=== PATIENT | female | born 1960 | race Two or more races ===

== ENCOUNTER 2016-07-03 07:14 | Day surgery (SDC) | payer MEDICARE, MEDICAID ==
[2016-07-03] MEDS ORDERED: PROPOFOL INJ 200 MG/20 ML VIAL IV ONE ×2 (07:21→08:46)
[2016-07-03 09:48] VITALS: BP 116/64
--- NOTE | 2016-07-03 12:41 | Operative Report ---
Operative Report DATE OF SURGERY: 07/03/16 Operative Report: The risks, benefits and alternatives of the procedure including the risks of bleeding, perforation requiring surgery are explained to the patient detail informed consent is obtained. The patient is placed in a left lateral decubital position. Timeout is called. Propofol is administered. A rectal examination was done which did not reveal any masses tears or fissures. An Olympus videoscope was inserted into the patient's rectum. Keeping the lumen in site at all times the scope is attempted to be advanced all the way to the cecum. However the patient has a very redundant colon. I was not able to intubate the cecum. It was largely an incomplete colonoscopy but I was at the area of the hepatic flexure. The prep is much better this time. However irrigation had to be used to cleanse the colon. The hepatic flexure the scope was then sequentially pulled back through the various segments of the colon including the transverse colon, splenic flexure, a very redundant descending colon. The sigmoid colon, and the rectum. Retroflexion maneuver is performed. PREOPERATIVE DIAGNOSIS: Chronic constipation, change of bowel habits. Patient has IBS constipation type POSTOPERATIVE DIAGNOSIS: Redundant colon. Incomplete colonoscopy; scope advanced only to the hepatic flexure. There is a mild right-sided inflammation status post biopsy. Internal hemorrhoids OPERATION: Colonoscopy with biopsy SURGEON: JAEL YAÑEZ ANESTHESIA: LMAC TISSUE REMOVED OR ALTERED: Right-sided colon specimens obtained COMPLICATIONS: None. ESTIMATED BLOOD LOSS: none. INTRAOPERATIVE FINDINGS: No obstruction noted. The cecum could not be visualized. Prep is better. No diverticulosis, AVMs are noted in the visualized portions of the colon. Internal hemorrhoids. PROCEDURE: Patient tolerated the procedure well. No immediate postprocedure complications are noted. She is discharged in good condition. Date of discharge 07/03/2016. Discharge activity: Regular. Discharge diet: Regular. Patient has a 2-3 week follow-up to discuss findings. She is instructed to go to emergency room to any further problems or questions. Alternatives imaging is necessary for her including an air-contrast barium enema if patient were to agree
== END 2016-07-03 09:55 | disposition home or self-care (01) ==
LOC: END 07:14
PROVIDERS: ATTEND Internal Medicine Gastroenterology
PROC: 0DBF8ZX Excision of Right Large Intestine, Via Natural or Artificial Opening Endoscopic, Diagnostic (ICD-10-PCS; principal; 2016-07-03 08:30)
DX: K52.9 Noninfective gastroenteritis and colitis, unspecified (principal); K64.8 Other hemorrhoids; Q43.8 Other specified congenital malformations of intestine; E11.9 Type 2 diabetes mellitus without complications; Z79.899 Other long term (current) drug therapy; Z79.82 Long term (current) use of aspirin
CPT/HCPCS: 45380; 82962; 88305 ×2; J2704; 810

== ENCOUNTER 2016-07-09 14:39 | Emergency (ER) | payer MEDICARE, MEDICAID ==
--- NOTE | 2016-07-09 15:09 | ER Document Report ---
ED Medical Screen (RME) - General Chief Complaint: Low Blood Sugar Stated Complaint: BLOOD SUGAR ISSUE Time seen by provider: 15:05 Mode of Arrival: Ambulatory Information source: Patient Notes: 56-year-old female with a history of gastric bypass checked her Accu-Chek at home and it went down to 44. She knows that of her glucose gets below 50 she needs to come to the emergency department. She did that Accu-Chek at 2:00 and she had lunch at 12. She feels weak and dizzy. she is drinking apple juice, and I ordered Accu-Chek to be done immediately. Hx cardiomegaly. No chest pain, sob or abd pain. TRAVEL OUTSIDE OF THE [place] IN LAST 30 DAYS: No - Related Data Allergies/Adverse Reactions: silicone [Silicone] Allergy (Intermediate, Verified 07/09/16 14:56) REDNESS, RASH carbidopa [From Sinemet] Adverse Reaction (Severe, Verified 07/09/16 14:56) Cardiac arrest levodopa [From Sinemet] Adverse Reaction (Severe, Verified 07/09/16 14:56) Cardiac arrest Past Medical History - Past Medical History Cardiac Medical History: Reports: Hx Hypercholesterolemia Denies: Hx Coronary Artery Disease, Hx Heart Attack - CARDIAC ARREST R/T DRUG REACTION(SINEMET), Hx Hypertension Pulmonary Medical History: Reports: Hx Asthma, Hx Bronchitis, Hx Pneumonia - MARCH 2015 Denies: Hx COPD Neurological Medical History: Reports: Hx Cerebrovascular Accident, Hx Seizures - UNSURE OF ETIOLOGY Endocrine Medical History: Reports: Hx Diabetes Mellitus Type 2 Renal/ Medical History: Reports: Hx Kidney Stones GI Medical History: Reports: Hx Hiatal Hernia - DX 30 YEARS AGO, Hx Ulcer - after gastric by pass, surg repaired Musculoskeltal Medical History: Reports Hx Arthritis - OSTEOARTHRITIS Psychiatric Medical History: Reports: Hx Anxiety, Hx Attention Deficit Hyperactivity Disorder, Hx Depression, Hx Post Traumatic Stress Disorder Past Surgical History: Reports: Hx Abdominal Surgery - gastric bypass, Hx Cholecystectomy, Hx Gastric Bypass Surgery, Hx Hysterectomy, Hx Orthopedic Surgery - back/spinal surgery, Hx Tubal Ligation. Denies: Hx Adenoidectomy, Hx Pacemaker - Immunizations Immunizations up to date: Yes Hx Diphtheria, Pertussis, Tetanus Vaccination: Yes - up to date within last 5 yrs Physical Exam - Vital signs Vitals: Temp Pulse Resp BP Pulse Ox 97.9 F 83 20 115/71 96 07/09/16 14:48 07/09/16 14:48 07/09/16 14:48 07/09/16 14:48 07/09/16 14:48 Course - Vital Signs Vital signs: Temp Pulse Resp BP Pulse Ox 97.9 F 83 20 115/71 96 07/09/16 14:48 07/09/16 14:48 07/09/16 14:48 07/09/16 14:48 07/09/16 14:48
--- NOTE | 2016-07-09 15:41 | ER Document Report ---
ED Blood Sugar Problem <PAULO CARVALHO - Last Filed: 07/09/16 16:55> - General Mode of Arrival: Ambulatory Information source: Patient TRAVEL OUTSIDE OF THE [place] IN LAST 30 DAYS: No - HPI Onset: Other - see narrative Onset/Duration: Persistent Quality of pain: No pain <ESTEFANI RODGERS - Last Filed: 07/09/16 18:24> - General Chief Complaint: Low Blood Sugar Stated Complaint: BLOOD SUGAR ISSUE Notes: Patient is a 56 year old female that presents to the emergency department today with complaints of a low blood glucose level. Patient states she has been having issues with a low BGL for the past few months. Patient states prior to arrival today the patient had a BGL of 44. Patient states she has had diarrhea as well. Patient states she has not missed any meals. (ESTEFANI RODGERS) - Related Data Allergies/Adverse Reactions: silicone [Silicone] Allergy (Intermediate, Verified 07/09/16 14:56) REDNESS, RASH carbidopa [From Sinemet] Adverse Reaction (Severe, Verified 07/09/16 14:56) Cardiac arrest levodopa [From Sinemet] Adverse Reaction (Severe, Verified 07/09/16 14:56) Cardiac arrest Past Medical History - General Information source: Patient - Social History Smoking Status: Unknown if Ever Smoked Cigarette use (# per day): No Frequency of alcohol use: None Drug Abuse: None Lives with: Family Family History: Reviewed & Not Pertinent Patient has suicidal ideation: No Patient has homicidal ideation: No - Past Medical History Cardiac Medical History: Reports: Hx Heart Attack - CARDIAC ARREST R/T DRUG REACTION(SINEMET), Hx Hypercholesterolemia Pulmonary Medical History: Reports: Hx Asthma, Hx Bronchitis, Hx Pneumonia - MARCH 2015 Neurological Medical History: Reports: Hx Cerebrovascular Accident, Hx Seizures - UNSURE OF ETIOLOGY Endocrine Medical History: Reports: Hx Diabetes Mellitus Type 2 Renal/ Medical History: Reports: Hx Kidney Stones GI Medical History: Reports: Hx Hiatal Hernia - DX 30 YEARS AGO, Hx Ulcer - after gastric by pass, surg repaired Musculoskeltal Medical History: Reports Hx Arthritis - OSTEOARTHRITIS Psychiatric Medical History: Reports: Hx Anxiety, Hx Attention Deficit Hyperactivity Disorder, Hx Depression, Hx Post Traumatic Stress Disorder Past Surgical History: Reports: Hx Abdominal Surgery - gastric bypass, Hx Cholecystectomy, Hx Gastric Bypass Surgery, Hx Hysterectomy, Hx Orthopedic Surgery - back/spinal surgery, Hx Tubal Ligation - Immunizations Immunizations up to date: Yes Hx Diphtheria, Pertussis, Tetanus Vaccination: Yes - up to date within last 5 yrs Hx Pneumococcal Vaccination: 03/31/14 <ESTEFANI RODGERS - Last Filed: 07/09/16 18:24> Review of Systems - Review of Systems Constitutional: See HPI, Other - low BGL EENT: No symptoms reported Cardiovascular: No symptoms reported Respiratory: No symptoms reported Gastrointestinal: See HPI, Diarrhea Genitourinary: No symptoms reported Female Genitourinary: No symptoms reported Musculoskeletal: No symptoms reported Skin: No symptoms reported Hematologic/Lymphatic: No symptoms reported Neurological/Psychological: No symptoms reported -: Yes All other systems reviewed and negative <ESTEFANI RODGERS - Last Filed: 07/09/16 18:24> Physical Exam - General General appearance: Appears well In distress: None - HEENT Head: Normocephalic, Atraumatic Eyes: Normal Extraocular movements intact: Yes - Respiratory Respiratory status: No respiratory distress Chest status: Nontender Breath sounds: Normal - Cardiovascular Rhythm: Regular Heart sounds: Normal auscultation Murmur: No - Abdominal Inspection: Obese - Back Back: Normal, Nontender - Extremities General upper extremity: Normal inspection, Nontender. No: Edema General lower extremity: Normal inspection, Nontender. No: Edema - Neurological Neuro grossly intact: Yes Cognition: Normal Speech: Normal - Psychological Associated symptoms: Depressed - Skin Skin Temperature: Warm Skin Moisture: Dry Skin Color: Normal <ESTEFANI RODGERS - Last Filed: 07/09/16 18:24> - Vital signs Vitals: Temp Pulse Resp BP Pulse Ox 97.9 F 83 20 115/71 96 07/09/16 14:48 07/09/16 14:48 07/09/16 14:48 07/09/16 14:48 07/09/16 14:48 (PAULO CARVALHO) (ESTEFANI RODGERS) Course - Laboratory Result Diagrams: 07/09/16 15:55 07/09/16 15:55 <PAULO CARVALHO - Last Filed: 07/09/16 16:55> - Laboratory Result Diagrams: 07/09/16 15:55 07/09/16 15:55 <ESTEFANI RODGERS - Last Filed: 07/09/16 18:24> - Vital Signs Vital signs: Temp Pulse Resp BP Pulse Ox 98.4 F 78 14 109/66 95 07/09/16 17:26 07/09/16 17:26 07/09/16 17:26 07/09/16 17:26 07/09/16 17:26 (PAULO CARVALHO) (ESTEFANI RODGERS) - Laboratory Laboratory results interpreted by me: 07/09/16 07/09/16 07/09/16 15:55 15:55 15:55 RDW 14.8 H Seg Neutrophils % 80.2 H Lymphocytes % 11.0 L Creatinine 0.51 L Glucose 173 H AST 38 H Creatine Kinase 29 L Urine Urobilinogen 2.0 H Ur Leukocyte Esterase TRACE H (PAULO CARVALHO) Scribe Documentation - Scribe acting as scribe for :: Paras <ESTEFANI RODGERS - Last Filed: 07/09/16 18:24> - Scribe Written by Scribe:: JESSICA PAINTING 07/09/16 1821 (ESTEFANI RODGERS)
[2016-07-09 16:04] LABS: ABSOLUTE EOSINOPHILS # (AUTO) 0.2 10^3/uL (0.0-0.6); ABSOLUTE LYMPHOCYTES (AUTO) 0.9 10^3/uL (0.5-4.7); ABSOLUTE MONOCYTES (AUTO) 0.5 10^3/uL (0.1-1.4); ABSOLUTE NEUT (AUTO) 6.4 10^3/uL (1.7-8.2); BASOPHILS % (AUTO) 0.3 % (0-2); HEMATOCRIT 36.2 % (36.0-47.0); HEMOGLOBIN 12.2 g/dL (12.0-15.5); HGB HCT DIFFERENCE 0.4; MEAN CORPUSCULAR HGB CONC 33.7 g/dL (32.0-36.0); MEAN CORPUSCULAR VOLUME 89 fl (80-97); MONOCYTES % (AUTO) 6.5 % (3-13); RED BLOOD COUNT 4.07 10^6/uL (3.72-5.28); RED CELL DISTRIBUTION WIDTH 14.8 % (11.5-14.0); SEGMENTED NEUTROPHILS % (AUTO) 80.2 % (42-78)
[2016-07-09 16:17] LABS: APPEARANCE,URINE CLOUDY; BILIRUBIN,URINE NEGATIVE (NEGATIVE); CALCIUM OXALATE CRYSTALS,URINE TOO NUMEROUS TO CNT /HPF; GLUCOSE, URINE NEGATIVE (NEGATIVE); KETONES,URINE NEGATIVE (NEGATIVE); LEUKOCYTE ESTERASE,URINE TRACE (NEGATIVE); NITRITE,URINE NEGATIVE (NEGATIVE); PROTEIN,URINE NEGATIVE (NEGATIVE); URINE SPECIFIC GRAVITY 1.019
[2016-07-09 16:21] LABS: ALANINE AMINOTRANSFERASE 49 U/L (9-52); ALKALINE PHOSPHATASE 63 U/L (38-126); ANION GAP 12 (5-19); ASPARTATE AMINO TRANSFERASE 38 U/L (14-36); BILIRUBIN,TOTAL 0.2 mg/dL (0.2-1.3); BLOOD UREA NITROGEN 14 mg/dL (7-20); CALCIUM 9.2 mg/dL (8.4-10.2); CARBON DIOXIDE 22 mmol/L (22-30); CHLORIDE 104 mmol/L (98-107); CREATINE KINASE 29 U/L (30-135); CREATININE RESULT 0.51 mg/dL (0.52-1.25); GLUCOSE 173 mg/dL (75-110); POTASSIUM 4.5 mmol/L (3.6-5.0); SODIUM 137.9 mmol/L (137-145); TOTAL PROTEIN 6.6 g/dL (6.3-8.2)
[2016-07-09 16:45] LABS: CREATINE KINASE MB 0.24 ng/mL (<4.55); TROPONIN I < 0.012 ng/mL
[2016-07-09 17:28] VITALS: BP 109/66
== END 2016-07-09 17:20 | disposition home or self-care (01) ==
LOC: ER 14:39
DX: E11.649 Type 2 diabetes mellitus with hypoglycemia without coma (principal); R19.7 Diarrhea, unspecified; F32.9 Major depressive disorder, single episode, unspecified; I25.2 Old myocardial infarction; J45.909 Unspecified asthma, uncomplicated; Z86.73 Personal history of transient ischemic attack (TIA), and cerebral infarction without residual deficits; Z88.8 Allergy status to other drugs, medicaments and biological substances
CPT/HCPCS: 36415; 80053; 81001; 82550; 82553; 82962; 84484; 85025; 87086; 87088; 87186; 99285

== ENCOUNTER 2016-11-26 10:10 | Inpatient (IN) | payer MEDICAID, MEDICARE ==
--- NOTE | 2016-11-26 10:33 | RADIOLOGY REPORT (SQ) ---
EXAM DESCRIPTION: CHEST SINGLE VIEW COMPLETED DATE/TIME: 11/26/2016 10:22 am REASON FOR STUDY: bed t2 srtoke alert COMPARISON: 04/02/2016 EXAM PARAMETERS: NUMBER OF VIEWS: One view. TECHNIQUE: Single frontal radiographic view of the chest acquired. RADIATION DOSE: NA LIMITATIONS: None. FINDINGS: LUNGS AND PLEURA: Lung volumes low. No acute pulmonary infiltrate or pleural effusion is seen. MEDIASTINUM AND HILAR STRUCTURES: No masses. Contour normal. HEART AND VASCULAR STRUCTURES: Heart normal in size. Normal vasculature. BONES: No acute findings. HARDWARE: None in the chest. OTHER: No other significant finding. IMPRESSION: Poor inspiratory effort. No acute pulmonary disease is seen. TECHNICAL DOCUMENTATION: JOB ID: [id number]
[2016-11-26 10:40] LABS: MEAN CORPUSCULAR HEMOGLOBIN 30.3 pg (27.0-33.4); MEAN CORPUSCULAR HGB CONC 33.4 g/dL (32.0-36.0); MEAN CORPUSCULAR VOLUME 91 fl (80-97); RED BLOOD COUNT 4.28 10^6/uL (3.72-5.28); RED CELL DISTRIBUTION WIDTH 14.8 % (11.5-14.0); WHITE BLOOD COUNT 8.7 10^3/uL (4.0-10.5)
[2016-11-26 10:41] LABS: PROTHROMBIN TIME 13.1 SEC (11.4-15.4)
[2016-11-26] MEDS ORDERED: BENZTROPINE MESYLATE INJ 2 MG/2 ML AMPULE IM ONE (10:41)
[2016-11-26] MEDS ORDERED: NORMAL SALINE 1000 ML 1,000 ML IV ONE (10:41)
--- NOTE | 2016-11-26 10:42 | RADIOLOGY REPORT (SQ) ---
EXAM DESCRIPTION: CT HEAD WITHOUT COMPLETED DATE/TIME: 11/26/2016 10:18 am REASON FOR STUDY: bed t2 srtoke alert COMPARISON: None. TECHNIQUE: Axial images acquired through the brain without intravenous contrast. Images reviewed wi th bone, brain and subdural windows. Images stored on PACS. All CT scanners at this facility use dose modulation, iterative reconstruction, and/or weight based d osing when appropriate to reduce radiation dose to as low as reasonably achievable (ALARA). [facility]: Dose Right [facility]: CareDose [facility]: Dose Right [facility]: Teradose 4D [facility]: Polyvore RADIATION DOSE: 62.55 mGy. LIMITATIONS: None. FINDINGS: VENTRICLES: Normal size and contour. CEREBRUM: No masses. No hemorrhage. No midline shift. Normal sears/white matter differentiation. N o evidence for acute infarction. CEREBELLUM: No masses. No hemorrhage. No alteration of density. No evidence for acute infarction. EXTRAAXIAL SPACES: No fluid collections. No masses. ORBITS AND GLOBE: No intra- or extraconal masses. Normal contour of globe without masses. CALVARIUM: No fracture. PARANASAL SINUSES: No fluid or mucosal thickening. SOFT TISSUES: No mass or hematoma. OTHER: No other significant finding. IMPRESSION: NORMAL BRAIN CT WITHOUT CONTRAST. COMMENT: Report discussed with emergency room physician at 1035 hours on this date. TECHNICAL DOCUMENTATION: JOB ID: [id number] Quality ID # [id number]: Final reports with documentation of one or more dose reduction techniques (e.g., Au tomated exposure control, adjustment of the mA and/or kV according to patient size, use of iterative reconstruction technique) 2010 [employer]- All Rights Reserved
[2016-11-26 10:43] LABS: PARTIAL THROMBOPLASTIN TIME 26.9 SEC (23.5-35.8)
--- NOTE | 2016-11-26 10:47 | ER Document Report ---
ED General - General Stated Complaint: POSSIBLE STROKE Time Seen by Provider: 11/26/16 10:20 TRAVEL OUTSIDE OF THE [place] IN LAST 30 DAYS: No - HPI Patient complains to provider of: Right-sided weakness Notes: Patient is coming in for evaluation of right-sided weakness. According to family members patient look at 5:00 this morning with her undergo a breathing treatment however workup around 945 and was found to have some right-sided weakness therefore transported to the ER for further evaluation. Patient is having right facial droop right upper extremity or lower extremity weakness. Patient claims past medical charts has a history of CVA in the past Parkinson' s disease however this time family member at bedside denies. States right- sided symptoms numbness tingling ongoing for greater than a week. States made no changes in patient's medication. Currently we do not have access to the patient's medication list. States no trauma no fevers no chills. Upon evaluation patient has her eyes closed will open them on command will answer questions. - Related Data Allergies/Adverse Reactions: silicone [Silicone] Allergy (Intermediate, Verified 07/09/16 14:56) REDNESS, RASH carbidopa [From Sinemet] Adverse Reaction (Severe, Verified 07/09/16 14:56) Cardiac arrest levodopa [From Sinemet] Adverse Reaction (Severe, Verified 07/09/16 14:56) Cardiac arrest Home Medications: Current Home Medications Albuterol Sulfate [Ventolin 0.083% Neb 2.5 mg/3 mL Ampul] 3 ml NEB [id number] PRN [History] Albuterol Sulfate [Ventolin Hfa] 2 puff IH Q12 11/26/16 [History] Amitriptyline HCl [Elavil 100 mg Tablet] 100 mg PO QHS 11/26/16 [History] Aspirin [Adult Low Dose Aspirin EC] 81 mg PO QHS 11/26/16 [History] Cholecalciferol (Vitamin D3) [Vitamin D3 2000 unit Tablet] 2,000 unit PO DAILY 11/26/16 [History] Cyanocobalamin (Vitamin B-12) [Vitamin B-12 Inj 1000 Mcg/1 ml Vial] 1 ml IM Q28D 11/26/16 [History] Diazepam [Valium 5 mg Tablet] 5 mg PO TIDP PRN 11/26/16 [History] Diclofenac Sodium [Voltaren] 4 gm TOP QID 11/26/16 [History] Esomeprazole Mag Trihydrate [Nexium] 40 mg PO QAM 11/26/16 [History] Fluoxetine HCl [Prozac] 80 mg PO QAM 11/26/16 [History] Fluticasone/Salmeterol [Advair 250-50 Diskus 14 Dose/Diskus] 1 puff IH Q12 11/26 [History] Lidocaine [Lidoderm 5% (700 mg) Transdermal Patch] 3 patch TD QHS 11/26/16 [ History] Melatonin/Pyridoxine [Melatonin 3 mg Tablet] 9 mg PO QHS 11/26/16 [History] Methylphenidate HCl [Ritalin] 10 mg PO QAM 11/26/16 [History] Mometasone Furoate [Nasonex] 2 spray NASL BID 11/26/16 [History] Mupirocin [Bactroban 2% Ointment 22 gm] 1 applic TOP TID 11/26/16 [History] Nystatin [Mycostatin Topical Powder 15 gm] 1 applic TOP QID 11/26/16 [History] Polyethylene Glycol 3350 [Miralax Powder 17 gm/Packet] 17 gm PO TID 11/26/16 [ History] Sucralfate [Carafate Susp 1 gm/10 ml Udcup] 10 ml PO MEALSHS 11/26/16 [History] Thiamine HCl [Thiamine 100 mg Tablet] 100 mg PO WLUNCH 11/26/16 [History] Trazodone HCl [Desyrel] 100 mg PO QHS 11/26/16 [History] Past Medical History - Social History Smoking Status: Unknown if Ever Smoked Family History: Reviewed & Not Pertinent - Past Medical History Cardiac Medical History: Reports: Hx Heart Attack - CARDIAC ARREST R/T DRUG REACTION(SINEMET), Hx Hypercholesterolemia Denies: Hx Coronary Artery Disease, Hx Hypertension Pulmonary Medical History: Reports: Hx Asthma, Hx Bronchitis, Hx Pneumonia - MARCH 2015 Denies: Hx COPD Neurological Medical History: Reports: Hx Cerebrovascular Accident, Hx Seizures - UNSURE OF ETIOLOGY Endocrine Medical History: Reports: Hx Diabetes Mellitus Type 2 Renal/ Medical History: Reports: Hx Kidney Stones GI Medical History: Reports: Hx Hiatal Hernia - DX 30 YEARS AGO, Hx Ulcer - after gastric by pass, surg repaired Musculoskeltal Medical History: Reports Hx Arthritis - OSTEOARTHRITIS Psychiatric Medical History: Reports: Hx Anxiety, Hx Attention Deficit Hyperactivity Disorder, Hx Depression, Hx Post Traumatic Stress Disorder Past Surgical History: Reports: Hx Abdominal Surgery - gastric bypass, Hx Cholecystectomy, Hx Gastric Bypass Surgery, Hx Hysterectomy, Hx Orthopedic Surgery - back/spinal surgery, Hx Tubal Ligation. Denies: Hx Adenoidectomy, Hx Pacemaker - Immunizations Immunizations up to date: Yes Hx Diphtheria, Pertussis, Tetanus Vaccination: Yes - up to date within last 5 yrs Hx Pneumococcal Vaccination: 03/31/14 Review of Systems - Review of Systems Constitutional: No symptoms reported EENT: No symptoms reported Cardiovascular: No symptoms reported Respiratory: No symptoms reported Gastrointestinal: No symptoms reported Genitourinary: No symptoms reported Female Genitourinary: No symptoms reported Musculoskeletal: Other - Right sided weakness Skin: No symptoms reported Hematologic/Lymphatic: No symptoms reported Neurological/Psychological: No symptoms reported -: Yes All other systems reviewed and negative Physical Exam - Vital signs Vitals: Pulse Resp BP Pulse Ox 78 21 H 136/85 H 94 11/26/16 10:15 11/26/16 10:15 11/26/16 10:15 11/26/16 10:15 Interpretation: Normal - General General appearance: Appears well, Alert - HEENT Head: Normocephalic, Atraumatic Eyes: Normal Pupils: PERRL - Respiratory Respiratory status: No respiratory distress Chest status: Nontender Breath sounds: Normal Chest palpation: Normal - Cardiovascular Rhythm: Regular Heart sounds: Normal auscultation Murmur: No - Abdominal Inspection: Normal Distension: No distension Bowel sounds: Normal Tenderness: Nontender Organomegaly: No organomegaly - Back Back: Normal, Nontender - Extremities General upper extremity: Normal inspection, Nontender, Normal color, Normal ROM , Normal temperature General lower extremity: Normal inspection, Nontender, Normal color, Normal ROM , Normal temperature, Normal weight bearing. No: Guido's sign - Neurological Neuro grossly intact: Yes Cognition: Normal [place] Coma Scale Eye Opening: Spontaneous [place] Coma Scale Verbal: Oriented [place] Coma Scale Motor: Obeys Commands [place] Coma Scale Total: 15 Speech: Normal Motor strength normal: LUE, RUE, LLE, RLE Sensory: Normal Notes: Patient's neurological exam does have some inconsistencies. Patient is able to close both her eyes very tightly which will cause her eyebrows to go down however when asked to open her eyes patient will not open her right eye patient does resist opening this when I apply my fingers to open the parotid. Patient also states she is unable to raise her eyebrow however she is able to move it. Patient is able speak however states she is unable to stick out her tongue. Patient is able to smile and there is a symmetry of her smile on the right side. Initially testing motor strength patient is able to hold her left arm up patient's right arm initially follows with some resistance to gravity to the bed on the second attempt patient's arm becomes flaccid and frustrated that. Patient does not feel any pain or sensation on the right lower extremity unable to support the bed patient is unable to hold this up in the air. When pushing the end of the wooden Q-tips into her foot on the right side patient states she cannot feel however the patient screams when I did this to the left side. - Psychological Associated symptoms: Normal affect, Normal mood - Skin Skin Temperature: Warm Skin Moisture: Dry Skin Color: Normal Course - Re-evaluation Re-evalutation: 11/26/16 10:47 Patient has presented before to the ER for possible stroke and was found to have a dystonic reaction. We will give the patient some Cogentin. CT of the head reveals no current pathology and also no signs of old stroke. Patient symptoms ongoing greater than 4 hours out of the window for any thrombolytics. I did explain this to the patient and family members at bedside. Also patient will not be a candidate that she awoke with symptoms. - Vital Signs Vital signs: Temp Pulse Resp BP Pulse Ox 99.4 F 70 16 127/76 H 93 11/26/16 15:59 11/26/16 15:59 11/26/16 15:59 11/26/16 15:59 11/26/16 15:59 - Laboratory Result Diagrams: 11/26/16 10:25 11/26/16 11:28 Laboratory results interpreted by me: 11/26/16 11/26/16 11/26/16 10:25 11:28 12:15 RDW 14.8 H Eosinophils % (Manual) 7 H Creatinine 0.42 L AST 41 H ALT 92 H Ur Leukocyte Esterase TRACE H Critical Care Note - Critical Care Note Total time excluding time spent on procedures (mins): 35 Comments: Multiple evaluations for possible stroke Discharge - Discharge Clinical Impression: History of gastric bypass, Weakness of right upper extremity, Weakness of right lower extremity Diabetes Qualifiers: Diabetes mellitus complication status: with unspecified complications Diabetes mellitus forecast analyst insulin use: unspecified forecast analyst insulin use status Admitting Provider: Joey Ledesma Unit Admitted: Telemetry
[2016-11-26 11:08] LABS: BASOPHILS % (MANUAL) 0 % (0-2); EOSINOPHILS % (MANUAL) 7 % (0-6); LYMPHOCYTES % (MANUAL) 15 % (13-45); TOTAL CELLS COUNTED 100
[2016-11-26 11:11] LABS: RBC MORPHOLOGY COMMENT NORMO-CYTIC/CHROMIC
[2016-11-26 11:56] LABS: ALANINE AMINOTRANSFERASE 92 U/L (9-52); ALBUMIN 3.7 g/dL (3.5-5.0); ALKALINE PHOSPHATASE 80 U/L (38-126); ANION GAP 9 (5-19); ASPARTATE AMINO TRANSFERASE 41 U/L (14-36); BILIRUBIN,DIRECT 0.2 mg/dL (0.0-0.4); BILIRUBIN,TOTAL 0.4 mg/dL (0.2-1.3); BLOOD UREA NITROGEN 13 mg/dL (7-20); CALCIUM 9.1 mg/dL (8.4-10.2); CARBON DIOXIDE 25 mmol/L (22-30); CHLORIDE 105 mmol/L (98-107); CREATINE KINASE 30 U/L (30-135); CREATININE RESULT 0.42 mg/dL (0.52-1.25); GLUCOSE 93 mg/dL (75-110); POTASSIUM 4.5 mmol/L (3.6-5.0); SODIUM 139.1 mmol/L (137-145); TOTAL PROTEIN 6.8 g/dL (6.3-8.2)
[2016-11-26 12:06] LABS: CREATINE KINASE MB 0.79 ng/mL (<4.55)
[2016-11-26 12:14] LABS: TROPONIN I < 0.012 ng/mL
[2016-11-26 12:34] LABS: APPEARANCE,URINE CLEAR; BILIRUBIN,URINE NEGATIVE (NEGATIVE); GLUCOSE, URINE NEGATIVE (NEGATIVE); KETONES,URINE NEGATIVE (NEGATIVE); LEUKOCYTE ESTERASE,URINE TRACE (NEGATIVE); NITRITE,URINE NEGATIVE (NEGATIVE); PROTEIN,URINE NEGATIVE (NEGATIVE); URINE SPECIFIC GRAVITY 1.018; UROBILINOGEN,URINE NEGATIVE mg/dL (<2.0)
[2016-11-26] MEDS ORDERED: ACETAMINOPHEN 325 MG TABLET PO PRN (13:55)
[2016-11-26] MEDS ORDERED: DEXTROSE 40% GEL 15 GM TUBE PO PRN ×2 (13:55)
[2016-11-26] MEDS ORDERED: DEXTROSE 5%-1/2 NORMAL SALINE 1,000 ML IV PRN (13:55)
[2016-11-26] MEDS ORDERED: GLUCAGON,HUMAN RECOMB 1 MG INJ SUBCUT PRN (13:55)
[2016-11-26] MEDS ORDERED: DEXTROSE 50%-WATER 25 GM/50 ML DISP.SYRIN IV PRN ×2 (13:55)
[2016-11-26] MEDS ORDERED: HYDRALAZINE HCL INJ/PF 20 MG/1 ML SDV IV PRN (14:02)
[2016-11-26] MEDS ORDERED: INSULIN LISPRO 100 UNIT/ML 3 ML VIAL SUBCUT PRN (14:18)
--- NOTE | 2016-11-26 14:21 | PDOC H&P ---
History of Present Illness Admission Date/PCP: 11/26/16 12:59 ELIZABETH ROMERO DO Neurologist-Dr. Wray Psychiatrist-Dr. Ortiz Patient complains of: Weakness History of Present Illness: THERESA MEJIA is a 56 year old female with past medical history of stroke , fibromyalgia, PTSD presents with onset this morning of right-sided weakness and numbness. She has had some numbness in her right side for the past 2 weeks. This morning she was unable to get out of bed and called EMS to be transported to the emergency department for evaluation. Patient normally resides with her friend Jeanna who has to look after patient's medications at baseline. Apparently patient cannot manage her own medications secondary to mental health issues. Patient has 3 living children that are estranged from her for various reasons she states because they call her a "drug addict". She denies drug use. Patient states that several of her psychiatric medicines were decreased a couple weeks ago secondary to oversedation. Medications listed below have not been verified. Past Medical History Cardiac Medical History: Reports: Myocardial Infarction - CARDIAC ARREST R/T DRUG REACTION(SINEMET), Hyperlipidema Denies: Coronary Artery Disease, Hypertension Pulmonary Medical History: Reports: Asthma, Bronchitis, Pneumonia - MARCH 2015 , Sleep Apnea - On home CPAP Denies: Chronic Obstructive Pulmonary Disease (COPD) Neurological Medical History: Reports: Ischemic CVA, Migraine, Seizures - UNSURE OF ETIOLOGY, Other - Wernicke's, Parkinson's, fibromyalgia Endocrine Medical History: Reports: Diabetes Mellitus Type 2 GI Medical History: Reports: Hiatal Hernia - DX 30 YEARS AGO Musculoskeltal Medical History: Reports: Arthritis - OSTEOARTHRITIS, Fibromyalgia Psychiatric Medical History: Reports: Attention Deficit Hyperactivity Disorder, Depression, Post Traumatic Stress Disorder Hematology: Reports: Anemia - IRON INFUSIONS Past Surgical History Past Surgical History: Reports: Cholecystectomy, Gastric Bypass Surgery, Hysterectomy, Orthopedic Surgery - back/spinal surgery, Tubal Ligation Denies: Adenoidectomy, Pacemaker Social History Information Source: Patient Lives with: Friend Smoking Status: Unknown if Ever Smoked Frequency of Alcohol Use: None Hx Recreational Drug Use: No Drugs: None Hx Prescription Drug Abuse: No - Advance Directive Resuscitation Status: Full Code Surrogate healthcare decision maker:: Jeanna Dougherty Family History Family History: Other - Dementia, psychiatric illness Parental Family History Reviewed: Yes Children Family History Reviewed: Yes Sibling(s) Family History Reviewed.: Yes Medication/Allergy Allergies/Adverse Reactions: silicone [Silicone] Allergy (Intermediate, Verified 07/09/16 14:56) REDNESS, RASH carbidopa [From Sinemet] Adverse Reaction (Severe, Verified 07/09/16 14:56) Cardiac arrest levodopa [From Sinemet] Adverse Reaction (Severe, Verified 07/09/16 14:56) Cardiac arrest Review of Systems Constitutional: PRESENT: fatigue, weakness. ABSENT: chills, fever(s), headache( s), weight gain, weight loss Eyes: ABSENT: visual disturbances Ears: ABSENT: hearing changes Nose, Mouth, and Throat: PRESENT: headache(s) Cardiovascular: ABSENT: chest pain, dyspnea on exertion, edema, orthropnea, palpitations Respiratory: ABSENT: cough, hemoptysis Gastrointestinal: ABSENT: abdominal pain, constipation, diarrhea, hematemesis, hematochezia, nausea, vomiting Genitourinary: ABSENT: dysuria, hematuria Musculoskeletal: ABSENT: joint swelling Integumentary: ABSENT: rash, wounds Neurological: PRESENT: abnormal gait, abnormal speech, dizziness, focal weakness - Right arm and right leg, memory loss, numbness, paresthesias, tingling. ABSENT: confusion, syncope Psychiatric: PRESENT: anxiety, depression. ABSENT: homidical ideation, suicidal ideation Endocrine: ABSENT: cold intolerance, heat intolerance, polydipsia, polyuria Hematologic/Lymphatic: ABSENT: easy bleeding, easy bruising Physical Exam Vital Signs: Temp Pulse Resp BP Pulse Ox 75 17 122/75 92 11/26/16 12:00 11/26/16 13:01 11/26/16 13:01 11/26/16 12:01 PHYSICAL EXAM: GENERAL: Depressed appearing, initially acting unresponsive until I said something that she did not agree with that and she verbalized clearly HEENT: Normocephalic, no scleral icterus, conjunctiva clear, EOEM intact, PERRLA , moist mucous membranes NECK: trachea midline, no thyromegally RESPIRATORY: Clear to auscultation, no wheezes/rhonchi CARDIAC: Regular rate and rhythm, no murmur/lanette/rub ABDOMEN: Soft, no distension, no tenderness, no guarding, normal bowel sounds, negative West sign RECTAL: deferred : deferred EXTREMITIES: No edema, cyanosis, clubbing MUSCULOSKELETAL: No joint swelling or deformity VASCULAR: normal peripheral pulses NEUROLOGIC: Sedated, oriented 3, cranial nerves intact, dense weakness in right arm and right leg during exam however when I let go of patient's arm suddenly she lowers it to the bed gradually indicating neurologic tone. SKIN: No rash, no wounds, no worrisome skin lesions PSYCHIATRIC: Depressed mood, unusual affect Results Impressions: Chest X-Ray 11/26/16 10:11 IMPRESSION: Poor inspiratory effort. No acute pulmonary disease is seen. Head CT 11/26/16 10:11 IMPRESSION: NORMAL BRAIN CT WITHOUT CONTRAST. Assessment & Plan - Diagnosis (1) TIA (transient ischemic attack) Is this a current diagnosis for this admission?: YesPlan: It is unclear if patient is actually having an acute neurologic event or if she has psychiatric illness or both. We will place patient in observation status on telemetry monitoring and do standard TIA workup. Start aspirin. Check lipid panel. Check MRI of the brain. Check carotid Dopplers. Have physical therapy and occupational therapy evaluate. (2) Affective disorder Is this a current diagnosis for this admission?: YesPlan: Patient psychiatrist Dr. Ortiz recently decreased multiple medications secondary to oversedation. Patient still seems somewhat sedate. She will need to follow-up with psychiatry after discharge. We will verify home medications and resume for now. (3) Obstructive sleep apnea Is this a current diagnosis for this admission?: YesPlan: Patient to use home CPAP (4) Diabetes Qualifiers: Diabetes mellitus complication status: with unspecified complications Diabetes mellitus extermination inspector insulin use: unspecified retirement insulin use status Is this a current diagnosis for this admission?: YesPlan: Sliding scale insulin. Check hemoglobin A1c. Verify home medications. (5) History of gastric bypass Is this a current diagnosis for this admission?: Yes - Time Time Spent: Greater than 70 Minutes Medications reviewed and adjusted accordingly: No - Medication reconciliation performed prior to this dictation
[2016-11-26] MEDS ORDERED: ENOXAPARIN SODIUM INJ 40 MG/0.4 ML DISP.SYRIN SUBCUT ONE (15:00)
[2016-11-26 15:13] LABS: URINE BARBITURATES SCREEN NEGATIVE; URINE METHADONE SCREEN NEGATIVE; URINE OPIATES LOW NEGATIVE; URINE PHENCYCLIDINE SCREEN NEGATIVE
[2016-11-26] MEDS: 1/2 NORMAL SALINE 1,000 ML IV PRN (16:51)
[2016-11-26] MEDS ORDERED: ONDANSETRON HCL INJ/PF 4 MG/2 ML SDV IV PRN (18:25)
[2016-11-26] MEDS: KETOROLAC TROMETHAMINE INJ/PF 30 MG/1 ML SDV IV PRN (18:47)
--- NOTE | 2016-11-26 20:38 | RADIOLOGY REPORT (SQ) ---
EXAM DESCRIPTION: MRI HEAD WITHOUT COMPLETED DATE/TIME: 11/26/2016 7:57 pm REASON FOR STUDY: TIA E11.59 TYPE 2 DIABETES MELLITUS WITH OTH CIRCULATORY COMPLIC COMPARISON: 11/26/2016 TECHNIQUE: Multiplanar imaging includes non-contrasted T1, T2, FLAIR, and Diffusion with ADC map seq uences. Images stored on PACS. LIMITATIONS: None. FINDINGS: ANATOMY: No anomalies. Normal vascular flow voids. Pituitary fossa normal. CSF SPACES: Normal in size and contour. No hemorrhage. CEREBRUM: There are high-signal intensity lesions scattered throughout the white matter on FLAIR imag ing with distribution suggesting chronic micro-vascular ischemic change. Sulci and gyri normal in si ze and contour. No evidence of hemorrhage, mass or extraaxial fluid collection. POSTERIOR FOSSA: No signal alteration. No hemorrhage. No edema, masses or mass effect. Internal lyssa tory canals, cerebello-pontine angles, mastoids normal. DIFFUSION: Negative for acute or sub-acute infarction. ORBITS: No masses. Globes normal. PARANASAL SINUSES: No fluid levels. Mucosa normal. OTHER: No other significant finding. IMPRESSION: MINIMAL MICROVASCULAR ISCHEMIC CHANGE. OTHERWISE NORMAL STUDY. TECHNICAL DOCUMENTATION: JOB ID: [id number] [employer]- All Rights Reserved
--- NOTE | 2016-11-27 00:27 | EKG REPORT ---
SEVERITY:- NORMAL ECG - SINUS RHYTHM : Confirmed by: Deyvi Sandhu 27-Nov-2016 00:26:09
[2016-11-27] MEDS: KETOROLAC TROMETHAMINE INJ/PF 30 MG/1 ML SDV IV PRN ×2 (02:41→13:16)
[2016-11-27] MEDS: 1/2 NORMAL SALINE 1,000 ML IV PRN (05:18)
[2016-11-27 06:40] LABS: CHOLESTEROL 223.66 mg/dL (0-200); Direct HDL 59 mg/dL (>40); TRIGLYCERIDES 90 mg/dL (<150)
[2016-11-27 06:51] LABS: DIRECT LDL 120 mg/dL (<100)
[2016-11-27] MEDS: ENOXAPARIN SODIUM INJ 40 MG/0.4 ML DISP.SYRIN SUBCUT SCH (09:20)
--- NOTE | 2016-11-27 09:42 | RADIOLOGY REPORT (SQ) ---
EXAM DESCRIPTION: CAROTID DOPPLER COMPLETED DATE/TIME: 11/27/2016 8:54 am REASON FOR STUDY: TIA E11.59 TYPE 2 DIABETES MELLITUS WITH OTH CIRCULATORY COMPLIC COMPARISON: MRI brain 11/26/2016 CT brain 11/26/2016 TECHNIQUE: Grayscale ultrasound, Doppler velocity and spectra, and color Doppler images acquired of the extra-cranial carotid and vertebral arteries. Images stored on PACS. LIMITATIONS: None. FINDINGS: RIGHT CAROTID CCA Velocities: Within normal limits. ICA Velocities Peak systolic 0.63 m/s. End diastolic 0.18 m/s. Proximal ICA/CCA peak systolic ratio 1.3. Spectra normal. No significant plaque. LEFT CAROTID CCA Velocities: Within normal limits. ICA Velocities Peak systolic 0.63 m/s. End diastolic 0.22 m/s. Proximal ICA/CCA peak systolic ratio 1.4. Spectra normal. No significant plaque. VERTEBRAL ARTERIES: Antegrade flow. Normal waveforms. SUBCLAVIAN ARTERIES: Not evaluated OTHER: No other significant finding. IMPRESSION: NO HEMODYNAMICALLY SIGNIFICANT STENOSIS. COMMENT: Quality ID #[id number]: Velocity criteria are extrapolated from the diameter data as defined by t he Society of Radiologists in Ultrasound Consensus Conference. Radiology 2003: 229; 340-346. TECHNICAL DOCUMENTATION: JOB ID: [id number] [employer]- All Rights Reserved
[2016-11-27] MEDS ORDERED: ASPIRIN 300 MG SUPP, RECTAL PR SCH (10:00)
[2016-11-27] MEDS ORDERED: ASPIRIN 325 MG TABLET, ENT COATED PO SCH (10:00)
--- NOTE | 2016-11-27 14:11 | PDOC PROGRESS REPORT ---
Physical Exam Vital Signs: Temp Pulse Resp BP Pulse Ox 98.1 F 65 16 121/58 L 92 11/27/16 07:21 11/27/16 08:00 11/27/16 08:00 11/27/16 08:00 11/27/16 08:00 Intake & Output 11/26/16 11/27/16 11/28/16 06:59 06:59 06:59 Intake Total 798 Output Total 2075 Balance -1277 Weight 109.2 kg 109.2 kg Results Laboratory Results: 11/27/16 05:48 Triglycerides 90 Cholesterol 223.66 H LDL Cholesterol Direct 120 H VLDL Cholesterol 18.0 HDL Cholesterol 59 Impressions: Head MRI 11/26/16 00:00 IMPRESSION: MINIMAL MICROVASCULAR ISCHEMIC CHANGE. OTHERWISE NORMAL STUDY. Chest X-Ray 11/26/16 10:11 IMPRESSION: Poor inspiratory effort. No acute pulmonary disease is seen. Head CT 11/26/16 10:11 IMPRESSION: NORMAL BRAIN CT WITHOUT CONTRAST. Carotid Doppler Study 11/27/16 00:00 IMPRESSION: NO HEMODYNAMICALLY SIGNIFICANT STENOSIS. Assessment & Plan - Diagnosis (1) Conversion disorder Is this a current diagnosis for this admission?: YesPlan: I will continue to try and call Dr. Boris Ortiz psychiatry in [facility] ([phone]) to discuss management. I have attempted on one occasion today and received a voicemail message. (2) Hemiplegia affecting right dominant side Is this a current diagnosis for this admission?: YesPlan: Case d/w Dr. Fitzgerald of neurology at [facility]. He feels that this is a conversion disorder. Does not feel that this is related to a stroke or hemiplegic migraine. MRI of the brain showed no acute process. Need to have physical therapy work with patient. During physical/occupational therapy session patient would voluntarily move supposedly affected right upper extremity and right lower extremity. Once the therapist pointed this out to her she started very loudly and dramatically dry heaving and acting like she was going to vomit and stated she needed to get back to bed. Continue to provide reassurance to patient per neurology recommendation. (3) Dysphagia Is this a current diagnosis for this admission?: YesPlan: She had a modified barium swallow study that showed no pharyngeal dysphagia, no airway penetration, however patient did seem to have a lot of gagging and choking. Given these findings space therapy has currently recommended n.p.o. status. (4) Affective disorder Is this a current diagnosis for this admission?: Yes (5) Obstructive sleep apnea Is this a current diagnosis for this admission?: Yes (6) Diabetes Qualifiers: Diabetes mellitus complication status: with unspecified complications Diabetes mellitus terminal manager insulin use: unspecified senior living insulin use status Is this a current diagnosis for this admission?: YesPlan: Sliding scale insulin. (7) History of gastric bypass Is this a current diagnosis for this admission?: Yes (8) Fibromyalgia Is this a current diagnosis for this admission?: Yes (9) PTSD (post-traumatic stress disorder) Is this a current diagnosis for this admission?: Yes - Time Time Spent with patient: 35 or more minutes
--- NOTE | 2016-11-27 16:12 | ST Inp Modified Barium Swallow ---
Medical Diagnosis - Medical Diagnoses Medical Diagnosis Description & ICD-10 Code(s): r/o aspiration - ICD-10 Tx Diagnosis Coding (1) Dysphagia, oral phase ICD-10 Code(s): R13.11 - DYSPHAGIA, ORAL PHASE ST Inpatient MBS - General Date: 11/27/16 Date of Onset: 11/26/16 - History History Obtained From: Patient - per EMR -: Medical - per EMR; TIA, affective disorder, sleep apnea, diabetes. Head CT shows normal brain CT without contrast. Head MRI shows minimal microvascular ischemic change. Chest xray shows poor inspiratory effort, no pulmonary disease. PMHx: legally blind right eye, macular degeneration, Wernicke's, Parkinson's, fibromyalgia, HI, DM, ADHD, OA, PTSD, depression, gastric bypass, home CPAP, asthma, bronchitis, PNA, ischemic CVA, hiatal hernia. MBSS completed due to concerns for aspiration at bedside. Medications: Medications Reviewed Allergies: Refer to medical record - Subjective Current Nutritional Means: NPO Current PO Diet: N/A (NPO) Current Symptoms: Coughing - throat clear, spitting out liquids, gagging Pain: 0/5 - Objective Assessment: Upright, Left Lateral - Food Trials Food Trials Used: Thin liquids The Patient: fed by ST - Assessment Labial Function: Within Functional Limits - pt noted to minimally open mouth Lingual Function: Within Functional Limits Mandibular Function: Within Functional Limits Dentition: Full Velo-Pharyngeal Function: Unremarkable Laryngeal Function: Throat Clear, Volitional Swallow - Pharyngeal Stage Initiation of Pharyngeal Stage: Delayed Reflex Delay Time (seconds): 1 Decreased Laryngeal Elevation: No Reduced Velo-Pharyngeal Closure: no Reduced Pressure Generation: No Reduced Tongue Base Retraction: No Pre-Swallowing Pooling in Valleculae: Mild - trace Pre-Swallowing Pooling in Pyriforms: None Reduced Thyro-Hyiod Approximation: No Reduced Epiglottic Excursion: No Reduced Pharyngeal Peristalsis: No Post Swallow Residuals in Valleculae: None Post Swallow Residuals in Pyriforms: None - Impression/Summary Laryngeal Penetration: No Tracheal Aspiration: no Patient Presents With: Oral stage dysphagia - over active gag reflex - Recommendations NPO: yes Dysphagia Therapy with BEAUTY OPERATOR: No Other Recommendations: 1) DIET: recommend continued NPO due to pt's overactive gag reflex, placing pt at risk of aspirating regurgitated material. SUMMARY: Pt presents with an oral dysphagia characterized by overactive gagging. At bedside pt able to swallow ice chips and thin liquids by spoon without gagging, only gagging observed on thin by cup. During study, ST only able to administer spoon sips of thin due to gagging. Pt observed to initially swallow thin liquid bolus peicemeal, pharyngeal phase transit safe and effective with no penetration or aspiration or pharyngeal residuals. However, after first swallow pt would then begin to gag repeatedly until remaining oral bolus was expelled from mouth. ST reattempted spoon sips x6-7 trials with same results. Towards end of study pt observed to gag to point where she regurgitated most of bolus trials. ST contacted MD with results and recommendations, informed pharyngeal phase of swallow safe and effective, however overactive gag reflex or possible negative feeding behaviors affecting PO intake and placing pt at risk of aspirating regurgitated material. MD in agreement with continued NPO status at this time. ST to sign off, please reconsult PRN. - Time Total Time: 25 Total Timed Minutes: 0 ST F.L. Impairment Category - Rationale Based On Rationale Based On: Clin Find., Obj Measures - Swallowing Current G8996: CI 1-19% Impaired Goal G8997: CI 1-19% Impaired Discharge G8998: CI 1-19% Impaired
[2016-11-27] MEDS ORDERED: LORAZEPAM INJ 2 MG/1 ML VIAL ONE (21:39)
[2016-11-27] MEDS: ATORVASTATIN CALCIUM 20 MG TABLET PO SCH (21:53)
[2016-11-27 22:22] LABS: ABSOLUTE MONOCYTES (AUTO) 0.6 10^3/uL (0.1-1.4); MEAN CORPUSCULAR HEMOGLOBIN 30.5 pg (27.0-33.4); MEAN CORPUSCULAR VOLUME 91 fl (80-97); RED CELL DISTRIBUTION WIDTH 14.3 % (11.5-14.0)
[2016-11-27 22:27] LABS: ABSOLUTE EOSINOPHILS # (AUTO) 0.4 10^3/uL (0.0-0.6); ABSOLUTE LYMPHOCYTES (AUTO) 1.6 10^3/uL (0.5-4.7); ABSOLUTE NEUT (AUTO) 5.3 10^3/uL (1.7-8.2); BASOPHILS % (AUTO) 0.3 % (0-2); EOSINOPHILS % (AUTO) 5.5 % (0-6); HEMATOCRIT 38.6 % (36.0-47.0); HGB HCT DIFFERENCE 0.4; LYMPHOCYTES % (AUTO) 19.9 % (13-45); MEAN CORPUSCULAR HGB CONC 33.6 g/dL (32.0-36.0); MONOCYTES % (AUTO) 7.9 % (3-13); RED BLOOD COUNT 4.25 10^6/uL (3.72-5.28); SEGMENTED NEUTROPHILS % (AUTO) 66.4 % (42-78)
[2016-11-27] MEDS: LORAZEPAM INJ 2 MG/1 ML VIAL IV PRN ×4 (22:40→23:07)
[2016-11-27 22:43] LABS: ALANINE AMINOTRANSFERASE 72 U/L (9-52); ALBUMIN 3.8 g/dL (3.5-5.0); ALKALINE PHOSPHATASE 77 U/L (38-126); ANION GAP 11 (5-19); ASPARTATE AMINO TRANSFERASE 35 U/L (14-36); BILIRUBIN,DIRECT 0.2 mg/dL (0.0-0.4); BILIRUBIN,TOTAL 0.5 mg/dL (0.2-1.3); BLOOD UREA NITROGEN 12 mg/dL (7-20); CALCIUM 9.3 mg/dL (8.4-10.2); CARBON DIOXIDE 24 mmol/L (22-30); CHLORIDE 103 mmol/L (98-107); CREATININE RESULT 0.49 mg/dL (0.52-1.25); GLUCOSE 89 mg/dL (75-110); MAGNESIUM 1.8 mg/dL (1.6-2.3); SODIUM 138.4 mmol/L (137-145); TOTAL PROTEIN 6.9 g/dL (6.3-8.2)
--- NOTE | 2016-11-27 22:44 | RADIOLOGY REPORT (SQ) ---
EXAM DESCRIPTION: CT HEAD WITHOUT COMPLETED DATE/TIME: 11/27/2016 10:33 pm REASON FOR STUDY: seizure E11.59 TYPE 2 DIABETES MELLITUS WITH OTH CIRCULATORY COMPLIC G81.91 DARIANA PLEGIA, UNSPECIFIED AFFECTING RIGHT DOMINANT SIDE R13.10 DYSPHAGIA, UNSPECIFIED COMPARISON: 11/26/2016 TECHNIQUE: Axial images acquired through the brain without intravenous contrast. Images reviewed wi th bone, brain and subdural windows. Images stored on PACS. All CT scanners at this facility use dose modulation, iterative reconstruction, and/or weight based d osing when appropriate to reduce radiation dose to as low as reasonably achievable (ALARA). [facility]: Dose Right [facility]: CareDose [facility]: Dose Right [facility]: Teradose 4D [facility]: [employer] RADIATION DOSE: 55.22 mGy. LIMITATIONS: None. FINDINGS: VENTRICLES: Normal size and contour. CEREBRUM: No masses. No hemorrhage. No midline shift. Normal sears/white matter differentiation. N o evidence for acute infarction. CEREBELLUM: No masses. No hemorrhage. No alteration of density. No evidence for acute infarction. EXTRAAXIAL SPACES: No fluid collections. No masses. ORBITS AND GLOBE: No intra- or extraconal masses. Normal contour of globe without masses. CALVARIUM: No fracture. PARANASAL SINUSES: No fluid or mucosal thickening. SOFT TISSUES: No mass or hematoma. OTHER: No other significant finding. IMPRESSION: NORMAL BRAIN CT WITHOUT CONTRAST. TECHNICAL DOCUMENTATION: JOB ID: [id number] Quality ID # [id number]: Final reports with documentation of one or more dose reduction techniques (e.g., Au tomated exposure control, adjustment of the mA and/or kV according to patient size, use of iterative reconstruction technique) 2010 [employer]- All Rights Reserved
[2016-11-28] MEDS: 1/2 NORMAL SALINE 1,000 ML IV PRN (01:28)
[2016-11-28] MEDS ORDERED: ALBUTEROL SULFATE 0.083% NEB 2.5 MG/3 ML AMPUL NEB PRN (06:39)
[2016-11-28] MEDS: ENOXAPARIN SODIUM INJ 40 MG/0.4 ML DISP.SYRIN SUBCUT SCH (08:48)
[2016-11-28] MEDS: METHYLPHENIDATE HCL 5 MG TABLET PO SCH (08:48)
[2016-11-28] MEDS: FLUOXETINE HCL 20 MG CAPSULE PO SCH (08:48)
--- NOTE | 2016-11-28 09:58 | EKG REPORT ---
SEVERITY:- NORMAL ECG - SINUS RHYTHM : Confirmed by: Deyvi Sandhu 28-Nov-2016 09:57:09
--- NOTE | 2016-11-28 10:06 | Progress Note ---
Provider Note Provider Note: November 27, 2016, 9:45 PM: Rapid response called by floor nursing staff due to suspected seizure activity. Orders given to nursing staff for 2 mg of intravenous Ativan. I arrived at the bedside shortly thereafter with patient initially poorly responsive, and with eyes rolling back in her head. However, shortly thereafter patient became more responsive, and was following basic commands. Accu-Chek of 90. Patient mentioned to nursing staff that she had suffered seizures in the past. CT scan of brain without contrast ordered, along with further labs, which were subsequently reviewed. No further seizure activity through the remainder of the screen tacker.
[2016-11-28] MEDS: FLUTICASONE NASAL SPRAY 50 MCG/SPRY 120 SPRAY/16 GM NASL SCH (10:37)
[2016-11-28] MEDS: POLYETHYLENE GLYCOL 3350 POWDER 17 GM/1 PACKET PO SCH ×3 (10:37→19:52)
[2016-11-28] MEDS: FLUTICASONE/SALMETEROL DISKUS 250-50 MCG/DOSE IH SCH ×2 (10:37→21:45)
[2016-11-28] MEDS ORDERED: CYANOCOBALAMIN (VITAMIN B-12) INJ 1000 MCG/1 ML VIAL IM SCH (13:15)
[2016-11-28] MEDS: LORAZEPAM INJ 2 MG/1 ML VIAL IV SCH ×2 (13:17→21:45)
[2016-11-28] MEDS ORDERED: LANSOPRAZOLE 30 MG TAB.RAP.DR PO ONE (14:00)
[2016-11-28] MEDS ORDERED: HYDRALAZINE HCL INJ/PF 20 MG/1 ML SDV IV PRN (14:05)
[2016-11-28] MEDS ORDERED: ONDANSETRON HCL INJ/PF 4 MG/2 ML SDV IV PRN (14:06)
[2016-11-28] MEDS ORDERED: INSULIN LISPRO 100 UNIT/ML 3 ML VIAL SUBCUT PRN (15:52)
[2016-11-28] MEDS: SUCRALFATE SUSP 1 GM/10 ML UDCUP PO SCH ×2 (16:28→21:43)
[2016-11-28] MEDS: KETOROLAC TROMETHAMINE INJ/PF 30 MG/1 ML SDV IV PRN (16:36)
[2016-11-28] MEDS ORDERED: SUCRALFATE SUSP 1 GM/10 ML UDCUP PO SCH (17:00)
[2016-11-28] MEDS: ATORVASTATIN CALCIUM 20 MG TABLET PO SCH (21:44)
[2016-11-28] MEDS: ASPIRIN 81 MG TABLET, ENT COATED PO SCH (21:44)
[2016-11-28] MEDS: AMITRIPTYLINE HCL 50 MG TABLET PO SCH (21:46)
[2016-11-29] MEDS: LORAZEPAM INJ 2 MG/1 ML VIAL IV SCH (05:25)
[2016-11-29] MEDS: KETOROLAC TROMETHAMINE INJ/PF 30 MG/1 ML SDV IV PRN (05:26)
[2016-11-29] MEDS ORDERED: (PENDING PHARMACY ID) (Esomeprazole Mag Trihydrate [Nexium] 40 MG) PO SCH (08:00)
[2016-11-29] MEDS: ENOXAPARIN SODIUM INJ 40 MG/0.4 ML DISP.SYRIN SUBCUT SCH (08:54)
[2016-11-29] MEDS: FLUOXETINE HCL 20 MG CAPSULE PO SCH (08:55)
[2016-11-29] MEDS: LANSOPRAZOLE 30 MG TAB.RAP.DR PO SCH (08:55)
[2016-11-29] MEDS: SUCRALFATE SUSP 1 GM/10 ML UDCUP PO SCH ×4 (08:56→21:33)
[2016-11-29] MEDS: METHYLPHENIDATE HCL 5 MG TABLET PO SCH (08:56)
[2016-11-29] MEDS: CHOLECALCIFEROL (D3) 1,000 UNIT TABLET PO SCH (09:47)
[2016-11-29] MEDS: FLUTICASONE NASAL SPRAY 50 MCG/SPRY 120 SPRAY/16 GM NASL SCH (09:47)
[2016-11-29] MEDS: FLUTICASONE/SALMETEROL DISKUS 250-50 MCG/DOSE IH SCH ×2 (09:48→21:35)
[2016-11-29] MEDS: POLYETHYLENE GLYCOL 3350 POWDER 17 GM/1 PACKET PO SCH ×3 (09:48→17:48)
[2016-11-29] MEDS ORDERED: (PENDING PHARMACY ID) (Cholecalciferol (Vitamin D3) [Vitamin D3 2000 Unit Tablet] 2,000 UN PO SCH (10:00)
--- NOTE | 2016-11-29 11:42 | PDOC PROGRESS REPORT ---
Subjective Progress Note for:: 11/28/16 Subjective:: Patient reportedly had a witnessed seizure overnight. She states that she has had this on one occasion prior. Otherwise she states that she is now able to swallow and shows me that she is now able to move her right arm and her right leg. She still has numerous other complaints and tells me that she has "81 medical problems". Physical Exam Vital Signs: Temp Pulse Resp BP Pulse Ox 98.8 F 85 19 122/66 92 11/28/16 11:50 11/28/16 11:50 11/28/16 11:50 11/28/16 11:50 11/28/16 11:50 Intake & Output 11/27/16 11/28/16 11/29/16 06:59 06:59 06:59 Intake Total 798 1578 0 Output Total 2075 1800 900 Balance -3207 -222 -900 Weight 109.2 kg 109.2 kg GENERAL: No acute distress HEENT: Conjunctiva clear, nonicteric, moist mucous membranes, no JVD, midline trachea RESPIRATORY: Clear to auscultation bilaterally, no wheezes, no rhonchi CARDIAC: Regular rate and rhythm, no murmurs/gallops/rubs ABDOMEN: Soft, nondistended, nontender, positive bowel sounds, no rebound, no guarding EXTREMETIES: No edema, cyanosis, clubbing NEUROLOGIC: Alert, oriented to person/place/time, CN's grossly intact, inconsistent weakness in right arm and right leg SKIN: No rash, wounds PSYCH: Unusual affect Results Laboratory Results: 11/27/16 22:12 11/27/16 22:12 11/27/16 11/27/16 11/27/16 22:12 22:12 22:12 WBC 8.0 RBC 4.25 Hgb 13.0 Hct 38.6 MCV 91 MCH 30.5 MCHC 33.6 RDW 14.3 H Plt Count 184 Seg Neutrophils % 66.4 Lymphocytes % 19.9 Monocytes % 7.9 Eosinophils % 5.5 Basophils % 0.3 Absolute Neutrophils 5.3 Absolute Lymphocytes 1.6 Absolute Monocytes 0.6 Absolute Eosinophils 0.4 Absolute Basophils 0.0 Sodium 138.4 Potassium 4.0 Chloride 103 Carbon Dioxide 24 Anion Gap 11 BUN 12 Creatinine 0.49 L Est GFR ( Amer) > 60 Est GFR (Non-Af Amer) > 60 Glucose 89 Calcium 9.3 Magnesium 1.8 Total Bilirubin 0.5 AST 35 ALT 72 H Alkaline Phosphatase 77 Total Protein 6.9 Albumin 3.8 TSH 4.69 H 11/27/16 22:12 Troponin I < 0.012 Impressions: Head MRI 11/26/16 00:00 IMPRESSION: MINIMAL MICROVASCULAR ISCHEMIC CHANGE. OTHERWISE NORMAL STUDY. Chest X-Ray 11/26/16 10:11 IMPRESSION: Poor inspiratory effort. No acute pulmonary disease is seen. Carotid Doppler Study 11/27/16 00:00 IMPRESSION: NO HEMODYNAMICALLY SIGNIFICANT STENOSIS. Head CT 11/27/16 00:00 IMPRESSION: NORMAL BRAIN CT WITHOUT CONTRAST. Assessment & Plan - Diagnosis (1) Conversion disorder Is this a current diagnosis for this admission?: YesPlan: Case discussed with Dr. Boris Ortiz psychiatry in [facility] ([phone]). He has advised placing patient on Ativan 1 mg IV every 8 hours and resuming her routine psychiatric medications. He is advised that we not confront this behavior directly but just reassure patient that all her testing has been unremarkable and we expect her to do well. (2) Hemiplegia affecting right dominant side Is this a current diagnosis for this admission?: YesPlan: Case d/w Dr. Fitzgerald of neurology at [facility]. He feels that this is a conversion disorder. Does not feel that this is related to a stroke or hemiplegic migraine. MRI of the brain showed no acute process. Need to have physical therapy work with patient. During physical/occupational therapy session patient would voluntarily move supposedly affected right upper extremity and right lower extremity. Once the therapist pointed this out to her she started very loudly and dramatically dry heaving and acting like she was going to vomit and stated she needed to get back to bed. Continue to provide reassurance to patient per neurology recommendation. (3) Dysphagia Is this a current diagnosis for this admission?: YesPlan: She had a modified barium swallow study that showed no pharyngeal dysphagia, no airway penetration, however patient did seem to have a lot of gagging and choking. Given these findings space therapy has currently recommended n.p.o. status. Speech therapy is planning to repeat barium swallow today. (4) Affective disorder Is this a current diagnosis for this admission?: YesPlan: Patient psychiatrist Dr. Ortiz recently decreased multiple medications secondary to oversedation. She will need to follow-up with psychiatry after discharge. Resume previous home medications per (5) Obstructive sleep apnea Is this a current diagnosis for this admission?: YesPlan: Patient to use home CPAP (6) Diabetes Qualifiers: Diabetes mellitus complication status: with unspecified complications Diabetes mellitus long term care phlebotomist insulin use: unspecified assisted insulin use status Is this a current diagnosis for this admission?: YesPlan: Sliding scale insulin. (7) History of gastric bypass Is this a current diagnosis for this admission?: Yes (8) Fibromyalgia Is this a current diagnosis for this admission?: Yes (9) PTSD (post-traumatic stress disorder) Is this a current diagnosis for this admission?: Yes (10) Seizure disorder Is this a current diagnosis for this admission?: YesPlan: Possibly due to benzodiazapine withdrawal. Scheduled Ativan IV for now. - Time Time Spent with patient: 35 or more minutes
[2016-11-29] MEDS: THIAMINE HCL 100 MG TABLET PO SCH (12:07)
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
[2016-11-29] MEDS: DIAZEPAM 5 MG TABLET PO SCH ×2 (14:37→21:33)
[2016-11-29] MEDS: LUBIPROSTONE 8 MCG CAPSULE PO SCH (17:48)
--- NOTE | 2016-11-29 20:39 | RADIOLOGY REPORT (SQ) ---
EXAM DESCRIPTION: MRI HEAD WITH COMPLETED DATE/TIME: 11/29/2016 8:22 pm REASON FOR STUDY: nimco wyatt for MS E11.59 TYPE 2 DIABETES MELLITUS WITH OTH CIRCULATORY COMPLIC G81.91 HEMIPLEGIA, UNSPECIFIED AFFECTING RIGHT DOMINANT SIDE R13.10 DYSPHAGIA, UNSPECIFIED COMPARISON: CORRELATION MADE TO NONCONTRAST MRI HEAD FROM 11/26/2016. TECHNIQUE: Postgadolinium contrast T1 sequences. Images stored on PACS. CONTRAST TYPE AND DOSE: 20 mL Multihance. RENAL FUNCTION: GFR > 60. LIMITATIONS: Postcontrast imaging only. FINDINGS: No abnormal enhancement following administration of contrast. No significant mass lesion identified. No large area of hemorrhage. IMPRESSION: NO ABNORMAL ENHANCEMENT FOLLOWING ADMINISTRATION OF GADOLINIUM BASE CONTRAST. TECHNICAL DOCUMENTATION: JOB ID: [id number] [employer]- All Rights Reserved
--- NOTE | 2016-11-29 20:46 | RADIOLOGY REPORT (SQ) ---
EXAM DESCRIPTION: MRI LUMBAR SPINE COMBO COMPLETED DATE/TIME: 11/29/2016 8:22 pm REASON FOR STUDY: weakness, eval for MS E11.59 TYPE 2 DIABETES MELLITUS WITH OTH CIRCULATORY COMPLI C G81.91 HEMIPLEGIA, UNSPECIFIED AFFECTING RIGHT DOMINANT SIDE R13.10 DYSPHAGIA, UNSPECIFIED COMPARISON: None. TECHNIQUE: Sagittal and Axial imaging includes T1, T1 post gadolinium, T2, STIR and gradient echo se quences. Coronal T2/HASTE imaging. CONTRAST TYPE AND DOSE: 20 mL Multihance. RENAL FUNCTION: GFR > 60. LIMITATIONS: None. FINDINGS: VISUALIZED UPPER ABDOMEN: Limited evaluation. No acute or suspicious findings suggested. SEGMENTATION: No transitional anatomy. The lowest well-developed disc space is labeled L5-S1. ALIGNMENT: Anatomic. VERTEBRAE: Intact. No fractures. BONE MARROW: Normal. No marrow replacement or reactive changes. DISC SIGNAL: Normal. No significant abnormal signal or loss of height. POSTERIOR ELEMENTS: Generally intact. No pars defect evident. HARDWARE: None in the spine. CORD AND CONUS: Normal in size and signal intensity. Conus at the appropriate level. SOFT TISSUES: No aortic aneurysm seen. No bulky retroperitoneal adenopathy or mass. No paraspinal mas s or fluid. L1-L2: No significant spinal stenosis or exit foraminal stenosis. L2-L3: No significant spinal stenosis or exit foraminal stenosis. L3-L4: No significant spinal stenosis or exit foraminal stenosis. L4-L5: No significant spinal stenosis or exit foraminal stenosis. L5-S1: No significant spinal stenosis or exit foraminal stenosis. LOWER THORACIC: Incompletely imaged. No stenosis seen. SACRUM: Visualized upper sacrum intact. ENHANCEMENT: No abnormal enhancement. OTHER: No other significant findings. IMPRESSION: UNREMARKABLE LUMBAR SPINE MRI WITHIN WITHOUT CONTRAST. TECHNICAL DOCUMENTATION: JOB ID: [id number] [employer]- All Rights Reserved
--- NOTE | 2016-11-29 20:57 | RADIOLOGY REPORT (SQ) ---
EXAM DESCRIPTION: MRI THORACIC SPINE COMBO COMPLETED DATE/TIME: 11/29/2016 8:22 pm REASON FOR STUDY: weakness, eval for MS E11.59 TYPE 2 DIABETES MELLITUS WITH OTH CIRCULATORY COMPLI C G81.91 HEMIPLEGIA, UNSPECIFIED AFFECTING RIGHT DOMINANT SIDE R13.10 DYSPHAGIA, UNSPECIFIED COMPARISON: None. TECHNIQUE: Sagittal and Axial imaging includes T1, T2, STIR and gradient echo sequences. T1 post ga dolinium sequences. CONTRAST TYPE AND DOSE: 20 mL Multihance. RENAL FUNCTION: GFR > 60. LIMITATIONS: Limited by artifact from internal fixation hardware in overall poor signal to noise rat io. FINDINGS: LOCALIZER: No worrisome findings. ALIGNMENT: Normal. VERTEBRAE: Intact. BONE MARROW: Normal. No marrow replacement or reactive changes. HARDWARE: Surgical fusion hardware at the T11-T12 level without gross complication. CORD: Normal in size and signal intensity. SOFT TISSUES: No soft tissue masses. THORACIC DISCS T1-T12: Multilevel disc osteophyte formation most notable at the T7-T8 and T8-T9 level s without significant spinal canal stenosis or neural foraminal narrowing. LOWER CERVICAL: Incompletely imaged. No significant spinal stenosis or exit foraminal stenosis. UPPER LUMBAR: Incompletely imaged. No significant spinal stenosis or exit foraminal stenosis. ENHANCEMENT: No definite abnormal enhancement. OTHER: No other significant finding. IMPRESSION: DEGENERATIVE CHANGE OF THE THORACIC SPINE ABOVE WITHOUT SIGNIFICANT SPINAL CANAL STEN OSIS OR NEURAL FORAMINAL NARROWING IDENTIFIED. NO ACUTE OSSEOUS ABNORMALITY OR DEFINITE ENHANCING CORD LESIONS IDENTIFIED. TECHNICAL DOCUMENTATION: JOB ID: [id number] [employer]- All Rights Reserved
--- NOTE | 2016-11-29 21:08 | RADIOLOGY REPORT (SQ) ---
EXAM DESCRIPTION: MRI CERVICAL SPINE COMBO COMPLETED DATE/TIME: 11/29/2016 8:22 pm REASON FOR STUDY: weakness, eval for MS E11.59 TYPE 2 DIABETES MELLITUS WITH OTH CIRCULATORY COMPLI C G81.91 HEMIPLEGIA, UNSPECIFIED AFFECTING RIGHT DOMINANT SIDE R13.10 DYSPHAGIA, UNSPECIFIED COMPARISON: None. TECHNIQUE: Sagittal and Axial imaging includes T1, T2, STIR and gradient echo sequences. T1 post diane olinium sequences. CONTRAST TYPE AND DOSE: 20 mL Multihance. RENAL FUNCTION: GFR > 60. LIMITATIONS: Artifact from cervical spine hardware. FINDINGS: ALIGNMENT: Normal. VERTEBRAE: Intact. BONE MARROW: Normal. No marrow replacement or reactive changes. DISCS: Normal. No significant abnormal signal or loss of height. HARDWARE: Surgical fusion hardware at the C5-C6 level without gross complication. CORD AND BASE OF BRAIN: Normal in size and signal intensity. SOFT TISSUES: No soft tissue masses. C1-C2: No significant spinal stenosis. C2-C3: No significant spinal stenosis or exit foraminal stenosis. C3-C4: No significant spinal stenosis or exit foraminal stenosis. C4-C5: No significant spinal stenosis or exit foraminal stenosis. C5-C6: Mild residual disc osteophyte and uncinate joint hypertrophy with mild bilateral neural forami nal narrowing. No significant spinal canal stenosis. C6-C7: Mild residual disc osteophyte and bilateral uncinate joint hypertrophy with mild bilateral hillary ral foraminal narrowing. No significant spinal canal stenosis. C7-T1: No significant spinal stenosis or exit foraminal stenosis. UPPER THORACIC: Incompletely imaged. No significant spinal stenosis or exit foraminal stenosis. ENHANCEMENT: No abnormal enhancement. OTHER: No other significant finding. IMPRESSION: MILD DEGENERATIVE CHANGE STATUS POST SURGICAL FUSION OF THE C5-C6 LEVELS. NO SIGNIFICAN T SPINAL CANAL STENOSIS OR NEURAL FORAMINAL NARROWING. NO ENHANCING LESIONS IDENTIFIED. COMMENT: None. TECHNICAL DOCUMENTATION: JOB ID: [id number] [employer]- All Rights Reserved
[2016-11-29] MEDS: AMITRIPTYLINE HCL 50 MG TABLET PO SCH (21:33)
[2016-11-29] MEDS: ATORVASTATIN CALCIUM 20 MG TABLET PO SCH (21:34)
[2016-11-29] MEDS: TRAZODONE HCL 50 MG TABLET PO SCH (21:35)
[2016-11-29] MEDS: ASPIRIN 81 MG TABLET, ENT COATED PO SCH (21:35)
[2016-11-29] MEDS: LORAZEPAM INJ 2 MG/1 ML VIAL IV PRN (21:52)
[2016-11-29] MEDS ORDERED: PYRIDOXINE PO SCH (22:00)
[2016-11-29] MEDS ORDERED: MELATONIN PO SCH (22:00)
[2016-11-29] MEDS ORDERED: (PENDING PHARMACY ID) (Trazodone Hcl [Desyrel] 100 MG) PO SCH (22:00)
[2016-11-30] MEDS: DIAZEPAM 5 MG TABLET PO SCH ×3 (06:00→22:13)
[2016-11-30] MEDS: ENOXAPARIN SODIUM INJ 40 MG/0.4 ML DISP.SYRIN SUBCUT SCH (08:17)
[2016-11-30] MEDS: FLUOXETINE HCL 20 MG CAPSULE PO SCH (08:19)
[2016-11-30] MEDS: METHYLPHENIDATE HCL 5 MG TABLET PO SCH (08:19)
[2016-11-30] MEDS: LANSOPRAZOLE 30 MG TAB.RAP.DR PO SCH (08:19)
[2016-11-30] MEDS: SUCRALFATE SUSP 1 GM/10 ML UDCUP PO SCH ×4 (08:20→22:13)
[2016-11-30] MEDS: CHOLECALCIFEROL (D3) 1,000 UNIT TABLET PO SCH (09:38)
[2016-11-30] MEDS: FLUTICASONE NASAL SPRAY 50 MCG/SPRY 120 SPRAY/16 GM NASL SCH (09:39)
[2016-11-30] MEDS: FLUTICASONE/SALMETEROL DISKUS 250-50 MCG/DOSE IH SCH ×2 (09:39→22:14)
[2016-11-30] MEDS: LUBIPROSTONE 8 MCG CAPSULE PO SCH ×2 (09:39→17:07)
[2016-11-30] MEDS: POLYETHYLENE GLYCOL 3350 POWDER 17 GM/1 PACKET PO SCH ×3 (09:40→17:06)
--- NOTE | 2016-11-30 10:01 | RADIOLOGY REPORT (SQ) ---
EXAM DESCRIPTION: COLLEEN SWALLOW COMPLETED DATE/TIME: 11/27/2016 10:48 am REASON FOR STUDY: r/o aspiration E11.59 TYPE 2 DIABETES MELLITUS WITH OTH CIRCULATORY COMPLIC CVA COMPARISON: None. TECHNIQUE: Videofluoroscopic swallowing examination was performed in conjunction with speech patholo gy. Videofluoroscopic imaging was obtained and reviewed and these are the findings: RADIATION DOSE: 1 minutes 29 seconds of fluoroscopy was used. 1 images saved to PACS. LIMITATIONS: None FINDINGS: The patient was brought into the fluoro room and placed upright on a modified barium swall ow chair. The patient was then given multiple consistencies mixed with barium to swallow under live fluoroscopic video guidance. According to the Speech Pathologist there was no penetration or aspirat ion. Patient had very sensitive gag reflex with the ingested material. IMPRESSION: NO EVIDENCE OF PENETRATION OR ASPIRATION. VERY SENSITIVE GAG REFLEX.PLEASE SEE SPEECH P ATHOLOGIST REPORT FOR OTHER FINDINGS AND RECOMMENDATIONS. COMMENT: Quality ID [id number]: Final reports for procedures using fluoroscopy that document radiation exp osure indices, or exposure time and number of fluorographic images (if radiation exposure indices are not available) TECHNICAL DOCUMENTATION: JOB ID: [id number] [employer]- All Rights Reserved
[2016-11-30] MEDS: THIAMINE HCL 100 MG TABLET PO SCH (12:18)
--- NOTE | 2016-11-30 14:20 | PDOC PROGRESS REPORT ---
Subjective Progress Note for:: 11/30/16 Subjective:: Patient feels as though her asthma is acting up today. She would also like to have her Singh catheter out. Physical Exam Vital Signs: Temp Pulse Resp BP Pulse Ox 98.0 F 84 20 122/71 97 11/30/16 12:00 11/30/16 12:00 11/30/16 12:00 11/30/16 12:00 11/30/16 12:00 Intake & Output 11/29/16 11/30/16 12/01/16 06:59 06:59 06:59 Intake Total 1404 462 Output Total 1700 600 Balance -296 -138 Weight 112 kg 109.2 kg GENERAL: No acute distress HEENT: Conjunctiva clear, nonicteric, moist mucous membranes, no JVD, midline trachea RESPIRATORY: Clear to auscultation bilaterally, no wheezes, no rhonchi CARDIAC: Regular rate and rhythm, no murmurs/gallops/rubs ABDOMEN: Soft, nondistended, nontender, positive bowel sounds, no rebound, no guarding EXTREMETIES: No edema, cyanosis, clubbing NEUROLOGIC: Alert, oriented to person/place/time, CN's grossly intact, no focal deficits SKIN: No rash, wounds PSYCH: Unusual affect Results Impressions: Chest X-Ray 11/26/16 10:11 IMPRESSION: Poor inspiratory effort. No acute pulmonary disease is seen. Carotid Doppler Study 11/27/16 00:00 IMPRESSION: NO HEMODYNAMICALLY SIGNIFICANT STENOSIS. Head CT 11/27/16 00:00 IMPRESSION: NORMAL BRAIN CT WITHOUT CONTRAST. Modified Barium Swallow 11/27/16 00:00 IMPRESSION: NO EVIDENCE OF PENETRATION OR ASPIRATION. VERY SENSITIVE GAG REFLEX.PLEASE SEE SPEECH PATHOLOGIST REPORT FOR OTHER FINDINGS AND RECOMMENDATIONS. Cervical Spine MRI 11/29/16 00:00 IMPRESSION: MILD DEGENERATIVE CHANGE STATUS POST SURGICAL FUSION OF THE C5-C6 LEVELS. NO SIGNIFICANT SPINAL CANAL STENOSIS OR NEURAL FORAMINAL NARROWING. NO ENHANCING LESIONS IDENTIFIED. Head MRI 11/29/16 00:00 IMPRESSION: NO ABNORMAL ENHANCEMENT FOLLOWING ADMINISTRATION OF GADOLINIUM BASE CONTRAST. Lumbar Spine MRI 11/29/16 00:00 IMPRESSION: UNREMARKABLE LUMBAR SPINE MRI WITHIN WITHOUT CONTRAST. Thoracic Spine MRI 11/29/16 00:00 IMPRESSION: DEGENERATIVE CHANGE OF THE THORACIC SPINE ABOVE WITHOUT SIGNIFICANT SPINAL CANAL STENOSIS OR NEURAL FORAMINAL NARROWING IDENTIFIED. NO ACUTE OSSEOUS ABNORMALITY OR DEFINITE ENHANCING CORD LESIONS IDENTIFIED. Assessment & Plan - Diagnosis (1) Conversion disorder Is this a current diagnosis for this admission?: YesPlan: Case discussed with Dr. Boris Ortiz psychiatry in [facility] ([phone]). He has advised placing patient on scheduled benzodiazepine and resuming her routine psychiatric medications. He is advised that we not confront this behavior directly but just reassure patient that all her testing has been unremarkable and we expect her to do well. Patient has made marked improvement since admission. She is using all 4 extremities equally. She has no evidence of dysarthria, dysphagia. (2) Hemiplegia affecting right dominant side Is this a current diagnosis for this admission?: YesPlan: Secondary to conversion disorder. Resolved. Neuroimaging negative. (3) Dysphagia Is this a current diagnosis for this admission?: YesPlan: Resolved. (4) Affective disorder Is this a current diagnosis for this admission?: YesPlan: Patient psychiatrist Dr. Ortiz recently decreased multiple medications secondary to oversedation. She will need to follow-up with psychiatry after discharge. Continue Elavil, Prozac, Valium, Ritalin. 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 Continue scheduled benzodiazepine. (11) Ambulatory dysfunction Is this a current diagnosis for this admission?: YesPlan: Continue physical therapy. Patient is requesting to go to rehab facility rather than returning home with home health services. - Time Time Spent with patient: 25-34 minutes Anticipated discharge: Acute Rehab Within: when bed available
[2016-11-30] MEDS: KETOROLAC TROMETHAMINE INJ/PF 30 MG/1 ML SDV IV PRN ×2 (14:31→23:34)
[2016-11-30] MEDS: ATORVASTATIN CALCIUM 20 MG TABLET PO SCH (22:13)
[2016-11-30] MEDS: TRAZODONE HCL 50 MG TABLET PO SCH (22:14)
[2016-11-30] MEDS: AMITRIPTYLINE HCL 50 MG TABLET PO SCH (22:14)
[2016-11-30] MEDS: ASPIRIN 81 MG TABLET, ENT COATED PO SCH (22:14)
[2016-12-01] MEDS: DIAZEPAM 5 MG TABLET PO SCH ×3 (06:51→23:49)
[2016-12-01] MEDS: ENOXAPARIN SODIUM INJ 40 MG/0.4 ML DISP.SYRIN SUBCUT SCH (08:22)
[2016-12-01] MEDS: LANSOPRAZOLE 30 MG TAB.RAP.DR PO SCH (08:25)
[2016-12-01] MEDS: METHYLPHENIDATE HCL 5 MG TABLET PO SCH (08:25)
[2016-12-01] MEDS: SUCRALFATE SUSP 1 GM/10 ML UDCUP PO SCH ×4 (08:25→21:40)
[2016-12-01] MEDS: FLUOXETINE HCL 20 MG CAPSULE PO SCH (08:27)
[2016-12-01] MEDS: CHOLECALCIFEROL (D3) 1,000 UNIT TABLET PO SCH (09:58)
[2016-12-01] MEDS: POLYETHYLENE GLYCOL 3350 POWDER 17 GM/1 PACKET PO SCH ×3 (09:59→17:31)
[2016-12-01] MEDS: FLUTICASONE/SALMETEROL DISKUS 250-50 MCG/DOSE IH SCH ×2 (09:59→21:40)
[2016-12-01] MEDS: FLUTICASONE NASAL SPRAY 50 MCG/SPRY 120 SPRAY/16 GM NASL SCH (09:59)
[2016-12-01] MEDS: LUBIPROSTONE 8 MCG CAPSULE PO SCH ×2 (09:59→17:32)
[2016-12-01] MEDS: KETOROLAC TROMETHAMINE INJ/PF 30 MG/1 ML SDV IV PRN ×2 (10:11→17:31)
[2016-12-01] MEDS: THIAMINE HCL 100 MG TABLET PO SCH (11:41)
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
[2016-12-01] MEDS: LORAZEPAM INJ 2 MG/1 ML VIAL IV PRN (23:05)
[2016-12-01] MEDS ORDERED: LORAZEPAM INJ 2 MG/1 ML VIAL IV PRN (23:45)
[2016-12-01] MEDS: TRAZODONE HCL 50 MG TABLET PO SCH (23:49)
[2016-12-01] MEDS: ASPIRIN 81 MG TABLET, ENT COATED PO SCH (23:49)
[2016-12-01] MEDS: ATORVASTATIN CALCIUM 20 MG TABLET PO SCH (23:49)
[2016-12-01] MEDS: AMITRIPTYLINE HCL 50 MG TABLET PO SCH (23:49)
[2016-12-01] MEDS ORDERED: PHENYTOIN SODIUM INJ/PF 100 MG/2 ML SDV IV ONE (23:59)
[2016-12-02 00:10] LABS: ABSOLUTE EOSINOPHILS # (AUTO) 0.5 10^3/uL (0.0-0.6); ABSOLUTE LYMPHOCYTES (AUTO) 1.9 10^3/uL (0.5-4.7); ABSOLUTE MONOCYTES (AUTO) 0.7 10^3/uL (0.1-1.4); ABSOLUTE NEUT (AUTO) 5.7 10^3/uL (1.7-8.2); BASOPHILS % (AUTO) 0.3 % (0-2); EOSINOPHILS % (AUTO) 5.7 % (0-6); HEMATOCRIT 35.4 % (36.0-47.0); HEMOGLOBIN 11.9 g/dL (12.0-15.5); HGB HCT DIFFERENCE 0.3; LYMPHOCYTES % (AUTO) 21.3 % (13-45); MEAN CORPUSCULAR HGB CONC 33.6 g/dL (32.0-36.0); MEAN CORPUSCULAR VOLUME 89 fl (80-97); RED BLOOD COUNT 3.96 10^6/uL (3.72-5.28); RED CELL DISTRIBUTION WIDTH 14.4 % (11.5-14.0); SEGMENTED NEUTROPHILS % (AUTO) 64.7 % (42-78); WHITE BLOOD COUNT 8.7 10^3/uL (4.0-10.5)
[2016-12-02 00:13] LABS: VENOUS BLOOD BASE EXCESS 3.4 mmol/L; VENOUS BLOOD HCO3 28.5 mmol/L (20-32); VENOUS BLOOD PCO2 45.6 mmHg (35-63); VENOUS BLOOD PH 7.41 (7.30-7.42)
[2016-12-02 00:28] LABS: ALANINE AMINOTRANSFERASE 51 U/L (9-52); ALBUMIN 3.6 g/dL (3.5-5.0); ALKALINE PHOSPHATASE 91 U/L (38-126); ANION GAP 9 (5-19); ASPARTATE AMINO TRANSFERASE 28 U/L (14-36); BILIRUBIN,DIRECT 0.3 mg/dL (0.0-0.4); BILIRUBIN,TOTAL 0.3 mg/dL (0.2-1.3); BLOOD UREA NITROGEN 14 mg/dL (7-20); CALCIUM 8.7 mg/dL (8.4-10.2); CARBON DIOXIDE 25 mmol/L (22-30); CHLORIDE 105 mmol/L (98-107); CREATININE RESULT 0.57 mg/dL (0.52-1.25); GLUCOSE 108 mg/dL (75-110); MAGNESIUM 2.2 mg/dL (1.6-2.3); POTASSIUM 4.2 mmol/L (3.6-5.0); SODIUM 138.9 mmol/L (137-145); TOTAL PROTEIN 6.6 g/dL (6.3-8.2)
--- NOTE | 2016-12-02 03:16 | RADIOLOGY REPORT (SQ) ---
EXAM DESCRIPTION: CT HEAD WITHOUT COMPLETED DATE/TIME: 12/02/2016 2:55 am REASON FOR STUDY: seizure E11.59 TYPE 2 DIABETES MELLITUS WITH OTH CIRCULATORY COMPLIC G81.91 DARIANA PLEGIA, UNSPECIFIED AFFECTING RIGHT DOMINANT SIDE R13.10 DYSPHAGIA, UNSPECIFIED COMPARISON: 11/27/2016. MRI, 11/29/2016, 11/26/2016. TECHNIQUE: Axial images acquired through the brain without intravenous contrast. Images reviewed wi th bone, brain and subdural windows. Images stored on PACS. All CT scanners at this facility use dose modulation, iterative reconstruction, and/or weight based d osing when appropriate to reduce radiation dose to as low as reasonably achievable (ALARA). [facility]: Dose Right [facility]: CareDose [facility]: Dose Right [facility]: Teradose 4D [facility]: [place] RADIATION DOSE: 64.61 mGy. LIMITATIONS: None. FINDINGS: VENTRICLES: Normal size and contour. CEREBRUM: No masses. No hemorrhage. No midline shift. Normal sears/white matter differentiation. N o evidence for acute infarction. Mild cerebral volume loss. Mild white matter microangiopathy, left more than right, stable. CEREBELLUM: No masses. No hemorrhage. No alteration of density. No evidence for acute infarction. EXTRAAXIAL SPACES: No fluid collections. No masses. ORBITS AND GLOBE: No intra- or extraconal masses. Normal contour of globe without masses. CALVARIUM: No fracture. PARANASAL SINUSES: No fluid or mucosal thickening. SOFT TISSUES: No mass or hematoma. OTHER: No other significant finding. IMPRESSION: No acute findings. TECHNICAL DOCUMENTATION: JOB ID: [id number] Quality ID # [id number]: Final reports with documentation of one or more dose reduction techniques (e.g., Au tomated exposure control, adjustment of the mA and/or kV according to patient size, use of iterative reconstruction technique) 2010 [employer]- All Rights Reserved
[2016-12-02] MEDS: DIAZEPAM 5 MG TABLET PO SCH (05:56)
[2016-12-02] MEDS ORDERED: PHENYTOIN SODIUM INJ/PF 100 MG/2 ML SDV IV SCH (06:00)
[2016-12-02] MEDS: SUCRALFATE SUSP 1 GM/10 ML UDCUP PO SCH (08:35)
[2016-12-02] MEDS: FLUOXETINE HCL 20 MG CAPSULE PO SCH (08:36)
[2016-12-02] MEDS: LANSOPRAZOLE 30 MG TAB.RAP.DR PO SCH (08:36)
[2016-12-02] MEDS: LORAZEPAM INJ 2 MG/1 ML VIAL IV PRN (08:41)
[2016-12-02] MEDS: METHYLPHENIDATE HCL 5 MG TABLET PO SCH (08:54)
[2016-12-02] MEDS: ENOXAPARIN SODIUM INJ 40 MG/0.4 ML DISP.SYRIN SUBCUT SCH (08:54)
[2016-12-02] MEDS: CHOLECALCIFEROL (D3) 1,000 UNIT TABLET PO SCH (09:35)
[2016-12-02] MEDS: POLYETHYLENE GLYCOL 3350 POWDER 17 GM/1 PACKET PO SCH (09:36)
[2016-12-02] MEDS: FLUTICASONE/SALMETEROL DISKUS 250-50 MCG/DOSE IH SCH (09:37)
[2016-12-02] MEDS: FLUTICASONE NASAL SPRAY 50 MCG/SPRY 120 SPRAY/16 GM NASL SCH (09:37)
[2016-12-02] MEDS: LUBIPROSTONE 8 MCG CAPSULE PO SCH (09:37)
[2016-12-02] MEDS ORDERED: LEVETIRACETAM 1000 MG/NACL-ISO 100 ML IV SCH (10:00)
[2016-12-02 10:13] VITALS: BP 119/73
--- NOTE | 2016-12-02 10:42 | Progress Note ---
Provider Note Provider Note: December 01, 2016: Late evening, rapid response was called due to recurrent seizure activity. I went to the patient's bedside moments later, with ICU nurse present. Had received 1 mg of IV Ativan. Was slowly following basic commands. However, a few minutes later, she appeared to be having further seizure activity and was given a second milligram of IV Ativan. Due to her somewhat complicated clinical course, decision was made to transfer the patient to the intensive care unit, which was accomplished without difficulty. Patient was subsequently started on parenteral Dilantin. Seizure precautions were obviously continued. CT scan of brain ordered. Shortly after arrival in the intensive care unit, patient was once again slowly following basic commands. No further seizure activity. 30 minutes critical care time spent in evaluation and management of patient, including chart review, direct patient evaluation, multiple discussions with nursing staff, review of CT report, and entering of multiple orders into the electronic health record.
--- NOTE | 2016-12-02 13:01 | PDOC DISCHARGE SUMMARY ---
General - Admit/Disc Date/PCP Admission Date/Primary Care Provider: 11/28/16 14:14 ELIZABETH ROMERO, Discharge Date: 12/02/16 - Discharge Diagnosis (1) Conversion disorder Is this a current diagnosis for this admission?: Yes (2) Hemiplegia affecting right dominant side Is this a current diagnosis for this admission?: Yes (3) Dysphagia Is this a current diagnosis for this admission?: Yes (4) Affective disorder Is this a current diagnosis for this admission?: Yes (5) Obstructive sleep apnea Is this a current diagnosis for this admission?: Yes (6) Diabetes Is this a current diagnosis for this admission?: Yes (7) History of gastric bypass Is this a current diagnosis for this admission?: Yes (8) Fibromyalgia Is this a current diagnosis for this admission?: Yes (9) PTSD (post-traumatic stress disorder) Is this a current diagnosis for this admission?: Yes (10) Seizure disorder Is this a current diagnosis for this admission?: Yes (11) Ambulatory dysfunction Is this a current diagnosis for this admission?: Yes - Additional Information Resuscitation Status: Full Code Discharge Diet: Cardiac Discharge Activity: Activity As Tolerated Home Medications: Albuterol Sulfate [Ventolin 0.083% Neb 2.5 mg/3 mL Ampul] 3 ml NEB [id number] PRN Albuterol Sulfate [Ventolin Hfa] 2 puff IH Q12 11/26/16 Amitriptyline HCl [Elavil 100 mg Tablet] 100 mg PO QHS 11/26/16 Aspirin [Adult Low Dose Aspirin EC] 81 mg PO QHS 11/26/16 Cholecalciferol (Vitamin D3) [Vitamin D3 2000 unit Tablet] 2,000 unit PO DAILY 11/26/16 Cyanocobalamin (Vitamin B-12) [Vitamin B-12 Inj 1000 Mcg/1 ml Vial] 1 ml IM Q28D 11/26/16 Diazepam [Valium 5 mg Tablet] 5 mg PO TIDP PRN 11/26/16 Diclofenac Sodium [Voltaren] 4 gm TOP QID 11/26/16 Esomeprazole Mag Trihydrate [Nexium] 40 mg PO QAM 11/26/16 Fluoxetine HCl [Prozac] 80 mg PO QAM 11/26/16 Fluticasone/Salmeterol [Advair 250-50 Diskus 14 Dose/Diskus] 1 puff IH Q12 11/26 Lidocaine [Lidoderm 5% (700 mg) Transdermal Patch] 3 patch TD QHS 11/26/16 Melatonin/Pyridoxine [Melatonin 3 mg Tablet] 9 mg PO QHS 11/26/16 Methylphenidate HCl [Ritalin] 10 mg PO QAM 11/26/16 Mometasone Furoate [Nasonex] 2 spray NASL BID 11/26/16 Mupirocin [Bactroban 2% Ointment 22 gm] 1 applic TOP TID 11/26/16 Nystatin [Mycostatin Topical Powder 15 gm] 1 applic TOP QID 11/26/16 Polyethylene Glycol 3350 [Miralax Powder 17 gm/Packet] 17 gm PO TID 11/26/16 Sucralfate [Carafate Susp 1 gm/10 ml Udcup] 10 ml PO MEALSHS 11/26/16 Thiamine HCl [Thiamine 100 mg Tablet] 100 mg PO WLUNCH 11/26/16 Trazodone HCl [Desyrel] 100 mg PO QHS 11/26/16 Atorvastatin Calcium [Lipitor 20 mg Tablet] 20 mg PO QHS #30 tablet 12/02/16 Levetiracetam [Keppra 500 mg Tablet] 500 mg PO Q12 #60 tablet 12/02/16 Lubiprostone [Amitiza 8 Mcg Capsule] 8 mcg PO BID capsule 12/02/16 History of Present Illness Patient complains of: Weakness History of Present Illness: THERESA MEJIA is a 56 year old female with past medical history of stroke , fibromyalgia, PTSD presents with onset this morning of right-sided weakness and numbness. She has had some numbness in her right side for the past 2 weeks. This morning she was unable to get out of bed and called EMS to be transported to the emergency department for evaluation. Patient normally resides with her friend Jeanna who has to look after patient's medications at baseline. Apparently patient cannot manage her own medications secondary to mental health issues. Patient has 3 living children that are estranged from her for various reasons she states because they call her a "drug addict". She denies drug use. Patient states that several of her psychiatric medicines were decreased a couple weeks ago secondary to oversedation. Hospital Course Hospital Course: Patient was admitted with subjective complaint of right sided weakness. She had extensive neuro imaging which showed no acute process. After discussion with neurology and [facility] it is thought the patient likely had a conversion disorder. Once she was reassured that her imaging was normal she began using the right side of her body. She also had subjective resolved.. Modified barium swallow was performed which showed no pharyngeal dysfunction and no airway penetration. When she was notified that her swallowing study was unremarkable her swallowing difficulty resolved. Patient states that she has been bedbound for 3 years and has her partner caring for her while she stays in the hospital bed at home. She states this is because of severe herniated disc in her spine, multiple sclerosis, and "81 other medical problems". In fact MRI of head and spine shows no evidence of multiple sclerosis, no significant degenerative changes. She has had prior C5- 6 cervical fusion. Patient also states that she is going blind. During this visit she was noted to be reading a newspaper and then saw me in the hallway and ways to me. At the same time she was working on a en[employer] typewriter as she stated she wanted to learn braille since she was blind. Patient had 2 episodes during hospitalization of possible seizure. Given her psychiatric history and conversion disorder one has to consider pseudoseizure as well. She is normally followed by Dr. Wray of neurology as an outpatient. She has been started on Keppra this admission but will need further outpatient neurology follow-up. With regard to her extensive psychiatric history she will need to follow-up with Dr. Boris Ortiz. Case was discussed with Dr. Ortiz during this admission. Physical Exam Vital Signs: Temp Pulse Resp BP Pulse Ox 98.0 F 71 20 119/73 97 12/02/16 10:12 12/02/16 10:12 12/02/16 10:12 12/02/16 10:12 12/02/16 10:12 Intake & Output 12/01/16 12/02/16 12/03/16 06:59 06:59 06:59 Intake Total 2560 570 Output Total 1450 2160 535 Balance 1110 -1590 -535 Weight 110.8 kg 112.5 kg GENERAL: No acute distress HEENT: Conjunctiva clear, nonicteric, moist mucous membranes, no JVD, midline trachea RESPIRATORY: Clear to auscultation bilaterally, no wheezes, no rhonchi CARDIAC: Regular rate and rhythm, no murmurs/gallops/rubs ABDOMEN: Soft, nondistended, nontender, positive bowel sounds, no rebound, no guarding EXTREMETIES: No edema, cyanosis, clubbing NEUROLOGIC: Alert, oriented to person/place/time, CN's grossly intact, no focal deficits SKIN: No rash, wounds PSYCH: Unusual affect, depressed mood Results Laboratory Results: 12/02/16 00:00 12/02/16 00:00 12/02/16 12/02/16 12/02/16 00:00 00:00 00:00 WBC 8.7 RBC 3.96 Hgb 11.9 L Hct 35.4 L MCV 89 MCH 30.0 MCHC 33.6 RDW 14.4 H Plt Count 174 Seg Neutrophils % 64.7 Lymphocytes % 21.3 Monocytes % 8.0 Eosinophils % 5.7 Basophils % 0.3 Absolute Neutrophils 5.7 Absolute Lymphocytes 1.9 Absolute Monocytes 0.7 Absolute Eosinophils 0.5 Absolute Basophils 0.0 VBG pH 7.41 VBG pCO2 45.6 VBG HCO3 28.5 VBG Base Excess 3.4 Sodium 138.9 Potassium 4.2 Chloride 105 Carbon Dioxide 25 Anion Gap 9 BUN 14 Creatinine 0.57 Est GFR ( Amer) > 60 Est GFR (Non-Af Amer) > 60 Glucose 108 Calcium 8.7 Magnesium 2.2 Total Bilirubin 0.3 AST 28 ALT 51 Alkaline Phosphatase 91 Total Protein 6.6 Albumin 3.6 Labs- Last Values WBC 8.7 10^3/uL (4.0-10.5) 12/02/16 00:00 RBC 3.96 10^6/uL (3.72-5.28) 12/02/16 00:00 Hgb 11.9 g/dL (12.0-15.5) L 12/02/16 00:00 Hct 35.4 % (36.0-47.0) L 12/02/16 00:00 MCV 89 fl (80-97) 12/02/16 00:00 MCH 30.0 pg (27.0-33.4) 12/02/16 00:00 MCHC 33.6 g/dL (32.0-36.0) 12/02/16 00:00 RDW 14.4 % (11.5-14.0) H 12/02/16 00:00 Plt Count 174 10^3/uL (150-450) 12/02/16 00:00 Total Counted 100 11/26/16 10:25 Seg Neutrophils % 64.7 % (42-78) 12/02/16 00:00 Seg Neuts % (Manual) 73 % (42-78) 11/26/16 10:25 Lymphocytes % 21.3 % (13-45) 12/02/16 00:00 Lymphocytes % (Manual) 15 % (13-45) 11/26/16 10:25 Atypical Lymphs % 1 % (0) 11/26/16 10:25 Monocytes % 8.0 % (3-13) 12/02/16 00:00 Monocytes % (Manual) 4 % (3-13) 11/26/16 10:25 Eosinophils % 5.7 % (0-6) 12/02/16 00:00 Eosinophils % (Manual) 7 % (0-6) H 11/26/16 10:25 Basophils % 0.3 % (0-2) 12/02/16 00:00 Basophils % (Manual) 0 % (0-2) 11/26/16 10:25 Absolute Neutrophils 5.7 10^3/uL (1.7-8.2) 12/02/16 00:00 Abs Neuts (Manual) 6.4 10^3/uL (1.7-8.2) 11/26/16 10:25 Absolute Lymphocytes 1.9 10^3/uL (0.5-4.7) 12/02/16 00:00 Abs Lymphs (Manual) 1.4 10^3/uL (0.5-4.7) 11/26/16 10:25 Absolute Monocytes 0.7 10^3/uL (0.1-1.4) 12/02/16 00:00 Abs Monocytes (Manual) 0.3 10^3/uL (0.1-1.4) 11/26/16 10:25 Absolute Eosinophils 0.5 10^3/uL (0.0-0.6) 12/02/16 00:00 Absolute Eos (Manual) 0.6 10^3/uL (0.0-0.6) 11/26/16 10:25 Absolute Basophils 0.0 10^3/uL (0.0-0.2) 12/02/16 00:00 Abs Basophils (Manual) 0.0 10^3/uL (0.0-0.2) 11/26/16 10:25 Platelet Comment ADEQUATE 11/26/16 10:25 RBC Morph Comment NORMO-CYTIC/CHROMIC 11/26/16 10:25 PT 13.1 SEC (11.4-15.4) 11/26/16 10:25 INR 0.93 11/26/16 10:25 APTT 26.9 SEC (23.5-35.8) 11/26/16 10:25 VBG pH 7.41 (7.30-7.42) 12/02/16 00:00 VBG pCO2 45.6 mmHg (35-63) 12/02/16 00:00 VBG HCO3 28.5 mmol/L (20-32) 12/02/16 00:00 VBG Base Excess 3.4 mmol/L 12/02/16 00:00 Sodium 138.9 mmol/L (137-145) 12/02/16 00:00 Potassium 4.2 mmol/L (3.6-5.0) 12/02/16 00:00 Chloride 105 mmol/L (98-107) 12/02/16 00:00 Carbon Dioxide 25 mmol/L (22-30) 12/02/16 00:00 Anion Gap 9 (5-19) 12/02/16 00:00 BUN 14 mg/dL (7-20) 12/02/16 00:00 Creatinine 0.57 mg/dL (0.52-1.25) 12/02/16 00:00 Est GFR ( Amer) > 60 (>60) 12/02/16 00:00 Est GFR (Non-Af Amer) > 60 (>60) 12/02/16 00:00 Glucose 108 mg/dL (75-110) 12/02/16 00:00 POC Glucose 151 mg/dL (70-110) H 12/01/16 22:58 Hemoglobin A1c % 5.9 % (4.7-6.0) 11/27/16 05:48 Calcium 8.7 mg/dL (8.4-10.2) 12/02/16 00:00 Magnesium 2.2 mg/dL (1.6-2.3) 12/02/16 00:00 Total Bilirubin 0.3 mg/dL (0.2-1.3) 12/02/16 00:00 Direct Bilirubin 0.3 mg/dL (0.0-0.4) 12/02/16 00:00 Indirect Bilirubin Not Reportable 12/02/16 00:00 Neonat Total Bilirubin Not Reportable 12/02/16 00:00 AST 28 U/L (14-36) 12/02/16 00:00 ALT 51 U/L (9-52) 12/02/16 00:00 Alkaline Phosphatase 91 U/L (38-126) 12/02/16 00:00 Creatine Kinase 30 U/L (30-135) 11/26/16 11:28 CK-MB (CK-2) 0.79 ng/mL (<4.55) 11/26/16 11:28 Troponin I < 0.012 ng/mL 11/27/16 22:12 Total Protein 6.6 g/dL (6.3-8.2) 12/02/16 00:00 Albumin 3.6 g/dL (3.5-5.0) 12/02/16 00:00 Triglycerides 90 mg/dL (<150) 11/27/16 05:48 Cholesterol 223.66 mg/dL (0-200) H 11/27/16 05:48 LDL Cholesterol Direct 120 mg/dL (<100) H 11/27/16 05:48 VLDL Cholesterol 18.0 mg/dL (10-31) 11/27/16 05:48 HDL Cholesterol 59 mg/dL (>40) 11/27/16 05:48 TSH 4.69 uIU/mL (0.47-4.68) H 11/27/16 22:12 Urine Color YELLOW 11/26/16 12:15 Urine Appearance CLEAR 11/26/16 12:15 Urine pH 7.0 (5.0-9.0) 11/26/16 12:15 Ur Specific [place] 1.018 11/26/16 12:15 Urine Protein NEGATIVE mg/dL (NEGATIVE) 11/26/16 12:15 Urine Glucose (UA) NEGATIVE mg/dL (NEGATIVE) 11/26/16 12:15 Urine Ketones NEGATIVE mg/dL (NEGATIVE) 11/26/16 12:15 Urine Blood NEGATIVE (NEGATIVE) 11/26/16 12:15 Urine Nitrite NEGATIVE (NEGATIVE) 11/26/16 12:15 Urine Bilirubin NEGATIVE (NEGATIVE) 11/26/16 12:15 Urine Urobilinogen NEGATIVE mg/dL (<2.0) 11/26/16 12:15 Ur Leukocyte Esterase TRACE (NEGATIVE) H 11/26/16 12:15 Urine WBC (Auto) 2 /HPF 11/26/16 12:15 Urine RBC (Auto) 5 /HPF 11/26/16 12:15 Squamous Epi Cells Auto <1 /HPF 11/26/16 12:15 Urine Mucus (Auto) RARE /LPF 11/26/16 12:15 Urine Ascorbic Acid NEGATIVE (NEGATIVE) 11/26/16 12:15 Urine Opiates Screen NEGATIVE 11/26/16 12:15 Urine Methadone Screen NEGATIVE 11/26/16 12:15 Ur Barbiturates Screen NEGATIVE 11/26/16 12:15 Ur Phencyclidine Scrn NEGATIVE 11/26/16 12:15 Ur Amphetamines Screen NEGATIVE 11/26/16 12:15 U Benzodiazepines Scrn UNCONFIRMED POSITIVE 11/26/16 12:15 Urine Cocaine Screen NEGATIVE 11/26/16 12:15 U Marijuana (THC) Screen NEGATIVE 11/26/16 12:15 Impressions: Chest X-Ray 11/26/16 10:11 IMPRESSION: Poor inspiratory effort. No acute pulmonary disease is seen. Carotid Doppler Study 11/27/16 00:00 IMPRESSION: NO HEMODYNAMICALLY SIGNIFICANT STENOSIS. Modified Barium Swallow 11/27/16 00:00 IMPRESSION: NO EVIDENCE OF PENETRATION OR ASPIRATION. VERY SENSITIVE GAG REFLEX.PLEASE SEE SPEECH PATHOLOGIST REPORT FOR OTHER FINDINGS AND RECOMMENDATIONS. Cervical Spine MRI 11/29/16 00:00 IMPRESSION: MILD DEGENERATIVE CHANGE STATUS POST SURGICAL FUSION OF THE C5-C6 LEVELS. NO SIGNIFICANT SPINAL CANAL STENOSIS OR NEURAL FORAMINAL NARROWING. NO ENHANCING LESIONS IDENTIFIED. Head MRI 11/29/16 00:00 IMPRESSION: NO ABNORMAL ENHANCEMENT FOLLOWING ADMINISTRATION OF GADOLINIUM BASE CONTRAST. Lumbar Spine MRI 11/29/16 00:00 IMPRESSION: UNREMARKABLE LUMBAR SPINE MRI WITHIN WITHOUT CONTRAST. Thoracic Spine MRI 11/29/16 00:00 IMPRESSION: DEGENERATIVE CHANGE OF THE THORACIC SPINE ABOVE WITHOUT SIGNIFICANT SPINAL CANAL STENOSIS OR NEURAL FORAMINAL NARROWING IDENTIFIED. NO ACUTE OSSEOUS ABNORMALITY OR DEFINITE ENHANCING CORD LESIONS IDENTIFIED. Head CT 12/02/16 00:00 IMPRESSION: No acute findings. Qualifiers PATEINT BEING DISCHARGED WITH ANY OF THE FOLLOWING DIAGNOSIS?: No Plan Time Spent: Less than 30 Minutes
[2016-12-17] MEDS ORDERED: CYANOCOBALAMIN (VITAMIN B-12) INJ 1000 MCG/1 ML VIAL IM SCH (10:00)
== END 2016-12-02 11:04 | disposition home or self-care (01) | DRG 880 ==
LOC: ER 10:10 → EH 12:59 → INTOOBSV 12:59 → 3N 15:02 → OBSVTOIN 11-28 14:14 → 4W 11-29 15:50 → ICU 12-01 23:33
PROVIDERS: ADMIT Internal Medicine; ATTEND Internal Medicine
DX: F44.4 Conversion disorder with motor symptom or deficit (principal); G81.91 Hemiplegia, unspecified affecting right dominant side; R13.10 Dysphagia, unspecified; G47.33 Obstructive sleep apnea (adult) (pediatric); E11.9 Type 2 diabetes mellitus without complications; G40.909 Epilepsy, unspecified, not intractable, without status epilepticus; M79.7 Fibromyalgia; F43.10 Post-traumatic stress disorder, unspecified; M19.90 Unspecified osteoarthritis, unspecified site; Z79.4 Long term (current) use of insulin; Z79.899 Other long term (current) drug therapy; Z98.84 Bariatric surgery status; I25.2 Old myocardial infarction; Z90.49 Acquired absence of other specified parts of digestive tract; Z90.710 Acquired absence of both cervix and uterus; Z88.8 Allergy status to other drugs, medicaments and biological substances
CPT/HCPCS: 36415; 51701; 70450; 70551; 70552; 71010; 72156; 72157; 72158; 74230; 80053; 80061; 80307; 81001; 82550; 82553; 82803; 82962; 83036; 83735; 84443; 84484; 85025; 85610; 85730; 93005; 93010; 93880; 96372; 99291; A9270 GY; A9577; G0378; G8978-GP; G8979-GP; G8987-GO; G8988-GO; G8996-GN; G8997-GN; G8998-GN; J0515; J1165; J1650; J1885; J1953; J2060; J2405; J3490

== ENCOUNTER 2016-12-06 15:55 | Emergency (ER) | payer MEDICAID, MEDICARE ==
--- NOTE | 2016-12-06 16:39 | ER Document Report ---
ED General - General Mode of Arrival: Medic Information source: Relative, Emergency Med Personnel, [facility] Records TRAVEL OUTSIDE OF THE [place] IN LAST 30 DAYS: No - HPI Onset: Other - Refer to HPI Notes Similar symptoms previously: Yes Recently seen / treated by doctor: Yes <WILLOW POWELL - Last Filed: 12/06/16 23:34> <DYLANJUDDKARYNA - Last Filed: 12/07/16 00:46> - General Chief Complaint: Probable Seizure Stated Complaint: POSSIBLE SEIZURE Time Seen by Provider: 12/06/16 16:00 Notes: Patient is a 56 year old female presenting to the emergency department for unresponsiveness. Patient was at home with her physical therapist around 14:30 when the patient became weak and unresponsive. Patient has a history of seizures and patient's friend states the patient had a seizure on Friday and Friday. Patient was seen on 11/26/16 and admitted to the hospital and discharged on 11/28/16. Patient has a conversion disorder and her appearance today is similar with this. Patient was started on Kepra when she was discharged from the hospital. Patient is followed by Dr. Feng. (WILLOW POWELL) - Related Data Allergies/Adverse Reactions: silicone [Silicone] Allergy (Intermediate, Verified 07/09/16 14:56) REDNESS, RASH carbidopa [From Sinemet] Adverse Reaction (Severe, Verified 07/09/16 14:56) Cardiac arrest levodopa [From Sinemet] Adverse Reaction (Severe, Verified 07/09/16 14:56) Cardiac arrest Past Medical History - General Information source: Friend, Emergency Med Personnel, [facility] Records - Social History Smoking Status: Never Smoker Cigarette use (# per day): No Chew tobacco use (# tins/day): No Frequency of alcohol use: None Drug Abuse: None Family History: None - Past Medical History Cardiac Medical History: Reports: Hx Heart Attack - CARDIAC ARREST R/T DRUG REACTION(SINEMET), Hx Hypercholesterolemia Pulmonary Medical History: Reports: Hx Asthma, Hx Bronchitis, Hx Pneumonia - MARCH 2015, Hx Sleep Apnea - On home CPAP Neurological Medical History: Reports: Hx Cerebrovascular Accident, Hx Migraine , Hx Seizures - UNSURE OF ETIOLOGY, conversion disorder Endocrine Medical History: Reports: Hx Diabetes Mellitus Type 2 Renal/ Medical History: Reports: Hx Kidney Stones GI Medical History: Reports: Hx Hiatal Hernia - DX 30 YEARS AGO, Hx Ulcer - after gastric by pass, surg repaired Musculoskeltal Medical History: Reports Hx Arthritis - OSTEOARTHRITIS, Reports Hx Fibromyalgia Psychiatric Medical History: Reports: Hx Anxiety, Hx Attention Deficit Hyperactivity Disorder, Hx Depression, Hx Post Traumatic Stress Disorder Past Surgical History: Reports: Hx Abdominal Surgery - gastric bypass, Hx Cholecystectomy, Hx Gastric Bypass Surgery, Hx Hysterectomy, Hx Orthopedic Surgery - back/spinal surgery, Hx Tubal Ligation - Immunizations Immunizations up to date: Yes Hx Diphtheria, Pertussis, Tetanus Vaccination: Yes - up to date within last 5 yrs Hx Pneumococcal Vaccination: 03/31/14 <WILLOW POWELL - Last Filed: 12/06/16 23:34> Review of Systems - Review of Systems -: Yes ROS unobtainable due to patient's medical condition <WILLOW POWELL - Last Filed: 12/06/16 23:34> Physical Exam <WILLOW POWELL - Last Filed: 12/06/16 23:34> <KARYNA MARRUFO - Last Filed: 12/07/16 00:46> - Vital signs Vitals: Temp Pulse Resp BP Pulse Ox 98.0 F 77 20 130/82 H 89 L 12/06/16 15:55 12/06/16 15:55 12/06/16 15:55 12/06/16 15:55 12/06/16 15:55 - Notes Notes: GENERAL: Unresponsive, laying in bed. Stable. HEAD: Normocephalic, atraumatic. EYES: Eyes closed, rapid eye movement, eyelids fluttering. ENT: Oral mucosa moist, jaw is clinched, tongue is protruding with no bite goodman or active biting of the tongue. NECK: Full range of motion. Supple. Trachea midline. LUNGS: Clear to auscultation bilaterally, no wheezes, rales, or rhonchi. No respiratory distress. HEART: Regular rate and rhythm. No murmurs, gallops, or rubs. ABDOMEN: Soft, non-tender. Non-distended. Bowel sounds present in all 4 quadrants. EXTREMITIES: No edema, radial and dorsalis pedis pulses 2/4 bilaterally. No cyanosis. NEUROLOGICAL: Nonverbal. Minimally responds and withdrawals to painful stimuli. Biceps and patellar DTRs are currently absent. SKIN: Warm, dry, normal turgor. No rashes or lesions noted. (WILLOW POWELL) Course - Laboratory Result Diagrams: 12/06/16 16:29 12/06/16 16:29 - Consults Dr. Menon Time consulted: 18:43 [facility] Time consulted: 22:30 Lavern Giraldo Time consulted: 23:04 [facility] Time consulted: 23:05 <WILLOW POWELL - Last Filed: 12/06/16 23:34> - Laboratory Result Diagrams: 12/06/16 16:29 12/06/16 16:29 <KARYNA MARRUFO - Last Filed: 12/07/16 00:46> - Re-evaluation Re-evalutation: 12/06/16 23:01 I contacted the senior industrial engineer for this patient to discuss the transport situation; [facility] will not accept the patient and this senior industrial engineer asked that I contact Lavern Giraldo next. (WILLOW POWELL) 12/06/16 20:07 When I went in to recheck the patient and discussed transfer with her significant other as the patient had been unresponsive this entire time patient is now beginning to wake up slowly squeezing her significant other's hand with her left hand and starting to flutter her eyes open and shot and make attempts at speaking. At this time I do not feel this represents status epilepticus but rather a continuation of her conversion disorder manifesting itself differently than the last time. Patient will continue to be observed and hopefully be able to be discharged home 12/07/16 00:42 Unremarkable, venous blood gas unremarkable, CMP unremarkable with the exception of a slightly elevated AST, urinalysis shows positive nitrites and moderate leukocyte esterase, this was catheterized specimen, she was treated with Rocephin after she could not wake up enough to take doxycycline, urine drug screen shows benzodiazepines consistent with her Valium at home, Keppra level is pending, CT scan of the head is negative. At present the patient's presentation is very confusing, initially the patient would withdraw minimally from painful stimuli but would not follow any commands , later is able to get her to withdrawal from painful stimuli and she was able to localize to noxious stimuli and remove a facemask that had an ammonia capsule taped to it, she was able to remove this without any difficulty and declarant me, when I repeated the same exam and hour later to demonstrate to her senior industrial engineer that the patient was able to move she did not move at all despite having the ammonia capsule taped to the nonrebreather for approximately 2 minutes. Am concerned that patient may be intermittently seizing on a subclinical level. I discussed patient for transfer to [facility] but they do not have the capability to do continuous EEG monitoring, [facility] does not have a neurologist so I did discuss the patient with [facility] who agreed to accept the patient in transfer to their facility. Dr. Bowles there are neurologist recommends the patient go to the ICU, Dr. Campso on accept the patient to his service. Patient has been given Keppra, is protecting her airway , has no active seizures at this time. (KARYNA MARRUFO) - Vital Signs Vital signs: Temp Pulse Resp BP Pulse Ox 98.0 F 78 17 125/81 95 12/06/16 16:07 12/06/16 16:07 12/06/16 21:40 12/06/16 21:40 12/06/16 21:40 - Laboratory Laboratory results interpreted by me: 12/06/16 12/06/16 12/06/16 16:29 16:29 18:14 RDW 14.1 H ALT 54 H Urine Nitrite POSITIVE H Ur Leukocyte Esterase MODERATE H - EKG Interpretation by Me Additional EKG results interpreted by me: 12/07/16 00:45 EKG shows sinus rhythm at a rate of 79, left axis deviation, normal intervals, no ST segment elevations or depressions, no T-wave inversions per my interpretation. (KARYNA MARRUFO) - Consults Dr. Menon Reason for consultation: 12/06/16 18:[address] Menon about the patient, he recommends if the patient does not wake up, she should be transferred to a facility with neurology and EEGs. ( WILLOW POWELL) [facility] Reason for consultation: 12/06/16 22:30 Contacted [facility] for possible transfer. They will call back. 12/06/16 22:52 Call back from [facility], spoke with Dr. Tidwell who initially states to figure out where the patient was originally worked up so there is continuity of care. Dr. Tidwell then states that they do not do continuous EEG monitoring so she cannot come to their facility. (WILLOW POWELL) [facility] Reason for consultation: 12/06/16 23:04 Contacted [facility] for possible patient transfer, they do not have neurology. (WILLOW POWELL) [facility] Reason for consultation: 12/06/16 23:05 Contacted [facility] for possible transfer, they will call back. 12/06/16 23:20 Call from [facility], spoke with Dr. Bowles, Neurology, who will accept the patient for transfer and will speak with the ICU for admission. 12/06/16 23:31 Call from [facility], spoke with Dr. Campos, hospitalist, he accepts the patient for transfer to the ICU. (WILLOW POWELL) Discharge <WILLOW POWELL - Last Filed: 12/06/16 23:34> <KARYNA MARRUFO - Last Filed: 12/07/16 00:46> - Discharge Clinical Impression: Seizure, Status epilepticus Urinary tract infection Qualifiers: Urinary tract infection type: acute cystitis Hematuria presence: without hematuria Qualified Code(s): N30.00 - Acute cystitis without hematuria Condition: Fair Disposition: [facility] Scribe Attestation: 12/07/16 00:46 I personally performed the services described in the documentation, reviewed and edited the documentation which was dictated to the scribe in my presence, and it accurately records my words and actions. (KARYNA MARRUFO) Scribe Documentation - Scribe Written by Scribe:: Cori Smith 12/06/16 20:53 acting as scribe for :: Cony <WILLOW POWELL - Last Filed: 12/06/16 23:34>
[2016-12-06 16:43] LABS: ABSOLUTE EOSINOPHILS # (AUTO) 0.3 10^3/uL (0.0-0.6); ABSOLUTE LYMPHOCYTES (AUTO) 1.3 10^3/uL (0.5-4.7); ABSOLUTE MONOCYTES (AUTO) 0.6 10^3/uL (0.1-1.4); ABSOLUTE NEUT (AUTO) 6.1 10^3/uL (1.7-8.2); BASOPHILS % (AUTO) 0.3 % (0-2); EOSINOPHILS % (AUTO) 3.6 % (0-6); HEMATOCRIT 38.7 % (36.0-47.0); HEMOGLOBIN 12.8 g/dL (12.0-15.5); HGB HCT DIFFERENCE -0.3; LYMPHOCYTES % (AUTO) 15.9 % (13-45); MEAN CORPUSCULAR HEMOGLOBIN 30.1 pg (27.0-33.4); MEAN CORPUSCULAR VOLUME 91 fl (80-97); MONOCYTES % (AUTO) 7.6 % (3-13); RED BLOOD COUNT 4.25 10^6/uL (3.72-5.28); RED CELL DISTRIBUTION WIDTH 14.1 % (11.5-14.0); SEGMENTED NEUTROPHILS % (AUTO) 72.6 % (42-78); WHITE BLOOD COUNT 8.4 10^3/uL (4.0-10.5)
[2016-12-06 16:53] LABS: VENOUS BLOOD BASE EXCESS 1.1 mmol/L; VENOUS BLOOD HCO3 26.7 mmol/L (20-32); VENOUS BLOOD PCO2 44.9 mmHg (35-63); VENOUS BLOOD PH 7.39 (7.30-7.42)
[2016-12-06 17:03] LABS: ALANINE AMINOTRANSFERASE 54 U/L (9-52); ALBUMIN 3.8 g/dL (3.5-5.0); ALKALINE PHOSPHATASE 77 U/L (38-126); ANION GAP 11 (5-19); ASPARTATE AMINO TRANSFERASE 35 U/L (14-36); BILIRUBIN,DIRECT 0.3 mg/dL (0.0-0.4); BILIRUBIN,TOTAL 0.3 mg/dL (0.2-1.3); BLOOD UREA NITROGEN 18 mg/dL (7-20); CALCIUM 9.1 mg/dL (8.4-10.2); CARBON DIOXIDE 24 mmol/L (22-30); CHLORIDE 104 mmol/L (98-107); CREATININE RESULT 0.56 mg/dL (0.52-1.25); GLUCOSE 84 mg/dL (75-110); POTASSIUM 4.7 mmol/L (3.6-5.0); SODIUM 138.7 mmol/L (137-145); TOTAL PROTEIN 6.9 g/dL (6.3-8.2)
[2016-12-06 17:04] LABS: ALCOHOL < 10 mg/dL (NONE DETECTED)
--- NOTE | 2016-12-06 18:03 | RADIOLOGY REPORT (SQ) ---
EXAM DESCRIPTION: CT HEAD WITHOUT COMPLETED DATE/TIME: 12/06/2016 5:47 pm REASON FOR STUDY: post-ictal/unresponsive COMPARISON: 12/02/2016 TECHNIQUE: Axial images acquired through the brain without intravenous contrast. Images reviewed wi th bone, brain and subdural windows. Images stored on PACS. All CT scanners at this facility use dose modulation, iterative reconstruction, and/or weight based d osing when appropriate to reduce radiation dose to as low as reasonably achievable (ALARA). [facility]: Dose Right [facility]: CareDose [facility]: Dose Right [facility]: Teradose 4D [facility]: [employer] RADIATION DOSE: 64.61 mGy. LIMITATIONS: None. FINDINGS: VENTRICLES: Normal size and contour. CEREBRUM: No masses. No hemorrhage. No midline shift. Normal sears/white matter differentiation. N o evidence for acute infarction. CEREBELLUM: No masses. No hemorrhage. No alteration of density. No evidence for acute infarction. EXTRAAXIAL SPACES: No fluid collections. No masses. ORBITS AND GLOBE: No intra- or extraconal masses. Normal contour of globe without masses. CALVARIUM: No fracture. PARANASAL SINUSES: No fluid or mucosal thickening. SOFT TISSUES: No mass or hematoma. OTHER: No other significant finding. IMPRESSION: NORMAL BRAIN CT WITHOUT CONTRAST. TECHNICAL DOCUMENTATION: JOB ID: [id number] Quality ID # [id number]: Final reports with documentation of one or more dose reduction techniques (e.g., Au tomated exposure control, adjustment of the mA and/or kV according to patient size, use of iterative reconstruction technique) 2010 [employer]- All Rights Reserved
[2016-12-06 18:28] LABS: APPEARANCE,URINE SLIGHTLY-CLOUDY; BILIRUBIN,URINE NEGATIVE (NEGATIVE); GLUCOSE, URINE NEGATIVE (NEGATIVE); KETONES,URINE NEGATIVE (NEGATIVE); LEUKOCYTE ESTERASE,URINE MODERATE (NEGATIVE); NITRITE,URINE POSITIVE (NEGATIVE); PROTEIN,URINE NEGATIVE (NEGATIVE); URINE SPECIFIC GRAVITY 1.013; UROBILINOGEN,URINE NEGATIVE mg/dL (<2.0)
[2016-12-06 18:39] LABS: URINE BARBITURATES SCREEN NEGATIVE; URINE METHADONE SCREEN NEGATIVE; URINE OPIATES LOW NEGATIVE; URINE PHENCYCLIDINE SCREEN NEGATIVE
[2016-12-06] MEDS ORDERED: AMMONIA INHALANTS 10 AMPUL/BOX IH ONE ×2 (21:00→22:19)
[2016-12-06] MEDS ORDERED: DOXYCYCLINE HYCLATE 100 MG TABLET PO ONE (22:06)
[2016-12-06] MEDS ORDERED: CEFTRIAXONE 1 GM/D5W RTU 50 ML IV ONE (23:01)
[2016-12-06] MEDS ORDERED: LEVETIRACETAM 1000 MG/NACL-ISO 100 ML IV ONE (23:02)
[2016-12-07] MEDS ORDERED: ALBUTEROL SULFATE 0.083% NEB 2.5 MG/3 ML AMPUL NEB ONE (04:57)
[2016-12-07 10:06] VITALS: BP 105/68
--- NOTE | 2016-12-09 09:45 | EKG REPORT ---
SEVERITY:- NORMAL ECG - SINUS RHYTHM : Confirmed by: Deyvi Sandhu 09-Dec-2016 09:44:05
== END 2016-12-07 10:17 | disposition short-term general hospital (02) ==
LOC: ER 15:55
DX: G40.901 Epilepsy, unspecified, not intractable, with status epilepticus (principal); N30.00 Acute cystitis without hematuria
CPT/HCPCS: 93005; 94640; 99285; 51701; 96375; 96365; 36415; 87040; 87086; 80177; 82962; 80307 ×2; 83605; 85025; 87088; 80053; 81001; 87186; 82803; 70450; 93010; J3490; J0696; A9270; J1953

== ENCOUNTER 2017-02-02 22:30 | Emergency (ER) | payer MEDICARE, MEDICAID ==
--- NOTE | 2017-02-02 23:01 | RADIOLOGY REPORT (SQ) ---
EXAM DESCRIPTION: CT HEAD WITHOUT COMPLETED DATE/TIME: 02/02/2017 10:51 pm REASON FOR STUDY: stroke protocol COMPARISON: 12/06/2016 TECHNIQUE: Axial images acquired through the brain without intravenous contrast. Images reviewed wi th bone, brain and subdural windows. Images stored on PACS. All CT scanners at this facility use dose modulation, iterative reconstruction, and/or weight based d osing when appropriate to reduce radiation dose to as low as reasonably achievable (ALARA). [facility]: Dose Right [facility]: CareDose [facility]: Dose Right [facility]: Teradose 4D [facility]: [employer] RADIATION DOSE: mGy. LIMITATIONS: None. FINDINGS: VENTRICLES: Normal size and contour. CEREBRUM: No masses. No hemorrhage. No midline shift. Normal sears/white matter differentiation. S imilar cortical calcifications in the left frontotemporal region. No evidence for acute infarction. CEREBELLUM: No masses. No hemorrhage. No alteration of density. No evidence for acute infarction. EXTRAAXIAL SPACES: No fluid collections. No masses. ORBITS AND GLOBE: No intra- or extraconal masses. Normal contour of globe without masses. CALVARIUM: No fracture. PARANASAL SINUSES: No fluid or mucosal thickening. SOFT TISSUES: No mass or hematoma. OTHER: No other significant finding. IMPRESSION: No acute intracranial findings. TECHNICAL DOCUMENTATION: JOB ID: [id number] Quality ID # [id number]: Final reports with documentation of one or more dose reduction techniques (e.g., Au tomated exposure control, adjustment of the mA and/or kV according to patient size, use of iterative reconstruction technique) 2010 [employer]- All Rights Reserved
--- NOTE | 2017-02-02 23:16 | ER Document Report ---
ED General - General Stated Complaint: POSSIBLE STROKE LIKE SYMPTOMS Time Seen by Provider: 02/02/17 22:43 Cannot obtain history due to: Uncooperative Notes: Patient is a 56-year-old female well-known to this hospital in the emergency department with a history of conversion disorder, morbid obesity, hypertension, hyperlipidemia, chronic opiate and benzodiazepine dependent who presents today with concerns of possible dysarthria as well as concerns of worsening of her baseline right upper extremity and right lower extremity weakness and numbness. Patient herself is somewhat difficult historian time arrival as she is having difficulty speaking. Her significant other at the bedside relates that she called EMS as patient stated her right side was hurting and when EMS was in route she began to have difficulty speaking. Patient has been taking all medications as directed. She had been doing well today until this evening when symptoms started. History is otherwise limited secondary to her clinical presentation. TRAVEL OUTSIDE OF THE [place] IN LAST 30 DAYS: No - Related Data Allergies/Adverse Reactions: silicone [Silicone] Allergy (Intermediate, Verified 07/09/16 14:56) REDNESS, RASH carbidopa [From Sinemet] Adverse Reaction (Severe, Verified 07/09/16 14:56) Cardiac arrest levodopa [From Sinemet] Adverse Reaction (Severe, Verified 07/09/16 14:56) Cardiac arrest Past Medical History - General Information source: Patient, Relative Cannot obtain history due to: Uncooperative - Social History Smoking Status: Never Smoker Frequency of alcohol use: None Drug Abuse: None Lives with: Spouse/Significant other Family History: Reviewed & Not Pertinent - Past Medical History Cardiac Medical History: Reports: Hx Heart Attack - CARDIAC ARREST R/T DRUG REACTION(SINEMET), Hx Hypercholesterolemia Denies: Hx Coronary Artery Disease, Hx Hypertension Pulmonary Medical History: Reports: Hx Asthma, Hx Bronchitis, Hx Pneumonia - MARCH 2015, Hx Sleep Apnea - On home CPAP Denies: Hx COPD Neurological Medical History: Reports: Hx Cerebrovascular Accident, Hx Migraine , Hx Seizures - UNSURE OF ETIOLOGY, conversion disorder Endocrine Medical History: Reports: Hx Diabetes Mellitus Type 2 Renal/ Medical History: Reports: Hx Kidney Stones GI Medical History: Reports: Hx Hiatal Hernia - DX 30 YEARS AGO, Hx Ulcer - after gastric by pass, surg repaired Musculoskeltal Medical History: Reports Hx Arthritis - OSTEOARTHRITIS, Reports Hx Fibromyalgia Psychiatric Medical History: Reports: Hx Anxiety, Hx Attention Deficit Hyperactivity Disorder, Hx Depression, Hx Post Traumatic Stress Disorder Past Surgical History: Reports: Hx Abdominal Surgery - gastric bypass, Hx Cholecystectomy, Hx Gastric Bypass Surgery, Hx Hysterectomy, Hx Orthopedic Surgery - back/spinal surgery, Hx Tubal Ligation. Denies: Hx Adenoidectomy, Hx Pacemaker - Immunizations Immunizations up to date: Yes Hx Diphtheria, Pertussis, Tetanus Vaccination: Yes - up to date within last 5 yrs Hx Pneumococcal Vaccination: 03/31/14 Review of Systems - Review of Systems Notes: Constitutional: Negative for fever. HENT: Negative for sore throat. Eyes: Negative for visual changes. Cardiovascular: Negative for chest pain. Respiratory: Negative for shortness of breath. Gastrointestinal: Negative for abdominal pain, vomiting or diarrhea. Genitourinary: Negative for dysuria. Musculoskeletal: Negative for back pain. Skin: Negative for rash. Neurological: Positive for right upper and lower extremity weakness, dysarthria 10 point ROS negative except as marked above and in HPI. Physical Exam - Vital signs Vitals: Resp 13 02/02/17 22:44 Interpretation: Normal Notes: PHYSICAL EXAMINATION: GENERAL: Well-appearing, well-nourished and in no acute distress. HEAD: Atraumatic, normocephalic. EYES: Pupils equal round and reactive to light, extraocular movements intact, sclera anicteric, conjunctiva are normal. ENT: nares patent, oropharynx clear without exudates. Moist mucous membranes. NECK: Normal range of motion, supple without lymphadenopathy LUNGS: Breath sounds clear to auscultation bilaterally and equal. No wheezes rales or rhonchi. HEART: Regular rate and rhythm without murmurs ABDOMEN: Soft, nontender, normoactive bowel sounds. No guarding, no rebound. No masses appreciated. EXTREMITIES: Normal range of motion, no pitting or edema. No cyanosis. NEUROLOGICAL: Apparent intentional, intermittent right-sided facial droop without loss of the nasolabial fold. Tongue protrudes midline. Extraocular motions intact. Pupils are 3 mm and equally reactive. Patient provides no voluntary motor response in the right upper or lower extremity although is witnessed to be spontaneously moving her right upper extremity. 5 out of 5 strength both distally and proximally in the left upper and lower extremity. PSYCH: N moderately anxious ormal mood, normal affect. SKIN: Warm, Dry, normal turgor, no rashes or lesions noted. Course - Re-evaluation Re-evalutation: 02/02/17 23:13 Patient presents with possible new onset intermittent dysarthria with baseline right-sided hemiparesis. Majority of the history is provided by the patient's girlfriend to the bedside who does report that her right upper and lower extremity findings of weakness and lack of sensation are her normal. Of note, per the significant other patient has not use her right side in over 3 months but her muscle bulk and tone is noted to be remarkably normal on the side given this reported history. On assessment, patient has a variable dysarthria that does not not fit with a true ischemic event. Moreover she has a very minimal to sometimes not all present right facial droop. Her neurologic exam is otherwise apparently at her baseline with complete lack of strength in both the right upper and lower extremity. Of note, patient does have a history of fainting neurologic symptoms in front of her significant other that has been documented in the past. Will obtain laboratories, chest x-ray, CT the head has already been completed and is noted to be normal. 02/03/17 00:23 Laboratories, CT the head all unremarkable. Review of prior hospital documentation demonstrates that patient actually has a history of conversion disorder and apparently has never actually had MRI findings to suggest a ischemic injury as the origin of her right-sided deficits and that these are thought to be due to conversion disorder as her MRI from the end of October and the middle of November did not demonstrate any evidence of an ischemic event. On repeat assessment the patient, she has intermittent periods of dysarthria, absent facial droop. Staff have repeatedly witness the patient to be using her RUE when her significant other is not in the room, I have reviewed with her that this is a conversion disorder and encourage her follow-up with her psychiatric provider. At this time will discharge with return precautions and follow-up recommendations. Verbal discharge instructions given a the bedside and opportunity for questions given. Medication warnings reviewed. Patient is in agreement with this plan and has verbalized understanding of return precautions and the need for primary care follow-up in the next 24-72 hours. - Vital Signs Vital signs: Temp Pulse Resp BP Pulse Ox 75 14 106/71 94 02/02/17 23:28 02/03/17 02:21 02/03/17 02:21 02/03/17 02:21 - Laboratory Result Diagrams: 02/02/17 22:49 02/02/17 22:49 Laboratory results interpreted by me: 02/02/17 02/02/17 22:49 22:49 RDW 14.5 H Creatinine 0.43 L Glucose 119 H AST 60 H ALT 97 H - Diagnostic Test Radiology reviewed: Image reviewed, Reports reviewed Radiology results interpreted by me: 02/03/17 03:13 CT head: No acute intracranial bleed Discharge - Discharge Clinical Impression: Conversion disorder Hemiplegia affecting right dominant side Qualifiers: Hemiplegia type: flaccid Hemiplegia etiology: non-cerebrovascular Qualified Code(s): G81.01 - Flaccid hemiplegia affecting right dominant side Condition: Good Disposition: HOME, SELF-CARE Additional Instructions: Your symptoms are likely due to conversion disorder. Please follow-up with your psychiatrist. Return to the emergency department for any additional concerns you may have. Referrals: ELIZABETH ROMERO DO [Primary Care Provider] - Follow up as needed
[2017-02-02 23:19] LABS: ABSOLUTE EOSINOPHILS # (AUTO) 0.5 10^3/uL (0.0-0.6); ABSOLUTE LYMPHOCYTES (AUTO) 1.5 10^3/uL (0.5-4.7); ABSOLUTE MONOCYTES (AUTO) 0.7 10^3/uL (0.1-1.4); BASOPHILS % (AUTO) 0.3 % (0-2); EOSINOPHILS % (AUTO) 5.3 % (0-6); HEMATOCRIT 38.9 % (36.0-47.0); HEMOGLOBIN 13.1 g/dL (12.0-15.5); HGB HCT DIFFERENCE 0.4; LYMPHOCYTES % (AUTO) 17.6 % (13-45); MEAN CORPUSCULAR HEMOGLOBIN 30.7 pg (27.0-33.4); MEAN CORPUSCULAR HGB CONC 33.8 g/dL (32.0-36.0); MEAN CORPUSCULAR VOLUME 91 fl (80-97); MONOCYTES % (AUTO) 8.1 % (3-13); RED BLOOD COUNT 4.29 10^6/uL (3.72-5.28); RED CELL DISTRIBUTION WIDTH 14.5 % (11.5-14.0); SEGMENTED NEUTROPHILS % (AUTO) 68.7 % (42-78); WHITE BLOOD COUNT 8.8 10^3/uL (4.0-10.5)
--- NOTE | 2017-02-02 23:27 | RADIOLOGY REPORT (SQ) ---
EXAM DESCRIPTION: CHEST SINGLE VIEW COMPLETED DATE/TIME: 02/02/2017 11:17 pm REASON FOR STUDY: sob COMPARISON: 04/02/2016 NUMBER OF VIEWS: One view. TECHNIQUE: Single frontal radiographic view of the chest acquired. LIMITATIONS: None. FINDINGS: LUNGS AND PLEURA: Low lung volumes. No acute opacities, masses or pneumothorax. No pleur al effusion. MEDIASTINUM AND HILAR STRUCTURES: Stable. HEART AND VASCULAR STRUCTURES: Stable. BONES: No acute findings. HARDWARE: None in the chest. OTHER: No other significant finding. IMPRESSION: LOW LUNG VOLUMES. No acute finding. TECHNICAL DOCUMENTATION: JOB ID: [id number] [employer]- All Rights Reserved
[2017-02-02 23:33] LABS: ALANINE AMINOTRANSFERASE 97 U/L (9-52); ALBUMIN 3.9 g/dL (3.5-5.0); ALKALINE PHOSPHATASE 95 U/L (38-126); ANION GAP 11 (5-19); ASPARTATE AMINO TRANSFERASE 60 U/L (14-36); BILIRUBIN,DIRECT 0.3 mg/dL (0.0-0.4); BILIRUBIN,TOTAL 0.3 mg/dL (0.2-1.3); BLOOD UREA NITROGEN 14 mg/dL (7-20); CALCIUM 8.9 mg/dL (8.4-10.2); CARBON DIOXIDE 24 mmol/L (22-30); CHLORIDE 104 mmol/L (98-107); CREATININE RESULT 0.43 mg/dL (0.52-1.25); GLUCOSE 119 mg/dL (75-110); POTASSIUM 4.5 mmol/L (3.6-5.0); SODIUM 138.7 mmol/L (137-145); TOTAL PROTEIN 7.3 g/dL (6.3-8.2)
[2017-02-03 02:27] VITALS: BP 106/71
--- NOTE | 2017-02-03 07:52 | EKG REPORT ---
SEVERITY:- NORMAL ECG - SINUS RHYTHM : Confirmed by: Deyvi Sandhu 03-Feb-2017 07:52:06
== END 2017-02-03 03:30 | disposition home or self-care (01) ==
LOC: ER 22:30
DX: F44.9 Dissociative and conversion disorder, unspecified (principal); G81.01 Flaccid hemiplegia affecting right dominant side; R20.0 Anesthesia of skin; I25.2 Old myocardial infarction; J45.909 Unspecified asthma, uncomplicated; E11.9 Type 2 diabetes mellitus without complications; Z86.73 Personal history of transient ischemic attack (TIA), and cerebral infarction without residual deficits
CPT/HCPCS: 36415; 70450; 71010; 80053; 82962; 84484; 85025; 93005; 93010; 99285

== ENCOUNTER → 2017-02-18 | Outpatient (CLI) | payer MEDICARE, MEDICAID ==
--- NOTE | 2017-02-18 18:06 | RADIOLOGY REPORT (SQ) ---
EXAM DESCRIPTION: U/S NON-OB PELVIS W/O DOP COMPLETED DATE/TIME: 02/18/2017 5:15 pm REASON FOR STUDY: PELVIC AND PERINEAL PAIN R10.2 PELVIC AND PERINEAL PAIN COMPARISON: None. TECHNIQUE: Dynamic and static grayscale images acquired of the pelvis via transabdominal approach an d recorded on PACS. Additional selected color Doppler and spectral images recorded. LIMITATIONS: Body wall acoustics. FINDINGS: UTERUS: Surgically absent. ENDOMETRIAL STRIPE: Surgically absent. CERVIX: Surgically absent. RIGHT OVARY: Ovary not visualized. RIGHT OVARY DOPPLER: Ovary not visualized. LEFT OVARY: Ovary not visualized. LEFT OVARY DOPPLER: Ovary not visualized. FREE FLUID: None noted. OTHER: No other significant finding. MEASUREMENTS: UTERUS: Not applicable. ENDOMETRIAL STRIPE: Not applicable. RIGHT OVARY: Not visualized. LEFT OVARY: Not visualized. IMPRESSION: STATUS POST HYSTERECTOMY. OVARIES NOT VISUALIZED. TECHNICAL DOCUMENTATION: JOB ID: [id number] [employer] [facility] [employer]- All Rights Reserved
== END ==
LOC: RAD 16:18
PROVIDERS: ATTEND Obstetrics & Gynecology
DX: R10.2 Pelvic and perineal pain (principal)
CPT/HCPCS: 76856

== ENCOUNTER 2017-05-16 02:07 | Emergency (ER) | payer MEDICARE, MEDICAID ==
[2017-05-16] MEDS ORDERED: HALOPERIDOL LACTATE INJ 5 MG/1 ML VIAL IV ONE (02:17)
[2017-05-16] MEDS ORDERED: NORMAL SALINE 1000 ML 500 ML IV ONE (02:18)
--- NOTE | 2017-05-16 02:46 | ER Document Report ---
ED General - General Chief Complaint: Breathing Difficulty Stated Complaint: RESPIRATORY DISTRESS Time Seen by Provider: 05/16/17 02:17 Cannot obtain history due to: Uncooperative Notes: Patient is a 57-year-old female very well-known to me, past history of conversion disorder and malingering who presents with adventitious lung sounds that are volitional in nature complaining of shortness of breath. Patient presents with vitals within normal limits from EMS. She only tells me "I am blind" when I am speaking to her but is known to not be blind. The significant other at the bedside again provides majority of the history similar to the previous times I have seen the patient. She states that the patient has been acting oddly the last several weeks often complaining that she is seeing relatives. The patient is now no longer complaining about being unable to move the right side of her body. History is otherwise limited secondary to patient' s lack of cooperation TRAVEL OUTSIDE OF THE [place] IN LAST 30 DAYS: Yes - Related Data Allergies/Adverse Reactions: silicone [Silicone] Allergy (Intermediate, Verified 07/09/16 14:56) REDNESS, RASH carbidopa [From Sinemet] Adverse Reaction (Severe, Verified 07/09/16 14:56) Cardiac arrest levodopa [From Sinemet] Adverse Reaction (Severe, Verified 07/09/16 14:56) Cardiac arrest Past Medical History - General Information source: Patient, Relative - Social History Smoking Status: Never Smoker Frequency of alcohol use: None Drug Abuse: None Lives with: Spouse/Significant other Family History: Reviewed & Not Pertinent Patient has suicidal ideation: No Patient has homicidal ideation: No - Past Medical History Cardiac Medical History: Reports: Hx Heart Attack - CARDIAC ARREST R/T DRUG REACTION(SINEMET), Hx Hypercholesterolemia Denies: Hx Coronary Artery Disease, Hx Hypertension Pulmonary Medical History: Reports: Hx Asthma, Hx Bronchitis, Hx Pneumonia - MARCH 2015, Hx Sleep Apnea - On home CPAP Denies: Hx COPD Neurological Medical History: Reports: Hx Cerebrovascular Accident, Hx Migraine , Hx Seizures - UNSURE OF ETIOLOGY, conversion disorder Endocrine Medical History: Reports: Hx Diabetes Mellitus Type 2 Renal/ Medical History: Reports: Hx Kidney Stones. Denies: Hx Peritoneal Dialysis GI Medical History: Reports: Hx Hiatal Hernia - DX 30 YEARS AGO, Hx Ulcer - after gastric by pass, surg repaired Musculoskeltal Medical History: Reports Hx Arthritis - OSTEOARTHRITIS, Reports Hx Fibromyalgia Psychiatric Medical History: Reports: Hx Anxiety, Hx Attention Deficit Hyperactivity Disorder, Hx Depression, Hx Post Traumatic Stress Disorder Past Surgical History: Reports: Hx Abdominal Surgery - gastric bypass, Hx Cholecystectomy, Hx Gastric Bypass Surgery, Hx Hysterectomy, Hx Orthopedic Surgery - back/spinal surgery, Hx Tubal Ligation. Denies: Hx Adenoidectomy, Hx Pacemaker - Immunizations Immunizations up to date: Yes Hx Diphtheria, Pertussis, Tetanus Vaccination: Yes - up to date within last 5 yrs Hx Pneumococcal Vaccination: 03/31/14 Review of Systems - Review of Systems Notes: Constitutional: Negative for fever. HENT: Negative for sore throat. Eyes: Negative for visual changes. Cardiovascular: Negative for chest pain. Respiratory: Positive for shortness of breath. Gastrointestinal: Negative for abdominal pain, vomiting or diarrhea. Genitourinary: Negative for dysuria. Musculoskeletal: Negative for back pain. Skin: Negative for rash. Neurological: Negative for headaches, weakness or numbness. 10 point ROS negative except as marked above and in HPI. Physical Exam - Vital signs Vitals: Resp Pulse Ox 20 94 05/16/17 02:13 05/16/17 02:13 Interpretation: Normal Notes: PHYSICAL EXAMINATION: GENERAL: Lying in the bed, no distress. Making audible expiratory upper wheezing sounds. HEAD: Atraumatic, normocephalic. EYES: Pupils equal round and reactive to light, extraocular movements intact, sclera anicteric, conjunctiva are normal. ENT: nares patent, oropharynx clear without exudates. Moist mucous membranes. NECK: Normal range of motion, supple without lymphadenopathy LUNGS: Breath sounds clear to auscultation bilaterally and equal. No wheezes rales or rhonchi. HEART: Regular rate and rhythm without murmurs ABDOMEN: Soft, nontender, normoactive bowel sounds. No guarding, no rebound. No masses appreciated. EXTREMITIES: Normal range of motion, no pitting or edema. No cyanosis. NEUROLOGICAL: No focal neurological deficits. Moves all extremities spontaneously. PSYCH: keeps her eyes closed. Pulling at my pants when trying to examine her. Refuses to speak. SKIN: Warm, Dry, normal turgor, no rashes or lesions noted. Course - Re-evaluation Re-evalutation: 05/16/17 02:43 Patient presents complaining of shortness of breath although does not have any appreciable lung findings on examination and only has expiratory upper airway noises that appear voluntary in nature. Patient is not hypoxic, tachypnea, has no retractions. Her chest x-ray is unchanged from prior actually improved from the chest x-ray in January. I do not suspect any acute pathology. The significant other was taken out of the room apparently at the patient's request and informed the nurse that she feels neglected at home. This is again very consistent with patient's prior presentations in which she feels that she is not getting adequate attention from her significant other and manifests physical symptoms has a presentation of her psychological discomfort with the situation. Patient has had multiple prior hospitalizations for conversion disorder with complaints of neurologic symptoms including seizures and neuro deficits and then subsequently found to have normal MRI studies. I do not believe any further laboratories or imaging is indicated. Patient received haloperidol here in the emergency department with marketed improvement of her symptoms. She will be discharged with recommendations to follow-up with her primary provider. She is requesting to go home at time of discharge. - Vital Signs Vital signs: Temp Pulse Resp BP Pulse Ox 98.5 F 19 133/75 H 95 05/16/17 02:37 05/16/17 02:16 05/16/17 02:16 05/16/17 02:16 - Diagnostic Test Radiology reviewed: Image reviewed, Reports reviewed Radiology results interpreted by me: 05/16/17 02:45 Chest x-ray: No acute infiltrate or pneumothorax Discharge - Discharge Clinical Impression: Shortness of breath Condition: Fair Disposition: HOME, SELF-CARE Additional Instructions: Please return to the emergency room immediately if you experience any concerning symptoms including high fevers, severe headache, chest pain, difficulty breathing, abdominal pain, slurred speech, numbness or weakness in your arms or legs, or any other symptom that concerns you.
--- NOTE | 2017-05-16 03:27 | RADIOLOGY REPORT (SQ) ---
EXAM DESCRIPTION: CHEST SINGLE VIEW CLINICAL HISTORY: sob COMPARISON: None. FINDINGS: Single frontal view of the chest. Elevation of right hemidiaphragm. Cardiac megaly. Leads overlie the chest. Pulmonary vascular congestion without definite edema. No pneumothorax or large effusion. No lobar consolidation. Postoperative change of the cervical spine. Upper abdominal soft tissues are unremarkable. IMPRESSION: Cardiomegaly with pulmonary vascular congestion.
[2017-05-16 03:35] VITALS: BP 111/71
--- NOTE | 2017-05-16 09:36 | EKG REPORT ---
SEVERITY:- NORMAL ECG - SINUS RHYTHM : Confirmed by: Deyvi Sandhu 16-May-2017 09:35:12
== END 2017-05-16 03:53 | disposition home or self-care (01) ==
LOC: ER 02:07
DX: R06.02 Shortness of breath (principal); Z76.5 Malingerer [conscious simulation]
CPT/HCPCS: 93005; 99285; 96361; 96374; 71010; 93010; J1630; J7030

== ENCOUNTER 2017-06-09 22:26 | Emergency (ER) | payer MEDICARE, MEDICAID ==
[2017-06-09] MEDS ORDERED: HALOPERIDOL LACTATE INJ 5 MG/1 ML VIAL IV ONE (22:40)
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
--- NOTE | 2017-06-09 23:10 | EKG REPORT ---
SEVERITY:- ABNORMAL ECG - SINUS RHYTHM : Confirmed by: Deyvi Sandhu 09-Jun-2017 23:09:14
--- NOTE | 2017-06-09 23:27 | RADIOLOGY REPORT (SQ) ---
EXAM DESCRIPTION: CT THORACIC SPINE WITHOUT COMPLETED DATE/TIME: 06/09/2017 11:15 pm REASON FOR STUDY: fall COMPARISON: None. TECHNIQUE: Axial images acquired through the thoracic spine without intravenous contrast. Images re viewed with lung, soft tissue and bone windows. Reconstructed coronal and sagittal MPR images review ed. Images stored on PACS. All CT scanners at this facility use dose modulation, iterative reconstruction, and/or weight based d osing when appropriate to reduce radiation dose to as low as reasonably achievable (ALARA). [facility]: Dose Right [facility]: CareDose [facility]: Dose Right [facility]: Teradose 4D [facility]: Smart Bioserie RADIATION DOSE: CT Rad equipment meets quality standard of care and radiation dose reduction techniq ues were employed. CTDIvol: 126.0 mGy. DLP: 3701 mGy-cm. mGy. LIMITATIONS: None. FINDINGS: VISUALIZED LUNGS: No acute opacities. No pneumothorax. SOFT TISSUES: No soft tissue swelling. No masses. VERTEBRAL BODIES: No fractures. No dislocation. No acute findings. DISCS: Anterior osteophytes in the lower thoracic spine. ALIGNMENT: Normal. TRANSVERSE PROCESSES, POSTERIOR ELEMENTS: No fractures. No dislocation. No acute findings. HARDWARE: Posterior hardware at T11 and T12. VISUALIZED RIBS: No fractures. OTHER: No other significant finding. IMPRESSION: DEGENERATIVE DISC DISEASE. SURGICAL CHANGES IN THE LOWER THORACIC SPINE WITH HARDWARE. NO ACUTE FINDINGS. TECHNICAL DOCUMENTATION: JOB ID: [id number] Quality ID # [id number]: Final reports with documentation of one or more dose reduction techniques (e.g., Au tomated exposure control, adjustment of the mA and/or kV according to patient size, use of iterative reconstruction technique) 2010 [employer]- All Rights Reserved
--- NOTE | 2017-06-09 23:29 | RADIOLOGY REPORT (SQ) ---
EXAM DESCRIPTION: CT HEAD WITHOUT COMPLETED DATE/TIME: 06/09/2017 11:15 pm REASON FOR STUDY: fall COMPARISON: 02/02/2017. TECHNIQUE: Axial images acquired through the brain without intravenous contrast. Images reviewed wi th bone, brain and subdural windows. Images stored on PACS. All CT scanners at this facility use dose modulation, iterative reconstruction, and/or weight based d osing when appropriate to reduce radiation dose to as low as reasonably achievable (ALARA). [facility]: Dose Right [facility]: CareDose [facility]: Dose Right [facility]: Teradose 4D [facility]: Socialize RADIATION DOSE: CT Rad equipment meets quality standard of care and radiation dose reduction techniq ues were employed. CTDIvol: 55.3 mGy. DLP: 1106 mGy-cm. mGy. LIMITATIONS: None. FINDINGS: VENTRICLES: Normal size and contour. CEREBRUM: No masses. No hemorrhage. No midline shift. No evidence for acute infarction. Normal gra y/white matter differentiation. No areas of low density in the white matter. CEREBELLUM: No masses. No hemorrhage. No alteration of density. No evidence for acute infarction. EXTRAAXIAL SPACES: No fluid collections. No masses. ORBITS AND GLOBE: No intra- or extraconal masses. Normal contour of globe without masses. CALVARIUM: No fracture. PARANASAL SINUSES: No fluid or mucosal thickening. SOFT TISSUES: No mass or hematoma. OTHER: No other significant finding. IMPRESSION: NORMAL BRAIN CT WITHOUT CONTRAST. EVIDENCE OF ACUTE STROKE: NO. COMMENT: Quality ID # 436: Final reports with documentation of one or more dose reduction techniques (e.g., Automated exposure control, adjustment of the mA and/or kV according to patient size, use of iterative reconstruction technique) TECHNICAL DOCUMENTATION: JOB ID: [id number] [employer]- All Rights Reserved
[2017-06-10 01:22] VITALS: BP 119/107
== END 2017-06-10 01:23 | disposition home or self-care (01) ==
LOC: ER 22:26
DX: S09.90XA Unspecified injury of head, initial encounter (principal); F39 Unspecified mood [affective] disorder; X58.XXXA Exposure to other specified factors, initial encounter; M54.9 Dorsalgia, unspecified; E66.01 Morbid (severe) obesity due to excess calories; E78.00 Pure hypercholesterolemia, unspecified; I50.9 Heart failure, unspecified; E11.9 Type 2 diabetes mellitus without complications; I25.2 Old myocardial infarction; Z86.73 Personal history of transient ischemic attack (TIA), and cerebral infarction without residual deficits; Z87.442 Personal history of urinary calculi; Z98.84 Bariatric surgery status; Z90.49 Acquired absence of other specified parts of digestive tract; Z90.710 Acquired absence of both cervix and uterus
CPT/HCPCS: 93005; 99284; 96374; 70450; 72128; 93010; J1630

== ENCOUNTER 2017-07-16 11:10 | Emergency (ER) | payer MEDICARE, MEDICAID ==
--- NOTE | 2017-07-16 12:12 | ER Document Report ---
ED General - General Chief Complaint: Anxiety Stated Complaint: PSYCH EVAL Time Seen by Provider: 07/16/17 11:43 Notes: Patient is a 57-year-old female presents to the emergency department with a chief complaint of anxiety and that she needs to go to a facility. She claims to be having visual hallucinations and difficulty concentrating she states she has been taking her home meds as directed. She lives with her significant other but she has been trying to get placement in a facility due to her medical problems. she denies any SI, HI. Past medical history significant for asthma, obstructive sleep apnea, COPD, Parkinson's, previous strokes 3, diabetes, seizure history on Keppra, right eye blindness, GERD. TRAVEL OUTSIDE OF THE [place] IN LAST 30 DAYS: Yes - Related Data Allergies/Adverse Reactions: silicone [Silicone] Allergy (Intermediate, Verified 07/16/17 13:43) REDNESS, RASH carbidopa [From Sinemet] Adverse Reaction (Severe, Verified 07/16/17 13:43) Cardiac arrest levodopa [From Sinemet] Adverse Reaction (Severe, Verified 07/16/17 13:43) Cardiac arrest Past Medical History - Social History Smoking Status: Never Smoker Family History: Reviewed & Not Pertinent - Past Medical History Cardiac Medical History: Reports: Hx Heart Attack - CARDIAC ARREST R/T DRUG REACTION(SINEMET), Hx Hypercholesterolemia Denies: Hx Coronary Artery Disease, Hx Hypertension Pulmonary Medical History: Reports: Hx Asthma, Hx Bronchitis, Hx Pneumonia - MARCH 2015, Hx Sleep Apnea - On home CPAP Denies: Hx COPD Neurological Medical History: Reports: Hx Cerebrovascular Accident, Hx Migraine , Hx Seizures - UNSURE OF ETIOLOGY, conversion disorder Endocrine Medical History: Reports: Hx Diabetes Mellitus Type 2 Renal/ Medical History: Reports: Hx Kidney Stones. Denies: Hx Peritoneal Dialysis GI Medical History: Reports: Hx Hiatal Hernia - DX 30 YEARS AGO, Hx Ulcer - after gastric by pass, surg repaired Musculoskeltal Medical History: Reports Hx Arthritis - OSTEOARTHRITIS, Reports Hx Fibromyalgia Psychiatric Medical History: Reports: Hx Anxiety, Hx Attention Deficit Hyperactivity Disorder, Hx Depression, Hx Post Traumatic Stress Disorder Past Surgical History: Reports: Hx Abdominal Surgery - gastric bypass, Hx Cholecystectomy, Hx Gastric Bypass Surgery, Hx Hysterectomy, Hx Orthopedic Surgery - back/spinal surgery, Hx Tubal Ligation. Denies: Hx Adenoidectomy, Hx Pacemaker - Immunizations Immunizations up to date: Yes Hx Diphtheria, Pertussis, Tetanus Vaccination: Yes - up to date within last 5 yrs Hx Pneumococcal Vaccination: 03/31/14 Review of Systems - Review of Systems Constitutional: No symptoms reported EENT: No symptoms reported Cardiovascular: No symptoms reported Respiratory: No symptoms reported Gastrointestinal: No symptoms reported Musculoskeletal: See HPI Neurological/Psychological: Dementia, Depression, Anxiety, Hallucinations. denies: Homicidal ideation, Suicidal ideation Physical Exam - Vital signs Vitals: Temp Pulse Resp BP Pulse Ox 98.2 F 74 20 123/55 L 94 07/16/17 11:57 07/16/17 11:57 07/16/17 11:57 07/16/17 11:57 07/16/17 11:57 - Notes Notes: PHYSICAL EXAM GENERAL: Alert, interacts well. HEAD: Normocephalic, atraumatic. EYES: Pupils equal, round, and reactive to light. Extraocular movements intact. ENT: Oral mucosa moist, tongue midline. NECK: Full range of motion. Supple. Trachea midline. LUNGS: Clear to auscultation bilaterally, no wheezes, rales, or rhonchi. No respiratory distress. HEART: Regular rate and rhythm. No murmurs, gallops, or rubs. ABDOMEN: Soft, nondistended, nontender. No guarding, rebound, or rigidity.. Bowel sounds present in all 4 quadrants. EXTREMITIES: Moves all 4 extremities spontaneously. No edema, radial and dorsalis pedis pulses 2/4 bilaterally. No cyanosis. NEUROLOGICAL: Alert and oriented x4. Normal speech. PSYCH: Normal affect, normal mood. Tearful but speaking in complete sentences without tangential speech or flight of ideas. SKIN: Warm, dry, normal turgor. No rashes or lesions noted. Course - Re-evaluation Re-evalutation: 07/16/17 16:29 Patient is a 57-year-old female is hemodynamically stable, no acute distress and afebrile. Has been medically cleared by patient refusing to give her urine specimen. Mental health is deemed her stable for discharge stating that this is a part of her baseline that she can follow-up with [facility]. Have appreciated she has not acute threat to herself or others. Did discuss her case with her rn case manager over Dr. Umana's office who states that she has been trying to get her placed and we reviewed with her that she is at this time she has been cleared by the mental health team. Patient initially tearful upon discussion of this but states she does not want to stay in the ER. Gave her a dose of her home Valium and her significant other was done at the bedside. She was much more cooperative and calm with her significant other than while she had been in the past. Stable for discharge home. - Vital Signs Vital signs: Temp Pulse Resp BP Pulse Ox 98.2 F 88 20 120/76 94 07/16/17 11:57 07/16/17 17:52 07/16/17 17:52 07/16/17 17:52 07/16/17 17:52 - Laboratory Result Diagrams: 07/16/17 13:18 07/16/17 12:02 Laboratory results interpreted by me: 07/16/17 07/16/17 12:02 13:18 RDW 15.0 H AST 46 H Salicylates < 1.0 L Acetaminophen < 10 L - EKG Interpretation by Me EKG shows normal: Sinus rhythm Rate: Normal Rhythm: NSR When compared to previous EKG there are: No significant change Discharge - Discharge Clinical Impression: Anxiety Condition: Stable Disposition: HOME, SELF-CARE Instructions: Anxiety ([facility]) Additional Instructions: Please return if you have thoughts of wanting to hurt yourself, hurt others, or have any other symptoms that are concerning to you. Please take your home medications as prescribed. Please follow-up with [facility] tomorrow. Referrals: ELIZABETH UMANA DO [Primary Care Provider] - Follow up tomorrow
[2017-07-16 13:11] LABS: ALANINE AMINOTRANSFERASE 51 U/L (9-52); ALKALINE PHOSPHATASE 91 U/L (38-126); ANION GAP 7 (5-19); ASPARTATE AMINO TRANSFERASE 46 U/L (14-36); BILIRUBIN,DIRECT 0.4 mg/dL (0.0-0.4); BILIRUBIN,TOTAL 0.5 mg/dL (0.2-1.3); BLOOD UREA NITROGEN 14 mg/dL (7-20); CALCIUM 9.3 mg/dL (8.4-10.2); CARBON DIOXIDE 28 mmol/L (22-30); CHLORIDE 103 mmol/L (98-107); GLUCOSE 84 mg/dL (75-110); POTASSIUM 4.5 mmol/L (3.6-5.0); SODIUM 137.5 mmol/L (137-145); TOTAL PROTEIN 7.1 g/dL (6.3-8.2)
[2017-07-16 13:14] LABS: ACETAMINOPHEN < 10 ug/mL (10-30); ALCOHOL < 10 mg/dL (NONE DETECTED); SALICYLATE < 1.0 mg/dL (2.0-20.0)
[2017-07-16 13:36] LABS: HEMATOCRIT 38.5 % (36.0-47.0); HEMOGLOBIN 13.1 g/dL (12.0-15.5); MEAN CORPUSCULAR HEMOGLOBIN 30.1 pg (27.0-33.4); MEAN CORPUSCULAR HGB CONC 34.1 g/dL (32.0-36.0); MEAN CORPUSCULAR VOLUME 88 fl (80-97); PLATELET COUNT 196 10^3/uL (150-450); RED BLOOD COUNT 4.36 10^6/uL (3.72-5.28); WHITE BLOOD COUNT 9.7 10^3/uL (4.0-10.5)
[2017-07-16 13:56] LABS: ABSOLUTE LYMPHOCYTES# (MANUAL) 1.9 10^3/uL (0.5-4.7); ABSOLUTE MONOCYTES # (MANUAL) 0.8 10^3/uL (0.1-1.4); ABSOLUTE NEUTROPHILS# (MANUAL) 6.5 10^3/uL (1.7-8.2); BAND NEUTROPHILS % (MANUAL) 3 % (3-5); BASOPHILS % (MANUAL) 0 % (0-2); EOSINOPHILS % (MANUAL) 5 % (0-6); LYMPHOCYTES % (MANUAL) 20 % (13-45); MONOCYTES % (MANUAL) 8 % (3-13); SEGMENTED NEUTROPHILS % (MAN) 64 % (42-78); TOTAL CELLS COUNTED 100
[2017-07-16 13:58] LABS: ANISOCYTOSIS SLIGHT; PLATELET COMMENT ADEQUATE; TOXIC GRANULATION SLIGHT
[2017-07-16] MEDS ORDERED: DIAZEPAM 5 MG TABLET PO ONE (16:30)
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
[2017-07-16 17:57] VITALS: BP 120/76
--- NOTE | 2017-07-16 23:23 | EKG REPORT ---
SEVERITY:- ABNORMAL ECG - SINUS RHYTHM : Confirmed by: Deyvi Sandhu 16-Jul-2017 23:22:47
== END 2017-07-16 18:06 | disposition home or self-care (01) ==
LOC: ER 11:10
DX: F41.9 Anxiety disorder, unspecified (principal); R44.1 Visual hallucinations; E11.9 Type 2 diabetes mellitus without complications; E78.00 Pure hypercholesterolemia, unspecified; Z86.73 Personal history of transient ischemic attack (TIA), and cerebral infarction without residual deficits; Z87.442 Personal history of urinary calculi; Z98.84 Bariatric surgery status; Z90.49 Acquired absence of other specified parts of digestive tract; Z90.710 Acquired absence of both cervix and uterus; I25.2 Old myocardial infarction
CPT/HCPCS: 93005; 99285; 36415; 80307 ×3; 85025; 80053; 93010; A9270

== ENCOUNTER 2017-10-11 03:29 | Emergency (ER) | payer MEDICARE, MEDICAID ==
[2017-10-11] MEDS ORDERED: ALBUTEROL SULFATE 0.083% NEB 2.5 MG/3 ML AMPUL NEB ONE ×2 (03:45→05:05)
[2017-10-11] MEDS ORDERED: DEXAMETHASONE SOD PHOS INJ 10 MG/1 ML VIAL IV ONE (03:45)
--- NOTE | 2017-10-11 03:49 | ER Document Report ---
ED General - General Stated Complaint: DIFFICULTY BREATHING Time Seen by Provider: 10/11/17 03:40 Notes: Patient is 57-year-old female presents with complaint of wheezing. She has history of COPD and is a former smoker. She states that [facility]. She says she has been having difficulty breathing for 4 days. She did not breathing treatments at home but has not been helping. She says the only thing usually helps with her as Decadron. No fevers. No recent infections. She does have previous history of pneumonia. She denies any other complaints at this time. 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 TRAVEL OUTSIDE OF THE [place] IN LAST 30 DAYS: Yes - Related Data Allergies/Adverse Reactions: silicone [Silicone] Allergy (Intermediate, Verified 07/16/17 13:43) REDNESS, RASH carbidopa [From Sinemet] Adverse Reaction (Severe, Verified 07/16/17 13:43) Cardiac arrest levodopa [From Sinemet] Adverse Reaction (Severe, Verified 07/16/17 13:43) Cardiac arrest Past Medical History - Social History Smoking Status: Former Smoker Frequency of alcohol use: None Drug Abuse: None Family History: Reviewed & Not Pertinent - Past Medical History Cardiac Medical History: Reports: Hx Heart Attack - CARDIAC ARREST R/T DRUG REACTION(SINEMET), Hx Hypercholesterolemia Denies: Hx Coronary Artery Disease, Hx Hypertension Pulmonary Medical History: Reports: Hx Asthma, Hx Bronchitis, Hx Pneumonia - MARCH 2015, Hx Sleep Apnea - On home CPAP Denies: Hx COPD Neurological Medical History: Reports: Hx Cerebrovascular Accident, Hx Migraine , Hx Seizures - UNSURE OF ETIOLOGY, conversion disorder Endocrine Medical History: Reports: Hx Diabetes Mellitus Type 2 Renal/ Medical History: Reports: Hx Kidney Stones. Denies: Hx Peritoneal Dialysis GI Medical History: Reports: Hx Hiatal Hernia - DX 30 YEARS AGO, Hx Ulcer - after gastric by pass, surg repaired Musculoskeltal Medical History: Reports Hx Arthritis - OSTEOARTHRITIS, Reports Hx Fibromyalgia Psychiatric Medical History: Reports: Hx Anxiety, Hx Attention Deficit Hyperactivity Disorder, Hx Depression, Hx Post Traumatic Stress Disorder Past Surgical History: Reports: Hx Abdominal Surgery - gastric bypass, Hx Cholecystectomy, Hx Gastric Bypass Surgery, Hx Hysterectomy, Hx Orthopedic Surgery - back/spinal surgery, Hx Tubal Ligation. Denies: Hx Adenoidectomy, Hx Pacemaker - Immunizations Immunizations up to date: Yes Hx Diphtheria, Pertussis, Tetanus Vaccination: Yes - up to date within last 5 yrs Hx Pneumococcal Vaccination: 03/31/14 Review of Systems - Review of Systems Notes: My Normal Review Basic REVIEW OF SYSTEMS: CONSTITUTIONAL : Denies fever, chills, or sweats. Denies recent illness. EENT: Denies eye, ear, throat, or mouth pain or symptoms. Denies nasal or sinus congestion. CARDIOVASCULAR: Denies chest pain. RESPIRATORY: Difficulty breathing. GASTROINTESTINAL: Denies abdominal pain. Denies nausea, vomiting, or diarrhea. MUSCULOSKELETAL: Denies neck or back pain or joint pain or swelling. SKIN: Denies rash or skin lesions. NEUROLOGICAL: Denies altered mental status or loss of consciousness. Denies headache. Denies weakness or paralysis or loss of use of either side. Denies problems with gait or speech. Denies sensory or motor loss. ALL OTHER SYSTEMS REVIEWED AND NEGATIVE. Physical Exam - Vital signs Vitals: Temp Resp BP Pulse Ox 98.2 F 22 H 133/70 H 95 10/11/17 03:38 10/11/17 03:38 10/11/17 03:38 10/11/17 03:38 - Notes Notes: General Appearance: Well nourished, alert, cooperative, no acute distress, no obvious discomfort. Vitals: reviewed, See vital signs table. Head: no swelling or tenderness to the head Eyes: PERRL, EOMI, Conjuctiva clear Mouth: No decreasd moisture Throat: No tonsillar inflammation, No airway obstruction, No lymphadenopathy Neck: Supple, no neck tenderness, No thyromegaly Lungs: Patient makes a very slight audible wheeze with exhalation. When I auscultated her lungs I can hear this slight wheeze in all lung monte but appears to be reverberating from her upper airway. When I listen of her neck it is very loud. She has very good air movement with inspiration. It is difficult to tell she has good air movement with exhalation as she is making that noise and prolonging her exhalation. Heart: Normal rate, Regular rythm, No murmur, no rub Abdomen: Normal BS, soft, No rigidity, No abdominal tenderness, No guarding, no rebound, no abdominal masses, no organomegaly Extremities: good pulses in all extremities, no edema. Skin: warm, dry, appropriate color, no rash Neuro: speech clear, oriented x 3, normal affect, responds appropriately to questions. Course - Re-evaluation Re-evalutation: 10/11/17 06:17 Patient looks well. Her lung monte are clear. She is feeling much better after Decadron the breathing treatment. She is speaking in full sentences and has a normal heart rate and pulse ox 95% on room air. Feel she is safe to be discharged home. I talked about disposed she then asked me if I could give her something for kidney stones she feels that she is been passing kidney stones last 4 days. She says she has right flank pain that is intermittent. She currently is on the pain right now but says it comes and goes and feels just like her previous kidney stone pain. She denies any dysuria or foul-smelling urine. She denies any fevers. I informed I would like to at least obtain a UA. Patient says that she is convinced that she has a kidney stone does not want to wait for urinalysis at this time. She says that Dr. león may typically gives her Flomax as well as something for pain for this. I informed her I would give her Toradol and Flomax; however, I really suggest that she will also do a UA or police have her doctor do urinalysis in the next 1-2 days. Patient says that she would rather have her doctor do it and follow-up with him. I informed her she must return to ER immediately if she has recurrent pain or worsening pain not responding to medicine, any fevers, any vomiting, any difficulty breathing, or she feels unwell. Patient agrees with plan and will be discharged home. Dictation of this chart was performed using voice recognition software; therefore, there may be some unintended grammatical errors. - Vital Signs Vital signs: Temp Pulse Resp BP Pulse Ox 98.2 F 15 109/65 91 L 10/11/17 03:38 10/11/17 06:00 10/11/17 04:02 10/11/17 06:00 - Laboratory Result Diagrams: 10/11/17 03:12 10/11/17 03:12 Laboratory results interpreted by me: 10/11/17 10/11/17 03:12 03:12 RDW 14.5 H Monocytes % 15.4 H Creatinine 0.45 L Glucose 114 H Discharge - Discharge Clinical Impression: Flank pain, Bronchitis Condition: Good Disposition: HOME, SELF-CARE Additional Instructions: Please take the medications as prescribed. Please return to the ER immediately if you develop fevers, worsening pain, vomiting, difficulty breathing, or feel unwell. Please have your doctor check your urine since you do not want it checked here. Do not take other NSAID medicaitons such as Aspirin, Motrin, Ibuprofen, Aleve, or Advil when taking Toradol. It is okay to take Tylenol. Prescriptions: Ketorolac Tromethamine [Toradol 10 mg Tablet] 10 mg PO Q8HP PRN #12 tablet PRN Reason: Azithromycin 250 mg PO DAILY #4 tablet Tamsulosin HCl [Flomax 0.4 mg Cap.sr] 0.4 mg PO DAILY #7 cap.sr.24h Referrals: ELIZABETH ROMERO DO [Primary Care Provider] - 10/13/17
[2017-10-11 04:10] LABS: ABSOLUTE EOSINOPHILS # (AUTO) 0.2 10^3/uL (0.0-0.6); ABSOLUTE LYMPHOCYTES (AUTO) 1.2 10^3/uL (0.5-4.7); ABSOLUTE MONOCYTES (AUTO) 0.7 10^3/uL (0.1-1.4); ABSOLUTE NEUT (AUTO) 2.4 10^3/uL (1.7-8.2); BASOPHILS % (AUTO) 0.7 % (0-2); EOSINOPHILS % (AUTO) 5.3 % (0-6); HEMATOCRIT 39.8 % (36.0-47.0); HEMOGLOBIN 13.3 g/dL (12.0-15.5); LYMPHOCYTES % (AUTO) 26.4 % (13-45); MEAN CORPUSCULAR HEMOGLOBIN 29.7 pg (27.0-33.4); MEAN CORPUSCULAR HGB CONC 33.5 g/dL (32.0-36.0); MEAN CORPUSCULAR VOLUME 89 fl (80-97); MONOCYTES % (AUTO) 15.4 % (3-13); PLATELET COUNT 201 10^3/uL (150-450); RED CELL DISTRIBUTION WIDTH 14.5 % (11.5-14.0); SEGMENTED NEUTROPHILS % (AUTO) 52.2 % (42-78); TOTAL CELLS COUNTED % (AUTO) 100 %; WHITE BLOOD COUNT 4.6 10^3/uL (4.0-10.5)
--- NOTE | 2017-10-11 04:14 | RADIOLOGY REPORT (SQ) ---
EXAM DESCRIPTION: CHEST SINGLE VIEW CLINICAL HISTORY: 57 years Female, diffiuclty breathing COMPARISON: May 16, 2017. April 02, 2016. CT, thoracic spine, June 09, 2017. NUMBER OF VIEWS/TECHNIQUE: 1/AP LIMITATIONS: None. FINDINGS: Prominent interstitium, normal cardiac silhouette, lower cervical fusion hardware. Stable. IMPRESSION: No acute cardiopulmonary findings.
[2017-10-11 04:16] LABS: ANION GAP 11 (5-19); BLOOD UREA NITROGEN 9 mg/dL (7-20); CALCIUM 9.3 mg/dL (8.4-10.2); CARBON DIOXIDE 27 mmol/L (22-30); CHLORIDE 104 mmol/L (98-107); GLUCOSE 114 mg/dL (75-110); POTASSIUM 4.5 mmol/L (3.6-5.0); SODIUM 141.5 mmol/L (137-145)
[2017-10-11 04:56] LABS: VENOUS BLOOD BASE EXCESS 0.2 mmol/L; VENOUS BLOOD HCO3 25.7 mmol/L (20-32); VENOUS BLOOD PCO2 44.9 mmHg (35-63); VENOUS BLOOD PH 7.38 (7.30-7.42)
[2017-10-11] MEDS ORDERED: AZITHROMYCIN 250 MG TABLET PO ONE (06:24)
[2017-10-11 08:38] VITALS: BP 122/53
== END 2017-10-11 08:41 | disposition home or self-care (01) ==
LOC: ER 03:29
DX: J40 Bronchitis, not specified as acute or chronic (principal); E78.00 Pure hypercholesterolemia, unspecified; E11.9 Type 2 diabetes mellitus without complications; Z87.891 Personal history of nicotine dependence; I25.2 Old myocardial infarction; Z86.73 Personal history of transient ischemic attack (TIA), and cerebral infarction without residual deficits; Z87.442 Personal history of urinary calculi; Z98.84 Bariatric surgery status; Z90.49 Acquired absence of other specified parts of digestive tract; Z90.710 Acquired absence of both cervix and uterus
CPT/HCPCS: 94640 ×2; 99285; 96374; 36415; 85025; 80048; 82803; 71045; A9270 ×2; J1100

== ENCOUNTER 2017-10-17 22:19 | Emergency (ER) | payer MEDICARE, MEDICAID ==
[2017-10-17 22:39] VITALS: BP 131/87
[2017-10-17] MEDS ORDERED: ACETAMINOPHEN 325 MG TABLET PO ONE (23:35)
--- NOTE | 2017-10-17 23:44 | ER Document Report ---
HPI - HPI Pain Level: 4 Notes: Patient is 57-year-old female who presents to the ED from the nursing facility complaining of right knee pain and right hip pain status post injury while she was in the shower. Patient states that she slipped and hit her knee off of something in the shower also causing pain in her right hip at the same time. Patient was noted to have ambulated thereafter with a limp. She has no other concerns or complaints at this time. Patient states that the pain will travel from her right buttock down into her right leg. Patient states that she does have a history of a back surgery and similar pain in the past. Patient states that pressure and flexion/extension exercises make her pain worse. No other concerns or complaints at this time. Patient has not had any head injury or loss of consciousness. Denies any headache, fever, neck pain, URI, sore throat , chest pain, palpitations, syncope, cough, shortness of breath, wheeze, dyspnea , abdominal pain, nausea/vomiting/diarrhea, urinary retention, dysuria, hematuria, loss of control of bowel or bladder, numbness/tingling, saddle anesthesia, muscle paralysis/weakness, or rash. - ROS Systems Reviewed and Negative: Yes All other systems reviewed and negative - REPRODUCTIVE Reproductive: DENIES: : Past Medical History - Social History Smoking Status: Unknown if Ever Smoked Family History: Reviewed & Not Pertinent - Past Medical History Cardiac Medical History: Reports: Hx Heart Attack - CARDIAC ARREST R/T DRUG REACTION(SINEMET), Hx Hypercholesterolemia Denies: Hx Coronary Artery Disease, Hx Hypertension Pulmonary Medical History: Reports: Hx Asthma, Hx Bronchitis, Hx Pneumonia - MARCH 2015, Hx Sleep Apnea - On home CPAP Denies: Hx COPD Neurological Medical History: Reports: Hx Cerebrovascular Accident, Hx Migraine , Hx Seizures - UNSURE OF ETIOLOGY, conversion disorder Endocrine Medical History: Reports: Hx Diabetes Mellitus Type 2 Renal/ Medical History: Reports: Hx Kidney Stones. Denies: Hx Peritoneal Dialysis GI Medical History: Reports: Hx Hiatal Hernia - DX 30 YEARS AGO, Hx Ulcer - after gastric by pass, surg repaired Musculoskeltal Medical History: Reports Hx Arthritis - OSTEOARTHRITIS, Reports Hx Fibromyalgia Psychiatric Medical History: Reports: Hx Anxiety, Hx Attention Deficit Hyperactivity Disorder, Hx Depression, Hx Post Traumatic Stress Disorder Past Surgical History: Reports: Hx Abdominal Surgery - gastric bypass, Hx Cholecystectomy, Hx Gastric Bypass Surgery, Hx Hysterectomy, Hx Orthopedic Surgery - back/spinal surgery, Hx Tubal Ligation. Denies: Hx Adenoidectomy, Hx Pacemaker - Immunizations Immunizations up to date: Yes Hx Diphtheria, Pertussis, Tetanus Vaccination: Yes - up to date within last 5 yrs Hx Pneumococcal Vaccination: 03/31/14 Vertical Provider Document - CONSTITUTIONAL Agree With Documented VS: Yes Notes: PHYSICAL EXAMINATION: GENERAL: Well-appearing, well-nourished and in no acute distress. LUNGS: Breath sounds clear to auscultation bilaterally and equal. No wheezes rales or rhonchi. HEART: Regular rate and rhythm without murmurs, rubs, gallops. ABDOMEN: Soft, nontender, nondistended abdomen. No guarding, no rebound. No masses appreciated. Normal bowel sounds present. No CVA tenderness bilaterally. No pulsatile mass Musculoskeletal: Rt Leg: + tenderness to the rt lateral hip to palp. LROM due to pain. + tenderness to the medial knee to palp. FROM otherwise. N/V intact distal. No gross deformity. LLE b/l: FROM to passive/active. Strength 5+/5. No deficits noted. No bony tenderness of extremity. Back: FROM to passive/active. Strength 5+/5. No vertebral point tenderness, stepoffs, or deformities. No other bony tenderness, erythema, swelling, or ecchymosis. SLR negative b/l. + rt SI jt tenderness. No foot drop. Extremities: No cyanosis, clubbing, or edema b/l. Peripheral pulses 2+. Capillary refill less than 2 seconds. NEUROLOGICAL: Normal speech, ataxic gait. Normal sensory, motor exams. Reflexes 2+ b/l. PSYCH: Normal mood, normal affect. SKIN: Warm, Dry, normal turgor, no rashes or lesions noted. - INFECTION CONTROL TRAVEL OUTSIDE OF THE [place] IN LAST 30 DAYS: Yes Course - Re-evaluation Re-evalutation: 10/18/17 00:54 Patient is an afebrile, well-hydrated, 57-year-old female who presents to the ED with right knee pain, suspect contusion, and right sacroiliitis. Vitals are acceptable. PE is otherwise unremarkable for any focal neurological deficits, neurovascular compromise, obvious tendon/ligament rupture, obvious fracture/ dislocation, septic joint. X-rays were unremarkable for any acute pathology. Patient was given Tylenol p.o. Pt able to ambulate around the room. Recommend conservative measures for symptoms. Recheck with your PCM in 3-5 days. Consider consult orthopedic/physical therapy. Return to the ED with any worsening/concerning symptoms otherwise as reviewed discharge. Patient is in agreement. - Vital Signs Vital signs: Temp Pulse Resp BP Pulse Ox 98.0 F 92 16 131/87 H 94 10/17/17 22:37 10/17/17 22:37 10/17/17 22:37 10/17/17 22:37 10/17/17 22:37 Discharge - Discharge Clinical Impression: Pain of right sacroiliac joint Right knee pain Qualifiers: Chronicity: acute Qualified Code(s): M25.561 - Pain in right knee Condition: Stable Disposition: HOME, SELF-CARE Instructions: Ice Packs ([facility]) Additional Instructions: Rest, Ice, Compression, Elevation Tylenol/ibuprofen as needed Light stretches daily Strength exercises as able Moist heat and massage may help F/u with your PCP in 3-5 days for a recheck Consider consult(s) with Orthopedics/physical therapy for ongoing/worsening symptoms Return to the ED with any worsening symptoms and/or development of fever, headache, chest pain, palpitations, syncope, shortness of breath, trouble breathing, abdominal pain, n/v/d, blood in stool/urine, loss of control of bowel /bladder, urinary retention, muscle weakness/paralysis, saddle anesthesia, numbness/tingling, or other worsening symptoms that are concerning to you. Referrals: ELIZABETH ROMERO DO [Primary Care Provider] - Follow up as needed
--- NOTE | 2017-10-18 00:39 | RADIOLOGY REPORT (SQ) ---
EXAM DESCRIPTION: HIP RIGHT AP/LATERAL CLINICAL HISTORY: pain s/p injury COMPARISON: None. FINDINGS: Single view of the pelvis and lateral view right hip. No acute fracture or dislocation. Osteopenia. Pelvic soft tissues are unremarkable. No definite abnormalities of the sacrum. Mild bilateral hip joint space narrowing. Degenerative change of the spine. IMPRESSION: 1. No acute fracture or dislocation identified.
--- NOTE | 2017-10-18 00:40 | RADIOLOGY REPORT (SQ) ---
EXAM DESCRIPTION: KNEE RIGHT 4 VIEWS CLINICAL HISTORY: pain s/p injury COMPARISON: None. FINDINGS: 4 views of the right knee. No acute fracture or dislocation. Osteopenia. No definite joint effusion. Enthesophyte at the patellar tendon insertion. IMPRESSION: 1. No acute fracture or dislocation.
== END 2017-10-18 02:12 | disposition home or self-care (01) ==
LOC: ER 22:19
DX: M25.561 Pain in right knee (principal); M53.3 Sacrococcygeal disorders, not elsewhere classified; E11.9 Type 2 diabetes mellitus without complications; W18.2XXA Fall in (into) shower or empty bathtub, initial encounter; Y93.E1 Activity, personal bathing and showering; Y92.002 Bathroom of unspecified non-institutional (private) residence as the place of occurrence of the external cause; Z98.84 Bariatric surgery status; Z87.442 Personal history of urinary calculi; Z90.49 Acquired absence of other specified parts of digestive tract; Z98.51 Tubal ligation status; I25.2 Old myocardial infarction; Z86.73 Personal history of transient ischemic attack (TIA), and cerebral infarction without residual deficits
CPT/HCPCS: 99284; 73502; 73564; A9270

== ENCOUNTER 2017-10-24 17:57 | Emergency (ER) | payer MEDICARE, MEDICAID ==
[2017-10-24] MEDS ORDERED: ACETAMINOPHEN WITH CODEINE #3 TABLET PO ONE (19:32)
--- NOTE | 2017-10-24 19:35 | ER Document Report ---
HPI - HPI Patient complains to provider of: Right hip pain Onset: Last week Onset/Duration: Persistent Quality of pain: Achy Pain Level: 5 Context: Patient states she slipped in the shower 1 week ago and fell landing on her knee causing right knee and hip pain. Patient was evaluated here in the emergency department after the injury. Patient states she has had persistent hip pain since then. Patient does have an appointment in 2 days to follow-up with her primary doctor. Patient denies any new injury. Patient does have a history of chronic hip pain bilaterally. Associated Symptoms: Other - Right hip pain Exacerbated by: Standing, Movement, Walking Relieved by: Denies Similar symptoms previously: Yes Recently seen / treated by doctor: Yes - ROS ROS below otherwise negative: Yes Systems Reviewed and Negative: Yes All other systems reviewed and negative - CONSTITUTIONAL Constitutional: DENIES: Fever - NEURO Neurology: DENIES: Headache, Weakness - CARDIOVASCULAR Cardiovascular: DENIES: Chest pain - RESPIRATORY Respiratory: DENIES: Trouble Breathing, Coughing - REPRODUCTIVE Reproductive: DENIES: : - MUSCULOSKELETAL Musculoskeletal: REPORTS: Extremity pain. DENIES: Back Pain - DERM Skin Color: Normal Skin Problems: None Past Medical History - General Information source: Patient - Social History Smoking Status: Former Smoker Chew tobacco use (# tins/day): No Frequency of alcohol use: None Drug Abuse: None Lives with: Other - [facility] Family History: Reviewed & Not Pertinent Patient has suicidal ideation: No Patient has homicidal ideation: No - Past Medical History Cardiac Medical History: Reports: Hx Heart Attack - CARDIAC ARREST R/T DRUG REACTION(SINEMET), Hx Hypercholesterolemia Denies: Hx Coronary Artery Disease, Hx Hypertension Pulmonary Medical History: Reports: Hx Asthma, Hx Bronchitis, Hx Pneumonia - MARCH 2015, Hx Sleep Apnea - On home CPAP Denies: Hx COPD Neurological Medical History: Reports: Hx Cerebrovascular Accident, Hx Migraine , Hx Seizures - UNSURE OF ETIOLOGY, conversion disorder Endocrine Medical History: Reports: Hx Diabetes Mellitus Type 2 Renal/ Medical History: Reports: Hx Kidney Stones. Denies: Hx Peritoneal Dialysis GI Medical History: Reports: Hx Hiatal Hernia - DX 30 YEARS AGO, Hx Ulcer - after gastric by pass, surg repaired Musculoskeltal Medical History: Reports Hx Arthritis - OSTEOARTHRITIS, Reports Hx Fibromyalgia Psychiatric Medical History: Reports: Hx Anxiety, Hx Attention Deficit Hyperactivity Disorder, Hx Depression, Hx Post Traumatic Stress Disorder Past Surgical History: Reports: Hx Abdominal Surgery - gastric bypass, Hx Cholecystectomy, Hx Gastric Bypass Surgery, Hx Hysterectomy, Hx Orthopedic Surgery - back/spinal surgery, Hx Tubal Ligation. Denies: Hx Adenoidectomy, Hx Pacemaker - Immunizations Immunizations up to date: Yes Hx Diphtheria, Pertussis, Tetanus Vaccination: Yes - up to date within last 5 yrs Hx Pneumococcal Vaccination: 03/31/14 Vertical Provider Document - CONSTITUTIONAL Agree With Documented VS: Yes Exam Limitations: No Limitations General Appearance: WD/WN - INFECTION CONTROL TRAVEL OUTSIDE OF THE [place] IN LAST 30 DAYS: No - HEENT HEENT: Atraumatic, Normocephalic - NECK Neck: Normal Inspection - RESPIRATORY Respiratory: Breath Sounds Normal, No Respiratory Distress - CARDIOVASCULAR Cardiovascular: Regular Rate, Regular Rhythm Pulses: Normal: Dorsalis pedis - BACK Back: Abnormal Inspection - Right SI joint tenderness - MUSCULOSKELETAL/EXTREMETIES Musculoskeletal/Extremeties: MAEW, Tender - Right hip tenderness over lateral aspect of hip, No Edema. negative: Eccymosis - NEURO Level of Consciousness: Awake, Alert, Appropriate Motor/Sensory: No Motor Deficit Notes: No saddle anesthesia - DERM Integumentary: Warm, Dry, No Rash Course - Re-evaluation Re-evalutation: 10/24/17 21:17 Patient ambulated with minimal assist in room. Patient advised of CT report findings. Patient does have an appointment with her primary doctor in 3 days for a recheck. Patient encouraged to keep this appointment and to have the staff at the [facility] give her her pain medication that she does have prescribed. Patient states that there has not been giving her her pain medications. - Vital Signs Vital signs: Temp Pulse Resp BP Pulse Ox 98.3 F 88 16 142/81 H 93 10/24/17 18:01 10/24/17 18:01 10/24/17 18:01 10/24/17 18:01 10/24/17 18:01 - Diagnostic Test Radiology reviewed: Reports reviewed - Reviewed radiology reports from previous ER visit Discharge - Discharge Clinical Impression: Pain of right sacroiliac joint, Chronic right hip pain Condition: Stable Disposition: HOME, SELF-CARE Instructions: Arthritis ([facility]), Sprain ([facility]) Additional Instructions: Return immediately for any new or worsening symptoms Followup with your primary care provider on Friday as planned Take your pain medication that you have prescribed Follow-up with orthopedic doctor for further evaluation of continued hip tenderness. Referrals: [facility] [Provider Group] - Follow up as needed ELIZABETH ROMERO DO [NO LOCAL MD] - 10/27/17
--- NOTE | 2017-10-24 20:21 | RADIOLOGY REPORT (SQ) ---
EXAM DESCRIPTION: CT RT LOWER EXTREMITY WITHOUT COMPLETED DATE/TIME: 10/24/2017 7:59 pm REASON FOR STUDY: r hip pain, hx fall COMPARISON: None. TECHNIQUE: CT scan of the right hip performed without intravenous or oral contrast. Images reviewed with soft tissue and bone windows. Reconstructed coronal and sagittal MPR images reviewed. All karin ges stored on PACS. All CT scanners at this facility use dose modulation, iterative reconstruction, and/or weight based d osing when appropriate to reduce radiation dose to as low as reasonably achievable (ALARA). [facility]: Dose Right [facility]: CareDose [facility]: Dose Right [facility]: Teradose 4D [facility]: Smart [employer] RADIATION DOSE: CT Rad equipment meets quality standard of care and radiation dose reduction techniq ues were employed. CTDIvol: 44.7 mGy. DLP: 1335 mGy-cm. mGy. LIMITATIONS: None. FINDINGS: VISUALIZE PELVIC BONES: No acute fracture. No worrisome bone lesions. VISUALIZED SPINE: No acute findings. SYMPTOMATIC HIP: No acute fracture or dislocation. No worrisome bone lesions. OPPOSITE HIP: Not imaged. PELVIC SOFT TISSUES: No significant findings. EXTRAPELVIC SOFT TISSUES: No significant findings. OTHER: No other significant finding. IMPRESSION: NO RIGHT HIP FRACTURE IDENTIFIED. CT CANNOT RELIABLY EXCLUDE OCCULT HIP FRACTURE. IF P ERSISTENT CONCERN MRI IS NECESSARY. TECHNICAL DOCUMENTATION: JOB ID: [id number] Quality ID # [id number]: Final reports with documentation of one or more dose reduction techniques (e.g., Au tomated exposure control, adjustment of the mA and/or kV according to patient size, use of iterative reconstruction technique) 2010 [employer]- All Rights Reserved Reading location - IP/workstation name: [email or web address]
[2017-10-24] MEDS ORDERED: LIDOCAINE 5% (700 MG) TRANSDERMAL ADH..PATCH TP ONE (21:11)
[2017-10-24 22:35] VITALS: BP 135/74
== END 2017-10-24 22:10 | disposition home or self-care (01) ==
LOC: ER 17:57
DX: M53.3 Sacrococcygeal disorders, not elsewhere classified (principal); G89.29 Other chronic pain; M25.551 Pain in right hip; E78.00 Pure hypercholesterolemia, unspecified; E11.9 Type 2 diabetes mellitus without complications; I25.2 Old myocardial infarction; Z87.442 Personal history of urinary calculi; Z90.49 Acquired absence of other specified parts of digestive tract; Z90.710 Acquired absence of both cervix and uterus
CPT/HCPCS: 99284; 73700; A9270

== ENCOUNTER 2017-11-05 04:09 | Observation (INO) | payer MEDICARE, MEDICAID ==
[2017-11-05] MEDS ORDERED: METHYLPREDNISOLONE INJ 125 MG/2 ML SDV IV ONE (04:29)
[2017-11-05] MEDS ORDERED: IPRATROPIUM/ALBUTEROL 0.5-2.5 MG/3 ML AMPUL NEB ONE ×3 (04:29→05:43)
--- NOTE | 2017-11-05 04:33 | ER Document Report ---
ED Respiratory Problem <PADMINIPILOBRUNA RUIZ - Last Filed: 11/05/17 07:58> - General TRAVEL OUTSIDE OF THE [place] IN LAST 30 DAYS: No <RIC HARVEY - Last Filed: 11/05/17 19:30> - General Stated Complaint: DIFFICULTY BREATHING Time Seen by Provider: 11/05/17 04:24 Notes: Patient is a 57-year-old female with a history of asthma and COPD that comes emergency department for chief complaint of 1 day of congestion, cough, wheezing. She denies fever or chest pain. She denies abdominal pain, nausea or vomiting. She had an albuterol at the assisted living but she states this did not significantly help. She states she also saw her primary care yesterday and got a dose of Solu-Medrol. She is a former smoker. She states she is at assisted living because she has "a touch of dementia". (RIC HARVEY) - Related Data Allergies/Adverse Reactions: silicone [Silicone] Allergy (Intermediate, Verified 11/05/17 15:22) REDNESS, RASH carbidopa [From Sinemet] Adverse Reaction (Severe, Verified 11/05/17 15:22) Cardiac arrest levodopa [From Sinemet] Adverse Reaction (Severe, Verified 11/05/17 15:22) Cardiac arrest Past Medical History - General Information source: Patient - Social History Smoking Status: Former Smoker Frequency of alcohol use: None Drug Abuse: None Lives with: Shelter Family History: Reviewed & Not Pertinent - Past Medical History Cardiac Medical History: Reports: Hx Heart Attack - CARDIAC ARREST R/T DRUG REACTION(SINEMET), Hx Hypercholesterolemia Denies: Hx Coronary Artery Disease, Hx Hypertension Pulmonary Medical History: Reports: Hx Asthma, Hx Bronchitis, Hx Pneumonia - MARCH 2015, Hx Sleep Apnea - On home CPAP Denies: Hx COPD Neurological Medical History: Reports: Hx Cerebrovascular Accident, Hx Migraine , Hx Seizures - UNSURE OF ETIOLOGY, conversion disorder Endocrine Medical History: Reports: Hx Diabetes Mellitus Type 2 Renal/ Medical History: Reports: Hx Kidney Stones. Denies: Hx Peritoneal Dialysis GI Medical History: Reports: Hx Hiatal Hernia - DX 30 YEARS AGO, Hx Ulcer - after gastric by pass, surg repaired Musculoskeltal Medical History: Reports Hx Arthritis - OSTEOARTHRITIS, Reports Hx Fibromyalgia Psychiatric Medical History: Reports: Hx Anxiety, Hx Attention Deficit Hyperactivity Disorder, Hx Depression, Hx Post Traumatic Stress Disorder Past Surgical History: Reports: Hx Abdominal Surgery - gastric bypass, Hx Cholecystectomy, Hx Gastric Bypass Surgery, Hx Hysterectomy, Hx Orthopedic Surgery - back/spinal surgery, Hx Tubal Ligation. Denies: Hx Adenoidectomy, Hx Pacemaker - Immunizations Immunizations up to date: Yes Hx Diphtheria, Pertussis, Tetanus Vaccination: Yes - up to date within last 5 yrs Hx Pneumococcal Vaccination: 03/31/14 <RIC HARVEY - Last Filed: 11/05/17 19:30> Review of Systems - Review of Systems Constitutional: No symptoms reported EENT: No symptoms reported Cardiovascular: No symptoms reported Respiratory: See HPI Gastrointestinal: No symptoms reported Genitourinary: No symptoms reported Female Genitourinary: No symptoms reported Musculoskeletal: No symptoms reported Skin: No symptoms reported Hematologic/Lymphatic: No symptoms reported Neurological/Psychological: No symptoms reported <RIC HARVEY - Last Filed: 11/05/17 19:30> Physical Exam - General General appearance: Alert In distress: Mild - tachypnea - HEENT Head: Normocephalic, Atraumatic Eyes: Normal Extraocular movements intact: Yes Eyelashes: Normal Pupils: PERRL Sinus: Normal Nasal: Normal Mouth/Lips: Normal Mucous membranes: Normal Pharynx: Normal Neck: Normal - Respiratory Respiratory status: No respiratory distress, Tachypnea. No: Labored Breath sounds: Decreased air movement, Nonproductive cough, Rhonchi, Wheezing - Cardiovascular Rhythm: Regular. No: Tachycardia Heart sounds: Normal auscultation, S1 appreciated, S2 appreciated - Abdominal Inspection: Normal Tenderness: Nontender. No: Tender, Guarding - Back Back: Normal, Nontender. No: Tender - Extremities General upper extremity: Normal inspection, Nontender, Normal ROM, Normal strength General lower extremity: Normal inspection, Nontender, Normal ROM, Normal strength. No: Edema - Neurological Neuro grossly intact: Yes Cognition: Normal Orientation: AAOx4 Stan Coma Scale Eye Opening: Spontaneous Stan Coma Scale Verbal: Oriented Stan Coma Scale Motor: Obeys Commands Stan Coma Scale Total: 15 Speech: Normal Cranial nerves: Normal Cerebellar coordination: Normal Motor strength normal: LUE, RUE, LLE, RLE Additional motor exam normals: Equal glass breaker Sensory: Normal - Skin Skin Temperature: Warm Skin Moisture: Dry Skin Color: Flushed <RIC HARVEY - Last Filed: 11/05/17 19:30> - Vital signs Vitals: Temp Resp BP Pulse Ox 97.4 F 18 126/58 H 96 11/05/17 04:09 11/05/17 04:09 11/05/17 04:09 11/05/17 04:09 Course - Laboratory Result Diagrams: 11/05/17 04:15 11/05/17 04:15 <BRUNA PERERA - Last Filed: 11/05/17 07:58> - Laboratory Result Diagrams: 11/05/17 04:15 11/05/17 04:15 <RIC HARVEY - Last Filed: 11/05/17 19:30> - Re-evaluation Re-evalutation: Patient initially with coughing episodes, expiratory wheezes, tachypnea, however she is not in respiratory distress. Borderline tachycardia. Patient not hypoxic. Chest x-ray unremarkable. CBC unremarkable, chemistry shows hyperglycemia without acidosis. After multiple DuoNeb treatments, magnesium, Solu-Medrol patient significantly improved and has much better air movement but continues to wheeze and have some tachypnea. Attempted to get her up and walk her but she became very tachypneic and appears to be slightly weak. Because of persistent wheezing after multiple treatments and medications will discuss with hospitalist for possible telemetry observation. Patient is in full agreement with this plan. Discussed with Dr. Jones, internal medicine, he will come evaluate the patient. (RIC HARVEY) - Vital Signs Vital signs: Temp Pulse Resp BP Pulse Ox 97.4 F 87 20 129/66 H 97 11/05/17 13:27 11/05/17 15:51 11/05/17 15:51 11/05/17 13:27 11/05/17 15:51 - Laboratory Laboratory results interpreted by me: 11/05/17 11/05/17 11/05/17 04:15 04:15 04:15 RDW 14.4 H Seg Neutrophils % 86.3 H Lymphocytes % 9.2 L Carbon Dioxide 21 L Creatinine 0.39 L Glucose 330 H POC Glucose Hemoglobin A1c % 6.5 H 11/05/17 06:55 RDW Seg Neutrophils % Lymphocytes % Carbon Dioxide Creatinine Glucose POC Glucose 184 H Hemoglobin A1c % Discharge - Discharge Admitting Provider: Joey smith Unit Admitted: Telemetry <BRUNA PERERA - Last Filed: 11/05/17 07:58> <RIC HARVEY - Last Filed: 11/05/17 19:30> - Discharge Clinical Impression: Wheezing, Cough, Hyperglycemia Asthma exacerbation Qualifiers: Asthma severity: unspecified severity Asthma persistence: unspecified Qualified Code(s): J45.901 - Unspecified asthma with (acute) exacerbation Condition: Stable Disposition: ADMITTED OBSERVATION
[2017-11-05] MEDS: MAGNESIUM SULFATE/D5W 1 GM/100 ML RTUPB IV SCH ×2 (04:39→05:12)
[2017-11-05 04:40] LABS: ABSOLUTE LYMPHOCYTES (AUTO) 0.6 10^3/uL (0.5-4.7); ABSOLUTE MONOCYTES (AUTO) 0.3 10^3/uL (0.1-1.4); BASOPHILS % (AUTO) 0.1 % (0-2); HEMATOCRIT 37.6 % (36.0-47.0); HEMOGLOBIN 12.5 g/dL (12.0-15.5); LYMPHOCYTES % (AUTO) 9.2 % (13-45); MEAN CORPUSCULAR HEMOGLOBIN 29.6 pg (27.0-33.4); MEAN CORPUSCULAR HGB CONC 33.2 g/dL (32.0-36.0); MEAN CORPUSCULAR VOLUME 89 fl (80-97); MONOCYTES % (AUTO) 4.4 % (3-13); PLATELET COUNT 219 10^3/uL (150-450); RED BLOOD COUNT 4.23 10^6/uL (3.72-5.28); RED CELL DISTRIBUTION WIDTH 14.4 % (11.5-14.0); SEGMENTED NEUTROPHILS % (AUTO) 86.3 % (42-78); TOTAL CELLS COUNTED % (AUTO) 100 %
[2017-11-05 04:55] LABS: ANION GAP 15 (5-19); BLOOD UREA NITROGEN 13 mg/dL (7-20); CALCIUM 9.1 mg/dL (8.4-10.2); CARBON DIOXIDE 21 mmol/L (22-30); CHLORIDE 103 mmol/L (98-107); GLUCOSE 330 mg/dL (75-110); POTASSIUM 3.8 mmol/L (3.6-5.0); SODIUM 138.6 mmol/L (137-145)
--- NOTE | 2017-11-05 05:02 | RADIOLOGY REPORT (SQ) ---
EXAM DESCRIPTION: CR chest one view CLINICAL HISTORY: 57 years Female, shortness of breath COMPARISON: None. NUMBER OF VIEWS/TECHNIQUE: 1/AP FINDINGS: Adequate lung volume, clear parenchyma, normal cardiac silhouette, and intact bony thorax. IMPRESSION: No acute cardiopulmonary findings.
[2017-11-05] MEDS ORDERED: NORMAL SALINE 1000 ML 1,000 ML IV ONE (05:27)
--- NOTE | 2017-11-05 07:49 | EKG REPORT ---
SEVERITY:- NORMAL ECG - SINUS RHYTHM : Confirmed by: Donald Williamson MD 05-Nov-2017 07:48:38
[2017-11-05] MEDS ORDERED: IPRATROPIUM/ALBUTEROL 0.5-2.5 MG/3 ML AMPUL NEB PRN (08:04)
[2017-11-05] MEDS ORDERED: ONDANSETRON HCL INJ/PF 4 MG/2 ML SDV IV PRN (08:04)
[2017-11-05] MEDS ORDERED: PREDNISONE 20 MG TABLET PO SCH (10:00)
[2017-11-05] MEDS: AZITHROMYCIN 250 MG TABLET PO SCH (10:41)
[2017-11-05] MEDS: LUBIPROSTONE 8 MCG CAPSULE PO SCH ×2 (10:41→20:02)
[2017-11-05] MEDS: FAMOTIDINE 20 MG TABLET PO SCH ×2 (10:41→22:19)
[2017-11-05] MEDS: POLYETHYLENE GLYCOL 3350 POWDER 17 GM/1 PACKET PO SCH ×3 (10:42→18:16)
[2017-11-05] MEDS: ENOXAPARIN SODIUM INJ 40 MG/0.4 ML DISP.SYRIN SUBCUT SCH (10:42)
[2017-11-05] MEDS: ACETYLCYSTEINE 10% NEB 400 MG/4 ML VIAL NEB SCH ×3 (11:33→21:01)
[2017-11-05] MEDS: IPRATROPIUM/ALBUTEROL 0.5-2.5 MG/3 ML AMPUL NEB SCH ×3 (11:33→21:00)
[2017-11-05] MEDS: ACETAMINOPHEN 325 MG TABLET PO PRN (18:16)
--- NOTE | 2017-11-05 18:27 | PDOC H&P ---
History of Present Illness Admission Date/PCP: 11/05/17 08:04 Patient complains of: Difficulty breathing History of Present Illness: THERESA MEJIA is a 57 year old morbidly obese female who comes into the ER with about a day of cough wheezing feeling like she is struggling to breathe. Past Medical History Cardiac Medical History: Reports: Myocardial Infarction - CARDIAC ARREST R/T DRUG REACTION(SINEMET), Hyperlipidema Denies: Coronary Artery Disease, Hypertension Pulmonary Medical History: Reports: Asthma, Bronchitis, Pneumonia - MARCH 2015 , Sleep Apnea - On home CPAP Denies: Chronic Obstructive Pulmonary Disease (COPD) Neurological Medical History: Reports: Migraine, Seizures - UNSURE OF ETIOLOGY, conversion disorder Endocrine Medical History: Reports: Diabetes Mellitus Type 2 GI Medical History: Reports: Hiatal Hernia - DX 30 YEARS AGO Musculoskeltal Medical History: Reports: Arthritis - OSTEOARTHRITIS, Fibromyalgia Psychiatric Medical History: Reports: Attention Deficit Hyperactivity Disorder, Depression, Post Traumatic Stress Disorder Hematology: Reports: Anemia - IRON INFUSIONS Past Surgical History Past Surgical History: Reports: Cholecystectomy, Gastric Bypass Surgery, Hysterectomy, Orthopedic Surgery - back/spinal surgery, Tubal Ligation Denies: Adenoidectomy, Pacemaker Social History Information Source: Patient Lives with: Group Home Smoking Status: Former Smoker Cigarettes Packs Per Day: 0.5 Cigars Per Day: 0 Pipes Per Day: 0 Number of Years Smokin Last Time Smoked: 08/13/2004 Frequency of Alcohol Use: None Hx Recreational Drug Use: No Drugs: None Hx Prescription Drug Abuse: No - Advance Directive Resuscitation Status: Full Code Family History Family History: Reviewed & Not Pertinent, Other - Dementia and psychiatric illness Parental Family History Reviewed: Yes Children Family History Reviewed: No Sibling(s) Family History Reviewed.: No Medication/Allergy Home Medications: RX: Albuterol Sulfate [Ventolin 0.083% Neb 2.5 mg/3 mL Ampul] 3 ml NEB RTQ6HP PRN 11/26/16 RX: Diazepam [Valium 5 mg Tablet] 10 mg PO QHS 11/26/16 RX: Fluoxetine HCl [Prozac] 80 mg PO QAM 11/26/16 RX: Methylphenidate HCl [Ritalin] 10 mg PO BID@0800,1200 11/26/16 RX: Nystatin [Mycostatin Topical Powder 15 gm] 1 applic TOP TID MDD APPLY TO GROIN 11/26/16 RX: Polyethylene Glycol 3350 [Miralax Powder 17 gm/Packet] 17 gm PO TID RX: Sucralfate [Carafate Susp 1 gm/10 ml Udcup] 10 ml PO ACHS 11/26/16 RX: Trazodone HCl [Desyrel] 100 mg PO QHS 11/26/16 Levetiracetam [Keppra 500 mg Tablet] 500 mg PO Q12 #60 tablet 12/02/16 RX: Lubiprostone [Amitiza 8 Mcg Capsule] 8 mcg PO BID capsule 12/02/16 Acetaminophen with Codeine [Tylenol #3 Tablet] 1 each PO Q6HP PRN 11/05/17 Amitriptyline HCl [Elavil 50 Mg Tablet] 50 mg PO QHS 11/05/17 Budesonide/Formoterol Fumarate [Symbicort Hfa 160-4.5 Mcg Inhaler 6 gm] 2 puff IH Q12 11/05/17 Cetirizine HCl [Cetirizine HCl 5 mg/5 mL] 10 mg PO DAILY 11/05/17 Cholecalciferol (Vitamin D3) [Vitamin D3 1000 Unit Tablet] 2,000 unit PO DAILY 11/05/17 Haloperidol [Haldol 2 Mg Tablet] 2 mg PO BID 11/05/17 Quetiapine Fumarate [Seroquel 25 mg Tablet] 25 mg PO QHS 11/05/17 RX: Atorvastatin Calcium [Lipitor 20 mg Tablet] 20 mg PO DAILY 11/05/17 Allergies/Adverse Reactions: silicone [Silicone] Allergy (Intermediate, Verified 11/05/17 15:22) REDNESS, RASH carbidopa [From Sinemet] Adverse Reaction (Severe, Verified 11/05/17 15:22) Cardiac arrest levodopa [From Sinemet] Adverse Reaction (Severe, Verified 11/05/17 15:22) Cardiac arrest Review of Systems All systems: reviewed and no additional remarkable complaints except as stated Physical Exam Vital Signs: Temp Pulse Resp BP Pulse Ox 97.4 F 87 20 129/66 H 97 11/05/17 13:27 11/05/17 15:51 11/05/17 15:51 11/05/17 13:27 11/05/17 15:51 Intake & Output 11/04/17 11/05/17 11/06/17 05:59 05:59 05:59 Weight 272 lb 0.807 oz General appearance: PRESENT: no acute distress, morbidly obese Respiratory exam: PRESENT: rhonchi - Upper airway, wheezes - Expiratory bilaterally -mostly radiation from her neck Cardiovascular exam: PRESENT: RRR GI/Abdominal exam: PRESENT: soft Extremities exam: ABSENT: other - No edema Neurological exam: PRESENT: awake Psychiatric exam: PRESENT: flat affect, unusual affect, other - Somewhat clouded sensorium. Difficulty carrying a conversation Skin exam: PRESENT: warm Results Impressions: Chest X-Ray 11/05/17 04:29 IMPRESSION: No acute cardiopulmonary findings. Assessment & Plan - Diagnosis (1) Bronchitis Is this a current diagnosis for this admission?: Yes Plan: She has an upper airway rattle. We will treat her with nebulizers and azithromycin. Hopefully we can keep this to a short stay. (2) Personality disorder Is this a current diagnosis for this admission?: Yes Plan: Long history of rather elaborate manipulative behavior and functional illness. Has previously been evaluated by psychiatry (3) Morbid obesity Is this a current diagnosis for this admission?: Yes (4) Wheezing Is this a current diagnosis for this admission?: Yes (5) Ambulatory dysfunction Is this a current diagnosis for this admission?: Yes Plan: Essentially bedbound because of her weight (6) Fibromyalgia Is this a current diagnosis for this admission?: Yes (7) Opiate dependence, continuous Is this a current diagnosis for this admission?: Yes
[2017-11-05] MEDS ORDERED: AMITRIPTYLINE HCL 50 MG TABLET PO SCH (22:00)
[2017-11-05] MEDS ORDERED: TEMAZEPAM 15 MG CAPSULE PO SCH (22:00)
[2017-11-05] MEDS: LEVETIRACETAM 500 MG TABLET PO SCH (22:19)
[2017-11-06] MEDS: ACETAMINOPHEN 325 MG TABLET PO PRN ×2 (05:01→13:43)
[2017-11-06] MEDS: IPRATROPIUM/ALBUTEROL 0.5-2.5 MG/3 ML AMPUL NEB SCH ×2 (08:11→12:11)
[2017-11-06] MEDS: ACETYLCYSTEINE 10% NEB 400 MG/4 ML VIAL NEB SCH ×2 (08:12→12:12)
[2017-11-06] MEDS: AZITHROMYCIN 250 MG TABLET PO SCH (09:38)
[2017-11-06] MEDS: FAMOTIDINE 20 MG TABLET PO SCH (09:38)
[2017-11-06] MEDS: ENOXAPARIN SODIUM INJ 40 MG/0.4 ML DISP.SYRIN SUBCUT SCH (09:39)
[2017-11-06] MEDS: POLYETHYLENE GLYCOL 3350 POWDER 17 GM/1 PACKET PO SCH ×2 (09:40→13:43)
[2017-11-06] MEDS: LEVETIRACETAM 500 MG TABLET PO SCH (09:40)
[2017-11-06] MEDS: LUBIPROSTONE 8 MCG CAPSULE PO SCH (09:40)
[2017-11-06] MEDS ORDERED: CETIRIZINE HCL ORAL SOLN 5 MG/5 ML UDCUP PO SCH (10:00)
[2017-11-06] MEDS ORDERED: HALOPERIDOL 2 MG TABLET PO SCH (10:00)
[2017-11-06] MEDS ORDERED: PREDNISONE 20 MG TABLET PO SCH (10:00)
[2017-11-06] MEDS ORDERED: ATORVASTATIN CALCIUM 20 MG TABLET PO SCH (10:00)
--- NOTE | 2017-11-06 13:02 | PDOC TRANSFER SUMMARY ---
General - Admit/Disc Date/PCP Admission Date/Primary Care Provider: 11/05/17 08:04 Discharge Date: 11/06/17 - Discharge Diagnosis (1) Bronchitis Is this a current diagnosis for this admission?: Yes Summary: Monitored overnight. Her azithromycin was continued. She is put on a short course of steroids. She received aggressive pulmonary toilet and nebulizer therapy. Is considerably improved today though still producing a fair amount of phlegm. She is on room air, and I think she can complete her convalescence at home (2) Personality disorder Is this a current diagnosis for this admission?: Yes Summary: Long-standing history of very manipulative behavior. Previously evaluated by psychiatry. (3) Morbid obesity Is this a current diagnosis for this admission?: Yes (4) Wheezing Is this a current diagnosis for this admission?: Yes Summary: Mostly upper pharyngeal. Appears to be volitional (5) Ambulatory dysfunction Is this a current diagnosis for this admission?: Yes Summary: Very limited mobility due to her super morbid obesity (6) Fibromyalgia Is this a current diagnosis for this admission?: Yes Summary: Home medications will be continued (7) Opiate dependence, continuous Is this a current diagnosis for this admission?: Yes Summary: Home medications will be continued - Additional Information Resuscitation Status: Full Code Prescriptions: Prednisone [Deltasone 20 mg Tablet] 20 mg PO DAILY #4 tablet Home Medications: Albuterol Sulfate [Ventolin 0.083% Neb 2.5 mg/3 mL Ampul] 3 ml NEB RTQ6HP PRN Diazepam [Valium 5 mg Tablet] 10 mg PO QHS 11/26/16 Fluoxetine HCl [Prozac] 80 mg PO QAM 11/26/16 Methylphenidate HCl [Ritalin] 10 mg PO BID@0800,1200 11/26/16 Nystatin [Mycostatin Topical Powder 15 gm] 1 applic TOP TID MDD APPLY TO GROIN 11/26/16 Polyethylene Glycol 3350 [Miralax Powder 17 gm/Packet] 17 gm PO TID 11/26/16 Sucralfate [Carafate Susp 1 gm/10 ml Udcup] 10 ml PO ACHS 11/26/16 Trazodone HCl [Desyrel] 100 mg PO QHS 11/26/16 Levetiracetam [Keppra 500 mg Tablet] 500 mg PO Q12 #60 tablet 12/02/16 Lubiprostone [Amitiza 8 Mcg Capsule] 8 mcg PO BID capsule 12/02/16 Acetaminophen with Codeine [Tylenol #3 Tablet] 1 each PO Q6HP PRN 11/05/17 Amitriptyline HCl [Elavil 50 mg Tablet] 50 mg PO QHS 11/05/17 Atorvastatin Calcium [Lipitor 20 mg Tablet] 20 mg PO DAILY 11/05/17 Budesonide/Formoterol Fumarate [Symbicort HFA 160-4.5 mcg Inhaler 6 gm] 2 puff IH Q12 11/05/17 Cetirizine HCl [Zyrtec Oral Soln 5 mg/5 ml Udcup] 10 mg PO DAILY 11/05/17 Cholecalciferol (Vitamin D3) [Vitamin D3 1000 Unit Tablet] 2,000 unit PO DAILY 11/05/17 Haloperidol [Haldol 2 mg Tablet] 2 mg PO BID 11/05/17 Quetiapine Fumarate [Seroquel 25 mg Tablet] 25 mg PO QHS 11/05/17 Prednisone [Deltasone 20 mg Tablet] 20 mg PO DAILY #4 tablet 11/06/17 History of Present Illness Admission Date/PCP: 11/05/17 08:04 Patient complains of: Difficulty breathing History of Present Illness: THERESA MEJIA is a 57 year old morbidly obese female who comes into the ER with about a day of cough wheezing feeling like she is struggling to breathe. Hospital Course Hospital Course: Because of her risk of decompensation I monitored her overnight. Aggressively treated her with pulmonary toilet and nebulizer therapy. She remains on room air. I think she can complete her convalescence at home. Physical Exam Vital Signs: Temp Pulse Resp BP Pulse Ox 98.2 F 79 18 134/71 H 94 11/06/17 08:08 11/06/17 12:12 11/06/17 12:12 11/06/17 08:08 11/06/17 12:12 Intake & Output 11/05/17 11/06/17 11/07/17 05:59 05:59 05:59 Intake Total 1227 Balance 1227 Weight 272 lb 0.807 oz 266 lb 8.622 oz General appearance: PRESENT: no acute distress, morbidly obese Respiratory exam: PRESENT: rhonchi - Occasional scattered upper airway, wheezes - Pharyngeal that she can stop when asked Cardiovascular exam: PRESENT: RRR GI/Abdominal exam: PRESENT: soft Extremities exam: ABSENT: other - No edema Neurological exam: PRESENT: alert Psychiatric exam: PRESENT: appropriate affect Skin exam: PRESENT: warm Results Impressions: Chest X-Ray 11/05/17 04:29 IMPRESSION: No acute cardiopulmonary findings. Qualifiers - * PATIENT BEING DISCHARGED WITH ANY OF THE FOLLOWING DIAGNOSIS: No
[2017-11-06 13:20] VITALS: BP 131/69
== END 2017-11-06 15:45 | disposition home or self-care (01) ==
LOC: ER 04:09 → EH 08:04 → 4S 13:21
PROVIDERS: ADMIT Internal Medicine; ATTEND Internal Medicine
DX: J40 Bronchitis, not specified as acute or chronic (principal); F60.89 Other specific personality disorders; E66.01 Morbid (severe) obesity due to excess calories; Z68.42 Body mass index [BMI] 45.0-49.9, adult; R06.2 Wheezing; R26.89 Other abnormalities of gait and mobility; M79.7 Fibromyalgia; F11.20 Opioid dependence, uncomplicated; G47.30 Sleep apnea, unspecified; Z79.899 Other long term (current) drug therapy; I25.2 Old myocardial infarction; R00.0 Tachycardia, unspecified; E11.65 Type 2 diabetes mellitus with hyperglycemia; Z86.74 Personal history of sudden cardiac arrest; Z87.01 Personal history of pneumonia (recurrent); Z90.49 Acquired absence of other specified parts of digestive tract; Z87.891 Personal history of nicotine dependence; Z98.84 Bariatric surgery status; Z74.01 Bed confinement status; Z98.890 Other specified postprocedural states
CPT/HCPCS: 93005; 94640 ×2; 99285; 96361; 96375; 96365; 36415; 82962; 85025; 80048; 84484; 83036; 71045; 93010; A9270 ×17; J3490 ×5; J2930; J1650 ×2; J3475; J7030; J7512; J7620

== ENCOUNTER 2017-12-10 20:53 | Emergency (ER) | payer MEDICARE, MEDICAID ==
[2017-12-10 21:03] VITALS: BP 124/73
[2017-12-10] MEDS ORDERED: ACETAMINOPHEN 325 MG TABLET PO ONE (22:10)
--- NOTE | 2017-12-10 23:07 | ER Document Report ---
HPI - HPI Pain Level: 5 Context: Patient is a 57-year-old female who presents emergency department the chief complaint of low back pain. Patient states she has a history of degenerative disc disease. She states she was getting into her chair for dinner when she started having low back pain and pain radiating into her right leg. She denies any urinary/stool incontinence, saddle anesthesia. She did not take anything for pain prior to arrival. She has been able to bear weight and ambulate without assistance. - CONSTITUTIONAL Constitutional: DENIES: Fever, Chills - EENT EENT: DENIES: Sore Throat, Ear Pain, Eye problems - NEURO Neurology: DENIES: Headache, Weakness, Vision blurred, Dizzinesss / Vertigo - CARDIOVASCULAR Cardiovascular: DENIES: Chest pain - RESPIRATORY Respiratory: DENIES: Trouble Breathing, Coughing - GASTROINTESTINAL Gastrointestinal: DENIES: Abdominal Pain, Black / Bloody Stools - URINARY Urinary: DENIES: Dysuria, Urgency, Frequency - REPRODUCTIVE Reproductive: DENIES: : - MUSCULOSKELETAL Musculoskeletal: REPORTS: Extremity pain - numbness in thigh Past Medical History - Social History Smoking Status: Unknown if Ever Smoked Family History: Reviewed & Not Pertinent Patient has suicidal ideation: No Patient has homicidal ideation: No - Past Medical History Cardiac Medical History: Reports: Hx Heart Attack - CARDIAC ARREST R/T DRUG REACTION(SINEMET), Hx Hypercholesterolemia Denies: Hx Coronary Artery Disease, Hx Hypertension Pulmonary Medical History: Reports: Hx Asthma, Hx Bronchitis, Hx Pneumonia - MARCH 2015, Hx Sleep Apnea - On home CPAP Denies: Hx COPD Neurological Medical History: Reports: Hx Cerebrovascular Accident, Hx Migraine , Hx Seizures - UNSURE OF ETIOLOGY, conversion disorder Endocrine Medical History: Reports: Hx Diabetes Mellitus Type 2 Renal/ Medical History: Reports: Hx Kidney Stones. Denies: Hx Peritoneal Dialysis GI Medical History: Reports: Hx Hiatal Hernia - DX 30 YEARS AGO, Hx Ulcer - after gastric by pass, surg repaired Musculoskeltal Medical History: Reports Hx Arthritis - OSTEOARTHRITIS, Reports Hx Fibromyalgia Psychiatric Medical History: Reports: Hx Anxiety, Hx Attention Deficit Hyperactivity Disorder, Hx Depression, Hx Post Traumatic Stress Disorder Past Surgical History: Reports: Hx Abdominal Surgery - gastric bypass, Hx Cholecystectomy, Hx Gastric Bypass Surgery, Hx Hysterectomy, Hx Orthopedic Surgery - back/spinal surgery, Hx Tubal Ligation. Denies: Hx Adenoidectomy, Hx Pacemaker - Immunizations Immunizations up to date: Yes Hx Diphtheria, Pertussis, Tetanus Vaccination: Yes - up to date within last 5 yrs Hx Pneumococcal Vaccination: 03/31/14 Vertical Provider Document - CONSTITUTIONAL Notes: PHYSICAL EXAM GENERAL: Alert, interacts well. HEAD: Normocephalic, atraumatic. LUNGS: Clear to auscultation bilaterally, no wheezes, rales, or rhonchi. No respiratory distress. HEART: Regular rate and rhythm. No murmurs, gallops, or rubs. Back: Tenderness to palpation of the right paralumbar musculature with pain reproducible palpation without any spinous process step-offs, deformities or tenderness. 5 out of 5 strength both distally and proximally bilateral lower extremities. 2+ patellar reflexes bilaterally. Sensation grossly intact in the bilateral lower extremities. Patient is able to ambulate without difficulty. EXTREMITIES: Moves all 4 extremities spontaneously. No edema, radial and dorsalis pedis pulses 2/4 bilaterally. No cyanosis. NEUROLOGICAL: Alert and oriented x4. Normal speech. PSYCH: Normal affect, normal mood. SKIN: Warm, dry, normal turgor. No rashes or lesions noted. - INFECTION CONTROL TRAVEL OUTSIDE OF THE [place] IN LAST 30 DAYS: No Course - Re-evaluation Re-evalutation: 12/10/17 23:23 Patient is a 57-year-old female is hemodynamically stable, no acute distress and afebrile. The patient presents with low back pain without signs of spinal cord compression, cauda equina syndrome, infection, aneurysm, or other serious etiology. The patient is neurologically intact. Given the extremely low risk of these diagnoses further testing and evaluation for these possibilities does not appear to be indicated at this time. The patient has been instructed to return if the symptoms worsen or change in any way. - Vital Signs Vital signs: Temp Pulse Resp BP Pulse Ox 97.9 F 76 20 124/73 96 12/10/17 21:02 12/10/17 21:02 12/10/17 21:02 12/10/17 21:02 12/10/17 21:02 - Diagnostic Test Radiology reviewed: Image reviewed, Reports reviewed Discharge - Discharge Clinical Impression: Low back pain Qualifiers: Chronicity: chronic Back pain laterality: bilateral Sciatica presence: with sciatica Sciatica laterality: sciatica of right side Qualified Code(s): M54.41 - Lumbago with sciatica, right side Condition: Good Disposition: HOME, SELF-CARE Additional Instructions: LOW BACK PAIN: Three out of every four people will have an episode of disabling back pain during their lifetime. Most commonly the pain is due to straining of the muscles and ligaments in the low back. Usual treatment includes: (1) Rest on a firm surface. Avoid lying on your stomach. (2) Ice pack the painful area. After a few days, gentle heat may be used intermittently to relax the area, or ice packs can be continued. (3) Medication may be needed -- muscle relaxers and antiinflammatory medicines are commonly used. (4) As the back improves, exercises are prescribed to strengthen the back and abdominal muscles. Your doctor will advise you on the proper care for your back at each stage in your recovery. You may be better in a few days -- or healing may take several weeks. If new symptoms of a "herniated disc" (radiation of pain, numbness, or tingling down the back of the leg or weakness in the leg) occur, you should be re-examined. Further testing may be necessary. ICE PACKS: Apply ice packs frequently against the painful area. Many different schedules are recommended, such as "20 minutes on, 20 minutes off" or "one hour ice, two hours rest." If you need to work, you may need to go longer between ice treatments. You should plan to have the area ice packed AT LEAST one fourth of the time. The ice should be applied over the wrap, tape, or splint, or over a layer of cloth -- not directly against the skin. Some ice bags have a built-in cloth and can be put directly on the skin. WARM PACKS: After approximately two days, apply gentle heat (such as a heating pad or hot water bottle) for about 20 to 30 minutes about every two hours -- at least four times daily. Warmth and elevation will help you make a more rapid recovery , and will ease the pain considerably. Do not use HOT heat, and never apply heat for longer than 30 minutes. The continuous heat can invisibly damage skin and muscles -- even when no burn is seen on the surface. Damaged muscles can make you MORE sore. FOLLOW-UP CARE: If you have been referred to a physician for follow-up care, call the physician s office for an appointment as you were instructed or within the next two days. If you experience worsening or a significant change in your symptoms, notify the physician immediately or return to the Emergency Department at any time for re-evaluation. Prescriptions: Lidocaine [Lidoderm 5% (700 mg) Transdermal Patch] 1 patch TP DAILY #30 adh..patch Referrals: ELIZABETH ROMERO DO [Primary Care Provider] - Follow up as needed
--- NOTE | 2017-12-10 23:13 | RADIOLOGY REPORT (SQ) ---
EXAM DESCRIPTION: XR LUMBAR SPINE ANTEROPOSTERIOR, LATERAL, AND OBLIQUES COMPLETED DATE/TME: 12/10/2017 22:10 CLINICAL HISTORY: 57 years, Female, back pain while going from standing to sitting COMPARISON: None. NUMBER OF VIEWS: 5 TECHNIQUE: AP, lateral lateral, coned-down lateral, and bilateral oblique views of the lumbar spine. FINDINGS: 5 nonrib-bearing lumbar vertebrae. Vertebral body height preserved. Mild loss of intervertebral disc height at L5/S1. Pedicles identified throughout. Mild facet arthropathy. Posterior venkatesh and screw fixation at T11-T12. No subluxation identified. No cortical step-offs. No abnormalities of the visualized sacrum. Osteopenia. IMPRESSION: 1. No acute abnormality of the lumbar spine by plain film criteria. 2. Posterior venkatesh and screw fixation at T11-T12. 3. Mild loss of intervertebral disc height at L5/S1. 2010 [employer]- All Rights Reserved
== END 2017-12-10 23:49 | disposition home or self-care (01) ==
LOC: ER 20:53
DX: M54.41 Lumbago with sciatica, right side (principal); M79.604 Pain in right leg; R20.0 Anesthesia of skin; I25.2 Old myocardial infarction; J45.909 Unspecified asthma, uncomplicated; E11.9 Type 2 diabetes mellitus without complications
CPT/HCPCS: 99284; 72110; A9270

== ENCOUNTER → 2018-01-22 | Outpatient (CLI) | payer MEDICARE, MEDICAID ==
--- NOTE | 2018-01-26 11:12 | WOMENS IMAGING REPORT ---
EXAM DESCRIPTION: BILAT SCREENING MAMMO W/CAD COMPLETED DATE/TIME: 01/22/2018 10:34 am REASON FOR STUDY: SCREENING MAMMO Z12.31 ENCNTR SCREEN MAMMOGRAM FOR MALIGNANT NEOPLASM OF LUIS M COMPARISON: 09/29/2014. TECHNIQUE: Standard craniocaudal and mediolateral oblique views of each breast recorded using 5bya l acquisition. LIMITATIONS: None. FINDINGS: Findings present which are benign by mammographic criteria. No suspicious masses, calcifi cations or architectural distortion. Pertinent benign findings: Stable surgical changes and scattered benign calcifications. Read with the assistance of CAD. .[facility] - R2 Cenova Version 1.3 .[facility] - R2 Cenova Version 1.3 .[facility] - R2 Cenova Version 2.4 .[facility] [place] R2 Cenova Version 2.4 .[facility] - R2 Lay Out Former Version 9.2 Benign mammographic findings may include one or more of the following: Smooth masses, popcorn/rim/co arse calcifications, asymmetries, post-procedure changes, and lesions with long-standing stability. IMPRESSION: BENIGN MAMMOGRAPHIC FINDINGS. BIRADS 2 BREAST DENSITY: a. The breasts are almost entirely fatty. BIRAD: 2 BENIGN FINDING(S) RECOMMENDATION: ROUTINE SCREENING COMMENT: The patient has been notified of the results by letter per SA requirements. Additional no tification policies are in place for contacting patient with suspicious or incomplete findings. Quality ID #[id number]: The [employer] recommends an annual screening mammogram for women aged 40 years or over. This facility utilizes a reminder system to ensure that all patients receive reminder letters, and/or direct phone calls for appointments. This includes reminders for routine scr eening mammograms, diagnostic mammograms, or other Breast Imaging Interventions when appropriate. Th is patient will be placed in the appropriate reminder system. The [employer] (ACR) has developed recommendations for screening MRI of the breast s in certain patient populations, to be used in conjunction with mammography. Breast MRI surveillanc e may be appropriate for women with more than 20% lifetime risk of developing breast cancer as deter mined by genetic testing, significant family history of the disease, or history of mantle radiation f or Hodgkins Disease. ACR Practice Guidelines 2008. TECHNICAL DOCUMENTATION: FINDING NUMBER: (1) ASSESSMENT: (1) JOB ID: [id number] [employer]- All Rights Reserved Reading location - IP/workstation name: [facility]
== END ==
LOC: WI 09:38
PROVIDERS: ATTEND Family Medicine
DX: Z12.31 Encounter for screening mammogram for malignant neoplasm of breast (principal)
CPT/HCPCS: 77067

== ENCOUNTER 2018-03-09 14:01 | Emergency (ER) | payer MEDICARE, MEDICAID ==
[2018-03-09] MEDS ORDERED: ONDANSETRON 4 MG TAB.RAPDIS PO ONE (16:20)
[2018-03-09] MEDS ORDERED: ACETAMINOPHEN 325 MG TABLET PO ONE (16:20)
--- NOTE | 2018-03-09 16:25 | ER Document Report ---
ED Medical Screen (RME) - General Chief Complaint: Pain All Over Stated Complaint: BODY ACHES Time Seen by Provider: 03/09/18 15:48 Mode of Arrival: Ambulatory Information source: Patient TRAVEL OUTSIDE OF THE [place] IN LAST 30 DAYS: No - HPI Notes: 03/09/18 16:21 RME note: Pt with hx of anxiety, fibromyalgia and multiple medical problems with report of gen myalgias, questionable fever, nausea, mild PRATER (not the worst of life, no HI or neck pain) for the past 3 days. reports dysuria, cough, congestion. No constipation, skin breakdown, CP, abd pain, rash, new numbness or paresthesia. Lungs CTA, CV RRR, extrem trace edema, Abd obese nontender, Neuro no focal deficits. Question UTI vs bronchitis. Plan UA, CXR, labs, UA, tylenol, zofran. Please see partner's note for further info and workup. 03/09/18 16:23 - Related Data Allergies/Adverse Reactions: silicone [Silicone] Allergy (Intermediate, Verified 03/09/18 15:43) REDNESS, RASH carbidopa [From Sinemet] Adverse Reaction (Severe, Verified 03/09/18 15:43) Cardiac arrest levodopa [From Sinemet] Adverse Reaction (Severe, Verified 03/09/18 15:43) Cardiac arrest Past Medical History - Social History Chew tobacco use (# tins/day): No Frequency of alcohol use: None Drug Abuse: None - Past Medical History Cardiac Medical History: Reports: Hx Heart Attack - CARDIAC ARREST R/T DRUG REACTION(SINEMET), Hx Hypercholesterolemia Denies: Hx Coronary Artery Disease, Hx Hypertension Pulmonary Medical History: Reports: Hx Asthma, Hx Bronchitis, Hx Pneumonia - MARCH 2015, Hx Sleep Apnea - On home CPAP Denies: Hx COPD Neurological Medical History: Reports: Hx Cerebrovascular Accident, Hx Migraine , Hx Seizures - UNSURE OF ETIOLOGY, conversion disorder Endocrine Medical History: Reports: Hx Diabetes Mellitus Type 2 Renal/ Medical History: Reports: Hx Kidney Stones. Denies: Hx Peritoneal Dialysis GI Medical History: Reports: Hx Hiatal Hernia - DX 30 YEARS AGO, Hx Ulcer - after gastric by pass, surg repaired Musculoskeltal Medical History: Reports Hx Arthritis - OSTEOARTHRITIS, Reports Hx Fibromyalgia Psychiatric Medical History: Reports: Hx Anxiety, Hx Attention Deficit Hyperactivity Disorder, Hx Depression, Hx Post Traumatic Stress Disorder Past Surgical History: Reports: Hx Abdominal Surgery - gastric bypass, Hx Cholecystectomy, Hx Gastric Bypass Surgery, Hx Hysterectomy, Hx Orthopedic Surgery - back/spinal surgery, Hx Tubal Ligation. Denies: Hx Adenoidectomy, Hx Pacemaker - Immunizations Immunizations up to date: Yes Hx Diphtheria, Pertussis, Tetanus Vaccination: Yes - up to date within last 5 yrs History of Influenza Vaccine for 03/2017 - 08/2017 Season: Yes Influenza Administration Date for 03/2017 - 08/2017 Season: 03/30/17 Physical Exam - Vital signs Vitals: Temp Pulse Resp BP Pulse Ox 98.4 F 82 18 121/81 92 03/09/18 14:30 03/09/18 14:30 03/09/18 14:30 03/09/18 14:30 03/09/18 14:30 Course - Vital Signs Vital signs: Temp Pulse Resp BP Pulse Ox 98.4 F 82 18 121/81 92 03/09/18 14:30 03/09/18 14:30 03/09/18 14:30 03/09/18 14:30 03/09/18 14:30 Doctor's Discharge - Discharge Referrals: ELIZABETH ROMERO DO [Primary Care Provider] - Follow up as needed
--- NOTE | 2018-03-09 17:06 | RADIOLOGY REPORT (SQ) ---
EXAM DESCRIPTION: CHEST 2 VIEWS COMPLETED DATE/TIME: 03/09/2018 4:52 pm REASON FOR STUDY: cough, fever COMPARISON: Chest films 11/05/2017, 10/11/2017, 02/02/2017 EXAM PARAMETERS: NUMBER OF VIEWS: two views TECHNIQUE: Digital Frontal and Lateral radiographic views of the chest acquired. RADIATION DOSE: NA LIMITATIONS: Morbid obesity FINDINGS: LUNGS AND PLEURA: Low lung volumes with bandlike bibasilar atelectasis. No fluffy alveola r infiltrates worrisome for edema or pneumonia. No pleural effusion. No pneumothorax. MEDIASTINUM AND HILAR STRUCTURES: No masses or contour abnormalities. HEART AND VASCULAR STRUCTURES: Stable mild cardiomegaly BONES: No acute findings. HARDWARE: Clips right upper quadrant post cholecystectomy. Lower thoracic and lower cervical fusion hardware OTHER: No other significant finding. IMPRESSION: Bibasilar bandlike atelectasis TECHNICAL DOCUMENTATION: JOB ID: [id number] [employer]- All Rights Reserved Reading location - IP/workstation name: [email or web address]
[2018-03-09 17:17] LABS: ABSOLUTE EOSINOPHILS # (AUTO) 0.3 10^3/uL (0.0-0.6); ABSOLUTE LYMPHOCYTES (AUTO) 1.1 10^3/uL (0.5-4.7); ABSOLUTE MONOCYTES (AUTO) 0.5 10^3/uL (0.1-1.4); ABSOLUTE NEUT (AUTO) 4.4 10^3/uL (1.7-8.2); BASOPHILS % (AUTO) 0.6 % (0-2); EOSINOPHILS % (AUTO) 4.7 % (0-6); HEMATOCRIT 41.7 % (36.0-47.0); HEMOGLOBIN 13.7 g/dL (12.0-15.5); LYMPHOCYTES % (AUTO) 17.3 % (13-45); MEAN CORPUSCULAR HEMOGLOBIN 28.6 pg (27.0-33.4); MEAN CORPUSCULAR HGB CONC 32.8 g/dL (32.0-36.0); MEAN CORPUSCULAR VOLUME 87 fl (80-97); MONOCYTES % (AUTO) 7.3 % (3-13); PLATELET COUNT 209 10^3/uL (150-450); RED BLOOD COUNT 4.78 10^6/uL (3.72-5.28); RED CELL DISTRIBUTION WIDTH 14.8 % (11.5-14.0); SEGMENTED NEUTROPHILS % (AUTO) 70.1 % (42-78); TOTAL CELLS COUNTED % (AUTO) 100 %; WHITE BLOOD COUNT 6.3 10^3/uL (4.0-10.5)
[2018-03-09 17:26] LABS: AMORPHOUS SEDIMENT,URINE TRACE /HPF; APPEARANCE,URINE SLIGHTLY-CLOUDY; BILIRUBIN,URINE NEGATIVE (NEGATIVE); COLOR,URINE YELLOW; GLUCOSE, URINE NEGATIVE (NEGATIVE); KETONES,URINE NEGATIVE (NEGATIVE); LEUKOCYTE ESTERASE,URINE MODERATE (NEGATIVE); NITRITE,URINE NEGATIVE (NEGATIVE); PROTEIN,URINE NEGATIVE (NEGATIVE); URINE SPECIFIC GRAVITY 1.013
[2018-03-09 17:51] LABS: ALANINE AMINOTRANSFERASE 30 U/L (9-52); ALBUMIN 4.1 g/dL (3.5-5.0); ALKALINE PHOSPHATASE 133 U/L (38-126); ANION GAP 11 (5-19); ASPARTATE AMINO TRANSFERASE 27 U/L (14-36); BILIRUBIN,DIRECT 0.3 mg/dL (0.0-0.4); BILIRUBIN,TOTAL 0.4 mg/dL (0.2-1.3); BLOOD UREA NITROGEN 9 mg/dL (7-20); CALCIUM 9.3 mg/dL (8.4-10.2); CARBON DIOXIDE 25 mmol/L (22-30); CHLORIDE 105 mmol/L (98-107); GLUCOSE 94 mg/dL (75-110); LIPASE 63.6 U/L (23-300); POTASSIUM 4.2 mmol/L (3.6-5.0); SODIUM 140.6 mmol/L (137-145); TOTAL PROTEIN 7.3 g/dL (6.3-8.2)
--- NOTE | 2018-03-09 18:39 | ER Document Report ---
ED General - General Chief Complaint: Pain All Over Stated Complaint: BODY ACHES Time Seen by Provider: 03/09/18 15:48 Mode of Arrival: Ambulatory TRAVEL OUTSIDE OF THE [place] IN LAST 30 DAYS: No - HPI Patient complains to provider of: Pain all over Notes: Patient coming in from [facility] for diffuse myalgias ongoing for the last 3 days. Patient denies any significant area plain denies any specific joint pain. Patient denies chest pain abdominal pain nausea vomiting fevers chills diarrhea. Patient resting comfortably upon my evaluation eating crackers. - Related Data Allergies/Adverse Reactions: silicone [Silicone] Allergy (Intermediate, Verified 03/09/18 15:43) REDNESS, RASH carbidopa [From Sinemet] Adverse Reaction (Severe, Verified 03/09/18 15:43) Cardiac arrest levodopa [From Sinemet] Adverse Reaction (Severe, Verified 03/09/18 15:43) Cardiac arrest Past Medical History - General Information source: Patient - Social History Smoking Status: Never Smoker Chew tobacco use (# tins/day): No Frequency of alcohol use: None Drug Abuse: None Family History: Reviewed & Not Pertinent Patient has suicidal ideation: No Patient has homicidal ideation: No - Past Medical History Cardiac Medical History: Reports: Hx Heart Attack - CARDIAC ARREST R/T DRUG REACTION(SINEMET), Hx Hypercholesterolemia Denies: Hx Coronary Artery Disease, Hx Hypertension Pulmonary Medical History: Reports: Hx Asthma, Hx Bronchitis, Hx Pneumonia - MARCH 2015, Hx Sleep Apnea - On home CPAP Denies: Hx COPD Neurological Medical History: Reports: Hx Cerebrovascular Accident, Hx Migraine , Hx Seizures - UNSURE OF ETIOLOGY, conversion disorder Endocrine Medical History: Reports: Hx Diabetes Mellitus Type 2 Renal/ Medical History: Reports: Hx Kidney Stones. Denies: Hx Peritoneal Dialysis GI Medical History: Reports: Hx Hiatal Hernia - DX 30 YEARS AGO, Hx Ulcer - after gastric by pass, surg repaired Musculoskeletal Medical History: Reports Hx Arthritis - OSTEOARTHRITIS, Reports Hx Fibromyalgia Psychiatric Medical History: Reports: Hx Anxiety, Hx Attention Deficit Hyperactivity Disorder, Hx Depression, Hx Post Traumatic Stress Disorder Past Surgical History: Reports: Hx Abdominal Surgery - gastric bypass, Hx Cholecystectomy, Hx Gastric Bypass Surgery, Hx Hysterectomy, Hx Orthopedic Surgery - back/spinal surgery, Hx Tubal Ligation. Denies: Hx Adenoidectomy, Hx Pacemaker - Immunizations Immunizations up to date: Yes Hx Diphtheria, Pertussis, Tetanus Vaccination: Yes - up to date within last 5 yrs Hx Pneumococcal Vaccination: 03/31/14 Review of Systems - Review of Systems Constitutional: No symptoms reported EENT: No symptoms reported Cardiovascular: No symptoms reported Respiratory: No symptoms reported Gastrointestinal: No symptoms reported Genitourinary: No symptoms reported Female Genitourinary: No symptoms reported Musculoskeletal: Muscle pain, Muscle stiffness Skin: No symptoms reported Hematologic/Lymphatic: No symptoms reported Neurological/Psychological: No symptoms reported -: Yes All other systems reviewed and negative Physical Exam - Vital signs Vitals: Temp Pulse Resp BP Pulse Ox 98.4 F 82 18 121/81 92 03/09/18 14:30 03/09/18 14:30 03/09/18 14:30 03/09/18 14:30 03/09/18 14:30 Interpretation: Normal - General General appearance: Appears well, Alert - HEENT Head: Normocephalic, Atraumatic - Respiratory Respiratory status: No respiratory distress Chest status: Nontender Breath sounds: Normal Chest palpation: Normal - Cardiovascular Rhythm: Regular Heart sounds: Normal auscultation Murmur: No - Abdominal Inspection: Normal Distension: No distension Bowel sounds: Normal Tenderness: Nontender Organomegaly: No organomegaly - Back Back: Normal, Nontender - Extremities General upper extremity: Normal inspection, Nontender, Normal color, Normal ROM , Normal temperature General lower extremity: Normal inspection, Nontender, Normal color, Normal ROM , Normal temperature, Normal weight bearing. No: Guido's sign - Neurological Neuro grossly intact: Yes Cognition: Normal Orientation: AAOx4 Hendley Coma Scale Eye Opening: Spontaneous Stan Coma Scale Verbal: Oriented Stan Coma Scale Motor: Obeys Commands Stan Coma Scale Total: 15 Speech: Normal Motor strength normal: LUE, RUE, LLE, RLE Sensory: Normal - Psychological Associated symptoms: Normal affect, Normal mood - Skin Skin Temperature: Warm Skin Moisture: Dry Skin Color: Normal Course - Re-evaluation Re-evalutation: 03/09/18 22:33 Laboratory studies not show any signs of acute pathology. Physical examination also is benign. No serious etiology seen her airway given exhalation for the patient's symptoms. Patient will be discharged home follow-up primary care physician. - Vital Signs Vital signs: Temp Pulse Resp BP Pulse Ox 97.7 F 85 18 100/44 L 95 03/09/18 18:58 03/09/18 18:58 03/09/18 14:30 03/09/18 18:58 03/09/18 18:58 - Laboratory Result Diagrams: 03/09/18 17:05 03/09/18 17:05 Laboratory results interpreted by me: 03/09/18 03/09/18 03/09/18 17:05 17:05 17:05 RDW 14.8 H Alkaline Phosphatase 133 H Urine Blood SMALL H Urine Urobilinogen 2.0 H Ur Leukocyte Esterase MODERATE H Discharge - Discharge Clinical Impression: Myalgia Disposition: HOME, SELF-CARE Instructions: Myalagia (Muscle Pain) ([facility]) Additional Instructions: Laboratory studies not reveal any critical pathology at this time to explain the patient's symptoms. Will recommend Tylenol Motrin for pain control. Patient should be followed up in the next 24-48 hours for repeat evaluation by PCP. Referrals: ELIZABETH ROMERO DO [Primary Care Provider] - Follow up as needed
[2018-03-09 19:00] VITALS: BP 100/44
== END 2018-03-09 19:00 | disposition home or self-care (01) ==
LOC: ER 14:01
DX: M79.1 Myalgia (principal); J45.909 Unspecified asthma, uncomplicated; E11.9 Type 2 diabetes mellitus without complications
CPT/HCPCS: 99283; 36415; 87086; 83690; 85025; 80053; 81001; 71046; A9270 ×2; S0119

== ENCOUNTER 2018-03-29 10:21 | Emergency (ER) | payer MEDICARE, MEDICAID ==
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
[2018-03-29 10:55] LABS: ABSOLUTE EOSINOPHILS # (AUTO) 0.3 10^3/uL (0.0-0.6); ABSOLUTE LYMPHOCYTES (AUTO) 1.1 10^3/uL (0.5-4.7); ABSOLUTE MONOCYTES (AUTO) 0.6 10^3/uL (0.1-1.4); ABSOLUTE NEUT (AUTO) 4.1 10^3/uL (1.7-8.2); BASOPHILS % (AUTO) 0.7 % (0-2); EOSINOPHILS % (AUTO) 4.5 % (0-6); HEMATOCRIT 38.3 % (36.0-47.0); MEAN CORPUSCULAR HEMOGLOBIN 29.7 pg (27.0-33.4); MEAN CORPUSCULAR VOLUME 87 fl (80-97); MONOCYTES % (AUTO) 9.2 % (3-13); PLATELET COUNT 193 10^3/uL (150-450); RED BLOOD COUNT 4.39 10^6/uL (3.72-5.28); RED CELL DISTRIBUTION WIDTH 14.7 % (11.5-14.0); SEGMENTED NEUTROPHILS % (AUTO) 67.6 % (42-78); TOTAL CELLS COUNTED % (AUTO) 100 %
[2018-03-29 11:07] LABS: ALANINE AMINOTRANSFERASE 29 U/L (9-52); ALKALINE PHOSPHATASE 107 U/L (38-126); ANION GAP 7 (5-19); ASPARTATE AMINO TRANSFERASE 40 U/L (14-36); BILIRUBIN,DIRECT 0.4 mg/dL (0.0-0.4); BILIRUBIN,TOTAL 0.5 mg/dL (0.2-1.3); BLOOD UREA NITROGEN 7 mg/dL (7-20); CALCIUM 9.2 mg/dL (8.4-10.2); CARBON DIOXIDE 29 mmol/L (22-30); CHLORIDE 103 mmol/L (98-107); CREATINE KINASE 79 U/L (30-135); GLUCOSE 114 mg/dL (75-110); POTASSIUM 4.1 mmol/L (3.6-5.0); SODIUM 139.4 mmol/L (137-145); TOTAL PROTEIN 7.6 g/dL (6.3-8.2)
[2018-03-29 11:18] LABS: CREATINE KINASE MB 0.55 ng/mL (<4.55)
[2018-03-29 11:22] LABS: TROPONIN I < 0.012 ng/mL
--- NOTE | 2018-03-29 11:31 | RADIOLOGY REPORT (SQ) ---
EXAM DESCRIPTION: CHEST SINGLE VIEW COMPLETED DATE/TIME: 03/29/2018 11:21 am REASON FOR STUDY: chest pain COMPARISON: 03/09/2018. NUMBER OF VIEWS: One view. TECHNIQUE: Single frontal radiographic view of the chest acquired. LIMITATIONS: None. FINDINGS: LUNGS AND PLEURA: No opacities, masses or pneumothorax. No pleural effusion. MEDIASTINUM AND HILAR STRUCTURES: No masses. Contour normal. HEART AND VASCULAR STRUCTURES: Heart normal in size. Normal vasculature. BONES: No acute findings. HARDWARE: None in the chest. OTHER: No other significant finding. IMPRESSION: NO SIGNIFICANT RADIOGRAPHIC FINDING IN THE CHEST. TECHNICAL DOCUMENTATION: JOB ID: [id number] [employer]- All Rights Reserved Reading location - IP/workstation name: [email or web address]
[2018-03-29 13:18] VITALS: BP 117/66
--- NOTE | 2018-03-29 16:58 | EKG REPORT ---
SEVERITY:- NORMAL ECG - SINUS RHYTHM : Confirmed by: Mandy Vargas MD 29-Mar-2018 16:57:35
== END 2018-03-29 13:18 | disposition home or self-care (01) ==
LOC: ER 10:21
DX: R07.89 Other chest pain (principal); J45.909 Unspecified asthma, uncomplicated; E11.9 Type 2 diabetes mellitus without complications; Z98.84 Bariatric surgery status
CPT/HCPCS: 36415; 71045; 80053; 82550; 82553; 84484; 85025; 93005; 93010; 99285

== ENCOUNTER 2018-06-11 12:41 | Emergency (ER) | payer MEDICARE, MEDICAID ==
--- NOTE | 2018-06-11 14:06 | ER Document Report ---
ED Medical Screen (RME) - General Chief Complaint: Nausea/Vomiting Stated Complaint: NAUSEA Time Seen by Provider: 06/11/18 13:59 Notes: 58 years old female with a history of multiple strokes, including calcification of the cranial nerves, bilateral blindness, presents today with a headache, diffuse abdominal pain. She also have chronic constipation. Nauseous no vomiting. TRAVEL OUTSIDE OF THE U.S. IN LAST 30 DAYS: No - Related Data Allergies/Adverse Reactions: silicone [Silicone] Allergy (Intermediate, Verified 03/09/18 15:43) REDNESS, RASH carbidopa [From Sinemet] Adverse Reaction (Severe, Verified 03/09/18 15:43) Cardiac arrest levodopa [From Sinemet] Adverse Reaction (Severe, Verified 03/09/18 15:43) Cardiac arrest Past Medical History - Past Medical History Cardiac Medical History: Reports: Hx Heart Attack - CARDIAC ARREST R/T DRUG REACTION(SINEMET), Hx Hypercholesterolemia Denies: Hx Coronary Artery Disease, Hx Hypertension Pulmonary Medical History: Reports: Hx Asthma, Hx Bronchitis, Hx Pneumonia - MARCH 2015, Hx Sleep Apnea - On home CPAP Denies: Hx COPD Neurological Medical History: Reports: Hx Cerebrovascular Accident, Hx Migraine , Hx Seizures - UNSURE OF ETIOLOGY, conversion disorder Endocrine Medical History: Reports: Hx Diabetes Mellitus Type 2 Renal/ Medical History: Reports: Hx Kidney Stones. Denies: Hx Peritoneal Dialysis GI Medical History: Reports: Hx Hiatal Hernia - DX 30 YEARS AGO, Hx Ulcer - after gastric by pass, surg repaired Musculoskeltal Medical History: Reports Hx Arthritis - OSTEOARTHRITIS, Reports Hx Fibromyalgia Psychiatric Medical History: Reports: Hx Anxiety, Hx Attention Deficit Hyperactivity Disorder, Hx Depression, Hx Post Traumatic Stress Disorder Past Surgical History: Reports: Hx Abdominal Surgery - gastric bypass, Hx Cholecystectomy, Hx Gastric Bypass Surgery, Hx Hysterectomy, Hx Orthopedic Surgery - back/spinal surgery, Hx Tubal Ligation. Denies: Hx Adenoidectomy, Hx Pacemaker - Immunizations Immunizations up to date: Yes Hx Diphtheria, Pertussis, Tetanus Vaccination: Yes - up to date within last 5 yrs History of Influenza Vaccine for 03/2017 - 08/2017 Season: Yes Influenza Administration Date for 03/2017 - 08/2017 Season: 03/30/17 Physical Exam - Vital signs Vitals: Temp Pulse Resp BP Pulse Ox 98.9 F 71 18 122/74 90 L 06/11/18 12:46 06/11/18 12:46 06/11/18 12:46 06/11/18 12:46 06/11/18 12:46 Course - Vital Signs Vital signs: Temp Pulse Resp BP Pulse Ox 98.9 F 71 18 122/74 90 L 06/11/18 12:46 06/11/18 12:46 06/11/18 12:46 06/11/18 12:46 06/11/18 12:46 Doctor's Discharge - Discharge Referrals: ELIZABETH ROMERO DO [Primary Care Provider] - Follow up as needed
--- NOTE | 2018-06-11 14:47 | RADIOLOGY REPORT (SQ) ---
EXAM DESCRIPTION: CT HEAD WITHOUT COMPLETED DATE/TIME: 06/11/2018 2:24 pm REASON FOR STUDY: Headache with previous CVA COMPARISON: 06/09/2017 TECHNIQUE: Axial images acquired through the brain without intravenous contrast. Images reviewed wi th bone, brain and subdural windows. Additional sagittal and coronal reconstructions were generated. Images stored on PACS. All CT scanners at this facility use dose modulation, iterative reconstruction, and/or weight based d osing when appropriate to reduce radiation dose to as low as reasonably achievable (ALARA). [facility]: Dose Right [facility]: CareDose [facility]: Dose Right [facility]: Teradose 4D [facility]: Smart RecoVend RADIATION DOSE: CT Rad equipment meets quality standard of care and radiation dose reduction techniq ues were employed. CTDIvol: 48.6 mGy. DLP: 953 mGy-cm. LIMITATIONS: None. FINDINGS: VENTRICLES: Normal size and contour. The cisterns are patent. CEREBRUM: No masses. No hemorrhage. No midline shift. No evidence for acute infarction. Normal gra y/white matter differentiation. No areas of low density in the white matter. CEREBELLUM: No masses. No hemorrhage. No alteration of density. No evidence for acute infarction. EXTRAAXIAL SPACES: No fluid collections. No masses. Partial empty sella is suggested, stable findin g. A few very small stable calcific occasions in the left sylvian cistern. ORBITS AND GLOBE: No intra- or extraconal masses. Normal contour of globe without masses. CALVARIUM: No fracture. PARANASAL SINUSES: Deviation of the nasal septum to the right of the midline. Small bryce bullosa in the left middle terminate. No fluid or mucosal thickening. SOFT TISSUES: No mass or hematoma. OTHER: No other significant finding. IMPRESSION: 1. No significant interval changes since the previous examination dated 06/09/2017. No acute intracranial abnormality. EVIDENCE OF ACUTE STROKE: NO. COMMENT: Quality ID # [id number]: Final reports with documentation of one or more dose reduction techniques (e.g., Automated exposure control, adjustment of the mA and/or kV according to patient size, use of iterative reconstruction technique) TECHNICAL DOCUMENTATION: JOB ID: [id number] [employer]- All Rights Reserved Reading location - IP/workstation name: [email or web address]
--- NOTE | 2018-06-11 14:50 | RADIOLOGY REPORT (SQ) ---
EXAM DESCRIPTION: KUB/ABDOMEN (SINGLE VIEW) COMPLETED DATE/TIME: 06/11/2018 2:37 pm REASON FOR STUDY: Abdominal pain COMPARISON: 07/01/2013 NUMBER OF VIEWS: One view. TECHNIQUE: Supine radiographic image of the abdomen acquired. LIMITATIONS: None. FINDINGS: BOWEL GAS PATTERN: No evidence of pathologically dilated loops of bowel to suggest obstruc tion. Moderate fecal load throughout the ascending colon. CALCIFICATIONS: No suspicious calcifications. SOFT TISSUES: No gross mass or suggestion of organomegaly. HARDWARE: Prior cholecystectomy. Posterior thoracic fusion hardware. BONES: No acute bony abnormality. Lower lumbar facet arthropathy. OTHER: No other significant finding. IMPRESSION: No evidence of intestinal obstruction or other acute intra-abdominal/pelvic process. TECHNICAL DOCUMENTATION: JOB ID: [id number] [email or web address]- All Rights Reserved Reading location - IP/workstation name: [email or web address]
[2018-06-11 14:57] LABS: ABSOLUTE EOSINOPHILS # (AUTO) 0.2 10^3/uL (0.0-0.6); ABSOLUTE LYMPHOCYTES (AUTO) 1.3 10^3/uL (0.5-4.7); ABSOLUTE MONOCYTES (AUTO) 0.5 10^3/uL (0.1-1.4); ABSOLUTE NEUT (AUTO) 4.7 10^3/uL (1.7-8.2); BASOPHILS % (AUTO) 0.6 % (0-2); EOSINOPHILS % (AUTO) 2.6 % (0-6); HEMATOCRIT 41.2 % (36.0-47.0); HEMOGLOBIN 13.9 g/dL (12.0-15.5); LYMPHOCYTES % (AUTO) 18.9 % (13-45); MEAN CORPUSCULAR HEMOGLOBIN 29.7 pg (27.0-33.4); MEAN CORPUSCULAR HGB CONC 33.8 g/dL (32.0-36.0); MEAN CORPUSCULAR VOLUME 88 fl (80-97); MONOCYTES % (AUTO) 7.1 % (3-13); PLATELET COUNT 195 10^3/uL (150-450); RED BLOOD COUNT 4.69 10^6/uL (3.72-5.28); RED CELL DISTRIBUTION WIDTH 14.8 % (11.5-14.0); SEGMENTED NEUTROPHILS % (AUTO) 70.8 % (42-78); TOTAL CELLS COUNTED % (AUTO) 100 %; WHITE BLOOD COUNT 6.6 10^3/uL (4.0-10.5)
[2018-06-11 15:04] LABS: APPEARANCE,URINE CLOUDY; BILIRUBIN,URINE NEGATIVE (NEGATIVE); COLOR,URINE YELLOW; GLUCOSE, URINE NEGATIVE (NEGATIVE); KETONES,URINE NEGATIVE (NEGATIVE); LEUKOCYTE ESTERASE,URINE LARGE (NEGATIVE); NITRITE,URINE NEGATIVE (NEGATIVE); PROTEIN,URINE NEGATIVE (NEGATIVE); URINE SPECIFIC GRAVITY 1.011; UROBILINOGEN,URINE NEGATIVE mg/dL (<2.0)
[2018-06-11 15:20] LABS: ALANINE AMINOTRANSFERASE 39 U/L (9-52); ALBUMIN 4.4 g/dL (3.5-5.0); ALKALINE PHOSPHATASE 131 U/L (38-126); ANION GAP 14 (5-19); ASPARTATE AMINO TRANSFERASE 34 U/L (14-36); BILIRUBIN,DIRECT 0.3 mg/dL (0.0-0.4); BILIRUBIN,TOTAL 0.6 mg/dL (0.2-1.3); BLOOD UREA NITROGEN 11 mg/dL (7-20); CALCIUM 9.8 mg/dL (8.4-10.2); CARBON DIOXIDE 25 mmol/L (22-30); CHLORIDE 103 mmol/L (98-107); GLUCOSE 112 mg/dL (75-110); POTASSIUM 5.1 mmol/L (3.6-5.0); SODIUM 142.4 mmol/L (137-145); TOTAL PROTEIN 7.7 g/dL (6.3-8.2)
--- NOTE | 2018-06-11 18:18 | ER Document Report ---
ED GI/ - General Mode of Arrival: Ambulatory Information source: Patient, [facility] Records TRAVEL OUTSIDE OF THE U.S. IN LAST 30 DAYS: No <ESTEFANI RODGERS - Last Filed: 06/11/18 22:28> <KARYNA MARRUFO - Last Filed: 06/12/18 05:11> - General Chief Complaint: Nausea/Vomiting Stated Complaint: NAUSEA Time Seen by Provider: 06/11/18 13:59 Notes: 58-year-old female who presents to the emergency department today with complaints of a left frontal headache described as feeling like her head is "going to burst". Patient does note that her headache seemed to start a few days ago and slowly progress to the current intensity. Patient mentions that her headache began first and then she developed nausea without vomiting. 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 Patient complains of global weakness and photophobia as well. Patient denies any neck pain, nasal congestion, sore throat, shortness of breath, numbness/ tingling, or vomiting. (ESTEFANI RODGERS) - Related Data Allergies/Adverse Reactions: silicone [Silicone] Allergy (Intermediate, Verified 03/09/18 15:43) REDNESS, RASH carbidopa [From Sinemet] Adverse Reaction (Severe, Verified 03/09/18 15:43) Cardiac arrest levodopa [From Sinemet] Adverse Reaction (Severe, Verified 03/09/18 15:43) Cardiac arrest Past Medical History - General Information source: Patient, [facility] Records - Social History Smoking Status: Former Smoker Chew tobacco use (# tins/day): No Frequency of alcohol use: None Drug Abuse: None Lives with: Group [facility] Family History: Reviewed & Not Pertinent Patient has suicidal ideation: No Patient has homicidal ideation: No - Past Medical History Cardiac Medical History: Reports: Hx Heart Attack - CARDIAC ARREST R/T DRUG REACTION(SINEMET), Hx Hypercholesterolemia Pulmonary Medical History: Reports: Hx Asthma, Hx Bronchitis, Hx Pneumonia - MARCH 2015, Hx Sleep Apnea - On home CPAP Neurological Medical History: Reports: Hx Cerebrovascular Accident, Hx Migraine , Hx Seizures - UNSURE OF ETIOLOGY, conversion disorder Endocrine Medical History: Reports: Hx Diabetes Mellitus Type 2 Renal/ Medical History: Reports: Hx Kidney Stones GI Medical History: Reports: Hx Hiatal Hernia - DX 30 YEARS AGO, Hx Ulcer - after gastric by pass, surg repaired Musculoskeletal Medical History: Reports Hx Arthritis - OSTEOARTHRITIS, Reports Hx Fibromyalgia Psychiatric Medical History: Reports: Hx Anxiety, Hx Attention Deficit Hyperactivity Disorder, Hx Depression, Hx Post Traumatic Stress Disorder Past Surgical History: Reports: Hx Abdominal Surgery - gastric bypass, Hx Cholecystectomy, Hx Gastric Bypass Surgery, Hx Hysterectomy, Hx Orthopedic Surgery - back/spinal surgery, Hx Tubal Ligation - Immunizations Immunizations up to date: Yes Hx Diphtheria, Pertussis, Tetanus Vaccination: Yes - up to date within last 5 yrs Hx Pneumococcal Vaccination: 03/31/14 <ESTEFANI RODGERS - Last Filed: 06/11/18 22:28> Review of Systems - Review of Systems Constitutional: See HPI, Weakness - globally EENT: See HPI, Other - vision impairment at baseline. denies: Nose congestion, Throat pain Cardiovascular: No symptoms reported Respiratory: denies: Short of breath Gastrointestinal: See HPI, Nausea. denies: Vomiting Genitourinary: No symptoms reported Female Genitourinary: No symptoms reported Musculoskeletal: denies: Neck pain Skin: No symptoms reported Hematologic/Lymphatic: No symptoms reported Neurological/Psychological: See HPI, Headaches, Other - photophobia. denies: Numbness, Tingling -: Yes All other systems reviewed and negative <ESTEFANI RODGERS - Last Filed: 06/11/18 22:28> Physical Exam - HEENT Right intraocular pressure: 10 Left intraocular pressure: 8 <ESTEFANI RODGERS - Last Filed: 06/11/18 22:28> <KARYNA MARRUFO - Last Filed: 06/12/18 05:11> - Vital signs Vitals: Temp Pulse Resp BP Pulse Ox 98.9 F 71 18 122/74 90 L 06/11/18 12:46 06/11/18 12:46 06/11/18 12:46 06/11/18 12:46 06/11/18 12:46 - Notes Notes: PHYSICAL EXAM GENERAL: Alert, interacts well. Appears uncomfortable. Wearing sunglasses but is able to take them off and interact well with them off. HEAD: Normocephalic, atraumatic. EYES: Pupils equal, round, and reactive to light. Extraocular movements intact, able to visualize fingers and follow them appropriately. Some limitation in the visual monte consistent with baseline. Red reflex intact. No obvious retinal detachment. ENT: Oral mucosa moist, tongue midline. NECK: Full range of motion. Supple. Trachea midline. LUNGS: Clear to auscultation bilaterally, no wheezes, rales, or rhonchi. No respiratory distress. HEART: Regular rate and rhythm. No murmurs, gallops, or rubs. ABDOMEN: Soft, non-tender. Non-distended. Bowel sounds present in all 4 quadrants. No guarding, rigidity, or rebound. EXTREMITIES: Moves all 4 extremities spontaneously. No edema, radial and dorsalis pedis pulses 2/4 bilaterally. No cyanosis. NEUROLOGICAL: Alert and oriented x3. Normal speech. Cranial nerves II through XII grossly intact. Hwneck-kg-dmyz test intact bilaterally. PSYCH: Anxious. SKIN: Warm, dry, normal turgor. No rashes or lesions noted. (ESTEFANI RODGERS) Course - Laboratory Result Diagrams: 06/11/18 14:40 06/11/18 14:40 <ESTEFANI RODGERS - Last Filed: 06/11/18 22:28> - Laboratory Result Diagrams: 06/11/18 14:40 06/11/18 14:40 <KARYNA MARRUFO - Last Filed: 06/12/18 05:11> - Re-evaluation Re-evalutation: 06/11/18 21:18 CBC unremarkable, CMP shows slightly elevated potassium at 5.1, glucose elevated at 112, urinalysis shows small leukocyte esterase but 16 squames epithelial cells, suspect this is contaminant and the patient has no urinary complaints at this time. She complains about nausea but states that the nausea is only there when her headache gets bad. This will be sent for culture and if it grows out greater than 100,000 colony-forming units we will treated otherwise it will not be treated. KUB shows moderate stool burden, she is advised to use MiraLAX. CT scan of the head shows no acute change from prior CT scan approximately 1 year ago. Patient has not had any change in her vision only has photophobia. Intraocular pressures are normal at 10 and 8 respectively as documented in the physical examination. Headache started slowly and has been steadily worsening, there are no associated neuro logic symptoms, history is not consistent with subarachnoid hemorrhage, no lumbar puncture is indicated at this time. Patient was given Toradol, Compazine and Benadryl, headache went from a 5 out of 5 down to a 2 out of 5, when patient was questioned as to how she was feeling she was actually asleep and had to be reawakened during reassessment, no longer in any visible discomfort. Given Decadron to prevent rebound headache and discharged back to [facility]. (KARYNA MARRUFO) - Vital Signs Vital signs: Temp Pulse Resp BP Pulse Ox 97.3 F 65 16 107/56 L 91 L 06/11/18 22:17 06/11/18 22:17 06/11/18 22:17 06/11/18 22:17 06/11/18 22:17 - Laboratory Laboratory results interpreted by me: 06/11/18 06/11/18 06/11/18 14:40 14:40 14:40 RDW 14.8 H Potassium 5.1 H Glucose 112 H Alkaline Phosphatase 131 H Urine Blood SMALL H Ur Leukocyte Esterase LARGE H Discharge <ESTEFANI RODGERS - Last Filed: 06/11/18 22:28> <KARYNA MARRUFO - Last Filed: 06/12/18 05:11> - Discharge Clinical Impression: Headache Qualifiers: Headache type: unspecified Headache chronicity pattern: acute headache Intractability: intractable Qualified Code(s): R51 - Headache Condition: Stable Disposition: HOME-ASSISTED LIVING Additional Instructions: Today there were no signs of increased pressure in your eyes, your headache improved with the medication we gave you which was Toradol, Compazine and Benadryl. I have given you a dose of steroids here to prevent the headache from returning. 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 We did not see any change in your CAT scan today however they may need to do an MRI to provide better visualization of the tumor you reported today. Please return for slurred speech, loss of consciousness, nausea, confusion, worsening vision or any new or concerning symptoms. The x-ray of your abdomen showed a large amount of stool. Please dissolve 1 scoop of MiraLAX in a glass of water once a day to treat constipation. You may increase to twice a day if needed to create soft bowel movements and you may decrease to every other day if you develop diarrhea. Referrals: ELIZABETH ROMERO DO [Primary Care Provider] - Follow up as needed Scribe Attestation: 06/12/18 05:11 I personally performed the services described in the documentation, reviewed and edited the documentation which was dictated to the scribe in my presence, and it accurately records my words and actions. (KARYNA MARRUFO) Scribe Documentation - Scribe Written by [employer]:: Cori Jaime, 06/11/20182009 acting as scribe for :: Cony <ESTEFANI RODGERS - Last Filed: 06/11/18 22:28>
[2018-06-11] MEDS ORDERED: DIPHENHYDRAMINE HCL 50 MG/ML VIAL IV ONE (18:57)
[2018-06-11] MEDS ORDERED: PROCHLORPERAZINE EDISYLATE INJ 10 MG/2 ML VIAL IV ONE (18:57)
[2018-06-11] MEDS ORDERED: KETOROLAC TROMETHAMINE 60 MG/2 ML SDV IV ONE (18:57)
[2018-06-11] MEDS ORDERED: NORMAL SALINE 1000 ML 1,000 ML IV ONE (18:58)
[2018-06-11] MEDS ORDERED: KETOROLAC TROMETHAMINE INJ/PF 30 MG/1 ML SDV ONE (19:05)
[2018-06-11] MEDS ORDERED: KETOROLAC TROMETHAMINE INJ/PF 30 MG/1 ML SDV IV ONE (19:05)
[2018-06-11] MEDS ORDERED: DEXAMETHASONE SOD PHOS INJ 10 MG/1 ML VIAL IM ONE (20:38)
[2018-06-11 22:20] VITALS: BP 107/56
== END 2018-06-11 22:22 | disposition home health service (06) ==
LOC: ER 12:41
DX: R51 Headache (principal); R53.1 Weakness; R11.0 Nausea; H53.149 Visual discomfort, unspecified; E11.9 Type 2 diabetes mellitus without complications; J45.909 Unspecified asthma, uncomplicated; Z91.048 Other nonmedicinal substance allergy status; Z87.891 Personal history of nicotine dependence; Z86.73 Personal history of transient ischemic attack (TIA), and cerebral infarction without residual deficits; Z86.69 Personal history of other diseases of the nervous system and sense organs
CPT/HCPCS: 99285; 96372; 96361; 96374; 96375; 36415; 87086; 85025; 80053; 81001; 74018; 70450; J1200; J1885; J0780; J7030; J1100

== ENCOUNTER 2018-06-24 00:36 | Emergency (ER) | payer MEDICARE, MEDICAID ==
[2018-06-24 01:03] LABS: ABSOLUTE EOSINOPHILS # (AUTO) 0.3 10^3/uL (0.0-0.6); ABSOLUTE LYMPHOCYTES (AUTO) 2.1 10^3/uL (0.5-4.7); ABSOLUTE MONOCYTES (AUTO) 0.8 10^3/uL (0.1-1.4); ABSOLUTE NEUT (AUTO) 6.6 10^3/uL (1.7-8.2); BASOPHILS % (AUTO) 0.4 % (0-2); EOSINOPHILS % (AUTO) 3.3 % (0-6); HEMATOCRIT 37.5 % (36.0-47.0); HEMOGLOBIN 12.6 g/dL (12.0-15.5); LYMPHOCYTES % (AUTO) 21.3 % (13-45); MEAN CORPUSCULAR HEMOGLOBIN 29.8 pg (27.0-33.4); MEAN CORPUSCULAR HGB CONC 33.6 g/dL (32.0-36.0); MEAN CORPUSCULAR VOLUME 89 fl (80-97); PLATELET COUNT 199 10^3/uL (150-450); RED BLOOD COUNT 4.24 10^6/uL (3.72-5.28); RED CELL DISTRIBUTION WIDTH 14.8 % (11.5-14.0); TOTAL CELLS COUNTED % (AUTO) 100 %; WHITE BLOOD COUNT 9.9 10^3/uL (4.0-10.5)
[2018-06-24] MEDS ORDERED: ALBUTEROL SULFATE 0.083% NEB 2.5 MG/3 ML AMPUL NEB ONE ×2 (01:07→10:21)
[2018-06-24] MEDS ORDERED: DEXAMETHASONE SOD PHOS INJ 10 MG/1 ML VIAL IV ONE (01:07)
[2018-06-24 01:19] LABS: ALANINE AMINOTRANSFERASE 25 U/L (9-52); ALKALINE PHOSPHATASE 119 U/L (38-126); ANION GAP 7 (5-19); ASPARTATE AMINO TRANSFERASE 28 U/L (14-36); BILIRUBIN,DIRECT 0.3 mg/dL (0.0-0.4); BILIRUBIN,TOTAL 0.3 mg/dL (0.2-1.3); BLOOD UREA NITROGEN 14 mg/dL (7-20); CALCIUM 9.1 mg/dL (8.4-10.2); CARBON DIOXIDE 26 mmol/L (22-30); CHLORIDE 103 mmol/L (98-107); GLUCOSE 99 mg/dL (75-110); SODIUM 135.8 mmol/L (137-145); TOTAL PROTEIN 6.7 g/dL (6.3-8.2)
--- NOTE | 2018-06-24 01:41 | RADIOLOGY REPORT (SQ) ---
EXAM DESCRIPTION: XR CHEST 1 VIEW COMPLETED DATE/TME: 06/24/2018 00:00 CLINICAL HISTORY: 58 years, Female, cough COMPARISON: 03/29/2018 chest x-ray NUMBER OF VIEWS: 1 TECHNIQUE: Portable chest LIMITATIONS: None. FINDINGS: Heart size is normal. Low lung volumes. Osteopenia. No pneumothorax. Lungs are clear. Post surgical change cervical spine. IMPRESSION: No acute cardiopulmonary process copyright 2010 [employer]- All Rights Reserved
[2018-06-24 02:04] LABS: VENOUS BLOOD BASE EXCESS -0.8 mmol/L; VENOUS BLOOD HCO3 25.1 mmol/L (20-32); VENOUS BLOOD PH 7.35 (7.30-7.42)
--- NOTE | 2018-06-24 03:11 | ER Document Report ---
ED General - General Chief Complaint: Shortness Of Breath Stated Complaint: DIFFICULTY BREATHING Time Seen by Provider: 06/24/18 00:53 TRAVEL OUTSIDE OF THE [place] IN LAST 30 DAYS: No - HPI Patient complains to provider of: Shortness of breath Notes: Is patient coming in for evaluation of shortness of breath. Patient is coming in from local nursing care facility patient states has a history of asthma however her oblige machine is now missing at the [facility] facility. Patient states is not been unable to take her dose as she requires. Denies any fevers or chills nausea vomiting diarrhea. Patient upon my evaluation is resting comfortably. Receiving a nebulizer treatment - Related Data Allergies/Adverse Reactions: silicone [Silicone] Allergy (Intermediate, Verified 03/09/18 15:43) REDNESS, RASH carbidopa [From Sinemet] Adverse Reaction (Severe, Verified 03/09/18 15:43) Cardiac arrest levodopa [From Sinemet] Adverse Reaction (Severe, Verified 03/09/18 15:43) Cardiac arrest Past Medical History - Social History Smoking Status: Former Smoker Chew tobacco use (# tins/day): No Frequency of alcohol use: None Drug Abuse: None Family History: Reviewed & Not Pertinent Patient has suicidal ideation: No Patient has homicidal ideation: No - Past Medical History Cardiac Medical History: Reports: Hx Heart Attack - CARDIAC ARREST R/T DRUG REACTION(SINEMET), Hx Hypercholesterolemia Denies: Hx Coronary Artery Disease, Hx Hypertension Pulmonary Medical History: Reports: Hx Asthma, Hx Bronchitis, Hx Pneumonia - MARCH 2015, Hx Sleep Apnea - On home CPAP Denies: Hx COPD Neurological Medical History: Reports: Hx Cerebrovascular Accident, Hx Migraine, Hx Seizures - UNSURE OF ETIOLOGY, conversion disorder Endocrine Medical History: Reports: Hx Diabetes Mellitus Type 2 Renal/ Medical History: Reports: Hx Kidney Stones. Denies: Hx Peritoneal Dialysis GI Medical History: Reports: Hx Hiatal Hernia - DX 30 YEARS AGO, Hx Ulcer - after gastric by pass, surg repaired Musculoskeletal Medical History: Reports Hx Arthritis - OSTEOARTHRITIS, Reports Hx Fibromyalgia Psychiatric Medical History: Reports: Hx Anxiety, Hx Attention Deficit Hyperactivity Disorder, Hx Depression, Hx Post Traumatic Stress Disorder Past Surgical History: Reports: Hx Abdominal Surgery - gastric bypass, Hx Cholecystectomy, Hx Gastric Bypass Surgery, Hx Hysterectomy, Hx Orthopedic Surgery - back/spinal surgery, Hx Tubal Ligation. Denies: Hx Adenoidectomy, Hx Pacemaker - Immunizations Immunizations up to date: Yes Hx Diphtheria, Pertussis, Tetanus Vaccination: Yes - up to date within last 5 yrs Hx Pneumococcal Vaccination: 03/31/14 Review of Systems - Review of Systems Constitutional: No symptoms reported EENT: No symptoms reported Cardiovascular: No symptoms reported Respiratory: Short of breath, Wheezing Gastrointestinal: No symptoms reported Genitourinary: No symptoms reported Female Genitourinary: No symptoms reported Musculoskeletal: No symptoms reported Skin: No symptoms reported Hematologic/Lymphatic: No symptoms reported Neurological/Psychological: No symptoms reported -: Yes All other systems reviewed and negative Physical Exam - Vital signs Vitals: Temp Pulse Resp BP Pulse Ox 97.3 F 72 24 H 105/66 95 06/24/18 00:37 06/24/18 00:37 06/24/18 00:37 06/24/18 00:37 06/24/18 00:37 Interpretation: Normal - General General appearance: Appears well, Alert - HEENT Head: Normocephalic, Atraumatic Eyes: Normal Pupils: PERRL - Respiratory Respiratory status: No respiratory distress Chest status: Nontender Breath sounds: Normal, Wheezing - Coarse wheezing Chest palpation: Normal - Cardiovascular Rhythm: Regular Heart sounds: Normal auscultation Murmur: No - Abdominal Inspection: Normal Distension: No distension Bowel sounds: Normal Tenderness: Nontender Organomegaly: No organomegaly - Back Back: Normal, Nontender - Extremities General upper extremity: Normal inspection, Nontender, Normal color, Normal ROM, Normal temperature General lower extremity: Normal inspection, Nontender, Normal color, Normal ROM, Normal temperature, Normal weight bearing. No: Guido's sign - Neurological Neuro grossly intact: Yes Cognition: Normal Orientation: AAOx4 [place] Coma Scale Eye Opening: Spontaneous Stan Coma Scale Verbal: Oriented [place] Coma Scale Motor: Obeys Commands [place] Coma Scale Total: 15 Speech: Normal Motor strength normal: LUE, RUE, LLE, RLE Sensory: Normal - Psychological Associated symptoms: Normal affect, Normal mood - Skin Skin Temperature: Warm Skin Moisture: Dry Skin Color: Normal Course - Re-evaluation Re-evalutation: 06/24/18 03:41 Reevaluation the patient reveals clear lung sounds. Patient sleeping SPO2 92%. Patient is a arousable requesting a warm blanket and to address. Laboratory studies not reveal any critical pathology patient will be discharged home - Vital Signs Vital signs: Temp Pulse Resp BP Pulse Ox 97.3 F 72 15 114/37 L 94 06/24/18 00:37 06/24/18 00:37 06/24/18 02:01 06/24/18 02:01 06/24/18 02:01 - Laboratory Result Diagrams: 06/24/18 00:50 06/24/18 00:50 Laboratory results interpreted by me: 06/24/18 06/24/18 00:50 00:50 RDW 14.8 H Sodium 135.8 L Discharge - Discharge Clinical Impression: Morbid obesity, Wheezing Asthma Qualifiers: Asthma severity: unspecified severity Asthma persistence: unspecified Asthma complication type: unspecified Qualified Code(s): J45.909 - Unspecified asthma, uncomplicated Condition: Good Disposition: HOME, SELF-CARE Instructions: Asthma ([facility]) Additional Instructions: Laboratory studies chest x-ray did not show any critical pathology please con tinue your breathing treatments 1 treatment every 4 hours as needed for shortness of breath. Return to ER symptoms worsen. Prescriptions: Albuterol Sulfate [Proventil 0.5% Neb 2.5 mg/0.5 ml Vial.neb] 2.5 mg NEB Q4 #30 vial.neb Nebulizer [Nebulizer Machine] 1 each ASDIR PRN #1 kit PRN Reason: Referrals: ELIZABETH ROMERO DO [Primary Care Provider] - Follow up as needed
[2018-06-24] MEDS ORDERED: IPRATROPIUM/ALBUTEROL 0.5-2.5 MG/3 ML AMPUL NEB ONE (10:20)
--- NOTE | 2018-06-24 10:21 | ER Document Report ---
Doctor's Note Notes: 06/24/18 10:20 While awaiting transport back to her nursing facility this patient had a return of some wheezes. She had not received a nebulization approximately 9 hours. We will administer a DuoNeb at this time as transport is uncomfortable transporting this patient while still short of breath. Following administration of albuterol in the emergency department this patient will again be discharged to her nursing facility as previously planned as she is already received treatment. Her work of breathing at this time on room air appears normal.
[2018-06-24 10:26] VITALS: BP 136/80
--- NOTE | 2018-06-24 13:15 | EKG REPORT ---
SEVERITY:- ABNORMAL ECG - SINUS RHYTHM PROBABLE INFERIOR INFARCT, AGE INDETERMINATE NONSPECIFIC T ABNORMALITIES, ANTERIOR LEADS BORDERLINE PROLONGED QT INTERVAL : Confirmed by: Deyvi Sandhu 24-Jun-2018 13:14:47
== END 2018-06-24 10:40 | disposition home or self-care (01) ==
LOC: ER 00:36
DX: J45.909 Unspecified asthma, uncomplicated (principal); E66.01 Morbid (severe) obesity due to excess calories; R06.2 Wheezing; Z88.8 Allergy status to other drugs, medicaments and biological substances; Z87.891 Personal history of nicotine dependence; Z86.74 Personal history of sudden cardiac arrest
CPT/HCPCS: 93005; 94640 ×2; 99285; 96374; 36415; 83605; 85025; 80053; 84484; 82803; 71045; 93010; J1100; A9270 ×2; J7620

== ENCOUNTER 2018-06-27 21:43 | Emergency (ER) | payer MEDICARE, MEDICAID ==
--- NOTE | 2018-06-27 22:34 | RADIOLOGY REPORT (SQ) ---
CT CERVICAL SPINE WITHOUT IV CONTRAST HISTORY: Trauma, L arm numbness. COMPARISON: None. TECHNIQUE: CT scan of the cervical spine without IV contrast. This exam was performed according to our departmental dose-optimization program, which includes automated exposure control, adjustment of the mA and/or kV according to patient size and/or use of iterative reconstruction technique. FINDINGS: Status post C5-C6 ACDF with hardware intact. No acute fracture is seen. No prevertebral soft tissue swelling. Straightening of the normal cervical lordosis, which may be due to cervical collar, muscle spasm, or patient positioning. No static listhesis. The remaining vertebral body heights and disc spaces are preserved. No advanced spinal canal stenosis is identified. IMPRESSION: No acute fracture or listhesis.
--- NOTE | 2018-06-27 22:35 | RADIOLOGY REPORT (SQ) ---
EXAM DESCRIPTION: CT HEAD WITHOUT IV CONTRAST COMPLETED DATE/TME: 06/27/2018 22:00 CLINICAL HISTORY: 58 years Female trauma COMPARISON: 06/11/2018. TECHNIQUE: Contiguous axial CT images obtained through the brain without IV contrast. This exam was performed according to our department optimization program which includes automated exposure control, adjustment of the mA and/or kv according to patient size and/or use of iterative reconstruction technique. FINDINGS: The ventricles and sulci are prominent consistent with atrophic changes. No mass lesions. No acute hemorrhage. Atherosclerotic calcifications. No fluid or significant mucosal thickening in the visualized paranasal sinuses. No depressed calvarial fractures. IMPRESSION: No acute intracranial abnormality is identified.
--- NOTE | 2018-06-27 22:54 | ER Document Report ---
ED Fall - General Chief Complaint: Fall Stated Complaint: FALL/NECK PAIN Time Seen by Provider: 06/27/18 22:00 TRAVEL OUTSIDE OF THE [place] IN LAST 30 DAYS: No - HPI Occurred: Just prior to arrival Where: Home Context: Tripped Location of injury/pain: Neck Quality of pain: Sharp Prehospital interventions: C-collar Notes: Patient is a 58 year old female that presents to the emergency department for chief complaint of neck pain and left arm numbness. Patient states just prior to arrival in the emergency room she had a fall. She states she was walking along the side of her bed and slipped on a blanket that was half off of the bed. She states she fell forward hitting the top of her head on the floor. She denied any loss of consciousness. Since then she has had paresthesias in her entire left arm. She has a history of cervical spine fusion and states there are plates and screws in her neck. She is complaining of a sharp pain in the back of her neck that is worse with any kind of movement. She denies any lower extremity symptoms, weakness, bowel or bladder incontinence and headache. Past Medical History: Blind, seizures, chronic neck pain Past Surgical History: Cervical spine surgery Social History: Denies tobacco and alcohol use Family History: Reviewed and noncontributory for presenting illness Allergies: Reviewed, see documented allergy list. REVIEW OF SYSTEMS: CONSTITUTIONAL : No fever No chills No diaphoresis No recent illness EENT: No vision changes No congestion No sore throat CARDIOVASCULAR: No chest pain No palpitations RESPIRATORY: No shortness of breath No cough No difficulty breathing GASTROINTESTINAL: No abdominal pain No nausea No vomiting No diarrhea GENITOURINARY: No dysuria No hematuria No difficulty urinating MUSCULOSKELETAL: No back pain No leg pain No arm pain Neck pain SKIN: No rashes No lesions LYMPHATIC: No swollen, enlarged glands. NEUROLOGICAL: No lightheadedness No headache No weakness paresthesias PSYCHIATRIC: No anxiety No depression PHYSICAL EXAMINATION: Vital signs reviewed, nursing noted reviewed. GENERAL: Well-appearing, obese and in no acute distress. HEAD: Atraumatic, normocephalic. EYES: Eyes appear normal, extraocular movements intact, sclera anicteric, conjunctiva are normal. ENT: nares patent, oropharynx clear without exudates. Moist mucous membranes. NECK: Cervical collar in place, diffuse midline cervical spine tenderness, bilateral paraspinal muscle tenderness. LUNGS: Breath sounds clear to auscultation bilaterally and equal. No wheezes rales or rhonchi. HEART: Regular rate and rhythm without murmurs ABDOMEN: Soft, nontender, normoactive bowel sounds. No rebound, guarding, or rigidity. No masses appreciated. EXTREMITIES: Nontender, good range of motion, no pitting or edema. NEUROLOGICAL: moving all extremities with 5/5 strength. no Motor deficit. Subjective paresthesias to tactile patient of entire left upper extremity. No other sensory deficit. PSYCH: Normal mood, normal affect. SKIN: Warm, Dry, normal turgor, no rashes or lesions noted on exposed skin - Related data Allergies/Adverse Reactions: silicone [Silicone] Allergy (Intermediate, Verified 03/09/18 15:43) REDNESS, RASH carbidopa [From Sinemet] Adverse Reaction (Severe, Verified 03/09/18 15:43) Cardiac arrest levodopa [From Sinemet] Adverse Reaction (Severe, Verified 03/09/18 15:43) Cardiac arrest Past Medical History - Social History Smoking Status: Never Smoker Family History: Reviewed & Not Pertinent Patient has suicidal ideation: No Patient has homicidal ideation: No - Past Medical History Cardiac Medical History: Reports: Hx Heart Attack - CARDIAC ARREST R/T DRUG REACTION(SINEMET), Hx Hypercholesterolemia Denies: Hx Coronary Artery Disease, Hx Hypertension Pulmonary Medical History: Reports: Hx Asthma, Hx Bronchitis, Hx Pneumonia - MARCH 2015, Hx Sleep Apnea - On home CPAP Denies: Hx COPD Neurological Medical History: Reports: Hx Cerebrovascular Accident, Hx Migraine, Hx Seizures - UNSURE OF ETIOLOGY, conversion disorder Endocrine Medical History: Reports: Hx Diabetes Mellitus Type 2 Renal/ Medical History: Reports: Hx Kidney Stones. Denies: Hx Peritoneal Catherine lysis GI Medical History: Reports: Hx Hiatal Hernia - DX 30 YEARS AGO, Hx Ulcer - after gastric by pass, surg repaired Musculoskeletal Medical History: Reports Hx Arthritis - OSTEOARTHRITIS, Reports Hx Fibromyalgia Psychiatric Medical History: Reports: Hx Anxiety, Hx Attention Deficit Hyperactivity Disorder, Hx Depression, Hx Post Traumatic Stress Disorder Past Surgical History: Reports: Hx Abdominal Surgery - gastric bypass, Hx Cholecystectomy, Hx Gastric Bypass Surgery, Hx Hysterectomy, Hx Orthopedic Surgery - back/spinal surgery, Hx Tubal Ligation. Denies: Hx Adenoidectomy, Hx Pacemaker - Immunizations Immunizations up to date: Yes Hx Diphtheria, Pertussis, Tetanus Vaccination: Yes - up to date within last 5 yrs Hx Pneumococcal Vaccination: 03/31/14 Physical Exam - Vital signs Vitals: Pulse Ox 95 06/27/18 21:47 Course - Re-evaluation Re-evalutation: 06/27/18 23:01 Vitals reviewed. Nursing notes reviewed. Patient given morphine for pain contr ol. Her CT scan of the head and cervical spine show no acute injury. Patient is still having midline cervical spine tenderness and paresthesias in her left arm. I discussed her care with Dr. Salas who agrees with further imaging. He states that without motor deficits she is stable to wait until the morning and is not requiring emergent transfer to a trauma facility. MRI of the cervical spine will be obtained in the morning for further evaluation. If MRI is normal patient symptoms likely related to radiculopathy and she will be discharged home. If there are any findings on the MRI she will require transfer to a trauma facility where a neurosurgeon is available. Cervical Spine CT 06/27/18 22:00 IMPRESSION: No acute fracture or listhesis. Head CT 06/27/18 22:00 IMPRESSION: No acute intracranial abnormality is identified. 06/28/18 04:38 Patient has remained awake alert and stable. She is stating that the pain in her neck and head is returning and will be given another dose of morphine. She is still complaining of paresthesias to her entire left arm and has no motor deficit - Vital Signs Vital signs: Temp Pulse Resp BP Pulse Ox 97.7 F 11 L 109/68 91 L 06/28/18 04:00 06/28/18 10:13 06/28/18 10:13 06/28/18 10:13 - Laboratory Result Diagrams: 06/28/18 01:30 Discharge - Discharge Clinical Impression: Arm paresthesia, left Condition: Stable Disposition: SNF-Other Instructions: Radiculopathy ([facility]) Additional Instructions: Please return to the emergency department if you have any worsening, or concern of your symptoms. Please return to the emergency department if you develop chest pain, difficulty breathing, severe abdominal pain, or ongoing vomiting. Please follow-up with your primary care physician in 2-3 days and any other recommended physicians. If prescribed, take all medications as directed. If you have any questions or concerns do not hesitate to return the emergency department for evaluation. Referrals: ELIZABETH ROMERO DO [Primary Care Provider] - Follow up in 3-5 days
[2018-06-27] MEDS ORDERED: MORPHINE SULFATE 10 MG/ML INJ IV ONE (22:57)
[2018-06-28] MEDS ORDERED: ACETAMINOPHEN 325 MG TABLET PO ONE (00:22)
[2018-06-28] MEDS ORDERED: LEVETIRACETAM 500 MG TABLET PO ONE (01:15)
[2018-06-28 01:53] LABS: ANION GAP 5 (5-19); BLOOD UREA NITROGEN 11 mg/dL (7-20); CALCIUM 9.2 mg/dL (8.4-10.2); CARBON DIOXIDE 28 mmol/L (22-30); CHLORIDE 107 mmol/L (98-107); GLUCOSE 101 mg/dL (75-110); POTASSIUM 4.3 mmol/L (3.6-5.0); SODIUM 140.4 mmol/L (137-145)
[2018-06-28] MEDS ORDERED: MORPHINE SULFATE 10 MG/ML INJ IV ONE ×2 (03:57→08:11)
[2018-06-28] MEDS ORDERED: LIDOCAINE 5% (700 MG) TRANSDERMAL ADH..PATCH TP ONE (03:57)
--- NOTE | 2018-06-28 09:38 | RADIOLOGY REPORT (SQ) ---
EXAM DESCRIPTION: MRI CERVICAL SPINE COMBO COMPLETED DATE/TIME: 06/28/2018 9:15 am REASON FOR STUDY: left arm numbness COMPARISON: MRI 2017. CT from yesterday. TECHNIQUE: Sagittal and Axial imaging includes T1, T2, STIR and gradient echo sequences. T1 post diane olinium sequences. CONTRAST TYPE AND DOSE: 20 mL Dotarem. RENAL FUNCTION: GFR > 60. LIMITATIONS: None. FINDINGS: ALIGNMENT: Normal. VERTEBRAE: Intact. BONE MARROW: Normal. No marrow replacement or reactive changes. HARDWARE: Anterior instrumentation artifact spanning C5-6. CORD AND BASE OF BRAIN: Normal in size and signal intensity. SOFT TISSUES: No soft tissue masses. C1-C2: No significant spinal stenosis. C2-C3: No significant spinal stenosis or exit foraminal stenosis. C3-C4: Facet arthropathy with mild bilateral foraminal narrowing. C4-C5: Minimal uncovertebral spurring with slight foraminal encroachment. C5-C6: Operative level with mild artifact but no suggestion of cord compression or central stenosis. Probable mild foraminal narrowing. C6-C7: Mild disc bulge without cord compression. Generally patent neural foramina. C7-T1: No significant spinal stenosis or exit foraminal stenosis. UPPER THORACIC: Incompletely imaged. No significant spinal stenosis or exit foraminal stenosis. ENHANCEMENT: No abnormal enhancement. OTHER: No other significant finding. IMPRESSION: 1. Postoperative and mild degenerative changes without evidence of cord compression, ab normal enhancement or high-grade central stenosis. No fracture or malalignment detected. COMMENT: None. TECHNICAL DOCUMENTATION: JOB ID: [id number] [employer]- All Rights Reserved Reading location - IP/workstation name: [email or web address]
--- NOTE | 2018-06-28 09:58 | ER Document Report ---
Doctor's Note Notes: 06/28/18 09:[address] 06/27/18 22:00 IMPRESSION: No acute fracture or listhesis. Head CT 06/27/18 22:00 IMPRESSION: No acute intracranial abnormality is identified. Cervical Spine MRI 06/28/18 00:00 IMPRESSION: 1. Postoperative and mild degenerative changes without evidence of cord compression, abnormal enhancement or high-grade central stenosis. No fracture or malalignment detected. MRI was negative. The patient still has some subjective paresthesias. She has had this time to time with some chronic neck pain she has had I spoke with her at length she is comfortable going back to the care home. I advised her that she should follow-up with her family doctor if the paresthesias do not improve or get worse in the next several days she is to return to the ER
[2018-06-28 10:14] VITALS: BP 109/68
== END 2018-06-28 10:55 ==
LOC: ER 21:43
DX: R20.0 Anesthesia of skin (principal); M54.2 Cervicalgia; W01.0XXA Fall on same level from slipping, tripping and stumbling without subsequent striking against object, initial encounter; Y92.003 Bedroom of unspecified non-institutional (private) residence as the place of occurrence of the external cause; I25.2 Old myocardial infarction; J45.909 Unspecified asthma, uncomplicated; E11.9 Type 2 diabetes mellitus without complications
CPT/HCPCS: 96376; 99284; 96374; 36415; 80048; 72156; 70450; 72125; A9576; A9270 ×2; J2270

== ENCOUNTER 2018-08-10 11:54 | Emergency (ER) | payer MEDICARE, MEDICAID ==
[2018-08-10 12:19] VITALS: BP 127/76
--- NOTE | 2018-08-10 13:35 | RADIOLOGY REPORT (SQ) ---
EXAM DESCRIPTION: CT HEAD WITHOUT COMPLETED DATE/TIME: 08/10/2018 1:22 pm REASON FOR STUDY: trauma COMPARISON: 06/27/2018 TECHNIQUE: Axial images acquired through the brain without intravenous contrast. Images reviewed wi th bone, brain and subdural windows. Additional sagittal and coronal reconstructions were generated. Images stored on PACS. All CT scanners at this facility use dose modulation, iterative reconstruction, and/or weight based d osing when appropriate to reduce radiation dose to as low as reasonably achievable (ALARA). [facility]: Dose Right [facility]: CareDose [facility]: Dose Right [facility]: Teradose 4D [facility]: Taptera RADIATION DOSE: CT Rad equipment meets quality standard of care and radiation dose reduction techniq ues were employed. CTDIvol: 53.2 mGy. DLP: 1044 mGy-cm. mGy. LIMITATIONS: None. FINDINGS: VENTRICLES: Normal size and contour. CEREBRUM: No masses. No hemorrhage. No midline shift. No evidence for acute infarction. Normal gra y/white matter differentiation. No areas of low density in the white matter. CEREBELLUM: No masses. No hemorrhage. No alteration of density. No evidence for acute infarction. EXTRAAXIAL SPACES: No fluid collections. No masses. ORBITS AND GLOBE: No intra- or extraconal masses. Normal contour of globe without masses. CALVARIUM: No fracture. PARANASAL SINUSES: No fluid or mucosal thickening. SOFT TISSUES: No mass or hematoma. OTHER: No other significant finding. IMPRESSION: NORMAL BRAIN CT WITHOUT CONTRAST. EVIDENCE OF ACUTE STROKE: NO. COMMENT: Quality ID # [id number]: Final reports with documentation of one or more dose reduction techniques (e.g., Automated exposure control, adjustment of the mA and/or kV according to patient size, use of iterative reconstruction technique) TECHNICAL DOCUMENTATION: JOB ID: [id number] [employer]- All Rights Reserved Reading location - IP/workstation name: [email or web address]
[2018-08-10] MEDS ORDERED: ACETAMINOPHEN 325 MG TABLET PO ONE (14:19)
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
[2018-08-10] MEDS ORDERED: SUCRALFATE SUSP 1 GM/10 ML UDCUP PO ONE (14:46)
== END 2018-08-10 14:10 | disposition home or self-care (01) ==
LOC: ER 11:54
DX: S09.90XA Unspecified injury of head, initial encounter (principal); R56.9 Unspecified convulsions; W19.XXXA Unspecified fall, initial encounter; I25.2 Old myocardial infarction; J45.909 Unspecified asthma, uncomplicated; E11.9 Type 2 diabetes mellitus without complications
CPT/HCPCS: 70450; 99284

== ENCOUNTER 2018-08-15 11:37 | Inpatient (IN) | payer MEDICARE, MEDICAID ==
--- NOTE | 2018-08-15 12:19 | ER Document Report ---
ED Neck/Back Problem - General Mode of Arrival: Medic Information source: Patient TRAVEL OUTSIDE OF THE [place] IN LAST 30 DAYS: No - HPI Patient complains to provider of: Pain, Upper back, Lower back Onset: Other - 2 days Onset: Chronic Timing: Waxing and waning Quality of pain: Sharp Severity: Severe Pain Level: 5 Recent injury: No Associated symptoms: Radiation to leg, Lower back pain, Upper back pain Exacerbated by: Movement of trunk, Sitting position Relieved by: Nothing Similar symptoms previously: Yes Recently seen / treated by doctor: Yes <ROSEMARY PADILLA - Last Filed: 08/15/18 17:24> <REESE DE PAZ - Last Filed: 08/15/18 19:32> - General Chief Complaint: Back Pain Stated Complaint: BACK PAIN Time Seen by Provider: 08/15/18 12:03 Notes: 58-year-old female presents to ED for complaint of mid to lower back pain after she fell a week ago. She states she has been able to walk with her walker but yesterday she started getting a lot of back pain and today she is having trouble walking and has decreased motion to her right arm and leg. She does have a history of fibromyalgia and degenerative disc disease multiple disc surgeries. She states that she landed forward landing on her knees and forehead a week ago and came in and got a CT of her head but the back pain started yesterday. Patient states she takes Valium every night at bed and she takes Tylenol No. 3 f or pain. (ROSEMARY PADILLA) - Related Data Allergies/Adverse Reactions: silicone [Silicone] Allergy (Intermediate, Verified 08/15/18 11:38) REDNESS, RASH carbidopa [From Sinemet] Adverse Reaction (Severe, Verified 08/15/18 11:38) Cardiac arrest levodopa [From Sinemet] Adverse Reaction (Severe, Verified 08/15/18 11:38) Cardiac arrest Past Medical History - General Information source: Patient - Social History Smoking Status: Never Smoker Frequency of alcohol use: None Drug Abuse: None Lives with: [facility] [place] Family History: Reviewed & Not Pertinent Patient has suicidal ideation: No Patient has homicidal ideation: No - Past Medical History Cardiac Medical History: Reports: Hx Heart Attack - CARDIAC ARREST R/T DRUG REACTION(SINEMET), Hx Hypercholesterolemia Pulmonary Medical History: Reports: Hx Asthma, Hx Bronchitis, Hx Pneumonia - MARCH 2015, Hx Sleep Apnea - On home CPAP EENT Medical History: Reports: None Neurological Medical History: Reports: Hx Cerebrovascular Accident, Hx Migraine, Hx Seizures - UNSURE OF ETIOLOGY, conversion disorder Endocrine Medical History: Reports: Hx Diabetes Mellitus Type 2 Renal/ Medical History: Reports: Hx Kidney Stones Malignancy Medical History: Reports: None GI Medical History: Reports: Hx Hiatal Hernia - DX 30 YEARS AGO, Hx Ulcer - after gastric by pass, surg repaired Musculoskeletal Medical History: Reports Hx Arthritis - OSTEOARTHRITIS, Reports Hx Fibromyalgia Skin Medical History: Reports None Psychiatric Medical History: Reports: Hx Anxiety, Hx Attention Deficit Hyperactivity Disorder, Hx Depression, Hx Post Traumatic Stress Disorder Traumatic Medical History: Reports: None Infectious Medical History: Reports: None Past Surgical History: Reports: Hx Abdominal Surgery - gastric bypass, Hx Cholecystectomy, Hx Gastric Bypass Surgery, Hx Hysterectomy, Hx Orthopedic Surgery - back/spinal surgery, Hx Tubal Ligation - Immunizations Immunizations up to date: Yes Hx Diphtheria, Pertussis, Tetanus Vaccination: Yes - up to date within last 5 yrs Hx Pneumococcal Vaccination: 03/31/14 <ROSEMARY PADILLA - Last Filed: 08/15/18 17:24> Review of Systems - Review of Systems Constitutional: No symptoms reported EENT: No symptoms reported Cardiovascular: No symptoms reported Respiratory: No symptoms reported Gastrointestinal: No symptoms reported Genitourinary: No symptoms reported Female Genitourinary: No symptoms reported Musculoskeletal: Back pain, Muscle pain, Muscle stiffness Skin: No symptoms reported Hematologic/Lymphatic: No symptoms reported Neurological/Psychological: No symptoms reported -: Yes All other systems reviewed and negative <ROSEMARY PADILLA - Last Filed: 08/15/18 17:24> Physical Exam - Vital signs Interpretation: Normal - General General appearance: Appears well, Alert - HEENT Head: Normocephalic, Atraumatic Eyes: Normal Pupils: PERRL - Respiratory Respiratory status: No respiratory distress Chest status: Nontender Breath sounds: Normal Chest palpation: Normal - Cardiovascular Rhythm: Regular Heart sounds: Normal auscultation Murmur: No - Abdominal Inspection: Normal Distension: No distension Bowel sounds: Normal Tenderness: Nontender Organomegaly: No organomegaly - Back Back: Normal, Tender, Vertebra tenderness, Scars. No: Deformity/step-off, CVA tenderness, Scoliosis, Wounds - Extremities General upper extremity: Nontender, Normal color, Normal temperature, Other - Pa yumi has decreased control of her right upper extremity. She states she cannot hold it up when I asked her to hold it up. She states she cannot bend her elbow or push with her hand. General lower extremity: Normal color, Other - Patient has decreased control of her right lower extremity she states she cannot lift her leg or bend her knee. She states she cannot bear any weight on her right leg.. No: Guido's sign Shoulder: Limited ROM Wrist: Limited ROM Hip: Pain with ROM Knee: Unable to bear weight Calf: Unable to bear weight Ankle: Unable to bear weight Foot: Unable to bear weight - Neurological Neuro grossly intact: Yes Cognition: Normal Orientation: AAOx4 Stan Coma Scale Eye Opening: Spontaneous Stan Coma Scale Verbal: Oriented [place] Coma Scale Motor: Obeys Commands Stan Coma Scale Total: 15 Speech: Normal Motor strength normal: LUE, RUE, LLE, RLE Sensory: Normal - Psychological Associated symptoms: Normal affect, Normal mood - Skin Skin Temperature: Warm Skin Moisture: Dry Skin Color: Normal <ROSEMARY PADILLA - Last Filed: 08/15/18 17:24> - Vital signs Vitals: Temp Pulse Resp BP Pulse Ox 99.4 F 71 17 140/83 H 94 08/15/18 11:42 08/15/18 11:42 08/15/18 11:42 08/15/18 11:42 08/15/18 11:42 Course - Laboratory Result Diagrams: 08/15/18 14:40 08/15/18 14:40 - Diagnostic Test Radiology reviewed: Image reviewed, Reports reviewed <ROSEMARY PADILLA - Last Filed: 08/15/18 17:24> - Laboratory Result Diagrams: 08/15/18 14:40 08/15/18 14:40 <REESE DE PAZ - Last Filed: 08/15/18 19:32> - Re-evaluation Re-evalutation: 08/15/18 17:24 All CTs were discussed with Dr. De Paz and he initiated admission. Patient will be admitted to [facility]. No acute changes on any of the CTs. (ROSEMARY PADILLA) 08/15/18 14:37 I was asked to see this patient. She is a 58-year-old woman with a complicated medical history (morbid obesity, chronic back pain, PTSD, pseudoseizures, diabetes, obstructive sleep apnea, chronic bronchitis) who is a resident of the [facility] who was brought into the emergency room because of not feeling right and having weakness on the right side. Patient states that these symptoms were present when she woke up this morning. Review of previous records show that she will ambulate with the assistance of a walker when she is at the [facility]. On physical exam, the patient is alert and oriented. She does appear to have a right facial droop and right-sided weakness. So the concern here is that the patient may have had a stroke within the last 24 hours. She does not meet TPA criteria given that the onset was sometime last night or earlier. I have advised getting a CTA of the head and neck. 08/15/18 19:28 Note: Patient did complain of difficulty swallowing after the CT scan. I did evaluate her for possible reaction to IV dye. Her lungs were clear, there were no stridor, there was no evidence of any swelling intraorally. She was given IV Benadryl, IV Solu-Medrol and IV Pepcid. However, I think her dysphagia is most likely related to the reasons why she is here (i.e. concerns for stroke) rather than a reaction to the dye. I did check up on her a half an hour later and her symptoms were unchanged. She is in no distress. We will be doing a swallowing study. I did discuss the case with Dr. mao newell at the bedside and the patient was admitted. (REESE DE PAZ) - Vital Signs Vital signs: Temp Pulse Resp BP Pulse Ox 99.4 F 62 18 126/68 H 95 08/15/18 11:42 08/15/18 16:33 08/15/18 16:33 08/15/18 17:01 08/15/18 17:38 - Laboratory Laboratory results interpreted by me: 08/15/18 08/15/18 14:40 14:40 RDW 14.7 H Potassium 5.1 H Critical Care Note - Critical Care Note Total time excluding time spent on procedures (mins): 60 <REESE DE PAZ - Last Filed: 08/15/18 19:32> - Critical Care Note Comments: Critical care time includes my time at the bedside, evaluating for need for thr ombolytics, reviewing all the CT scans, reassessing the patient for potential allergy, conversations with the hospital admitting staff and discussions with the nurse practitioner. (REESE DE PAZ) Discharge <ROSEMARY PADILLA - Last Filed: 08/15/18 17:24> - Discharge Admitting Provider: Natoist - Dr Haines Unit Admitted: [facility] <REESE DE PAZ - Last Filed: 08/15/18 19:32> - Discharge Clinical Impression: CVA Condition: Stable Disposition: ADMITTED INPATIENT
--- NOTE | 2018-08-15 12:48 | RADIOLOGY REPORT (SQ) ---
EXAM DESCRIPTION: CT THORACIC SPINE WITHOUT COMPLETED DATE/TIME: 08/15/2018 12:33 pm REASON FOR STUDY: fall week ago increased pain COMPARISON: CT thoracic spine 06/09/2017 TECHNIQUE: Axial images acquired through the thoracic spine without intravenous contrast. Images re viewed with lung, soft tissue and bone windows. Reconstructed coronal and sagittal MPR images review ed. Images stored on PACS. All CT scanners at this facility use dose modulation, iterative reconstruction, and/or weight based d osing when appropriate to reduce radiation dose to as low as reasonably achievable (ALARA). [facility]: Dose Right [facility]: CareDose [facility]: Dose Right [facility]: Teradose 4D [facility]: [employer] RADIATION DOSE: CT Rad equipment meets quality standard of care and radiation dose reduction techniq ues were employed. CTDIvol: 72.2 mGy. DLP: 2446 mGy-cm. mGy. LIMITATIONS: None. FINDINGS: VISUALIZED LUNGS: No acute opacities. No pneumothorax. SOFT TISSUES: No soft tissue swelling. No masses. VERTEBRAL BODIES: No fractures. No dislocation. No acute findings. DISCS: Post fusion with transpedicular screws and dorsal fixation plates at T11-12. The other thorac ic disc levels are unremarkable ALIGNMENT: Normal. TRANSVERSE PROCESSES, POSTERIOR ELEMENTS: No fractures. No dislocation. No acute findings. HARDWARE: None in the spine. VISUALIZED RIBS: No fractures. OTHER: Clips left upper quadrant post gastric bypass IMPRESSION: Old post fusion changes at T11-12. Otherwise unremarkable study TECHNICAL DOCUMENTATION: JOB ID: [id number] Quality ID # [id number]: Final reports with documentation of one or more dose reduction techniques (e.g., Au tomated exposure control, adjustment of the mA and/or kV according to patient size, use of iterative reconstruction technique) 2010 [employer]- All Rights Reserved Reading location - IP/workstation name: [email or web address]
--- NOTE | 2018-08-15 12:52 | RADIOLOGY REPORT (SQ) ---
EXAM DESCRIPTION: CT LUMBAR SPINE WITHOUT COMPLETED DATE/TIME: 08/15/2018 12:33 pm REASON FOR STUDY: fall week ago increased pain COMPARISON: MRI lumbar spine 11/29/2016 TECHNIQUE: Axial images acquired through the lumbar spine without intravenous contrast. Images revi ewed with lung, soft tissue and bone windows. Reconstructed coronal and sagittal MPR images reviewed . All images stored on PACS. All CT scanners at this facility use dose modulation, iterative reconstruction, and/or weight based d osing when appropriate to reduce radiation dose to as low as reasonably achievable (ALARA). [facility]: Dose Right [facility]: CareDose [facility]: Dose Right [facility]: Teradose 4D [facility]: [employer] RADIATION DOSE: mGy. LIMITATIONS: None. FINDINGS: SEGMENTATION: There is sacralization of L5 vertebral body. ALIGNMENT: Normal. VERTEBRAL BODIES: No fractures. No dislocation. No acute findings. DISCS: No significant protrusions. Study limited by lack of intrathecal contrast. PEDICLES, TRANSVERSE PROCESSES: No fractures. No dislocation. No acute findings. FACETS, POSTERIOR ELEMENTS: No fractures. No dislocation. Multilevel facet arthropathy. HARDWARE: Partially visualized orthopedic hardware at T12 vertebral body. VISUALIZED RIBS: No fractures. SOFT TISSUES: No acute finding in adjacent soft tissues. Nonobstructing calculi at the visualized l eft kidney measuring up to 7 mm 4 mm. No hydronephrosis. OTHER: Degenerative changes at the bilateral sacroiliac joints. IMPRESSION: No acute fracture at the lumbar spine. TECHNICAL DOCUMENTATION: JOB ID: [id number] [place]-64 Quality ID # [id number]: Final reports with documentation of one or more dose reduction techniques (e.g., Au tomated exposure control, adjustment of the mA and/or kV according to patient size, use of iterative reconstruction technique) 2010 [employer]- All Rights Reserved Reading location - IP/workstation name: [email or web address]
[2018-08-15] MEDS ORDERED: ACETAMINOPHEN 325 MG TABLET PO ONE (12:57)
--- NOTE | 2018-08-15 14:25 | RADIOLOGY REPORT (SQ) ---
EXAM DESCRIPTION: CT HEAD WITHOUT COMPLETED DATE/TIME: 08/15/2018 2:05 pm REASON FOR STUDY: decrease movement left leg COMPARISON: CT head 08/10/2018. TECHNIQUE: Axial images acquired through the brain without intravenous contrast. Images reviewed wi th bone, brain and subdural windows. Images stored on PACS. All CT scanners at this facility use dose modulation, iterative reconstruction, and/or weight based d osing when appropriate to reduce radiation dose to as low as reasonably achievable (ALARA). [facility]: Dose Right [facility]: CareDose [facility]: Dose Right [facility]: Teradose 4D [facility]: Smart [employer] [place] RADIATION DOSE: CT Rad equipment meets quality standard of care and radiation dose reduction techniq ues were employed. CTDIvol: 53.2 mGy. DLP: 1124 mGy-cm. mGy. LIMITATIONS: None. FINDINGS: VENTRICLES: Normal size and contour. CEREBRUM: No mass effect. No hemorrhage. No midline shift. Normal sears/white matter differentiatio n. No evidence for acute territorial infarction. CEREBELLUM: No mass effect. No hemorrhage. No alteration of density. No evidence for acute infarct ion. EXTRAAXIAL SPACES: No fluid collections. ORBITS AND GLOBE: Symmetrical contour of the globes. CALVARIUM: No depressed skull fracture. PARANASAL SINUSES: No air-fluid level. SOFT TISSUES: No hematoma. IMPRESSION: NO ACUTE INTRACRANIAL IMAGING FINDINGS. EVIDENCE OF ACUTE STROKE: NO. COMMENT: Quality ID # [id number]: Final reports with documentation of one or more dose reduction techniques (e.g., Automated exposure control, adjustment of the mA and/or kV according to patient size, use of iterative reconstruction technique) TECHNICAL DOCUMENTATION: JOB ID: [id number] [place]-64 2010 [employer]- All Rights Reserved Reading location - IP/workstation name: [email or web address]
[2018-08-15 15:02] LABS: ABSOLUTE EOSINOPHILS # (AUTO) 0.3 10^3/uL (0.0-0.6); ABSOLUTE LYMPHOCYTES (AUTO) 1.5 10^3/uL (0.5-4.7); ABSOLUTE MONOCYTES (AUTO) 0.6 10^3/uL (0.1-1.4); ABSOLUTE NEUT (AUTO) 4.7 10^3/uL (1.7-8.2); BASOPHILS % (AUTO) 0.6 % (0-2); EOSINOPHILS % (AUTO) 3.8 % (0-6); HEMATOCRIT 40.8 % (36.0-47.0); HEMOGLOBIN 13.6 g/dL (12.0-15.5); LYMPHOCYTES % (AUTO) 21.2 % (13-45); MEAN CORPUSCULAR HEMOGLOBIN 29.7 pg (27.0-33.4); MEAN CORPUSCULAR HGB CONC 33.3 g/dL (32.0-36.0); MEAN CORPUSCULAR VOLUME 89 fl (80-97); MONOCYTES % (AUTO) 8.5 % (3-13); PLATELET COUNT 196 10^3/uL (150-450); RED BLOOD COUNT 4.59 10^6/uL (3.72-5.28); RED CELL DISTRIBUTION WIDTH 14.7 % (11.5-14.0); SEGMENTED NEUTROPHILS % (AUTO) 65.9 % (42-78); TOTAL CELLS COUNTED % (AUTO) 100 %; WHITE BLOOD COUNT 7.1 10^3/uL (4.0-10.5)
[2018-08-15 15:04] LABS: INTERNATIONAL RATION (INR) 0.96; PROTHROMBIN TIME 13.3 SEC (11.4-15.4)
[2018-08-15 15:05] LABS: PARTIAL THROMBOPLASTIN TIME 27.1 SEC (23.5-35.8)
[2018-08-15 15:17] LABS: ALANINE AMINOTRANSFERASE 36 U/L (9-52); ALBUMIN 4.3 g/dL (3.5-5.0); ALKALINE PHOSPHATASE 122 U/L (38-126); ANION GAP 9 (5-19); ASPARTATE AMINO TRANSFERASE 30 U/L (14-36); BILIRUBIN,DIRECT 0.2 mg/dL (0.0-0.4); BILIRUBIN,TOTAL 0.4 mg/dL (0.2-1.3); BLOOD UREA NITROGEN 13 mg/dL (7-20); CALCIUM 9.8 mg/dL (8.4-10.2); CARBON DIOXIDE 29 mmol/L (22-30); CHLORIDE 102 mmol/L (98-107); GLUCOSE 101 mg/dL (75-110); POTASSIUM 5.1 mmol/L (3.6-5.0); SODIUM 140.4 mmol/L (137-145)
[2018-08-15] MEDS ORDERED: METHYLPREDNISOLONE INJ 125 MG/2 ML SDV IV ONE (15:39)
[2018-08-15] MEDS ORDERED: DIPHENHYDRAMINE HCL 50 MG/ML VIAL IV ONE (15:39)
[2018-08-15] MEDS ORDERED: FAMOTIDINE INJ/PF 20 MG/2 ML SDV IV ONE (15:39)
[2018-08-15] MEDS ORDERED: NORMAL SALINE 1000 ML 500 ML IV ONE (15:43)
[2018-08-15] MEDS ORDERED: NORMAL SALINE 1000 ML 1,000 ML IV ONE (15:43)
[2018-08-15] MEDS ORDERED: LEVETIRACETAM INJ/PF 500 MG/5 ML SDV IV ONE (15:48)
--- NOTE | 2018-08-15 16:08 | RADIOLOGY REPORT (SQ) ---
EXAM DESCRIPTION: CTA NECK; CTA HEAD COMPLETED DATE/TIME: 08/15/2018 3:39 pm REASON FOR STUDY: right sided weakness COMPARISON: CT brain 08/15/2018, 08/10/2018, 06/27/2018 MRI cervical spine 06/28/2018 TECHNIQUE: Axial dynamic scanning technique with dynamic contrast enhancement through the extra-electrical and radio aircraft mechanic nial carotid and vertebral arteries. Multiplanar reconstruction. 3-D MIPS and Volume-rendered imag es acquired at the workstation and saved to PACS. Images are reviewed in soft tissue, bone, lung w indows. Axial dynamic scanning technique with dynamic contrast enhancement through the intra-cranial carotid and vertebral arteries. Multiplanar reconstruction. 3-D MIPS and Volume-rendered images acquired at the workstation and saved to PACS. Images are reviewed in soft tissue, bone, lung windows. All CT scanners at this facility use dose modulation, iterative reconstruction, and/or weight based d osing when appropriate to reduce radiation dose to as low as reasonably achievable (ALARA). [facility]: Dose Right [facility]: CareDose [facility]: Dose Right [facility]: Teradose 4D [facility]: GeckoLife CONTRAST TYPE AND DOSE: contrast/concentration: Isovue 350.00 mg/ml; Total Contrast Delivered: 70.0 ml; Total Saline Delivered: 75.0 ml RENAL FUNCTION: Creatinine 0.6 LIMITATIONS: None. FINDINGS: CT ANGIO NECK AORTIC ARCH: Normal three-vessel origin. Bilateral subclavian arteries are patent. No dissection. RIGHT CAROTIDS: Patent common, internal and external carotid arteries without suggestion of significa nt stenosis or irregular plaque. No dissection. RIGHT VERTEBRAL: Patent. No dissection. LEFT CAROTIDS: Patent common, internal and external carotid arteries without suggestion of significan t stenosis or irregular plaque. No dissection. LEFT VERTEBRAL: Patent. No dissection. OTHER: Lower cervical fusion hardware at C5-6. CT ANGIO [place]: ANTERIOR CIRCULATION: No stenosis, vascular malformation, or aneurysm POSTERIOR CIRCULATION: No stenosis, vascular malformation, or aneurysm BRAIN IN THE FIELD OF VIEW: No abnormal masses or enhancement. No CT evidence of acute large territ ory ischemic change. OTHER: 3-D reconstructions confirm findings. IMPRESSION: NORMAL CTA OF THE EXTRA-CRANIAL AND INTRACRANIAL CAROTID AND VERTEBRAL ARTERIES. COMMENT: Quality ID #195: Measurements of distal internal carotid diameter were used as the denomina tor for stenosis measurement. TECHNICAL DOCUMENTATION: JOB ID: [id number] Quality ID # 436: Final reports with documentation of one or more dose reduction techniques (e.g., Au tomated exposure control, adjustment of the mA and/or kV according to patient size, use of iterative reconstruction technique) 2010 [employer]- All Rights Reserved Reading location - IP/workstation name: [email or web address]
--- NOTE | 2018-08-15 16:08 | RADIOLOGY REPORT (SQ) ---
EXAM DESCRIPTION: CTA NECK; CTA HEAD COMPLETED DATE/TIME: 08/15/2018 3:39 pm REASON FOR STUDY: right sided weakness COMPARISON: CT brain 08/15/2018, 08/10/2018, 06/27/2018 MRI cervical spine 06/28/2018 TECHNIQUE: Axial dynamic scanning technique with dynamic contrast enhancement through the extra-aircraft communicator nial carotid and vertebral arteries. Multiplanar reconstruction. 3-D MIPS and Volume-rendered imag es acquired at the workstation and saved to PACS. Images are reviewed in soft tissue, bone, lung w indows. Axial dynamic scanning technique with dynamic contrast enhancement through the intra-cranial carotid and vertebral arteries. Multiplanar reconstruction. 3-D MIPS and Volume-rendered images acquired at the workstation and saved to PACS. Images are reviewed in soft tissue, bone, lung windows. All CT scanners at this facility use dose modulation, iterative reconstruction, and/or weight based d osing when appropriate to reduce radiation dose to as low as reasonably achievable (ALARA). [facility]: Dose Right [facility]: CareDose [facility]: Dose Right [facility]: Teradose 4D [facility]: Massdrop CONTRAST TYPE AND DOSE: contrast/concentration: Isovue 350.00 mg/ml; Total Contrast Delivered: 70.0 ml; Total Saline Delivered: 75.0 ml RENAL FUNCTION: Creatinine 0.6 LIMITATIONS: None. FINDINGS: CT ANGIO NECK AORTIC ARCH: Normal three-vessel origin. Bilateral subclavian arteries are patent. No dissection. RIGHT CAROTIDS: Patent common, internal and external carotid arteries without suggestion of significa nt stenosis or irregular plaque. No dissection. RIGHT VERTEBRAL: Patent. No dissection. LEFT CAROTIDS: Patent common, internal and external carotid arteries without suggestion of significan t stenosis or irregular plaque. No dissection. LEFT VERTEBRAL: Patent. No dissection. OTHER: Lower cervical fusion hardware at C5-6. CT ANGIO [place]: ANTERIOR CIRCULATION: No stenosis, vascular malformation, or aneurysm POSTERIOR CIRCULATION: No stenosis, vascular malformation, or aneurysm BRAIN IN THE FIELD OF VIEW: No abnormal masses or enhancement. No CT evidence of acute large territ ory ischemic change. OTHER: 3-D reconstructions confirm findings. IMPRESSION: NORMAL CTA OF THE EXTRA-CRANIAL AND INTRACRANIAL CAROTID AND VERTEBRAL ARTERIES. COMMENT: Quality ID #195: Measurements of distal internal carotid diameter were used as the denomina tor for stenosis measurement. TECHNICAL DOCUMENTATION: JOB ID: [id number] Quality ID # 436: Final reports with documentation of one or more dose reduction techniques (e.g., Au tomated exposure control, adjustment of the mA and/or kV according to patient size, use of iterative reconstruction technique) 2010 [employer]- All Rights Reserved Reading location - IP/workstation name: [email or web address]
--- NOTE | 2018-08-15 17:27 | PDOC H&P ---
History of Present Illness Admission Date/PCP: 08/15/18 16:54 ELIZABETH ROMERO DO History of Present Illness: THERESA MEJIA is a 58 year old female sent with past medical history of coronary artery disease, hyperlipidemia, seizure disorder, prior history of stroke, fibromyalgia, depression and PTSD she presented with chief complaint of difficulty swallowing and back pain. Of note patient has multilevel degenerative disc disease for which she had fusion of C5-C6 and fusi on of T10-11 and T12. At her baseline patient ambulates with the help of rolling walker. Since yesterday afternoon patient is not able to walk particularly she is not able to use her right hand and right lower extremity associated with difficulty of swallowing. Patient also endorses falling a week ago. Her initial blood work are unremarkable except for mild hyperkalemia of 5.1. Her imaging studies also reported as CT head no acute intracranial process and CT of the neck in the head reported as normal CT of the extracranial and intracranial carotid and vertebral arteries. Patient denies any fever, chills, palpitation or diaphoresis. She does not have any nausea, vomiting, abdominal pain or diarrhea or any urinary complaints. Past Medical History Cardiac Medical History: Reports: Myocardial Infarction - CARDIAC ARREST R/T DRUG REACTION(SINEMET), Hyperlipidema Denies: Hypertension Pulmonary Medical History: Reports: Asthma, Bronchitis, Pneumonia - MARCH 2015, Sleep Apnea - On home CPAP Denies: Chronic Obstructive Pulmonary Disease (COPD) EENT Medical History: Reports: None Neurological Medical History: Reports: Migraine, Seizures - UNSURE OF ETIOLOGY, conversion disorder Endocrine Medical History: Reports: Diabetes Mellitus Type 2 Malignancy Medical History: Reports: None GI Medical History: Reports: Hiatal Hernia - DX 30 YEARS AGO Musculoskeltal Medical History: Reports: Arthritis - OSTEOARTHRITIS, Fibromyalgia Skin Medical History: Reports: None Psychiatric Medical History: Reports: Attention Deficit Hyperactivity Disorder, Depression, Post Traumatic Stress Disorder Traumatic Medical History: Reports: None Hematology: Reports: Anemia - IRON INFUSIONS Infectious Medical History: Reports: None Past Surgical History Past Surgical History: Reports: Cholecystectomy, Gastric Bypass Surgery, Hysterectomy, Orthopedic Surgery - back/spinal surgery, Tubal Ligation Social History Lives with: Assisted - [place] Smoking Status: Never Smoker Frequency of Alcohol Use: None Hx Recreational Drug Use: No Drugs: None Hx Prescription Drug Abuse: No - Advance Directive Resuscitation Status: Full Code Family History Family History: Reviewed & Not Pertinent Parental Family History Reviewed: Yes Children Family History Reviewed: Yes Sibling(s) Family History Reviewed.: Yes Medication/Allergy Home Medications: Acetaminophen with Codeine [Tylenol #3 Tablet] 1 each PO Q6HP PRN 03/09/18 Albuterol Sulfate [Albuterol Sulfate 2.5mg/3 mL] 1 vial IH Q6H PRN 03/09/18 Amitriptyline HCl 50 mg PO QHS 03/09/18 Aspirin [Aspirin 81 mg Chewable Tablet] 81 mg PO DAILY 03/09/18 Atorvastatin Calcium 20 mg PO DAILY 03/09/18 Cetirizine HCl [Cetirizine HCl 5 mg/5 mL] 10 mg PO DAILY 03/09/18 Cholecalciferol (Vitamin D3) [Vitamin D] 2,000 unit PO DAILY 03/09/18 Diazepam [Valium 5 mg Tablet] 10 mg PO QHS 03/09/18 Diclofenac Sodium [Voltaren] 100 gm TP Q6H PRN 03/09/18 Esomeprazole Magnesium [Nexium] 40 mg PO DAILY 03/09/18 Fluoxetine HCl [Prozac] 80 mg PO DAILY 03/09/18 Fluticasone Propionate [Flonase Nasal [place] 50 Mcg/[place] 16 gm] 1 spray NASL Q12 03/09/18 Fluticasone/Salmeterol [Advair 250-50 Diskus 28 dose] 1 inh IH Q12H 03/09/18 Levetiracetam [Keppra] 500 mg PO Q12H 03/09/18 Lidocaine [Lidoderm 5% (700 mg) Transdermal Patch] 1 patch TP DAILY 03/09/18 Lubiprostone [Amitiza 8 Mcg Capsule] 1 cap PO BID 03/09/18 Methylphenidate HCl [Ritalin] 10 mg PO ASDIR PRN 03/09/18 Polyethylene Glycol 3350 [Miralax Powder 17 gm/Packet] 1 packet PO TID 03/09/18 Sucralfate [Carafate Susp 1 Gm/10 Ml Udcup] 1 gm PO ACHS 03/09/18 Thiamine Mononitrate (Vit B1) [Vitamin B-1] 100 mg PO DAILY 03/09/18 Trazodone HCl [Desyrel] 100 mg PO QHS 03/09/18 Albuterol Sulfate [Proventil 0.5% Neb 2.5 mg/0.5 ml Vial.neb] 2.5 mg NEB Q4 #30 vial.neb 06/24/18 Nebulizer [Nebulizer Machine] 1 each ASDIR PRN #1 kit 06/24/18 Allergies/Adverse Reactions: silicone [Silicone] Allergy (Intermediate, Verified 08/15/18 11:38) REDNESS, RASH carbidopa [From Sinemet] Adverse Reaction (Severe, Verified 08/15/18 11:38) Cardiac arrest levodopa [From Sinemet] Adverse Reaction (Severe, Verified 08/15/18 11:38) Cardiac arrest Review of Systems Constitutional: PRESENT: as per HPI Eyes: PRESENT: as per HPI Nose, Mouth, and Throat: PRESENT: as per HPI Cardiovascular: PRESENT: as per HPI Respiratory: PRESENT: as per HPI Gastrointestinal: PRESENT: as per HPI Neurological: PRESENT: as per HPI Physical Exam Vital Signs: Temp Pulse Resp BP Pulse Ox 99.4 F 62 18 119/61 94 08/15/18 11:42 08/15/18 16:33 08/15/18 16:33 08/15/18 16:33 08/15/18 16:33 Intake & Output 08/14/18 08/15/18 08/16/18 06:59 06:59 06:59 Intake Total 500 Balance 500 Weight 112.9 kg General appearance: PRESENT: no acute distress, morbidly obese Neck exam: ABSENT: carotid bruit, JVD, lymphadenopathy, thyromegaly Respiratory exam: PRESENT: clear to auscultation meron. ABSENT: rales, rhonchi, wheezes Cardiovascular exam: PRESENT: RRR. ABSENT: diastolic murmur, rubs, systolic murmur Extremities exam: PRESENT: full ROM. ABSENT: calf tenderness, clubbing, pedal edema Neurological exam: PRESENT: alert, awake, motor sensory deficit - Her poor is 0 out of 5 on both right upper and lower extremity. She has also sensory loss on the same side., other - Shunt has mild slurred speech and mild obliteration of the right nasolabial fold Results Laboratory Results: 08/15/18 14:40 08/15/18 14:40 08/15/18 08/15/18 14:40 14:40 WBC 7.1 RBC 4.59 Hgb 13.6 Hct 40.8 MCV 89 MCH 29.7 MCHC 33.3 RDW 14.7 H Plt Count 196 Seg Neutrophils % 65.9 Lymphocytes % 21.2 Monocytes % 8.5 Eosinophils % 3.8 Basophils % 0.6 Absolute Neutrophils 4.7 Absolute Lymphocytes 1.5 Absolute Monocytes 0.6 Absolute Eosinophils 0.3 Absolute Basophils 0.0 Sodium 140.4 Potassium 5.1 H Chloride 102 Carbon Dioxide 29 Anion Gap 9 BUN 13 Creatinine 0.56 Est GFR ( Amer) > 60 Est GFR (Non-Af Amer) > 60 Glucose 101 Calcium 9.8 Total Bilirubin 0.4 AST 30 ALT 36 Alkaline Phosphatase 122 Total Protein 7.0 Albumin 4.3 08/15/18 14:40 Troponin I < 0.012 Impressions: Lumbar Spine CT 08/15/18 12:13 IMPRESSION: No acute fracture at the lumbar spine. Thoracic Spine CT 08/15/18 12:13 IMPRESSION: Old post fusion changes at T11-12. Otherwise unremarkable study Head CT 08/15/18 13:53 IMPRESSION: NO ACUTE INTRACRANIAL IMAGING FINDINGS. EVIDENCE OF ACUTE STROKE: NO. Head CTA 08/15/18 14:24 IMPRESSION: NORMAL CTA OF THE EXTRA-CRANIAL AND INTRACRANIAL CAROTID AND VERTEBRAL ARTERIES. Neck CTA 08/15/18 14:24 IMPRESSION: NORMAL CTA OF THE EXTRA-CRANIAL AND INTRACRANIAL CAROTID AND VERTEBRAL ARTERIES. Assessment & Plan - Diagnosis (1) Acute ischemic stroke Is this a current diagnosis for this admission?: Yes Plan: Patient is out of the therapeutic window for TPA administration. Speech evaluation consulted. Once she is cleared by speech therapist patient can be started feeding and take p.o. medications. We will give her aspirin suppository. And will start her also on Plavix and high intensity Lipitor. (2) Coronary artery disease Qualifiers: Coronary Disease-Associated Artery/Lesion type: [place] artery Is this a current diagnosis for this admission?: Yes Plan: Patient does not have anginal symptoms. (3) Seizure disorder Is this a current diagnosis for this admission?: Yes Plan: Patient is in remission. We will start her on her home medication. (4) Fibromyalgia Is this a current diagnosis for this admission?: Yes Plan: Continue her home medications. (5) History of depression and PTSD Is this a current diagnosis for this admission?: Yes Plan: Continue her home medications. - Inpatient Certification Medical Necessity: Significant Comorbidiites Make Outpatient Treatment Too Risky, Need Close Monitoring Due to Risk of Patient Decompensation
[2018-08-15] MEDS ORDERED: ASPIRIN 300 MG SUPP, RECTAL PR ONE ×2 (17:30→20:44)
--- NOTE | 2018-08-15 19:29 | RADIOLOGY REPORT (SQ) ---
EXAM DESCRIPTION: MRI HEAD WITHOUT COMPLETED DATE/TIME: 08/15/2018 6:16 pm REASON FOR STUDY: Acute ischemic stroke . Fell 1 week ago. Right-sided weakness today. COMPARISON: MRI head 11/26/2016. CT head and CT angiogram head 08/15/2018. TECHNIQUE: Multiplanar imaging includes non-contrasted T1, T2, FLAIR, and Diffusion with ADC map seq uences. Images stored on PACS. LIMITATIONS: None. FINDINGS: ANATOMY: No anomalies. Normal vascular flow voids. CSF SPACES: Normal in size and contour. No hemorrhage. CEREBRUM: A few high-signal intensity lesions scattered throughout the white matter on FLAIR imaging with distribution suggesting chronic micro-vascular ischemic change. Sulci and gyri normal in size a nd contour. No evidence of hemorrhage or extraaxial fluid collection. POSTERIOR FOSSA: No signal alteration. No hemorrhage. No edema or mass effect. Internal auditory can als, cerebello-pontine angles, mastoids normal. DIFFUSION: Negative for acute or sub-acute infarction. ORBITS: Globes normal. PARANASAL SINUSES: No fluid levels. IMPRESSION: MINIMAL MICROVASCULAR ISCHEMIC CHANGE. NO EVIDENCE FOR ACUTE ISCHEMIA OR HEMORRHAGE. EVIDENCE OF ACUTE STROKE: NO. TECHNICAL DOCUMENTATION: JOB ID: [id number] 2010 [employer]- All Rights Reserved Reading location - IP/workstation name: [email or web address]
[2018-08-15] MEDS: ENOXAPARIN SODIUM INJ 40 MG/0.4 ML DISP.SYRIN SUBCUT SCH (20:25)
[2018-08-15] MEDS: ATORVASTATIN CALCIUM 80 MG TABLET PO SCH (21:02)
[2018-08-15] MEDS: DEXTROSE 5%-WATER 1000 ML 1,000 ML IV PRN (23:03)
[2018-08-15] MEDS: ACETAMINOPHEN 650 MG SUPP.RECT PR PRN (23:33)
[2018-08-16 05:24] LABS: ABSOLUTE LYMPHOCYTES (AUTO) 0.7 10^3/uL (0.5-4.7); ABSOLUTE MONOCYTES (AUTO) 0.2 10^3/uL (0.1-1.4); ABSOLUTE NEUT (AUTO) 7.3 10^3/uL (1.7-8.2); BASOPHILS % (AUTO) 0.2 % (0-2); HEMATOCRIT 38.3 % (36.0-47.0); HEMOGLOBIN 13.3 g/dL (12.0-15.5); LYMPHOCYTES % (AUTO) 8.1 % (13-45); MEAN CORPUSCULAR HEMOGLOBIN 30.4 pg (27.0-33.4); MEAN CORPUSCULAR HGB CONC 34.7 g/dL (32.0-36.0); MEAN CORPUSCULAR VOLUME 88 fl (80-97); PLATELET COUNT 188 10^3/uL (150-450); RED BLOOD COUNT 4.37 10^6/uL (3.72-5.28); RED CELL DISTRIBUTION WIDTH 14.2 % (11.5-14.0); SEGMENTED NEUTROPHILS % (AUTO) 89.7 % (42-78); TOTAL CELLS COUNTED % (AUTO) 100 %; WHITE BLOOD COUNT 8.2 10^3/uL (4.0-10.5)
[2018-08-16 05:39] LABS: TRIGLYCERIDES 53 mg/dL (<150)
[2018-08-16 05:43] LABS: ALANINE AMINOTRANSFERASE 37 U/L (9-52); ALKALINE PHOSPHATASE 111 U/L (38-126); ANION GAP 12 (5-19); ASPARTATE AMINO TRANSFERASE 24 U/L (14-36); BILIRUBIN,DIRECT 0.1 mg/dL (0.0-0.4); BILIRUBIN,TOTAL 0.3 mg/dL (0.2-1.3); BLOOD UREA NITROGEN 14 mg/dL (7-20); CALCIUM 9.6 mg/dL (8.4-10.2); CARBON DIOXIDE 24 mmol/L (22-30); CHLORIDE 103 mmol/L (98-107); GLUCOSE 181 mg/dL (75-110); POTASSIUM 4.6 mmol/L (3.6-5.0); SODIUM 139.2 mmol/L (137-145); TOTAL PROTEIN 6.8 g/dL (6.3-8.2)
[2018-08-16 05:49] LABS: DIRECT LDL 74 mg/dL (<100)
[2018-08-16] MEDS: CLOPIDOGREL BISULFATE 75 MG TABLET PO SCH (10:24)
[2018-08-16] MEDS: LEVETIRACETAM 500 MG/NACL-ISO 500 MG/100 ML RTUPB IV SCH ×2 (11:10→21:44)
[2018-08-16] MEDS: ASPIRIN 300 MG SUPP, RECTAL PR SCH (11:10)
--- NOTE | 2018-08-16 12:29 | PDOC PROGRESS REPORT ---
Subjective Progress Note for:: 08/16/18 Subjective:: This is a 58-year-old female patient brought with chief complaint of right facial droop, right upper and lower extremity weakness. Patient has also associated difficulty swallowing. Even though patient has prior history of stroke and her clinical finding compatible with a stroke, her imaging study which includes CTA and CT of the head and also MRI of the head are negative for acute intracranial process. Her blood works are unremarkable. Patient has been evaluated by speech therapist and patient failed to pass speech evaluation. This morning I seen patient propped up in bed. She is awake alert she complains of abdominal pain. She is not able to move her upper and right lower extremity. Will request MRI of the brain with contrast to rule out any intracranial space- occupying lesion. Reason For Visit: ACUTE ISCHEMIC STROKE Physical Exam Vital Signs: Temp Pulse Resp BP Pulse Ox 97.6 F 66 16 134/72 H 93 08/16/18 07:37 08/16/18 07:37 08/16/18 07:37 08/16/18 07:37 08/16/18 07:37 Intake & Output 08/15/18 08/16/18 08/17/18 06:59 06:59 06:59 Intake Total 1500 Balance 1500 Weight 113.4 kg General appearance: PRESENT: no acute distress Head exam: PRESENT: atraumatic Eye exam: PRESENT: conjunctiva pink Mouth exam: PRESENT: dry mucosa Neck exam: ABSENT: carotid bruit, JVD, lymphadenopathy, thyromegaly Respiratory exam: PRESENT: clear to auscultation meron. ABSENT: rales, rhonchi, wheezes Cardiovascular exam: PRESENT: RRR. ABSENT: diastolic murmur, rubs, systolic murmur GI/Abdominal exam: PRESENT: normal bowel sounds, soft, other - Obese. ABSENT: distended, guarding, mass, organolmegaly, rebound, tenderness Neurological exam: PRESENT: alert, awake Results Laboratory Results: 08/16/18 05:08 08/16/18 05:08 08/15/18 08/15/18 08/16/18 14:40 14:40 05:08 WBC 7.1 8.2 RBC 4.59 4.37 Hgb 13.6 13.3 Hct 40.8 38.3 MCV 89 88 MCH 29.7 30.4 MCHC 33.3 34.7 RDW 14.7 H 14.2 H Plt Count 196 188 Seg Neutrophils % 65.9 89.7 H Lymphocytes % 21.2 8.1 L Monocytes % 8.5 2.0 L Eosinophils % 3.8 0.0 Basophils % 0.6 0.2 Absolute Neutrophils 4.7 7.3 Absolute Lymphocytes 1.5 0.7 Absolute Monocytes 0.6 0.2 Absolute Eosinophils 0.3 0.0 Absolute Basophils 0.0 0.0 Sodium 140.4 Potassium 5.1 H Chloride 102 Carbon Dioxide 29 Anion Gap 9 BUN 13 Creatinine 0.56 Est GFR ( Amer) > 60 Est GFR (Non-Af Amer) > 60 Glucose 101 Calcium 9.8 Total Bilirubin 0.4 AST 30 ALT 36 Alkaline Phosphatase 122 Total Protein 7.0 Albumin 4.3 Triglycerides Cholesterol LDL Cholesterol Direct VLDL Cholesterol HDL Cholesterol 08/16/18 08/16/18 05:08 05:08 WBC RBC Hgb Hct MCV MCH MCHC RDW Plt Count Seg Neutrophils % Lymphocytes % Monocytes % Eosinophils % Basophils % Absolute Neutrophils Absolute Lymphocytes Absolute Monocytes Absolute Eosinophils Absolute Basophils Sodium 139.2 Potassium 4.6 Chloride 103 Carbon Dioxide 24 Anion Gap 12 BUN 14 Creatinine 0.44 L Est GFR ( Amer) > 60 Est GFR (Non-Af Amer) > 60 Glucose 181 H Calcium 9.6 Total Bilirubin 0.3 AST 24 ALT 37 Alkaline Phosphatase 111 Total Protein 6.8 Albumin 4.0 Triglycerides 53 Cholesterol 153.90 LDL Cholesterol Direct 74 VLDL Cholesterol 11.0 HDL Cholesterol 64 08/15/18 14:40 Troponin I < 0.012 Impressions: Head MRI 08/15/18 00:00 IMPRESSION: MINIMAL MICROVASCULAR ISCHEMIC CHANGE. NO EVIDENCE FOR ACUTE ISCHEMIA OR HEMORRHAGE. EVIDENCE OF ACUTE STROKE: NO. Lumbar Spine CT 08/15/18 12:13 IMPRESSION: No acute fracture at the lumbar spine. Thoracic Spine CT 08/15/18 12:13 IMPRESSION: Old post fusion changes at T11-12. Otherwise unremarkable study Head CT 08/15/18 13:53 IMPRESSION: NO ACUTE INTRACRANIAL IMAGING FINDINGS. EVIDENCE OF ACUTE STROKE: NO. Head CTA 08/15/18 14:24 IMPRESSION: NORMAL CTA OF THE EXTRA-CRANIAL AND INTRACRANIAL CAROTID AND VERTEBRAL ARTERIES. Neck CTA 08/15/18 14:24 IMPRESSION: NORMAL CTA OF THE EXTRA-CRANIAL AND INTRACRANIAL CAROTID AND VERTEBRAL ARTERIES. Assessment & Plan - Diagnosis (1) Acute ischemic stroke Is this a current diagnosis for this admission?: Yes Plan: Patient failed swallow test. We will keep her n.p.o. MRI of the brain with contrast to rule out acute intracranial process (2) Coronary artery disease Qualifiers: Coronary Disease-Associated Artery/Lesion type: [place] artery Is this a current diagnosis for this admission?: Yes Plan: Patient does not have anginal symptoms. (3) Seizure disorder Is this a current diagnosis for this admission?: Yes Plan: Patient is in remission. We will start her on her home medication. (4) Fibromyalgia Is this a current diagnosis for this admission?: Yes Plan: Continue her home medications. (5) History of depression and PTSD Is this a current diagnosis for this admission?: Yes Plan: Continue her home medications. (6) Morbid obesity with BMI of 40.0-44.9, adult Is this a current diagnosis for this admission?: Yes Plan: Lifestyle modification advised.
[2018-08-16] MEDS ORDERED: GLUCAGON,HUMAN RECOMB 1 MG INJ IM PRN (12:30)
[2018-08-16] MEDS ORDERED: DEXTROSE 40% GEL 15 GM TUBE PO PRN (12:30)
[2018-08-16] MEDS ORDERED: DEXTROSE 40% GEL 15 GM TUBE X 2 PO PRN (12:30)
[2018-08-16] MEDS ORDERED: DEXTROSE 50%-WATER SYRINGE 12.5 GM/25 ML DOSE IV PRN (12:30)
[2018-08-16] MEDS ORDERED: DEXTROSE 50%-WATER SYRINGE 25 GM/50 ML DOSE IV PRN (12:30)
--- NOTE | 2018-08-16 14:56 | RADIOLOGY REPORT (SQ) ---
EXAM DESCRIPTION: KUB/ABDOMEN (SINGLE VIEW) COMPLETED DATE/TIME: 08/16/2018 2:03 pm REASON FOR STUDY: abdominal pain COMPARISON: Abdominal films 06/11/2018, 07/01/2013 CT abdomen pelvis 06/02/2014 NUMBER OF VIEWS: One view. TECHNIQUE: Supine radiographic image of the abdomen acquired. LIMITATIONS: None. FINDINGS: BOWEL GAS PATTERN: Normal bowel gas pattern. No dilated loops. CALCIFICATIONS: No suspicious calcifications. SOFT TISSUES: No gross mass or suggestion of organomegaly. HARDWARE: Clips right upper quadrant post cholecystectomy. T11-12 fusion hardware with dorsal fixati on plates and transpedicular screws BONES: No acute fracture. No worrisome bone lesions. OTHER: No other significant finding. IMPRESSION: Nonobstructive bowel gas pattern TECHNICAL DOCUMENTATION: JOB ID: [id number] [employer]- All Rights Reserved Reading location - IP/workstation name: [email or web address]
--- NOTE | 2018-08-16 16:22 | XCELERA REPORT ---
[address] [address] Transthoracic Echocardiogram Report Name: THERESA MEJIA Age: 58 yrs Gender: Female : 1960 Patient Status: Inpatient Patient Location: [facility]^A Study Date: 08/16/2018 03:06 PM Height: 63 in Weight: 248 lb BSA: 2.1 m2 Reason For Study: Acute ischemic stroke Ordering Physician: RAJESH KNOWLES Performed By: Antwan Escobar Interpretation Summary Suboptimal quality study with many poor images liliting detailed cardiac evaluation. Lack of contrast limits evaluation for chambers, wall motion abnormalities, intraacardiac shunts, mass or thrombus. LVEF visually estimated normal at 60-65%. RV not well visualized but Rv systolc function appears normal. The transmitral spectral Doppler flow pattern is abnormal for age Aortic valve not well visualized but doppler data provided does not suggest any signiifcant stenosis. RVSP could not be estimated as inadequate TR jet noted. The aortic root is normal size. The inferior vena cava was not visualized. This study cannot rule out any intracardiac shunting/ PFO/ASD/VSD. MMode/2D Measurements & Calculations RVDd: 2.7 cm LVIDd: 6.0 cm FS: 38.3 % Ao root diam: 3.1 cm IVSd: 0.45 cm LVIDs: 3.7 cm EDV(Teich): 181.5 ml LVPWd: 0.68 cm ESV(Teich): 58.6 ml Ao root area: 7.8 cm2 LA dimension: 3.4 cm EF(Teich): 67.7 % LVOT diam: 1.9 cm LVOT area: 2.9 cm2 Doppler Measurements & Calculations MV E max praveen: MV P1/2t max praveen: Ao V2 max: LV V1 max P.5 cm/sec 74.8 cm/sec 121.6 cm/sec 2.1 mmHg MV A max praveen: MV P1/2t: 83.4 msec Ao max PG: LV V1 max: 67.6 cm/sec MVA(P1/2t): 2.6 cm2 5.9 mmHg 72.1 cm/sec MV E/A: 1.1 MV dec slope: JUAN(V,D): 1.7 cm2 262.6 cm/sec2 MV dec time: 0.17 sec PA V2 max: MV P1/2t-pr_phl: 82.1 cm/sec 83.4 msec PA max P.7 mmHg Left Ventricle The left ventricle is not well visualized. The transmitral spectral Doppler flow pattern is abnormal for age. Right Ventricle A moderator band is seen in the right ventricle. The right ventricular systolic function is normal. Atria Right atrium not well visualized secondary to technical limitations. The left atrium is not well visualized secondary to technical limitations. Mitral Valve The mitral valve is not well visualized. MV leaflets appear to open well. Aortic Valve The aortic valve is not well visualized secondary to technical limitations. There is a peak gradient of 6 mm of Hg. Tricuspid Valve The tricuspid valve is not well visualized secondary to technical limitations. RVSP could not be estimated as inadequate TR jet noted. Pulmonic Valve The pulmonic valve is not well visualized. Great Vessels The aortic root is normal size. The inferior vena cava was not well visualized. Effusions Pericardium not well visualized to rule out trace pericardial effusion. : RAJESH KNOWLES > Christiano Weber
[2018-08-16] MEDS: DEXTROSE 5%-WATER 1000 ML 1,000 ML IV PRN (16:47)
[2018-08-16] MEDS: ONDANSETRON HCL INJ/PF 4 MG/2 ML SDV IV PRN (16:47)
[2018-08-16] MEDS: ENOXAPARIN SODIUM INJ 40 MG/0.4 ML DISP.SYRIN SUBCUT SCH (17:36)
[2018-08-16] MEDS ORDERED: FENTANYL 25 MCG/HR PATCH.TD72 TD ONE (18:45)
[2018-08-16] MEDS: ATORVASTATIN CALCIUM 80 MG TABLET PO SCH (21:44)
[2018-08-17] MEDS: DEXTROSE 5%-WATER 1000 ML 1,000 ML IV PRN (06:56)
[2018-08-17] MEDS: ACETAMINOPHEN 650 MG SUPP.RECT PR PRN (06:58)
[2018-08-17] MEDS: ASPIRIN 81 MG TABLET, CHEWABLE PO SCH (12:30)
[2018-08-17] MEDS: LEVETIRACETAM 500 MG TABLET PO SCH ×2 (12:30→21:34)
[2018-08-17] MEDS: CLOPIDOGREL BISULFATE 75 MG TABLET PO SCH (12:30)
[2018-08-17] MEDS: LEVETIRACETAM 500 MG/NACL-ISO 500 MG/100 ML RTUPB IV SCH (13:16)
[2018-08-17] MEDS: ASPIRIN 300 MG SUPP, RECTAL PR SCH (13:16)
--- NOTE | 2018-08-17 15:17 | RADIOLOGY REPORT (SQ) ---
EXAM DESCRIPTION: MRI HEAD COMBO COMPLETED DATE/TIME: 08/17/2018 2:48 pm REASON FOR STUDY: tia vs cva COMPARISON: MRI brain 11/26/2016, 11/29/2016, 08/15/2018 TECHNIQUE: Multiplanar imaging includes noncontrasted T1, T2, FLAIR, diffusion with ADC map and post gadolinium contrast T1 sequences. Images stored on PACS. CONTRAST TYPE AND DOSE: 20 mL Dotarem. RENAL FUNCTION: GFR > 60. LIMITATIONS: None. FINDINGS: ANATOMY: Left frontal venous angioma, a benign developmental variant. This is best shown on postcontrast axial T1 images 17-21. There is associated gliosis in the left frontal subcortical w lucas matter on FLAIR image 20. This is unchanged from studies dating back to 2017. Normal vascular flow voids. Pituitary fossa normal. CSF SPACES: Normal in size and contour. No hemorrhage. CEREBRUM: No MR evidence of acute ischemic change. No acute intracranial hemorrhage, mass effect, or midline shift. Spotty foci of increased FLAIR/ T2 signal in the hemispheric white matter likely gli osis along perivascular spaces. This is similar compared to studies dating back to 2017. POSTERIOR FOSSA: No signal alteration. No hemorrhage. No edema, masses, or mass effect. Internal lyssa tory canals, cerebellopontine angles, mastoids normal. No enhancing lesions. No abnormal enhancement post contrast. DIFFUSION IMAGING: Negative for acute or subacute infarction. ORBITS: No masses. Globes normal. PARANASAL SINUSES: No fluid levels. Mucosa normal. OTHER: No other significant finding. IMPRESSION: Benign left frontal venous angioma. Minimal gliosis along perivascular spaces in the hemispheric white matter. No MRI evidence for acute ischemic change. EVIDENCE OF ACUTE STROKE: NO. TECHNICAL DOCUMENTATION: JOB ID: [id number] [email or web address] All Rights Reserved Reading location - IP/workstation name: [email or web address]
--- NOTE | 2018-08-17 15:23 | PDOC PROGRESS REPORT ---
Subjective Progress Note for:: 08/17/18 Subjective:: This is a 58-year-old female patient from [facility] brought with chief complaint of right facial droop, right upper and lower extremity weakness. Patient has also associated difficulty swallowing. Even though patient has prior history of stroke and her clinical finding compatible with a stroke, her imaging study which includes CTA and CT of the head and also MRI of the head are negative for acute intracranial process. Her blood works are unrem arkable. Patient has passed swallow evaluation and started on diet by speech therapist. This morning I seen patient propped up in bed. Her IV medications switched to p.o. Yesterday patient complained of abdominal pain and KUB was ordered and reported nonobstructive gas pattern. She is able to move her upper and right lower extremity slightly. MRI of the brain with contrast to rule out intracranial space-occupying lesion is pending. Reason For Visit: ACUTE ISCHEMIC STROKE Physical Exam Vital Signs: Temp Pulse Resp BP Pulse Ox 97.8 F 68 16 96/61 L 92 08/17/18 11:27 08/17/18 11:27 08/17/18 11:27 08/17/18 11:27 08/17/18 11:27 Intake & Output 08/16/18 08/17/18 08/18/18 06:59 06:59 06:59 Intake Total 1500 2191 Balance 1500 2191 Weight 113.4 kg 115.7 kg General appearance: PRESENT: no acute distress Head exam: PRESENT: atraumatic Eye exam: PRESENT: conjunctiva pink Mouth exam: PRESENT: moist Neck exam: ABSENT: carotid bruit, JVD, lymphadenopathy, thyromegaly Respiratory exam: PRESENT: clear to auscultation meron. ABSENT: rales, rhonchi, wheezes Cardiovascular exam: PRESENT: RRR. ABSENT: diastolic murmur, rubs, systolic murmur GI/Abdominal exam: PRESENT: normal bowel sounds, soft. ABSENT: distended, guarding, mass, organolmegaly, rebound, tenderness Neurological exam: PRESENT: alert, awake, oriented to time, oriented to situation Results Laboratory Results: 08/16/18 05:08 08/16/18 05:08 08/15/18 14:40 Troponin I < 0.012 Impressions: Lumbar Spine CT 08/15/18 12:13 IMPRESSION: No acute fracture at the lumbar spine. Thoracic Spine CT 08/15/18 12:13 IMPRESSION: Old post fusion changes at T11-12. Otherwise unremarkable study Head CT 08/15/18 13:53 IMPRESSION: NO ACUTE INTRACRANIAL IMAGING FINDINGS. EVIDENCE OF ACUTE STROKE: NO. Head CTA 08/15/18 14:24 IMPRESSION: NORMAL CTA OF THE EXTRA-CRANIAL AND INTRACRANIAL CAROTID AND VERTEBRAL ARTERIES. Neck CTA 08/15/18 14:24 IMPRESSION: NORMAL CTA OF THE EXTRA-CRANIAL AND INTRACRANIAL CAROTID AND VERTEBRAL ARTERIES. KUB X-Ray 08/16/18 12:21 IMPRESSION: Nonobstructive bowel gas pattern Head MRI 08/17/18 00:00 IMPRESSION: Benign left frontal venous angioma. Minimal gliosis along perivascular spaces in the hemispheric white matter. No MRI evidence for acute ischemic change. EVIDENCE OF ACUTE STROKE: NO. Assessment & Plan - Diagnosis (1) Acute ischemic stroke Is this a current diagnosis for this admission?: Yes Plan: Follow-up MRI of the brain with contrast (2) Coronary artery disease Qualifiers: Coronary Disease-Associated Artery/Lesion type: [place] artery Is this a current diagnosis for this admission?: Yes Plan: Patient does not have anginal symptoms. (3) Seizure disorder Is this a current diagnosis for this admission?: Yes Plan: Patient is in remission. We will start her on her home medication. (4) Fibromyalgia Is this a current diagnosis for this admission?: Yes Plan: Continue her home medications. (5) History of depression and PTSD Is this a current diagnosis for this admission?: Yes Plan: Continue her home medications. (6) Morbid obesity with BMI of 40.0-44.9, adult Is this a current diagnosis for this admission?: Yes Plan: Lifestyle modification advised.
[2018-08-17] MEDS: ENOXAPARIN SODIUM INJ 40 MG/0.4 ML DISP.SYRIN SUBCUT SCH (17:48)
[2018-08-17] MEDS: ATORVASTATIN CALCIUM 80 MG TABLET PO SCH (21:34)
[2018-08-18] MEDS: ASPIRIN 81 MG TABLET, CHEWABLE PO SCH (09:05)
[2018-08-18] MEDS: CLOPIDOGREL BISULFATE 75 MG TABLET PO SCH (09:05)
[2018-08-18] MEDS: LEVETIRACETAM 500 MG TABLET PO SCH (09:05)
[2018-08-18] MEDS: ONDANSETRON HCL INJ/PF 4 MG/2 ML SDV IV PRN (09:08)
[2018-08-18 12:53] VITALS: BP 115/60
--- NOTE | 2018-08-18 13:42 | PDOC TRANSFER SUMMARY ---
General - Admit/Disc Date/PCP Admission Date/Primary Care Provider: 08/15/18 16:54 ELIZABETH ROMERO, Discharge Date: 08/18/18 - Discharge Diagnosis (1) Acute ischemic stroke Is this a current diagnosis for this admission?: Yes Summary: The patient initially presented to the hospital on October 13. She reported decreased function of her right leg and right hand. She also had difficulty swallowing. Despite no acute findings on imaging studies clinically she experienced dysfunction consistent with stroke. Plavix has been added to her aspirin therapy (more for coronary artery disease). She will need ongoing physical therapy. She would also benefit from ongoing speech therapy. She is on a mechanical soft diet with thin liquids. Speech therapy was going to follow her several times a week to continue to monitor swallow function and consider advancing diet if appropriate. Home health with physical therapy and speech therapy have been ordered. (2) Coronary artery disease Is this a current diagnosis for this admission?: Yes Summary: The patient does have a history of coronary disease. She did not exhibit any chest pain during her stay. As noted above she is now on aspirin and Plavix. Her atorvastatin is now 80 mg daily. (3) Fibromyalgia Is this a current diagnosis for this admission?: Yes Summary: The patient will return to her previous medication regimen. Physical therapy will also help. (4) History of depression and PTSD Is this a current diagnosis for this admission?: Yes Summary: No changes in her medication regimen have taken place. (5) Seizure disorder Is this a current diagnosis for this admission?: Yes Summary: Continue Keppra. No seizure activity noted during her hospitalization. (6) Morbid obesity with BMI of 40.0-44.9, adult Is this a current diagnosis for this admission?: Yes Summary: The patient reports having had a gastric bypass. With her history of coronary disease she should be on a low-fat low-salt diet. She was also on a controlled carbohydrate diet at this facility. Because it is unlikely she will achieved an exercise level adequate for weight loss her weight management should be through diet. (7) Constipation Is this a current diagnosis for this admission?: Yes Summary: The patient has not had a bowel movement for several days. Unfortunately the hospital does not carry lubiprostone or Relistor. When she is back on her previous bowel regimen this should resolve. - Additional Information Resuscitation Status: Full Code Discharge Diet: Cardiac, Diabetic, Other (Comments) - Mechanical soft with thin liquids Discharge Activity: Other - Patient requires physical therapy and speech therapy. Advance activity based on physical therapy recommendations. Prescriptions: Atorvastatin Calcium [Lipitor 80 mg Tablet] 80 mg PO QHS 30 Days #30 tablet Clopidogrel Bisulfate [Plavix 75 mg Tablet] 75 mg PO DAILY 30 Days #30 tablet Home Medications: Acetaminophen with Codeine [Tylenol #3 Tablet] 1 each PO Q12 03/09/18 Albuterol Sulfate [Albuterol Sulfate 2.5mg/3 mL] 1 vial IH Q6HP PRN 03/09/18 Amitriptyline HCl 50 mg PO QHS 03/09/18 Aspirin [Aspirin 81 mg Chewable Tablet] 81 mg PO DAILY 03/09/18 Cetirizine HCl [Zyrtec Oral Soln 5 mg/5 ml Udcup] 10 mg PO DAILY 03/09/18 Diazepam [Valium 5 mg Tablet] 10 mg PO QHS 03/09/18 Esomeprazole Magnesium [Nexium] 40 mg PO DAILY 03/09/18 Fluoxetine HCl [Prozac] 80 mg PO DAILY 03/09/18 Fluticasone Propionate [Flonase Nasal Bradford 50 Mcg/[place] 16 gm] 1 spray NASL Q12 03/09/18 Fluticasone/Salmeterol [Advair 250-50 Diskus 28 dose] 1 inh IH Q12 03/09/18 Levetiracetam [Keppra] 500 mg PO Q12 03/09/18 Lubiprostone [Amitiza 8 Mcg Capsule] 8 mcg PO BID 03/09/18 Methylphenidate HCl [Ritalin] 10 mg PO DAILY@08,12 03/09/18 Polyethylene Glycol 3350 [Miralax Powder 17 gm/Packet] 1 packet PO DAILYP PRN 03/09/18 Sucralfate [Carafate Susp 1 gm/10 ml Udcup] 1 gm PO ACHS 03/09/18 Thiamine Mononitrate (Vit B1) [Vitamin B-1] 100 mg PO DAILY 03/09/18 Trazodone HCl [Desyrel] 100 mg PO QHS 03/09/18 Albuterol Sulfate [Ventolin Hfa 8 gm Mdi (1 Mdi/ER Disp)] 2 puff IH BID 08/16/18 Cholecalciferol (Vitamin D3) [Vitamin D3 1000 Unit Tablet] 2,000 unit PO DAILY 08/16/18 Diazepam [Valium] 5 mg PO DAILYP PRN 08/16/18 Fluconazole [Diflucan] 150 mg PO DAILY 08/16/18 Meclizine HCl [Antivert 25 mg Tablet] 25 mg PO TID PRN 08/16/18 Acetaminophen [Tylenol 650 mg Supp] 650 mg IA Q6HP PRN supp.rect 08/18/18 Aspirin [Aspirin 81 mg Chewable Tablet] 81 mg PO DAILY tab.chew 08/18/18 Atorvastatin Calcium [Lipitor 80 mg Tablet] 80 mg PO QHS 30 Days #30 tablet 08/18/18 Clopidogrel Bisulfate [Plavix 75 mg Tablet] 75 mg PO DAILY 30 Days #30 tablet 08/18/18 Levetiracetam [Keppra 500 mg Tablet] 500 mg PO Q12 tablet 08/18/18 History of Present Illness Admission Date/PCP: 08/15/18 16:54 ELIZABETH ROMERO DO Patient complains of: New onset right-sided weakness History of Present Illness: THERESA MEJIA is a 58 year old female with a history of stroke as well as coronary artery disease, fibromyalgia, degenerative disc disease with fusion surgery, PTSD and depression. She was at the [facility] assisted living facility when she noticed decreased function of her right leg and right hand. She was transported to the emergency department. Workup did not reveal any new findings. Imaging included CT scan of the head, CT angiogram of the head and neck as well as several other studies. They also noted some difficulty with swallowing. The patient was referred to the hospital service for admission. Hospital Course Hospital Course: The patient had a fairly benign hospital course. Please see above. Speech therapy saw the patient and felt that she could advance to a mechanical soft diet with thin liquids. Physical therapy is working with the patient but she will need ongoing physical therapy as an outpatient. As noted above her diet is mechanical soft and should stick to cardiac and consistent carbohydrate limitations. Please see the above medication list for medications at discharge. Physical Exam Vital Signs: Temp Pulse Resp BP Pulse Ox 98.0 F 67 18 115/60 93 08/18/18 11:40 08/18/18 11:40 08/18/18 11:40 08/18/18 11:40 08/18/18 11:40 Intake & Output 08/17/18 08/18/18 08/19/18 06:59 06:59 06:59 Intake Total 2191 650 Balance 2191 650 Weight 115.7 kg 115.3 kg General appearance: PRESENT: no acute distress, cooperative, obese, well- developed Head exam: PRESENT: normocephalic Ear exam: PRESENT: normal external ear exam Mouth exam: PRESENT: moist Neck exam: ABSENT: full ROM - Decreased range of motion from previous cervical spine surgery Respiratory exam: PRESENT: clear to auscultation meron, symmetrical, unlabored. ABSENT: rales, rhonchi, wheezes Cardiovascular exam: PRESENT: RRR, +S1, +S2 GI/Abdominal exam: PRESENT: hypoactive bowel sounds, soft. ABSENT: tenderness Rectal exam: PRESENT: deferred Extremities exam: PRESENT: pedal edema Neurological exam: PRESENT: alert, awake, oriented to person, oriented to place, oriented to situation, other - Slight dysarthria Psychiatric exam: PRESENT: flat affect. ABSENT: agitated, anxious Focused psych exam: ABSENT: delusional, restlessness Results Laboratory Results: 08/16/18 05:08 08/16/18 05:08 08/15/18 14:40 Troponin I < 0.012 Impressions: Lumbar Spine CT 08/15/18 12:13 IMPRESSION: No acute fracture at the lumbar spine. Thoracic Spine CT 08/15/18 12:13 IMPRESSION: Old post fusion changes at T11-12. Otherwise unremarkable study Head CT 08/15/18 13:53 IMPRESSION: NO ACUTE INTRACRANIAL IMAGING FINDINGS. EVIDENCE OF ACUTE STROKE: NO. Head CTA 08/15/18 14:24 IMPRESSION: NORMAL CTA OF THE EXTRA-CRANIAL AND INTRACRANIAL CAROTID AND VERTEBRAL ARTERIES. Neck CTA 08/15/18 14:24 IMPRESSION: NORMAL CTA OF THE EXTRA-CRANIAL AND INTRACRANIAL CAROTID AND VERTEBRAL ARTERIES. KUB X-Ray 08/16/18 12:21 IMPRESSION: Nonobstructive bowel gas pattern Head MRI 08/17/18 00:00 IMPRESSION: Benign left frontal venous angioma. Minimal gliosis along perivascular spaces in the hemispheric white matter. No MRI evidence for acute ischemic change. EVIDENCE OF ACUTE STROKE: NO. Transfer Plan - Disposition Transfer Plan: Patient will return to [facility] with home health for ongoing physical and speech therapy. - Time Spent with Patient Time spent with patient: Greater than 30 Minutes Qualifiers - * PATIENT BEING DISCHARGED WITH ANY OF THE FOLLOWING DIAGNOSIS: Stroke Stroke Pt being discharged on Anti-thrombolytic therapy?: Yes Stroke Pt being discharged on Anti-coagulation therapy?: No Reason(s) for not prescribing Anti-coagulation therapy:: Medical Contraindication - High fall risk Stroke Pt being discharged on Statins?: Yes
== END 2018-08-18 14:39 | DRG 65 ==
LOC: ER 11:37 → EH 16:54 → 3N 19:00
PROVIDERS: ADMIT Internal Medicine; ATTEND Internal Medicine
DX: I63.9 Cerebral infarction, unspecified (principal); Z68.41 Body mass index [BMI] 40.0-44.9, adult; G81.91 Hemiplegia, unspecified affecting right dominant side; I25.10 Atherosclerotic heart disease of native coronary artery without angina pectoris; M79.7 Fibromyalgia; F32.9 Major depressive disorder, single episode, unspecified; F43.10 Post-traumatic stress disorder, unspecified; G40.909 Epilepsy, unspecified, not intractable, without status epilepticus; E66.01 Morbid (severe) obesity due to excess calories; K59.00 Constipation, unspecified; E78.5 Hyperlipidemia, unspecified; G47.30 Sleep apnea, unspecified; E11.9 Type 2 diabetes mellitus without complications; M19.90 Unspecified osteoarthritis, unspecified site; R29.810 Facial weakness; I25.2 Old myocardial infarction; Z79.02 Long term (current) use of antithrombotics/antiplatelets; Z98.84 Bariatric surgery status; Z79.899 Other long term (current) drug therapy; Z99.81 Dependence on supplemental oxygen; Z90.49 Acquired absence of other specified parts of digestive tract; Z90.710 Acquired absence of both cervix and uterus; Z79.82 Long term (current) use of aspirin; Z79.891 Long term (current) use of opiate analgesic; Z88.8 Allergy status to other drugs, medicaments and biological substances; Z91.048 Other nonmedicinal substance allergy status
CPT/HCPCS: 36415; 70450; 70496; 70498; 70551; 70553; 72128; 72131; 74018; 80053; 80061; 82962; 83036; 84484; 85025; 85610; 85730; 93306; 96374; 96375; 99291; A9576; J1200; J1650; J1953; J2405; J2930; J3490; J7030; J7060; S0028

== ENCOUNTER 2018-09-07 10:28 | Emergency (ER) | payer MEDICARE, MEDICAID ==
--- NOTE | 2018-09-07 11:01 | ER Document Report ---
ED General - General Chief Complaint: Probable Seizure Stated Complaint: POSSIBLE SEIZURE Time Seen by Provider: 09/07/18 10:33 Primary Care Provider: ELIZABETH ROMERO DO [NO LOCAL MD] - Follow up as needed TRAVEL OUTSIDE OF THE [place] IN LAST 30 DAYS: No - HPI Patient complains to provider of: Difficulty breathing possible seizure Notes: Patient is coming from [facility] with a history of Parkinson's disease CHF COPD seizure disorder diabetes for difficulty in breathing. Patient per EMS upon their arrival was having whole look to be absence seizure staring off fluttering her eyes therefore was given 2.5 mg of Versed x2 patient was then found to have an SPO2 of 88 therefore a nonrebreather was placed and the patient patient was transported to the ER for further evaluation. Upon my evaluation initially of obtaining report from EMS patient did have her eyes open. Upon approaching the patient she did not close her eyes upon attempting to open her eyes using her right hand patient continued to keep her eyes shut as the patient does have a seizure history is concerned patient may be having a seizure therefore painful stimuli was applied to the patient's chest to which the patient then began to respond. Patient states that she took her medication this morning otherwise had to have a significant other, and give her her medication yesterday. Patient denies any chest pain head pain abdominal pain nausea vomiting. Patient otherwise at this time denies any shortness of breath or difficulty in breathing. - Related Data Allergies/Adverse Reactions: silicone [Silicone] Allergy (Intermediate, Verified 09/07/18 11:02) REDNESS, RASH carbidopa [From Sinemet] Adverse Reaction (Severe, Verified 09/07/18 11:02) Cardiac arrest levodopa [From Sinemet] Adverse Reaction (Severe, Verified 09/07/18 11:02) Cardiac arrest Past Medical History - Social History Smoking Status: Unknown if Ever Smoked Family History: Reviewed & Not Pertinent - Past Medical History Cardiac Medical History: Reports: Hx Heart Attack - CARDIAC ARREST R/T DRUG REACTION(SINEMET), Hx Hypercholesterolemia Denies: Hx Hypertension Pulmonary Medical History: Reports: Hx Asthma, Hx Bronchitis, Hx Pneumonia - MARCH 2015, Hx Sleep Apnea - On home CPAP Denies: Hx COPD Neurological Medical History: Reports: Hx Cerebrovascular Accident, Hx Migraine, Hx Seizures - UNSURE OF ETIOLOGY, conversion disorder Endocrine Medical History: Reports: Hx Diabetes Mellitus Type 2 Renal/ Medical History: Reports: Hx Kidney Stones. Denies: Hx Peritoneal Dialysis GI Medical History: Reports: Hx Hiatal Hernia - DX 30 YEARS AGO, Hx Ulcer - after gastric by pass, surg repaired Musculoskeletal Medical History: Reports Hx Arthritis - OSTEOARTHRITIS, Reports Hx Fibromyalgia Psychiatric Medical History: Reports: Hx Anxiety, Hx Attention Deficit Hyperactivity Disorder, Hx Depression, Hx Post Traumatic Stress Disorder Past Surgical History: Reports: Hx Abdominal Surgery - gastric bypass, Hx Cholecystectomy, Hx Gastric Bypass Surgery, Hx Hysterectomy, Hx Orthopedic Surg fuad - back/spinal surgery, Hx Tubal Ligation - Immunizations Immunizations up to date: Yes Hx Diphtheria, Pertussis, Tetanus Vaccination: Yes - up to date within last 5 yrs Hx Pneumococcal Vaccination: 03/31/14 Review of Systems - Review of Systems Constitutional: No symptoms reported EENT: No symptoms reported Cardiovascular: No symptoms reported Respiratory: Short of breath Gastrointestinal: No symptoms reported Genitourinary: No symptoms reported Female Genitourinary: No symptoms reported Musculoskeletal: No symptoms reported Skin: No symptoms reported Hematologic/Lymphatic: No symptoms reported Neurological/Psychological: Seizure -: Yes All other systems reviewed and negative Physical Exam - Vital signs Vitals: Temp Resp BP Pulse Ox 98.7 F 17 125/79 92 09/07/18 10:33 09/07/18 10:33 09/07/18 10:33 09/07/18 10:33 Interpretation: Normal - General General appearance: Appears well, Alert - HEENT Head: Normocephalic, Atraumatic Eyes: Normal Pupils: PERRL - Respiratory Respiratory status: No respiratory distress Chest status: Nontender Breath sounds: Normal Chest palpation: Normal - Cardiovascular Rhythm: Regular Heart sounds: Normal auscultation Murmur: No - Abdominal Inspection: Normal, Obese Distension: No distension Bowel sounds: Normal Tenderness: Nontender Organomegaly: No organomegaly - Back Back: Normal, Nontender - Extremities General upper extremity: Normal inspection, Nontender, Normal color, Normal ROM, Normal temperature General lower extremity: Normal inspection, Nontender, Normal color, Normal ROM, Normal temperature, Normal weight bearing. No: Guido's sign - Neurological Neuro grossly intact: Yes Cognition: Normal Orientation: AAOx4 Stan Coma Scale Eye Opening: Spontaneous Stan Coma Scale Verbal: Oriented [place] Coma Scale Motor: Obeys Commands Stan Coma Scale Total: 15 Speech: Normal Motor strength normal: LUE, RUE, LLE, RLE Sensory: Normal - Psychological Associated symptoms: Normal affect, Normal mood - Skin Skin Temperature: Warm Skin Moisture: Dry Skin Color: Normal Course - Re-evaluation Re-evalutation: 09/07/18 11:00 At this time patient has coarse lung sounds will obtain chest x-ray will obtain a head CT for further evaluation of patient's possible seizures. We will give the patient a dose of Keppra. Patient at this time is not requiring supplemen ivelisse oxygen. 09/07/18 11:01 Patient EKG shows normal sinus rhythm with a rate of 80 NV duration of 168 QRS duration of 90 QT QTc is 404 466. There is no T wave inversions no ST segment elevations no ST segment depressions. Compared to previous EKG from 06/24/2018 no acute changes. 09/07/18 16:55 Patient reevaluated multiple times no signs of hypoxia. Patient did not require any oxygen laboratory studies chest x-ray not show any critical pathology no signs of fluid overload state. Patient did not have any seizure activity while here in the ER. Patient was discharged back to her primary residents given a prescription for Mucinex and bronchodilator therapy - Vital Signs Vital signs: Temp Pulse Resp BP Pulse Ox 97.9 F 15 109/82 98 09/07/18 16:01 09/07/18 16:01 09/07/18 16:01 09/07/18 16:01 - Laboratory Result Diagrams: 09/07/18 10:38 09/07/18 10:38 Laboratory results interpreted by me: 09/07/18 09/07/18 09/07/18 10:38 10:38 10:38 RDW 14.5 H PT 10.5 L Creatinine 0.51 L Glucose 116 H Urine Urobilinogen 09/07/18 13:32 RDW PT Creatinine Glucose Urine Urobilinogen 2.0 H Discharge - Discharge Clinical Impression: Morbid obesity, Cough, Seizure disorder Dyspnea Qualifiers: Dyspnea type: unspecified Qualified Code(s): R06.00 - Dyspnea, unspecified Condition: Good Disposition: HOME, SELF-CARE Instructions: Dyspnea, Nonspecific ([facility]), Seizure, Known Epileptic ([facility]) Additional Instructions: Your laboratory studies not show any signs of acute infection or any critical pathology at this time. Chest x-ray is clear no signs of CHF exacerbation no signs of a pneumonia. He had slight wheezing lung monte upon arrival I recommend continue with bronchodilator therapy albuterol treatment every 2-4 hours as needed for shortness of breath. Also recommend using Mucinex to help with cough. Patient was given 1 g of Keppra here no seizure activity was seen during her stay here in the ER. We recommend patient follow-up with her neurologist and primary care physician. Prescriptions: Albuterol Sulfate [Ventolin 0.083% Neb 2.5 mg/3 mL Ampul] 2.5 mg NEB Q4 #30 vial.neb Guaifenesin [Mucinex] 1,200 mg PO BID #30 tab.er.12h Referrals: ELIZABETH ROMERO DO [NO LOCAL MD] - Follow up as needed
[2018-09-07] MEDS ORDERED: LEVETIRACETAM 1000 MG/NACL-ISO 1,000 MG/100 ML RTUPB IV ONE (11:02)
[2018-09-07 11:05] LABS: ABSOLUTE EOSINOPHILS # (AUTO) 0.2 10^3/uL (0.0-0.6); ABSOLUTE LYMPHOCYTES (AUTO) 0.8 10^3/uL (0.5-4.7); ABSOLUTE MONOCYTES (AUTO) 0.6 10^3/uL (0.1-1.4); ABSOLUTE NEUT (AUTO) 4.4 10^3/uL (1.7-8.2); BASOPHILS % (AUTO) 0.4 % (0-2); EOSINOPHILS % (AUTO) 3.2 % (0-6); HEMATOCRIT 39.1 % (36.0-47.0); HEMOGLOBIN 13.2 g/dL (12.0-15.5); LYMPHOCYTES % (AUTO) 13.9 % (13-45); MEAN CORPUSCULAR HEMOGLOBIN 30.1 pg (27.0-33.4); MEAN CORPUSCULAR HGB CONC 33.9 g/dL (32.0-36.0); MEAN CORPUSCULAR VOLUME 89 fl (80-97); MONOCYTES % (AUTO) 9.2 % (3-13); PLATELET COUNT 190 10^3/uL (150-450); RED CELL DISTRIBUTION WIDTH 14.5 % (11.5-14.0); SEGMENTED NEUTROPHILS % (AUTO) 73.3 % (42-78); TOTAL CELLS COUNTED % (AUTO) 100 %
[2018-09-07 11:12] LABS: INTERNATIONAL RATION (INR) 0.71; PROTHROMBIN TIME 10.5 SEC (11.4-15.4)
[2018-09-07 11:25] LABS: ALANINE AMINOTRANSFERASE 34 U/L (9-52); ALBUMIN 4.2 g/dL (3.5-5.0); ALKALINE PHOSPHATASE 111 U/L (38-126); ANION GAP 9 (5-19); ASPARTATE AMINO TRANSFERASE 28 U/L (14-36); BILIRUBIN,DIRECT 0.1 mg/dL (0.0-0.4); BILIRUBIN,TOTAL 0.4 mg/dL (0.2-1.3); BLOOD UREA NITROGEN 9 mg/dL (7-20); CALCIUM 9.5 mg/dL (8.4-10.2); CARBON DIOXIDE 26 mmol/L (22-30); CHLORIDE 103 mmol/L (98-107); GLUCOSE 116 mg/dL (75-110); LIPASE 77.3 U/L (23-300); POTASSIUM 4.3 mmol/L (3.6-5.0); SODIUM 137.9 mmol/L (137-145)
[2018-09-07 11:34] LABS: NT PRO BNP 41 pg/mL (5-900)
[2018-09-07 11:37] LABS: TROPONIN I < 0.012 ng/mL
--- NOTE | 2018-09-07 12:00 | RADIOLOGY REPORT (SQ) ---
EXAM DESCRIPTION: CHEST SINGLE VIEW COMPLETED DATE/TIME: 09/07/2018 11:42 am REASON FOR STUDY: sob COMPARISON: 06/24/2018 EXAM PARAMETERS: NUMBER OF VIEWS: One view. TECHNIQUE: Single frontal radiographic view of the chest acquired. RADIATION DOSE: NA LIMITATIONS: None. FINDINGS: LUNGS AND PLEURA: Low lung volumes. No opacities, masses or pneumothorax. No pleural eff usion. MEDIASTINUM AND HILAR STRUCTURES: No masses. Contour normal. HEART AND VASCULAR STRUCTURES: Heart normal in size. Normal vasculature. BONES: No acute findings. HARDWARE: None in the chest. OTHER: Hardware anterior fusion mid lower cervical spine, stable finding. IMPRESSION: 1. No significant interval changes since the prior study dated 06/24/2018. No acute fi ndings. TECHNICAL DOCUMENTATION: JOB ID: [id number] [email or web address]- All Rights Reserved Reading location - IP/workstation name: [email or web address]
--- NOTE | 2018-09-07 12:04 | RADIOLOGY REPORT (SQ) ---
EXAM DESCRIPTION: CT HEAD WITHOUT COMPLETED DATE/TIME: 09/07/2018 11:51 am REASON FOR STUDY: possible seizure activity COMPARISON: 08/15/2018. TECHNIQUE: Axial images acquired through the brain without intravenous contrast. Images reviewed wi th bone, brain and subdural windows. Additional sagittal and coronal reconstructions were generated. Images stored on PACS. All CT scanners at this facility use dose modulation, iterative reconstruction, and/or weight based d osing when appropriate to reduce radiation dose to as low as reasonably achievable (ALARA). [facility]: Dose Right [facility]: CareDose [facility]: Dose Right [facility]: Teradose 4D [facility]: Reppify RADIATION DOSE: CT Rad equipment meets quality standard of care and radiation dose reduction techniq ues were employed. CTDIvol: 53.2 mGy. DLP: 1044 mGy-cm. mGy. LIMITATIONS: None. FINDINGS: VENTRICLES: Normal size and contour. CEREBRUM: No masses. No hemorrhage. No midline shift. No evidence for acute infarction. Normal gra y/white matter differentiation. No areas of low density in the white matter. CEREBELLUM: No masses. No hemorrhage. No alteration of density. No evidence for acute infarction. EXTRAAXIAL SPACES: No fluid collections. No masses. ORBITS AND GLOBE: No intra- or extraconal masses. Normal contour of globe without masses. CALVARIUM: No fracture. PARANASAL SINUSES: No fluid or mucosal thickening. SOFT TISSUES: No mass or hematoma. OTHER: No other significant finding. IMPRESSION: NORMAL BRAIN CT WITHOUT CONTRAST. EVIDENCE OF ACUTE STROKE: NO. COMMENT: Quality ID # [id number]: Final reports with documentation of one or more dose reduction techniques (e.g., Automated exposure control, adjustment of the mA and/or kV according to patient size, use of iterative reconstruction technique) TECHNICAL DOCUMENTATION: JOB ID: [id number] [employer]- All Rights Reserved Reading location - IP/workstation name: [email or web address]
[2018-09-07] MEDS ORDERED: IPRATROPIUM/ALBUTEROL 0.5-2.5 MG/3 ML AMPUL NEB ONE (13:27)
--- NOTE | 2018-09-07 13:36 | EKG REPORT ---
SEVERITY:- OTHERWISE NORMAL ECG - SINUS RHYTHM NONSPECIFIC ST-T CHANGES ANTERIOR LEADS. : Confirmed by: Donald Williamson MD 07-Sep-2018 13:35:37
[2018-09-07 14:06] LABS: VENOUS BLOOD BASE EXCESS 0.8 mmol/L; VENOUS BLOOD HCO3 26.5 mmol/L (20-32); VENOUS BLOOD PCO2 46.3 mmHg (35-63); VENOUS BLOOD PH 7.38 (7.30-7.42)
[2018-09-07 14:16] LABS: APPEARANCE,URINE CLEAR; BILIRUBIN,URINE NEGATIVE (NEGATIVE); COLOR,URINE YELLOW; GLUCOSE, URINE NEGATIVE (NEGATIVE); KETONES,URINE NEGATIVE (NEGATIVE); LEUKOCYTE ESTERASE,URINE NEGATIVE (NEGATIVE); NITRITE,URINE NEGATIVE (NEGATIVE); PROTEIN,URINE NEGATIVE (NEGATIVE); URINE SPECIFIC GRAVITY 1.015
[2018-09-07 16:07] VITALS: BP 109/82
== END 2018-09-07 16:27 | disposition home or self-care (01) ==
LOC: ER 10:28
DX: G40.909 Epilepsy, unspecified, not intractable, without status epilepticus (principal); J45.909 Unspecified asthma, uncomplicated; R06.02 Shortness of breath; R05 Cough; E66.01 Morbid (severe) obesity due to excess calories; G20 Parkinson's disease; E11.9 Type 2 diabetes mellitus without complications; I25.2 Old myocardial infarction; Z98.84 Bariatric surgery status
CPT/HCPCS: 93005; 94640; 99285; 96365; 36415; 87040; 87086; 80177; 82962; 83690; 85025; 85610; 80053; 81001; 84484; 82803; 83605; 83880; 71045; 70450; 93010; J1953; A9270; J7620

== ENCOUNTER 2018-09-12 13:37 | Emergency (ER) | payer MEDICARE, MEDICAID ==
[2018-09-12 14:09] LABS: ABSOLUTE EOSINOPHILS # (AUTO) 0.4 10^3/uL (0.0-0.6); ABSOLUTE LYMPHOCYTES (AUTO) 1.5 10^3/uL (0.5-4.7); ABSOLUTE MONOCYTES (AUTO) 0.8 10^3/uL (0.1-1.4); ABSOLUTE NEUT (AUTO) 6.8 10^3/uL (1.7-8.2); BASOPHILS % (AUTO) 0.3 % (0-2); EOSINOPHILS % (AUTO) 3.8 % (0-6); HEMATOCRIT 34.8 % (36.0-47.0); LYMPHOCYTES % (AUTO) 15.7 % (13-45); MEAN CORPUSCULAR HEMOGLOBIN 30.5 pg (27.0-33.4); MEAN CORPUSCULAR HGB CONC 34.6 g/dL (32.0-36.0); MEAN CORPUSCULAR VOLUME 88 fl (80-97); MONOCYTES % (AUTO) 8.2 % (3-13); PLATELET COUNT 202 10^3/uL (150-450); RED BLOOD COUNT 3.94 10^6/uL (3.72-5.28); RED CELL DISTRIBUTION WIDTH 14.5 % (11.5-14.0); TOTAL CELLS COUNTED % (AUTO) 100 %; WHITE BLOOD COUNT 9.4 10^3/uL (4.0-10.5)
[2018-09-12] MEDS ORDERED: ASPIRIN 81 MG TABLET, CHEWABLE PO ONE (14:16)
[2018-09-12] MEDS ORDERED: IPRATROPIUM/ALBUTEROL 0.5-2.5 MG/3 ML AMPUL NEB ONE (14:16)
[2018-09-12] MEDS ORDERED: MORPHINE SULFATE 10 MG/ML INJ IV ONE (14:16)
[2018-09-12 14:20] LABS: ALANINE AMINOTRANSFERASE 24 U/L (9-52); ALKALINE PHOSPHATASE 110 U/L (38-126); ANION GAP 14 (5-19); ASPARTATE AMINO TRANSFERASE 25 U/L (14-36); BILIRUBIN,DIRECT 0.3 mg/dL (0.0-0.4); BILIRUBIN,TOTAL 0.5 mg/dL (0.2-1.3); BLOOD UREA NITROGEN 9 mg/dL (7-20); CALCIUM 9.7 mg/dL (8.4-10.2); CARBON DIOXIDE 23 mmol/L (22-30); CHLORIDE 103 mmol/L (98-107); CREATINE KINASE 133 U/L (30-135); GLUCOSE 102 mg/dL (75-110); POTASSIUM 3.6 mmol/L (3.6-5.0); SODIUM 139.6 mmol/L (137-145); TOTAL PROTEIN 6.7 g/dL (6.3-8.2)
--- NOTE | 2018-09-12 14:21 | ER Document Report ---
ED General - General Chief Complaint: Palpitations Stated Complaint: HEART RATE ISSUES Time Seen by Provider: 09/12/18 14:00 Primary Care Provider: MELANIE COLON PA [Primary Care Provider] - Follow up in 3-5 days TRAVEL OUTSIDE OF THE [place] IN LAST 30 DAYS: No - HPI Notes: Patient is a 58-year-old female that presents to the emergency department for chief complaint of palpitations. Patient presents by EMS from senior care facility. She states she started having palpitations 2 hours prior to arrival. She describes it as a pounding and thumping sensation on the left side of her chest. She states it seems to radiate into her back. She denies any chest pain and states it feels like her heart is beating hard and fast. She denies associated shortness of breath but does have COPD and states she is not sure if she has had a recent breathing treatment. She denies any associated lightheadedness, nausea, vomiting, abdominal pain and diarrhea. Patient reports history of stroke in the past and states that she has seizures because of her stroke. She denies recent seizure activity. She also states she has had an SC but is not sure when her last stress test or heart catheterization was Past Medical History: SC, stroke, COPD, hypertension, hyperlipidemia Past Surgical History: Gastric bypass Social History: Denies drugs alcohol and tobacco Family History: Reviewed and noncontributory for presenting illness Allergies: Reviewed, see documented allergy list. REVIEW OF SYSTEMS: CONSTITUTIONAL : No fever No chills No diaphoresis No recent illness EENT: No vision changes No congestion No sore throat CARDIOVASCULAR: No chest pain palpitations RESPIRATORY: No shortness of breath cough No difficulty breathing GASTROINTESTINAL: No abdominal pain No nausea No vomiting No diarrhea GENITOURINARY: No dysuria No hematuria No difficulty urinating MUSCULOSKELETAL: No back pain No leg pain No arm pain SKIN: No rashes No lesions LYMPHATIC: No swollen, enlarged glands. NEUROLOGICAL: No lightheadedness No headache No weakness No paresthesias PSYCHIATRIC: No anxiety No depression PHYSICAL EXAMINATION: Vital signs reviewed, nursing noted reviewed. GENERAL: Well-appearing, obese and in no acute distress. HEAD: Atraumatic, normocephalic. EYES: Eyes appear normal, extraocular movements intact, sclera anicteric, conjunctiva are normal. ENT: nares patent, oropharynx clear without exudates. Moist mucous membranes. NECK: Normal range of motion, supple without lymphadenopathy LUNGS: Breath sounds diminished with wheezing bilaterally. No accessory muscle use, respiratory distress, or tachypnea. HEART: Regular rate and rhythm without murmurs. +2/4 bilateral radial and DP pulses ABDOMEN: Soft, nontender, normoactive bowel sounds. No rebound, guarding, or rigidity. No masses appreciated. EXTREMITIES: Nontender, good range of motion. bilateral lower extremity pitting edema, symmetric. NEUROLOGICAL: No focal neurological deficits. Moves all extremities spontaneously Motor and sensory grossly intact on exam. PSYCH: Normal mood, normal affect. SKIN: Warm, Dry, normal turgor, no rashes or lesions noted on exposed skin - Related Data Allergies/Adverse Reactions: silicone [Silicone] Allergy (Intermediate, Verified 09/07/18 11:02) REDNESS, RASH carbidopa [From Sinemet] Adverse Reaction (Severe, Verified 09/07/18 11:02) Cardiac arrest levodopa [From Sinemet] Adverse Reaction (Severe, Verified 09/07/18 11:02) Cardiac arrest Past Medical History - Social History Smoking Status: Unknown if Ever Smoked Family History: Reviewed & Not Pertinent Patient has suicidal ideation: No Patient has homicidal ideation: No - Past Medical History Cardiac Medical History: Reports: Hx Heart Attack - CARDIAC ARREST R/T DRUG REACTION(SINEMET), Hx Hypercholesterolemia Denies: Hx Hypertension Pulmonary Medical History: Reports: Hx Asthma, Hx Bronchitis, Hx Pneumonia - MARCH 2015, Hx Sleep Apnea - On home CPAP Denies: Hx COPD Neurological Medical History: Reports: Hx Cerebrovascular Accident, Hx Migraine, Hx Seizures - UNSURE OF ETIOLOGY, conversion disorder Endocrine Medical History: Reports: Hx Diabetes Mellitus Type 2 Renal/ Medical History: Reports: Hx Kidney Stones. Denies: Hx Peritoneal Dialysis GI Medical History: Reports: Hx Hiatal Hernia - DX 30 YEARS AGO, Hx Ulcer - after gastric by pass, surg repaired Musculoskeletal Medical History: Reports Hx Arthritis - OSTEOARTHRITIS, Reports Hx Fibromyalgia Psychiatric Medical History: Reports: Hx Anxiety, Hx Attention Deficit Hyperactivity Disorder, Hx Depression, Hx Post Traumatic Stress Disorder Past Surgical History: Reports: Hx Abdominal Surgery - gastric bypass, Hx Cholecystectomy, Hx Gastric Bypass Surgery, Hx Hysterectomy, Hx Orthopedic Surgery - back/spinal surgery, Hx Tubal Ligation - Immunizations Immunizations up to date: Yes Hx Diphtheria, Pertussis, Tetanus Vaccination: Yes - up to date within last 5 yrs Hx Pneumococcal Vaccination: 03/31/14 Physical Exam - Vital signs Vitals: Resp 22 H 09/12/18 13:40 Course - Re-evaluation Re-evalutation: 09/12/18 14:19 Vitals reviewed. Nursing notes reviewed. Patient did not receive any medicat ion by EMS in route to the hospital. She did take a baby aspirin earlier today. Patient will be given 162 mg chewable aspirin for her complaint of palpitations. Her EKG shows no acute ischemic changes or dysrhythmia. She is on cardiac nurse practitioner and resting comfortably. She will be given morphine and albuterol for further symptom medic management. 09/12/18 15:02 Patient reevaluated and her wheezing has improved. She states her pain is better after the morphine. She has a history of gastric bypass and states she usually takes Carafate after meals. She is now complaining of some GI upset, s he will be given a dose of the GI cocktail in the ED. Patient's abdominal exam now is still soft with no focal tenderness. I do not feel further workup into her complaint of GI upset is currently indicated. She has not vomited while in the emergency room. She has normal-appearing lab work including no leukocytosis. She has no electrolyte derangements. Patient appears well- hydrated. She has not had any dysrhythmia while on the monitor. She will be discharged home in stable condition. She was encouraged to follow with her primary care provider for close outpatient reevaluation. She will return to the emergency room for new or concerning symptoms. Laboratory 09/12/18 09/12/18 09/12/18 13:42 13:42 13:42 WBC 9.4 RBC 3.94 Hgb 12.0 Hct 34.8 L MCV 88 MCH 30.5 MCHC 34.6 RDW 14.5 H Plt Count 202 Seg Neutrophils % 72.0 Lymphocytes % 15.7 Monocytes % 8.2 Eosinophils % 3.8 Basophils % 0.3 Absolute Neutrophils 6.8 Absolute Lymphocytes 1.5 Absolute Monocytes 0.8 Absolute Eosinophils 0.4 Absolute Basophils 0.0 Sodium 139.6 Potassium 3.6 Chloride 103 Carbon Dioxide 23 Anion Gap 14 BUN 9 Creatinine 0.59 Est GFR ( Amer) > 60 Est GFR (Non-Af Amer) > 60 Glucose 102 Calcium 9.7 Total Bilirubin 0.5 Direct Bilirubin 0.3 Neonat Total Bilirubin Not Reportable Neonat Direct Bilirubin Not Reportable Neonat Indirect Bili Not Reportable AST 25 ALT 24 Alkaline Phosphatase 110 Creatine Kinase 133 CK-MB (CK-2) 1.33 Troponin I < 0.012 Total Protein 6.7 Albumin 4.0 Chest X-Ray 09/12/18 14:15 IMPRESSION: NO ACUTE RADIOGRAPHIC FINDING IN THE CHEST. - Vital Signs Vital signs: Temp Pulse Resp BP Pulse Ox 19 112/63 93 09/12/18 13:47 09/12/18 13:47 09/12/18 13:47 - Laboratory Result Diagrams: 09/12/18 13:42 09/12/18 13:42 Laboratory results interpreted by me: 09/12/18 13:42 Hct 34.8 L RDW 14.5 H - EKG Interpretation by Me Additional EKG results interpreted by me: 09/12/18 14:20 Interpreted by myself 1341: Normal sinus rhythm, rate 85, borderline left axis, no ectopy, no ST elevation, diffuse T wave flattening, no significant change from 09/07/18 Discharge - Discharge Clinical Impression: Heart palpitations, Wheezing Condition: Stable Disposition: HOME, SELF-CARE Instructions: Chronic Obstructive Lung Disease ([facility]), Palpitations (Irregular or Rapid Heartrate) ([facility]) Additional Instructions: Please return to the emergency department if you have any worsening, or concern of your symptoms. Please return to the emergency department if you develop chest pain, difficulty breathing, severe abdominal pain, or ongoing vomiting. Please follow-up with your primary care physician in 2-3 days and any other recommended physicians. If prescribed, take all medications as directed. If you have any questions or concerns do not hesitate to return the emergency department for evaluation. Referrals: MELANIE COLON PA [Primary Care Provider] - Follow up in 3-5 days
[2018-09-12 14:30] LABS: CREATINE KINASE MB 1.33 ng/mL (<4.55)
[2018-09-12 14:31] LABS: TROPONIN I < 0.012 ng/mL
--- NOTE | 2018-09-12 14:54 | RADIOLOGY REPORT (SQ) ---
EXAM DESCRIPTION: CHEST SINGLE VIEW COMPLETED DATE/TIME: 09/12/2018 2:40 pm REASON FOR STUDY: palpitations COMPARISON: 09/07/2018 EXAM PARAMETERS: NUMBER OF VIEWS: One view. TECHNIQUE: Single frontal radiographic view of the chest acquired. RADIATION DOSE: NA LIMITATIONS: None. FINDINGS: LUNGS AND PLEURA: No opacities, masses or pneumothorax. No pleural effusion. MEDIASTINUM AND HILAR STRUCTURES: No masses. Contour normal. HEART AND VASCULAR STRUCTURES: Heart normal in size. Normal vasculature. BONES: No acute findings. HARDWARE: Cervicothoracic junction ACDF hardware. OTHER: No other significant finding. IMPRESSION: NO ACUTE RADIOGRAPHIC FINDING IN THE CHEST. TECHNICAL DOCUMENTATION: JOB ID: [id number] [employer]- All Rights Reserved Reading location - IP/workstation name: [email or web address]
[2018-09-12] MEDS ORDERED: MAG HYDROX/AL HYDROX/SIMETH SUSP 30 ML UDCUP PO ONE (15:00)
[2018-09-12] MEDS ORDERED: METOCLOPRAMIDE HCL ORAL SOLN 10 MG/10 ML UDCUP PO ONE (15:00)
[2018-09-12] MEDS ORDERED: LIDOCAINE 2% VISCOUS SOLN 20 ML UDCUP PO ONE (15:00)
--- NOTE | 2018-09-12 17:25 | EKG REPORT ---
SEVERITY:- BORDERLINE ECG - SINUS RHYTHM BORDERLINE LEFT AXIS DEVIATION NONSPECIFIC ST-T CHANGES- INFERIOR LEADS : Confirmed by: Donald Williamson MD 12-Sep-2018 17:24:20
--- NOTE | 2018-09-12 17:49 | RADIOLOGY REPORT (SQ) ---
EXAM DESCRIPTION: CT HEAD WITHOUT COMPLETED DATE/TIME: 09/12/2018 5:34 pm REASON FOR STUDY: Rule out CVA COMPARISON: Noncontrast head CTs performed 09/07/2018, 08/15/2018, 08/10/2018, 06/27/2018, and 06/11/20 18 as well as MRIs of the brain performed 08/17/2018 and 08/15/2018 TECHNIQUE: Axial images acquired through the brain without intravenous contrast. Images reviewed wi th bone, brain and subdural windows. Additional sagittal and coronal reconstructions were generated. Images stored on PACS. All CT scanners at this facility use dose modulation, iterative reconstruction, and/or weight based d osing when appropriate to reduce radiation dose to as low as reasonably achievable (ALARA). [facility]: Dose Right [facility]: CareDose [facility]: Dose Right [facility]: Teradose 4D [facility]: [employer] [address] [employer] RADIATION DOSE: CT Rad equipment meets quality standard of care and radiation dose reduction techniq ues were employed. CTDIvol: 53.2 mGy. DLP: 1150 mGy-cm. mGy. LIMITATIONS: None. FINDINGS: VENTRICLES: Normal size and contour. CEREBRUM: No masses. No hemorrhage. No midline shift. No evidence for acute infarction. Stable lef t frontal white matter hypoattenuation. CEREBELLUM: No masses. No hemorrhage. No alteration of density. No evidence for acute infarction. EXTRAAXIAL SPACES: No fluid collections. No masses. ORBITS AND GLOBE: No intra- or extraconal masses. Normal contour of globe without masses. CALVARIUM: No fracture. PARANASAL SINUSES: No fluid or mucosal thickening. SOFT TISSUES: No mass or hematoma. OTHER: No other significant finding. IMPRESSION: Stable CT appearance of the brain. No evidence of intracranial hemorrhage or large terr itory ischemic injury. EVIDENCE OF ACUTE STROKE: NO. COMMENT: Quality ID # 436: Final reports with documentation of one or more dose reduction techniques (e.g., Automated exposure control, adjustment of the mA and/or kV according to patient size, use of iterative reconstruction technique) TECHNICAL DOCUMENTATION: JOB ID: [id number] [employer]- All Rights Reserved Reading location - IP/workstation name: [email or web address]
[2018-09-12 18:15] LABS: APPEARANCE,URINE CLEAR; BILIRUBIN,URINE NEGATIVE (NEGATIVE); COLOR,URINE YELLOW; GLUCOSE, URINE NEGATIVE (NEGATIVE); KETONES,URINE 20 mg/dL (NEGATIVE); LEUKOCYTE ESTERASE,URINE NEGATIVE (NEGATIVE); NITRITE,URINE NEGATIVE (NEGATIVE); PROTEIN,URINE NEGATIVE (NEGATIVE); URINE SPECIFIC GRAVITY 1.017
[2018-09-13] MEDS ORDERED: IPRATROPIUM/ALBUTEROL 0.5-2.5 MG/3 ML AMPUL NEB ONE ×2 (00:45→01:51)
[2018-09-13] MEDS ORDERED: METHYLPREDNISOLONE ACETATE INJ 80 MG/1 ML VIAL IM ONE (01:46)
[2018-09-13] MEDS ORDERED: BUDESONIDE NEB 0.5 MG/2 ML AMPUL NEB ONE (01:48)
[2018-09-13 02:28] VITALS: BP 123/64
== END 2018-09-13 02:50 | disposition home or self-care (01) ==
LOC: ER 13:37
DX: R00.2 Palpitations (principal); J45.909 Unspecified asthma, uncomplicated; R20.0 Anesthesia of skin; R05 Cough; E11.9 Type 2 diabetes mellitus without complications; I10 Essential (primary) hypertension; I25.2 Old myocardial infarction; K25.9 Gastric ulcer, unspecified as acute or chronic, without hemorrhage or perforation; Z79.899 Other long term (current) drug therapy; Z86.73 Personal history of transient ischemic attack (TIA), and cerebral infarction without residual deficits; Z98.84 Bariatric surgery status; Z87.01 Personal history of pneumonia (recurrent)
CPT/HCPCS: 93005; 94640 ×2; 99285; 96372; 96374; 36415; 82553; 82962; 82550; 85025; 80053; 81001; 84484; 71045; 70450; 93010; A9270 ×4; J3490; J1040; J2270; J7620

== ENCOUNTER 2018-09-13 10:19 | Emergency (ER) | payer MEDICARE, MEDICAID ==
[2018-09-13] MEDS ORDERED: IPRATROPIUM/ALBUTEROL 0.5-2.5 MG/3 ML AMPUL NEB ONE (11:10)
[2018-09-13 11:46] LABS: ARTERIAL BLOOD BASE EXCESS 1.5 mmol/L; ARTERIAL BLOOD H2CO3 1.27 mmol/L (1.05-1.35); ARTERIAL BLOOD HCO3 26.3 mmol/L (20-24); ARTERIAL BLOOD O2 SATURATION 90.8 % (94-98); ARTERIAL BLOOD PCO2 42.1 mmHg (35-45); ARTERIAL BLOOD PH 7.41 (7.35-7.45); ARTERIAL BLOOD PO2 58.7 mmHg (80-100); ARTERIAL BLOOD TOTAL CO2 27.6 mmol/L (21-25)
[2018-09-13 11:47] LABS: ARTERIAL BLOOD FIO2 2L
--- NOTE | 2018-09-13 12:12 | RADIOLOGY REPORT (SQ) ---
EXAM DESCRIPTION: CHEST SINGLE VIEW COMPLETED DATE/TIME: 09/13/2018 12:02 pm REASON FOR STUDY: dyspnea COMPARISON: None. EXAM PARAMETERS: NUMBER OF VIEWS: One view. TECHNIQUE: Single frontal radiographic view of the chest acquired. RADIATION DOSE: NA LIMITATIONS: None. FINDINGS: LUNGS AND PLEURA: No opacities, masses or pneumothorax. No pleural effusion. MEDIASTINUM AND HILAR STRUCTURES: No masses. Contour normal. HEART AND VASCULAR STRUCTURES: Heart normal in size. Central pulmonary vasculature is accentuated du e to low lung volumes. BONES: No acute findings. HARDWARE: None in the chest. Incompletely visualized spinal fusion hardware the cervical spine and l umbar spine. OTHER: No other significant finding. IMPRESSION: NO ACUTE RADIOGRAPHIC FINDING IN THE CHEST. TECHNICAL DOCUMENTATION: JOB ID: [id number] [employer]- All Rights Reserved Reading location - IP/workstation name: [email or web address]
[2018-09-13 12:31] LABS: INTERNATIONAL RATION (INR) 0.92; PROTHROMBIN TIME 12.8 SEC (11.4-15.4)
[2018-09-13 12:32] LABS: ABSOLUTE EOSINOPHILS # (AUTO) 0.3 10^3/uL (0.0-0.6); ABSOLUTE LYMPHOCYTES (AUTO) 0.9 10^3/uL (0.5-4.7); ABSOLUTE MONOCYTES (AUTO) 0.5 10^3/uL (0.1-1.4); ABSOLUTE NEUT (AUTO) 5.3 10^3/uL (1.7-8.2); BASOPHILS % (AUTO) 0.4 % (0-2); HEMATOCRIT 35.9 % (36.0-47.0); HEMOGLOBIN 12.2 g/dL (12.0-15.5); LYMPHOCYTES % (AUTO) 12.8 % (13-45); MEAN CORPUSCULAR HEMOGLOBIN 30.3 pg (27.0-33.4); MEAN CORPUSCULAR HGB CONC 34.1 g/dL (32.0-36.0); MEAN CORPUSCULAR VOLUME 89 fl (80-97); MONOCYTES % (AUTO) 6.7 % (3-13); PARTIAL THROMBOPLASTIN TIME 28.3 SEC (23.5-35.8); PLATELET COUNT 208 10^3/uL (150-450); RED BLOOD COUNT 4.04 10^6/uL (3.72-5.28); RED CELL DISTRIBUTION WIDTH 14.9 % (11.5-14.0); SEGMENTED NEUTROPHILS % (AUTO) 75.1 % (42-78); TOTAL CELLS COUNTED % (AUTO) 100 %
[2018-09-13 12:35] LABS: ALANINE AMINOTRANSFERASE 33 U/L (9-52); ALKALINE PHOSPHATASE 103 U/L (38-126); ANION GAP 10 (5-19); ASPARTATE AMINO TRANSFERASE 25 U/L (14-36); BILIRUBIN,DIRECT 0.3 mg/dL (0.0-0.4); BILIRUBIN,TOTAL 0.4 mg/dL (0.2-1.3); BLOOD UREA NITROGEN 8 mg/dL (7-20); CALCIUM 9.6 mg/dL (8.4-10.2); CARBON DIOXIDE 26 mmol/L (22-30); CHLORIDE 104 mmol/L (98-107); CREATINE KINASE 83 U/L (30-135); GLUCOSE 95 mg/dL (75-110); POTASSIUM 4.4 mmol/L (3.6-5.0); SODIUM 140.3 mmol/L (137-145); TOTAL PROTEIN 6.6 g/dL (6.3-8.2)
[2018-09-13 12:46] LABS: CREATINE KINASE MB 0.91 ng/mL (<4.55); NT PRO BNP 105 pg/mL (5-900)
[2018-09-13 12:48] LABS: TROPONIN I < 0.012 ng/mL
--- NOTE | 2018-09-13 15:57 | ER Document Report ---
ED General - General Chief Complaint: Breathing Difficulty Stated Complaint: WEAKNESS Time Seen by Provider: 09/13/18 10:27 Primary Care Provider: MELNAIE COLON PA [Primary Care Provider] - Follow up as needed TRAVEL OUTSIDE OF THE [place] IN LAST 30 DAYS: No - HPI Notes: Patient is a morbidly obese 58-year-old female with multiple medical issues comes in for evaluation. She states that she was told she was supposed to be on oxygen therapy. She woke up this morning, was asymptomatic. 1 of the caretakers at [facility] checked her oxygen it was found to be 77%. EMS was called. Patient comes here stating that she still feels slightly short of breath but much improved after being on oxygen therapy. She has been wheezing but has a history of asthma. She denies any fevers or chills. She has had a cough over the last several weeks but it seems to be chronic per her. No nausea or vomiting. Eating and drinking normally. Taking medications as prescribed. Patient also states that she is having right-sided numbness. This is not a new symptom for her. She believes it is secondary to her neck and back problems. She denies any weakness. Has been evaluated for this multiple times in the past. - Related Data Allergies/Adverse Reactions: silicone [Silicone] Allergy (Intermediate, Verified 09/13/18 22:21) REDNESS, RASH carbidopa [From Sinemet] Adverse Reaction (Severe, Verified 09/13/18 22:21) Cardiac arrest levodopa [From Sinemet] Adverse Reaction (Severe, Verified 09/13/18 22:21) Cardiac arrest Past Medical History - General Information source: Patient - Social History Smoking Status: Former Smoker Frequency of alcohol use: None Drug Abuse: None Family History: Reviewed & Not Pertinent Patient has suicidal ideation: No Patient has homicidal ideation: No - Past Medical History Cardiac Medical History: Reports: Hx Heart Attack - CARDIAC ARREST R/T DRUG REACTION(SINEMET), Hx Hypercholesterolemia Denies: Hx Hypertension Pulmonary Medical History: Reports: Hx Asthma, Hx Bronchitis, Hx Pneumonia - MARCH 2015, Hx Sleep Apnea - On home CPAP Denies: Hx COPD Neurological Medical History: Reports: Hx Cerebrovascular Accident, Hx Migraine, Hx Seizures - UNSURE OF ETIOLOGY, conversion disorder Endocrine Medical History: Reports: Hx Diabetes Mellitus Type 2 Renal/ Medical History: Reports: Hx Kidney Stones. Denies: Hx Peritoneal Dialysis GI Medical History: Reports: Hx Hiatal Hernia - DX 30 YEARS AGO, Hx Ulcer - after gastric by pass, surg repaired Musculoskeletal Medical History: Reports Hx Arthritis - OSTEOARTHRITIS, Reports Hx Fibromyalgia Psychiatric Medical History: Reports: Hx Anxiety, Hx Attention Deficit Hyperactivity Disorder, Hx Depression, Hx Post Traumatic Stress Disorder Past Surgical History: Reports: Hx Abdominal Surgery - gastric bypass, Hx Cholecystectomy, Hx Gastric Bypass Surgery, Hx Hysterectomy, Hx Orthopedic Surgery - back/spinal surgery, Hx Tubal Ligation - Immunizations Immunizations up to date: Yes Hx Diphtheria, Pertussis, Tetanus Vaccination: Yes - up to date within last 5 yrs Hx Pneumococcal Vaccination: 03/31/14 Review of Systems - Review of Systems Constitutional: No symptoms reported EENT: No symptoms reported Cardiovascular: No symptoms reported Respiratory: See HPI Gastrointestinal: No symptoms reported Genitourinary: No symptoms reported Musculoskeletal: See HPI Skin: No symptoms reported Neurological/Psychological: No symptoms reported Physical Exam - Vital signs Vitals: Temp Pulse Resp BP Pulse Ox 98.1 F 84 20 130/78 H 98 09/13/18 10:19 09/13/18 10:19 09/13/18 10:19 09/13/18 10:19 09/13/18 10:19 - Notes Notes: Vital signs reviewed, please refer to chart. Patient is normocephalic, atraumatic. Pupils equal round, reactive to light. Neck is supple without meningismus. Heart is regular rate and rhythm. Lungs reveal wheezing, scant, expiratory throughout. Abdomen is soft, nontender, normoactive bowel sounds throughout. Extremities without cyanosis, clubbing, edema. Peripheral pulses are equal. Skin is warm and dry. Patient is awake, alert, oriented x3. Crania l nerves II through XII are grossly intact without focal neurological deficits. Strength is plus 5 out of 5 bilateral upper and lower extremities. Sensation is mildly diminished light touch in the right upper extremity. Intact [id number], rapid altering movements, heel to polo. Course - Re-evaluation Re-evalutation: 09/13/18 15:56 Patient presents emergency department for evaluation. She states she supposed to be on home oxygen. She is morbidly obese. She has a history of asthma. Her laboratory visitations are remarkable only for hypoxemia. At rest she is 90-91% on room air. It makes sense that she has both restrictive lung disease secondary to her large body habitus as well as some obstructive lung disease secondary to her asthma. She is no longer wheezing after treatment and remains mildly hypoxic. I do not believe she meets any inpatient criteria. My suspicion is she does need home O2. Unfortunately this is not available at [facility]. We will plan her for oxygen at discharge tomorrow through discharge planning. 09/13/18 15:58 - Vital Signs Vital signs: Temp Pulse Resp BP Pulse Ox 98.6 F 88 16 134/78 H 94 09/14/18 15:35 09/14/18 15:35 09/14/18 15:35 09/14/18 15:35 09/14/18 15:35 - Laboratory Result Diagrams: 09/13/18 11:36 09/13/18 11:36 Laboratory results interpreted by me: 09/13/18 09/13/18 09/13/18 11:30 11:36 11:36 Hct 35.9 L RDW 14.9 H Lymphocytes % 12.8 L ABG pO2 58.7 L ABG HCO3 26.3 H ABG Total CO2 27.6 H ABG O2 Saturation 90.8 L Creatinine 0.46 L 09/14/18 11:59 Hct RDW Lymphocytes % ABG pO2 70.1 L ABG HCO3 25.1 H ABG Total CO2 26.4 H ABG O2 Saturation Creatinine - Diagnostic Test Radiology reviewed: Reports reviewed - No acute cardiopulmonary disease - EKG Interpretation by Me Additional EKG results interpreted by me: 09/13/18 15:55 Sinus mechanism with a rate of 69 bpm. Normal axis and intervals, no acute ST changes concerning for ischemia or infarction. Discharge - Discharge Clinical Impression: Shortness of breath, Asthma exacerbation Condition: Stable Disposition: HOME-ASSISTED LIVING Additional Instructions: Follow-up with your doctor this week. Return to the emergency department with worsening or new concerning symptoms. Referrals: MELANIE COLON PA [Primary Care Provider] - Follow up as needed
--- NOTE | 2018-09-13 16:39 | EKG REPORT ---
SEVERITY:- OTHERWISE NORMAL ECG - SINUS RHYTHM BORDERLINE LEFT AXIS DEVIATION : Confirmed by: Donald Williamson MD 13-Sep-2018 16:38:31
[2018-09-13] MEDS ORDERED: MECLIZINE HCL 25 MG TABLET PO PRN (23:43)
[2018-09-14] MEDS ORDERED: AMITRIPTYLINE HCL 50 MG TABLET PO ONE (00:15)
[2018-09-14] MEDS ORDERED: SUCRALFATE 1 GM TABLET PO ONE (00:15)
[2018-09-14] MEDS ORDERED: LEVETIRACETAM 500 MG TABLET PO ONE (00:30)
[2018-09-14] MEDS ORDERED: LUBIPROSTONE 8 MCG CAPSULE PO ONE (00:30)
[2018-09-14] MEDS: POLYETHYLENE GLYCOL 3350 POWDER 17 GM/1 PACKET PO PRN ×2 (00:36→09:32)
[2018-09-14] MEDS ORDERED: TRAZODONE HCL 50 MG TABLET PO ONE (01:00)
[2018-09-14] MEDS: ALBUTEROL SULFATE 0.083% NEB 2.5 MG/3 ML AMPUL NEB SCH ×4 (03:24→13:22)
[2018-09-14] MEDS ORDERED: PANTOPRAZOLE SODIUM 40 MG TABLET.DR PO SCH (06:00)
[2018-09-14] MEDS: SUCRALFATE 1 GM TABLET PO SCH ×2 (09:29→13:21)
[2018-09-14] MEDS ORDERED: CHOLECALCIFEROL (D3) 1,000 UNIT TABLET PO SCH (10:00)
[2018-09-14] MEDS ORDERED: ATORVASTATIN CALCIUM 20 MG TABLET PO SCH (10:00)
[2018-09-14] MEDS ORDERED: THIAMINE HCL 100 MG TABLET PO SCH (10:00)
[2018-09-14] MEDS ORDERED: ASPIRIN 81 MG TABLET, CHEWABLE PO SCH (10:00)
[2018-09-14] MEDS ORDERED: LUBIPROSTONE 8 MCG CAPSULE PO SCH (10:00)
[2018-09-14] MEDS ORDERED: FLUTICASONE NASAL SPRAY 50 MCG/SPRY 120 SPRAY/16 GM NASL SCH (10:00)
[2018-09-14] MEDS ORDERED: GUAIFENESIN 600 MG TABLET.SA PO SCH (10:00)
[2018-09-14] MEDS ORDERED: CETIRIZINE 10 MG TABLET PO SCH (10:00)
[2018-09-14] MEDS ORDERED: LEVETIRACETAM 500 MG TABLET PO SCH (10:00)
[2018-09-14] MEDS ORDERED: FLUTICASONE/VILANTEROL 200-25 MCG/DOSE IH SCH (10:00)
[2018-09-14] MEDS ORDERED: FLUOXETINE HCL 20 MG CAPSULE PO SCH (10:00)
[2018-09-14 12:28] LABS: ARTERIAL BLOOD BASE EXCESS 0.4 mmol/L; ARTERIAL BLOOD FIO2 ROOM AIR; ARTERIAL BLOOD H2CO3 1.23 mmol/L (1.05-1.35); ARTERIAL BLOOD HCO3 25.1 mmol/L (20-24); ARTERIAL BLOOD O2 SATURATION 94.2 % (94-98); ARTERIAL BLOOD PCO2 40.7 mmHg (35-45); ARTERIAL BLOOD PH 7.41 (7.35-7.45); ARTERIAL BLOOD PO2 70.1 mmHg (80-100); ARTERIAL BLOOD TOTAL CO2 26.4 mmol/L (21-25)
--- NOTE | 2018-09-14 12:55 | ER Document Report ---
Doctor's Note Notes: 09/14/18 12:49 Patient evaluated and oxygen level seems to be normal at rest. O2 sat was in the 97-98% range on no oxygen while sitting. When she ambulated around the department, her O2 sat came down to about 88. I reviewed all the patient's records and discussed possibility of admission with the hospitalist, Dr. Barbara ferro who requested an arterial blood gas on room air with the patient at rest. This was done and showed the patient to have a PCO2 of 40, PO2 of 70, and O2 sat of 94%. Patient remains comfortable. She can ambulate without any difficulty and does not seem to get clinically short of breath. Has been evaluated by discharge planning with a recommendation she follow-up with her primary care physician and arrange to get oxygen as needed in her living facility. 09/14/18 19:15 Patient question the nurse as to why there was blood in the commode after she had used the bathroom. I do not know whether she was talking about a bowel movement or urinating. I examined the patient's rectum. No lesions present. No blood on the glove. Brown-yellow stool on the glove. Guaiac negative. Explored visually the entire perineum and into the vagina and no bleeding site was seen. If the patient actually passed blood in the commode, I do not have an answer as to why.
--- NOTE | 2018-09-14 12:58 | Progress Note ---
Provider Note Provider Note: Patient is a morbidly obese 58-year-old female with multiple medical issues comes in for evaluation. She states that she was told she was supposed to be on oxygen therapy. She woke up this morning, was asymptomatic. 1 of the caretakers at [facility] checked her oxygen it was found to be 77%. Patient brought by EMS to [facility] ER. Her blood work is unremarkable and chest x-ray reported no radiographic cardiopulmonary pathology. Her ABG on room air shows O2 saturation 94% pH of 7.41 PCO2 of 40 and PO2 of 70.1. I seen and examined the patient while she is resting in bed. She is not in pain or any form of acute cardiorespiratory distress. Patient can be discharged safely and follow-up with her primary care physician if she needs oxygen in the future.
[2018-09-14 15:54] VITALS: BP 134/78
[2018-09-14] MEDS ORDERED: DIAZEPAM 5 MG TABLET PO SCH (22:00)
[2018-09-14] MEDS ORDERED: TRAZODONE HCL 50 MG TABLET PO SCH (22:00)
[2018-09-14] MEDS ORDERED: AMITRIPTYLINE HCL 50 MG TABLET PO SCH (22:00)
== END 2018-09-14 16:02 | disposition home health service (06) ==
LOC: ER 10:19
DX: J45.901 Unspecified asthma with (acute) exacerbation (principal); E66.01 Morbid (severe) obesity due to excess calories; R53.1 Weakness; E78.00 Pure hypercholesterolemia, unspecified; Z99.81 Dependence on supplemental oxygen; Z86.73 Personal history of transient ischemic attack (TIA), and cerebral infarction without residual deficits; Z87.442 Personal history of urinary calculi; Z98.84 Bariatric surgery status; Z90.49 Acquired absence of other specified parts of digestive tract; Z90.710 Acquired absence of both cervix and uterus; I25.2 Old myocardial infarction
CPT/HCPCS: 93005; 94640 ×2; 99285; 36415; 82553; 82803; 82550; 85025; 85610; 85730; 80053; 84484; 83880; 71045; 93010; A9270 ×13; J3490 ×3; J7620

== ENCOUNTER 2018-09-16 08:45 | Emergency (ER) | payer MEDICARE, MEDICAID ==
[2018-09-16] MEDS ORDERED: PREDNISONE 20 MG TABLET PO ONE (09:09)
--- NOTE | 2018-09-16 09:36 | RADIOLOGY REPORT (SQ) ---
EXAM DESCRIPTION: CHEST 2 VIEWS COMPLETED DATE/TIME: 09/16/2018 9:27 am REASON FOR STUDY: dyspnea COMPARISON: 09/13/2018 EXAM PARAMETERS: NUMBER OF VIEWS: two views TECHNIQUE: Digital Frontal and Lateral radiographic views of the chest acquired. RADIATION DOSE: NA LIMITATIONS: none FINDINGS: LUNGS AND PLEURA: No opacities, masses or pneumothorax. No pleural effusion. MEDIASTINUM AND HILAR STRUCTURES: No masses or contour abnormalities. HEART AND VASCULAR STRUCTURES: Cardiomegaly. BONES: No acute findings. HARDWARE: None in the chest. OTHER: No other significant finding. IMPRESSION: Cardiomegaly without acute abnormality of the lungs on low volume examination. TECHNICAL DOCUMENTATION: JOB ID: [id number] [employer]- All Rights Reserved Reading location - IP/workstation name: [email or web address]
--- NOTE | 2018-09-16 10:19 | ER Document Report ---
ED General - General Chief Complaint: Breathing Difficulty Stated Complaint: DIFFICULTY BREATHING Time Seen by Provider: 09/16/18 09:02 Primary Care Provider: MELANIE COLON PA [Primary Care Provider] - Follow up as needed TRAVEL OUTSIDE OF THE [place] IN LAST 30 DAYS: No - HPI Notes: Patient presents emergency department for evaluation of difficulty breathing. I actually know this patient, saw her recently. She was kept overnight in the hospital, it was determined she may need home O2. She is actually set up on this as needed. She states she started feeling short of breath last night. She states she is wheezing despite medications. She denies any fevers or chills. No nausea or vomiting. She points to her left inferior chest and states "I can feel it wheezing there." She complains of numbness on her right side, which is not a new complaint for her. She has been evaluated multiple times for this, believes at this point that it is radicular. - Related Data Allergies/Adverse Reactions: silicone [Silicone] Allergy (Intermediate, Verified 09/13/18 22:21) REDNESS, RASH carbidopa [From Sinemet] Adverse Reaction (Severe, Verified 09/13/18 22:21) Cardiac arrest levodopa [From Sinemet] Adverse Reaction (Severe, Verified 09/13/18 22:21) Cardiac arrest Past Medical History - General Information source: Patient, [facility] Records - Social History Smoking Status: Former Smoker Chew tobacco use (# tins/day): No Frequency of alcohol use: None Drug Abuse: None Family History: Reviewed & Not Pertinent Patient has suicidal ideation: No Patient has homicidal ideation: No - Past Medical History Cardiac Medical History: Reports: Hx Heart Attack - CARDIAC ARREST R/T DRUG REACTION(SINEMET), Hx Hypercholesterolemia Denies: Hx Hypertension Pulmonary Medical History: Reports: Hx Asthma, Hx Bronchitis, Hx Pneumonia - MARCH 2015, Hx Sleep Apnea - On home CPAP Denies: Hx COPD Neurological Medical History: Reports: Hx Cerebrovascular Accident, Hx Migraine, Hx Seizures - UNSURE OF ETIOLOGY, conversion disorder Endocrine Medical History: Reports: Hx Diabetes Mellitus Type 2 Renal/ Medical History: Reports: Hx Kidney Stones. Denies: Hx Peritoneal Dialysis GI Medical History: Reports: Hx Hiatal Hernia - DX 30 YEARS AGO, Hx Ulcer - after gastric by pass, surg repaired Musculoskeletal Medical History: Reports Hx Arthritis - OSTEOARTHRITIS, Reports Hx Fibromyalgia Psychiatric Medical History: Reports: Hx Anxiety, Hx Attention Deficit Hypera ctivity Disorder, Hx Depression, Hx Post Traumatic Stress Disorder Past Surgical History: Reports: Hx Abdominal Surgery - gastric bypass, Hx Cholecystectomy, Hx Gastric Bypass Surgery, Hx Hysterectomy, Hx Orthopedic Surgery - back/spinal surgery, Hx Tubal Ligation - Immunizations Immunizations up to date: Yes Hx Diphtheria, Pertussis, Tetanus Vaccination: Yes - up to date within last 5 yrs Hx Pneumococcal Vaccination: 03/31/14 Review of Systems - Review of Systems Constitutional: Weakness EENT: No symptoms reported Cardiovascular: No symptoms reported Respiratory: See HPI Gastrointestinal: No symptoms reported Genitourinary: No symptoms reported Musculoskeletal: No symptoms reported Skin: No symptoms reported Neurological/Psychological: See HPI Physical Exam - Vital signs Vitals: Temp 98.9 F 09/16/18 08:49 - Notes Notes: Vital signs reviewed, please refer to chart. Patient is an obese 58-year-old female, lying in bed. She has a very flat affect, avoids eye contact. Head is normocephalic, atraumatic. Pupils equal round, reactive to light. Neck is supple without meningismus. Heart is regular rate and rhythm. Lungs are clear to auscultation bilaterally. Respirations are easy and unlabored. Abdomen is soft, nontender, normoactive bowel sounds throughout. Extremities without cyanosis, clubbing. Peripheral pulses are equal. Skin is warm and dry. Patient is awake, alert, neurological exam is nonfocal. Course - Re-evaluation Re-evalutation: 09/16/18 10:16 Patient presents emergency department for evaluation of dyspnea. She does have history of asthma. At this point she has as needed oxygen. She was given breathing treatments and is not wheezing here at all. She was further medicated with prednisone. Chest x-ray was ordered and was read by radiology showing no acute cardiopulmonary disease. The patient remained stable throughout the course of her stay. Her EKG is unchanged from prior study performed last week. She has nebulizers at [facility]. We will send with steroids and close follow- up. She is to return the emergency department with worsening or new concerning symptoms. - Vital Signs Vital signs: Temp Pulse Resp BP Pulse Ox 98.9 F 73 18 123/78 95 09/16/18 08:49 09/16/18 08:52 09/16/18 08:52 09/16/18 08:52 09/16/18 08:52 Discharge - Discharge Clinical Impression: Acute exacerbation of COPD with asthma Condition: Stable Disposition: HOME, SELF-CARE Additional Instructions: ASTHMA: You have been diagnosed as having asthma. This is a condition where there is episodic tightness in the bronchial tubes. Allergies, infections, and polluted or cold air may be contributing factors. Emergency treatment of a severe asthma attack may include adrenaline shots, or bronchodilator aerosol. You may feel lightheaded, have a decreased exercise tolerance and a rapid pulse for an hour or two. Rest and get plenty of fluids. Home treatment of asthma requires bronchodilator drugs. These can be administered by injection, inhalation, or by mouth. Antibiotics and corticosteroids may be required for some patients. You should avoid chemical fumes, dusts, pollens, and exercising in very cold or dry air. If you smoke, stop!! If you develop a fever, increased wheezing, chest pain, or severe shortness of breath, you should contact the doctor immediately. STEROID MEDICATION: You have been given an injection of or oral medicine of the co rtisone/steroid class. This medication is used to control inflammation or allergy. Duarte t is usually only given for a short period of time, until the acute process subsides. There are usually no side effects from short-term use of cortisone-like medications. Some persons feel an increased sense of well-being and are not sleepy at bedtime. Long-term use of cortisone medications is best avoided, unless required for a severe condition. If your condition does not remit, or relapses after the course of corticosteroid medication, you should consult your physician. INHALED BRONCHODILATORS: You have received treatment(s) of and/or prescription for an inhaled bronchodilator -- a medication which stimulates the airways in the lung to dilate. This improves the flow of air in asthma, bronchitis, and emphysema. These medicines have some similarity to adrenaline, and can cause similar side effects: shakiness, racing heart, and a sense of nervousness. These side effects decrease with time. Contact your doctor if these side effects are severe. Do not over-use the medicine. Too-frequent use of the inhaler may make it ineffective. Call your doctor if the inhaler is not controlling your symptoms at the prescribed doses. SMOKING: If you smoke, you should stop smoking. The tar and chemicals in cigarette smoke are harmful. Smoking has been shown to cause: emphysema chronic bronchitis lung cancer mouth and throat cancer stomach and pancreas cancer premature aging defects In addition, smoking increases ear and lung infections in children of smokers. FOLLOW-UP CARE: If you have been referred to a physician for follow-up care, call the physicians office for an appointment as you were instructed or within the next two days. If you experience worsening or a significant change in your symptoms, notify the physician immediately or return to the Emergency Department at any time for re-evaluation. Referrals: MELANIE COLON PA [Primary Care Provider] - Follow up as needed
[2018-09-16 10:35] VITALS: BP 111/72
--- NOTE | 2018-09-16 23:30 | EKG REPORT ---
SEVERITY:- NORMAL ECG - SINUS RHYTHM : Confirmed by: Deyvi Sandhu 16-Sep-2018 23:30:03
== END 2018-09-16 10:47 | disposition home or self-care (01) ==
LOC: ER 08:45
DX: J44.1 Chronic obstructive pulmonary disease with (acute) exacerbation (principal); R06.02 Shortness of breath; R20.0 Anesthesia of skin; R53.1 Weakness; E66.9 Obesity, unspecified; E11.9 Type 2 diabetes mellitus without complications; Z98.84 Bariatric surgery status; Z87.891 Personal history of nicotine dependence; Z87.01 Personal history of pneumonia (recurrent)
CPT/HCPCS: 93005; 99285; 71046; 93010; A9270; J7512

== ENCOUNTER 2018-09-27 23:07 | Emergency (ER) | payer MEDICARE, MEDICAID ==
--- NOTE | 2018-09-27 23:22 | ER Document Report ---
ED General - General Stated Complaint: CHEST PAIN Time Seen by Provider: 09/27/18 23:10 Primary Care Provider: FLORIAN ART MD [ACTIVE STAFF] - Follow up in 3-5 days Notes: Patient is a 58-year-old female presents frequently to the ER with multiple different complaints. She presents today with chest pain. She said chest pain started over last 3 days has been continuous. She says makes her feel weak and short of breath. She also says she might be having a stroke. She says she has had mini strokes in the past and symptoms come and go. Said sometimes feels as if her speech is slurred. She was admitted to the hospital in July for stroke workup at that time MRI was performed which was negative. Patient denies any recent fever. No infections. No other complaints at this time. She says she has a previous history of VT however she is unsure how long ago it was and says that she does not have any cardiac stents or history of coronary bypass. TRAVEL OUTSIDE OF THE [place] IN LAST 30 DAYS: No - Related Data Allergies/Adverse Reactions: silicone [Silicone] Allergy (Intermediate, Verified 09/13/18 22:21) REDNESS, RASH carbidopa [From Sinemet] Adverse Reaction (Severe, Verified 09/13/18 22:21) Cardiac arrest levodopa [From Sinemet] Adverse Reaction (Severe, Verified 09/13/18 22:21) Cardiac arrest Past Medical History - Social History Smoking Status: Unknown if Ever Smoked Frequency of alcohol use: None Drug Abuse: None Family History: Reviewed & Not Pertinent - Past Medical History Cardiac Medical History: Reports: Hx Heart Attack - CARDIAC ARREST R/T DRUG RE ACTION(SINEMET), Hx Hypercholesterolemia Denies: Hx Hypertension Pulmonary Medical History: Reports: Hx Asthma, Hx Bronchitis, Hx Pneumonia - MARCH 2015, Hx Sleep Apnea - On home CPAP Denies: Hx COPD Neurological Medical History: Reports: Hx Cerebrovascular Accident, Hx Migraine, Hx Seizures - UNSURE OF ETIOLOGY, conversion disorder Endocrine Medical History: Reports: Hx Diabetes Mellitus Type 2 Renal/ Medical History: Reports: Hx Kidney Stones. Denies: Hx Peritoneal Dialysis GI Medical History: Reports: Hx Hiatal Hernia - DX 30 YEARS AGO, Hx Ulcer - after gastric by pass, surg repaired Musculoskeletal Medical History: Reports Hx Arthritis - OSTEOARTHRITIS, Reports Hx Fibromyalgia Psychiatric Medical History: Reports: Hx Anxiety, Hx Attention Deficit Hyperactivity Disorder, Hx Depression, Hx Post Traumatic Stress Disorder Past Surgical History: Reports: Hx Abdominal Surgery - gastric bypass, Hx Cholecystectomy, Hx Gastric Bypass Surgery, Hx Hysterectomy, Hx Orthopedic Surgery - back/spinal surgery, Hx Tubal Ligation - Immunizations Immunizations up to date: Yes Hx Diphtheria, Pertussis, Tetanus Vaccination: Yes - up to date within last 5 yrs Hx Pneumococcal Vaccination: 03/31/14 Review of Systems - Review of Systems Notes: My Normal Review Basic REVIEW OF SYSTEMS: CONSTITUTIONAL : Denies fever, chills, or sweats. Denies recent illness. EENT: Denies eye, ear, throat, or mouth pain or symptoms. Denies nasal or sinus congestion. CARDIOVASCULAR: Has chest pain RESPIRATORY: Denies cough, cold, or chest congestion. Denies shortness of breath, difficulty breathing, or wheezing. GASTROINTESTINAL: Denies abdominal pain. Denies nausea, vomiting, or diarrhea. MUSCULOSKELETAL: Denies neck or back pain or joint pain or swelling. SKIN: Denies rash or skin lesions. HEMATOLOGIC : Denies easy bruising or bleeding. NEUROLOGICAL: Denies altered mental status or loss of consciousness. Denies headache. Denies weakness or paralysis or loss of use of either side. Complains of intermittent difficulty breathing.. Denies sensory or motor loss. ALL OTHER SYSTEMS REVIEWED AND NEGATIVE. Physical Exam - Vital signs Vitals: Resp 23 H 09/27/18 23:09 - Notes Notes: General Appearance: Well nourished, alert, cooperative, no acute distress, no obvious discomfort. Vitals: reviewed, See vital signs table. Eyes: PERRL, EOMI, Conjuctiva clear Mouth: No decreasd moisture Lungs: No wheezing, No rales, No rhonci, No accessory muscle use, good air exchange bilaterally. Heart: Normal rate, Regular rythm, No murmur, no rub Chest wall: Significant pain with palpation of anterior chest wall. Abdomen: Normal BS, soft, No rigidity, No abdominal tenderness, No guarding, no rebound, no abdominal masses, no organomegaly Extremities: strength 5/5 in all extremities, good pulses in all extremities, no swelling or tenderness in the extremities, no edema. Skin: warm, dry, appropriate color, no rash Neuro: speech clear, oriented x 3, normal affect, responds appropriately to questions. Cranial nerves II through XII are intact. Patient at times will act as if her speech is slurring however she has symmetric facial movement and when she is distracted she says something she actually speaks normally. Patient also initially acts as if she cannot lift the right arm off the bed. I leave the room I take the blanket down offered to evaluate the part of her body I do not put back up. I watch her as a start to walk out the room and she uses her right hand and arm to lift the blanket back up over the right side of her body. She has good strength on remainder of her extremities on exam. Course - Re-evaluation Re-evalutation: 09/27/18 23:22 On exam I told the patient that her EKG looks good she started to say that she t hinks she might be having a stroke. She is done this many times in the past and this is a consistent thing with her. These are usually psychogenic symptoms and that they come and go and she is able to present them at any time. When she says she think she has a stroke she starts mumbling her words that she has symmetric facial movement. She says that she has some weakness in the right arm however when I was trying to leave the room she use her right arm to grab her blanket and lifted back over her body. She was admitted for stroke workup just over a month ago and at that time her MRI was negative for any evidence of stroke. I do not think she is having acute stroke I think the symptoms again are psychogenic and therefore I will not consider her a stroke alert at this time. She initially came with chest pain which is reproducible palpation. We will do workup looking her chest pain. 09/28/18 01:12 On reevaluation patient is sleeping. I woke her up. When she woke up she is speaking normally. She has no facial droop. No signs of stroke. Initial troponin is negative. I told her we will repeat a troponin to make sure that it is staying negative. If this is normal then I feel patient will be safe to be discharged home. 09/28/18 01:53 Patient looks well. Her troponin and delta troponin negative. EKG is normal. Her pain is easily reproducible palpation. I think like that this is coronary disease as a result of her chest pain. I feel that she is safe to be discharged home. She is complaining of strokelike symptoms as well as that she started slurring her words however that has since resolved. She has been in the ER many times and does this frequently when she is here. Appears as most likely like it is psychogenic in nature as I am able to distract her and her symptoms go away. An example of this is that she felt that she had weakness in her right arm and cannot move it however I pulled the blanket down on her right side and then went to leave the room and she used her right hand and arm and picked up a blanket and put her back on herself. She has had negative MRIs and workup for stroke as recently is just over a month ago. At this time she was safe to be discharged home. I encouraged her return to ER if she has recurrence or worsening of her symptoms or feels unwell. Patient agrees with plan will be discharged home. Will refer her to outpatient cardiology for evaluation and potential outpatient stress testing of the dye feeder feels it is necessary. Dictation of this chart was performed using voice recognition software; therefore, there may be some unintended grammatical errors. - Vital Signs Vital signs: Temp Pulse Resp BP Pulse Ox 97.6 F 16 114/76 97 09/27/18 23:22 09/28/18 03:01 09/28/18 03:01 09/28/18 03:01 - Laboratory Result Diagrams: 09/27/18 23:18 09/27/18 23:18 Laboratory results interpreted by me: 09/27/18 09/27/18 23:18 23:18 WBC 12.0 H RDW 14.9 H Absolute Neutrophils 8.6 H Sodium 135.6 L Potassium 3.4 L Glucose 147 H ALT 59 H - EKG Interpretation by Me Additional EKG results interpreted by me: 09/27/18 23:22 EKG is reviewed and interpreted by me. EKG shows sinus rhythm with a rate of [address] segment elevation or depression. No ischemic T wave inversions. IL interval, QRS duration, QT intervals are within normal range. Discharge - Discharge Clinical Impression: Hypokalemia Chest pain Qualifiers: Chest pain type: unspecified Qualified Code(s): R07.9 - Chest pain, unspecified Condition: Good Disposition: HOME, SELF-CARE Additional Instructions: Workup looking at your heart is normal. I feel you are safe to be discharged home. Please follow up closely with your doctor or the dye feeder (Dr. Art) for revaluation. Return to the ER if you have worsening pain or feel that you are worsening in any way. Referrals: FLORIAN ART MD [ACTIVE STAFF] - Follow up in 3-5 days
[2018-09-27 23:29] LABS: ABSOLUTE EOSINOPHILS # (AUTO) 0.2 10^3/uL (0.0-0.6); ABSOLUTE LYMPHOCYTES (AUTO) 2.1 10^3/uL (0.5-4.7); ABSOLUTE MONOCYTES (AUTO) 1.1 10^3/uL (0.1-1.4); ABSOLUTE NEUT (AUTO) 8.6 10^3/uL (1.7-8.2); BASOPHILS % (AUTO) 0.4 % (0-2); EOSINOPHILS % (AUTO) 1.3 % (0-6); HEMATOCRIT 37.4 % (36.0-47.0); HEMOGLOBIN 12.6 g/dL (12.0-15.5); LYMPHOCYTES % (AUTO) 17.6 % (13-45); MEAN CORPUSCULAR HEMOGLOBIN 29.8 pg (27.0-33.4); MEAN CORPUSCULAR HGB CONC 33.5 g/dL (32.0-36.0); MEAN CORPUSCULAR VOLUME 89 fl (80-97); MONOCYTES % (AUTO) 8.8 % (3-13); PLATELET COUNT 212 10^3/uL (150-450); RED BLOOD COUNT 4.21 10^6/uL (3.72-5.28); RED CELL DISTRIBUTION WIDTH 14.9 % (11.5-14.0); SEGMENTED NEUTROPHILS % (AUTO) 71.9 % (42-78); TOTAL CELLS COUNTED % (AUTO) 100 %
[2018-09-27 23:42] LABS: ALANINE AMINOTRANSFERASE 59 U/L (9-52); ALBUMIN 3.8 g/dL (3.5-5.0); ALKALINE PHOSPHATASE 106 U/L (38-126); ANION GAP 8 (5-19); ASPARTATE AMINO TRANSFERASE 31 U/L (14-36); BILIRUBIN,DIRECT 0.3 mg/dL (0.0-0.4); BILIRUBIN,TOTAL 0.3 mg/dL (0.2-1.3); BLOOD UREA NITROGEN 13 mg/dL (7-20); CALCIUM 9.2 mg/dL (8.4-10.2); CARBON DIOXIDE 26 mmol/L (22-30); CHLORIDE 102 mmol/L (98-107); GLUCOSE 147 mg/dL (75-110); POTASSIUM 3.4 mmol/L (3.6-5.0); SODIUM 135.6 mmol/L (137-145); TOTAL PROTEIN 6.7 g/dL (6.3-8.2)
--- NOTE | 2018-09-28 01:24 | RADIOLOGY REPORT (SQ) ---
EXAM DESCRIPTION: XR CHEST 1 VIEW COMPLETED DATE/TME: 09/28/2018 00:26 CLINICAL HISTORY: 58 years, Female, chest pain COMPARISON: X-ray chest 09/13/2018 NUMBER OF VIEWS: TECHNIQUE: LIMITATIONS: None. FINDINGS: No evidence of pulmonary infiltrate or pleural effusion. The heart and mediastinum are unremarkable. Pulmonary vascularity appears normal. There are postoperative changes in the lower cervical spine. There is no significant change, as compared with the prior x-ray. IMPRESSION: No acute finding. copyright 2010 [employer]- All Rights Reserved
[2018-09-28] MEDS ORDERED: POTASSIUM CHLORIDE 10 MEQ CAPSULE.ER PO ONE (01:50)
[2018-09-28 03:15] VITALS: BP 114/76
--- NOTE | 2018-09-28 07:42 | EKG REPORT ---
SEVERITY:- ABNORMAL ECG - SINUS RHYTHM LEFT VENTRICULAR HYPERTROPHY PROBABLE INFERIOR INFARCT, AGE INDETERMINATE : Confirmed by: Donald Williamson MD 28-Sep-2018 07:40:26
== END 2018-09-28 03:25 | disposition home or self-care (01) ==
LOC: ER 23:07
DX: R07.9 Chest pain, unspecified (principal); E87.6 Hypokalemia; R53.1 Weakness; J45.909 Unspecified asthma, uncomplicated; E11.9 Type 2 diabetes mellitus without complications; Z98.84 Bariatric surgery status; Z86.73 Personal history of transient ischemic attack (TIA), and cerebral infarction without residual deficits
CPT/HCPCS: 93005; 99285; 36415; 85025; 80053; 84484; 71045; 93010; A9270

== ENCOUNTER 2018-10-03 19:08 | Emergency (ER) | payer MEDICARE, MEDICAID ==
[2018-10-03] MEDS ORDERED: AMMONIA INHALANTS 10 AMPUL/BOX IH ONE (19:10)
--- NOTE | 2018-10-03 20:13 | ER Document Report ---
ED Fall - General Chief Complaint: Fall Stated Complaint: FALL Time Seen by Provider: 10/03/18 20:09 Primary Care Provider: MELANIE COLON PA [Primary Care Provider] - Follow up as needed Notes: 58-year-old female patient to the emergency department from a assisted living facility called the [facility] for evaluation after fall from standing. Facility thinks she may have hit her head. Patient acting nonresponsive. Does have some mental health history. No known loss of consciousness however patient is not speaking. Patient brought in by EMS. No signs of trauma reported by EMS. Patient placed in hallway bed 3. Patient will not talk or answer any questions. TRAVEL OUTSIDE OF THE [place] IN LAST 30 DAYS: No - HPI Occurred: Just prior to arrival Where: Care Home Context: Tripped Associated symptoms: None - Related data Allergies/Adverse Reactions: silicone [Silicone] Allergy (Intermediate, Verified 09/13/18 22:21) REDNESS, RASH carbidopa [From Sinemet] Adverse Reaction (Severe, Verified 09/13/18 22:21) Cardiac arrest levodopa [From Sinemet] Adverse Reaction (Severe, Verified 09/13/18 22:21) Cardiac arrest Past Medical History - General Information source: Transfer Record, [facility] Records Cannot obtain history due to: Uncooperative, Altered mental status - Social History Smoking Status: Unknown if Ever Smoked Family History: Reviewed & Not Pertinent Patient has suicidal ideation: No Patient has homicidal ideation: No - Past Medical History Cardiac Medical History: Reports: Hx Heart Attack - CARDIAC ARREST R/T DRUG REACTION(SINEMET), Hx Hypercholesterolemia Denies: Hx Hypertension Pulmonary Medical History: Reports: Hx Asthma, Hx Bronchitis, Hx Pneumonia - MARCH 2015, Hx Sleep Apnea - On home CPAP Denies: Hx COPD Neurological Medical History: Reports: Hx Cerebrovascular Accident, Hx Migraine, Hx Seizures - UNSURE OF ETIOLOGY, conversion disorder Endocrine Medical History: Reports: Hx Diabetes Mellitus Type 2 Renal/ Medical History: Reports: Hx Kidney Stones. Denies: Hx Peritoneal Dialysis GI Medical History: Reports: Hx Hiatal Hernia - DX 30 YEARS AGO, Hx Ulcer - after gastric by pass, surg repaired Musculoskeletal Medical History: Reports Hx Arthritis - OSTEOARTHRITIS, Reports Hx Fibromyalgia Psychiatric Medical History: Reports: Hx Anxiety, Hx Attention Deficit Hyperactivity Disorder, Hx Depression, Hx Post Traumatic Stress Disorder Past Surgical History: Reports: Hx Abdominal Surgery - gastric bypass, Hx Cholecystectomy, Hx Gastric Bypass Surgery, Hx Hysterectomy, Hx Orthopedic Surgery - back/spinal surgery, Hx Tubal Ligation - Immunizations Immunizations up to date: Yes Hx Diphtheria, Pertussis, Tetanus Vaccination: Yes - up to date within last 5 yrs Hx Pneumococcal Vaccination: 03/31/14 Review of Systems - Review of Systems -: Yes ROS unobtainable due to patient's medical condition Physical Exam - Vital signs Vitals: Pulse BP Pulse Ox 75 153/84 H 96 10/03/18 19:14 10/03/18 19:14 10/03/18 19:14 Interpretation: Normal - General General appearance: Appears well, Alert - HEENT Head: Normocephalic, Atraumatic. No: Thornton's sign, Ecchymosis, Racoon's eyes, Tenderness Eyes: Other - Patient will not open the right eye. Left eye pupils round and reactive Nasal: Normal Mouth/Lips: Normal - Respiratory Respiratory status: No respiratory distress Chest status: Nontender Breath sounds: Normal Chest palpation: Normal - Cardiovascular Rhythm: Regular Heart sounds: Normal auscultation Murmur: No - Abdominal Inspection: Normal Distension: No distension Bowel sounds: Normal Tenderness: Nontender Organomegaly: No organomegaly - Back Back: Normal, Nontender - Extremities General upper extremity: Normal inspection, Nontender, Normal color, Normal ROM, Normal temperature General lower extremity: Normal inspection, Nontender, Normal color, Normal ROM, Normal temperature. No: Guido's sign - Neurological Neuro grossly intact: Yes Cognition: Other - Uncooperative. Patient appears to have voluntary abnormal strength response to the right upper extremity and right lower extremity. Appears to have normal strength response to the left upper extremity and left lower extremity. Patient would not move her right upper extremity and appeared to present as flaccid paralysis of the right upper extremity however when distracted by the nurse she was able to hold a cell phone in her right hand and move her right arm. Speech: Normal Cranial nerves: Normal, Other - Patient has normal facial symmetry but when questioning appears to have droop to the right side of the face which disappears when distracted. She has normal nasolabial fold. Is able to open her mouth and her tongue does not protrude an abnormal manner. Cerebellar coordination: Other - When distracted patient is seen using the right upper extremity to hold a cell phone. Patient is pushing buttons of the call button using the left hand. Patient is able to move both upper extremities as well as both lower extremities. Appears to be voluntary disability of the right upper and right lower extremity. Additional motor exam normals: Other Notes: Patient will not cooperate at all with the neurological exam. Appears to have gross neurological exam intact - Psychological Associated symptoms: Other - Bizarre, uncooperative - Skin Skin Temperature: Warm Skin Moisture: Dry Skin Color: Normal, Other - No obvious breakdown, bruising, hematoma or other observable skin deformities. No scalp hematomas. No scalp lacerations. Course - Re-evaluation Re-evalutation: 10/03/18 22:55 Laboratory 10/03/18 10/03/18 10/03/18 19:58 19:58 19:58 WBC 6.1 RBC 4.22 Hgb 12.6 Hct 37.7 MCV 89 MCH 29.9 MCHC 33.5 RDW 14.7 H Plt Count 200 Seg Neutrophils % 59.7 Lymphocytes % 25.2 Monocytes % 9.8 Eosinophils % 4.6 Basophils % 0.7 Absolute Neutrophils 3.7 Absolute Lymphocytes 1.5 Absolute Monocytes 0.6 Absolute Eosinophils 0.3 Absolute Basophils 0.0 Sodium 138.0 Potassium 4.0 Chloride 106 Carbon Dioxide 28 Anion Gap 5 BUN 11 Creatinine 0.60 Est GFR ( Amer) > 60 Est GFR (Non-Af Amer) > 60 Glucose 103 Calcium 9.7 Total Bilirubin 0.4 Direct Bilirubin 0.3 Neonat Total Bilirubin Not Reportable Neonat Direct Bilirubin Not Reportable Neonat Indirect Bili Not Reportable AST 33 ALT 47 Alkaline Phosphatase 108 Creatine Kinase 134 Troponin I < 0.012 Total Protein 6.5 Albumin [address] 10/03/18 20:10 IMPRESSION: 1. No acute cervical spine fracture or subluxation. 2. Previous C5-C6 ACDF. 3. Chronic degenerative changes as described. Head CT 10/03/18 20:10 IMPRESSION: 1. No acute intracranial findings. I believe at this time patient is stable to go back home. Patient has some obvious volitional neurological findings. I have reviewed multiple notes here in the charts. She has presented multiple times with the same presentation. She will not respond or answer any questions but she will talk to the nurse just not me. I have observed her through the window in the room that she is in moving the extremities for which she was presenting as flaccid paralysis. At this time there is obviously some significant mental health issues going on with this patient. I will discharge her at this time in stable condition. My colleague that is in the ER, Dr. Spencer knows about this patient and I have given her a warning that I anticipate there will be issues when transport arise but to proceed with transport. Will discharge at this time in stable condition. - Vital Signs Vital signs: Temp Pulse Resp BP Pulse Ox 75 17 153/84 H 94 10/03/18 19:14 10/03/18 22:00 10/03/18 19:14 10/03/18 22:00 - Laboratory Result Diagrams: 10/03/18 19:58 10/03/18 19:58 Laboratory results interpreted by me: 10/03/18 10/03/18 19:58 21:55 RDW 14.7 H Urine Urobilinogen 4.0 H - EKG Interpretation by Me EKG shows normal: Sinus rhythm, [place], Intervals, QRS Complexes, ST-T Waves When compared to previous EKG there are: No significant change Discharge - Discharge Clinical Impression: Altered mental status, unspecified Qualifiers: Altered mental status type: unspecified Qualified Code(s): R41.82 - Altered mental status, unspecified Condition: Good Disposition: HOME-ASSISTED LIVING Instructions: Altered Mental Status ([facility]) Additional Instructions: Follow-up with your regular doctor. Return for any worsening symptoms or concerns. Referrals: MELANIE COLON PA [Primary Care Provider] - Follow up as needed
[2018-10-03 20:26] LABS: ABSOLUTE EOSINOPHILS # (AUTO) 0.3 10^3/uL (0.0-0.6); ABSOLUTE LYMPHOCYTES (AUTO) 1.5 10^3/uL (0.5-4.7); ABSOLUTE MONOCYTES (AUTO) 0.6 10^3/uL (0.1-1.4); ABSOLUTE NEUT (AUTO) 3.7 10^3/uL (1.7-8.2); BASOPHILS % (AUTO) 0.7 % (0-2); EOSINOPHILS % (AUTO) 4.6 % (0-6); HEMATOCRIT 37.7 % (36.0-47.0); HEMOGLOBIN 12.6 g/dL (12.0-15.5); LYMPHOCYTES % (AUTO) 25.2 % (13-45); MEAN CORPUSCULAR HEMOGLOBIN 29.9 pg (27.0-33.4); MEAN CORPUSCULAR HGB CONC 33.5 g/dL (32.0-36.0); MEAN CORPUSCULAR VOLUME 89 fl (80-97); MONOCYTES % (AUTO) 9.8 % (3-13); PLATELET COUNT 200 10^3/uL (150-450); RED BLOOD COUNT 4.22 10^6/uL (3.72-5.28); RED CELL DISTRIBUTION WIDTH 14.7 % (11.5-14.0); SEGMENTED NEUTROPHILS % (AUTO) 59.7 % (42-78); TOTAL CELLS COUNTED % (AUTO) 100 %; WHITE BLOOD COUNT 6.1 10^3/uL (4.0-10.5)
[2018-10-03 20:42] LABS: ALANINE AMINOTRANSFERASE 47 U/L (9-52); ALBUMIN 3.7 g/dL (3.5-5.0); ALKALINE PHOSPHATASE 108 U/L (38-126); ASPARTATE AMINO TRANSFERASE 33 U/L (14-36); BILIRUBIN,DIRECT 0.3 mg/dL (0.0-0.4); BILIRUBIN,TOTAL 0.4 mg/dL (0.2-1.3); BLOOD UREA NITROGEN 11 mg/dL (7-20); CALCIUM 9.7 mg/dL (8.4-10.2); CARBON DIOXIDE 28 mmol/L (22-30); CHLORIDE 106 mmol/L (98-107); CREATINE KINASE 134 U/L (30-135); GLUCOSE 103 mg/dL (75-110); TOTAL PROTEIN 6.5 g/dL (6.3-8.2)
[2018-10-03 20:45] LABS: ANION GAP 5 (5-19)
--- NOTE | 2018-10-03 21:10 | EKG REPORT ---
SEVERITY:- ABNORMAL ECG - SINUS RHYTHM PROBABLE INFERIOR INFARCT, AGE INDETERMINATE : Confirmed by: Donald Williamson MD 03-Oct-2018 21:10:04
--- NOTE | 2018-10-03 21:48 | RADIOLOGY REPORT (SQ) ---
EXAM DESCRIPTION: RadLex: CT HEAD WITHOUT IV CONTRAST CLINICAL HISTORY: 58 years Female; fall TECHNIQUE: Noncontrast CT head. All CT scans at this facility use dose modulation, iterative reconstruction, and/or weight based dosing when appropriate to reduce radiation dose to as low as reasonably achievable. COMPARISON: None. CT 09/12/2018 FINDINGS: Smith matter, white matter, ventricles, and cisterns are within normal limits. No acute hemorrhage or mass effect. Focal calcifications are again noted in the left sylvian fissure, along the left MCA branches. No acute cortical edema. Visualized portions of paranasal sinuses and mastoids are clear. Visualized portions of the calvarium are within normal limits. IMPRESSION: 1. No acute intracranial findings.
--- NOTE | 2018-10-03 21:55 | RADIOLOGY REPORT (SQ) ---
EXAM DESCRIPTION: Rad[facility]: CT CERVICAL SPINE WITHOUT IV CONTRAST CLINICAL HISTORY: 58 years Female; fall TECHNIQUE: Noncontrast cervical spine CT with sagittal and coronal reconstructions. All CT scans at this facility use dose modulation, iterative reconstruction, and/or weight based dosing when appropriate to reduce radiation dose to as low as reasonably achievable. COMPARISON: 11/13/2014 FINDINGS: C1-C2: Chronic reactive osteophyte formation superior and inferior to the anterior C1 ring. No widening of the atlantoodontoid interface. There is mild thickening of the cruciate ligament. C2-C3: Left facet arthropathy. C3-C4: Left facet hypertrophy. C5-C6: Previous ACDF. No evidence for hardware loosening. There is fusion across the disc space. C6-C7: Posterior osteophytic ridging with at least mild bilateral foraminal stenosis. No subluxation. There is no acute fracture of the cervical spine. No epidural hematoma. IMPRESSION: 1. No acute cervical spine fracture or subluxation. 2. Previous C5-C6 ACDF. 3. Chronic degenerative changes as described.
[2018-10-03 22:07] LABS: APPEARANCE,URINE CLEAR; BILIRUBIN,URINE NEGATIVE (NEGATIVE); COLOR,URINE YELLOW; GLUCOSE, URINE NEGATIVE (NEGATIVE); KETONES,URINE NEGATIVE (NEGATIVE); LEUKOCYTE ESTERASE,URINE NEGATIVE (NEGATIVE); NITRITE,URINE NEGATIVE (NEGATIVE); PROTEIN,URINE NEGATIVE (NEGATIVE); URINE SPECIFIC GRAVITY 1.011
[2018-10-03] MEDS ORDERED: ACETAMINOPHEN 325 MG TABLET ONE (23:19)
[2018-10-03] MEDS ORDERED: ACETAMINOPHEN 325 MG TABLET PO ONE (23:21)
[2018-10-04 00:40] VITALS: BP 145/81
== END 2018-10-04 00:40 | disposition home health service (06) ==
LOC: ER 19:08
DX: R41.82 Altered mental status, unspecified (principal); W01.0XXA Fall on same level from slipping, tripping and stumbling without subsequent striking against object, initial encounter; Y92.129 Unspecified place in nursing home as the place of occurrence of the external cause; E78.00 Pure hypercholesterolemia, unspecified; Z86.73 Personal history of transient ischemic attack (TIA), and cerebral infarction without residual deficits; Z87.442 Personal history of urinary calculi; Z90.49 Acquired absence of other specified parts of digestive tract; Z98.84 Bariatric surgery status; Z90.710 Acquired absence of both cervix and uterus; I25.2 Old myocardial infarction
CPT/HCPCS: 93005; 51702; 99285; 36415; 82550; 85025; 80053; 81001; 84484; 70450; 72125; 93010; A9270 ×2; 82962; J3490

== ENCOUNTER 2018-10-04 19:25 | Emergency (ER) | payer MEDICARE, MEDICAID ==
[2018-10-04] MEDS ORDERED: AMMONIA INHALANTS 10 AMPUL/BOX IH ONE (20:02)
--- NOTE | 2018-10-04 20:28 | ER Document Report ---
ED General - General Chief Complaint: Psych Problem Stated Complaint: PSYCH Time Seen by Provider: 10/04/18 20:02 Primary Care Provider: MELANIE COLON PA [Primary Care Provider] - Follow up as needed Cannot obtain history due to: Mentally challenged, Uncooperative Notes: 58-year-old female with well-known visits to the emergency department for conversion disorder versus factitious disorder who presents for reportedly being unresponsive. The patient has presented to the emergency department on numerous occasions in the same manner. No history can be obtained from the patient as she refuses to speak to me during examination. Significant other at the bedside reports that the patient was fine while she was visiting her at [facility] but then she received a call shortly after she left to go to work the patient had become unresponsive and was going to the emergency department. TRAVEL OUTSIDE OF THE [place] IN LAST 30 DAYS: No - Related Data Allergies/Adverse Reactions: silicone [Silicone] Allergy (Intermediate, Verified 09/13/18 22:21) REDNESS, RASH carbidopa [From Sinemet] Adverse Reaction (Severe, Verified 09/13/18 22:21) Cardiac arrest levodopa [From Sinemet] Adverse Reaction (Severe, Verified 09/13/18 22:21) Cardiac arrest Past Medical History - General Information source: Friend Cannot obtain history due to: Mentally challenged, Uncooperative - Social History Smoking Status: Never Smoker Frequency of alcohol use: None Drug Abuse: None Lives with: [facility] Family History: Reviewed & Not Pertinent Patient has suicidal ideation: No Patient has homicidal ideation: No - Past Medical History Cardiac Medical History: Reports: Hx Heart Attack - CARDIAC ARREST R/T DRUG REACTION(SINEMET), Hx Hypercholesterolemia Denies: Hx Hypertension Pulmonary Medical History: Reports: Hx Asthma, Hx Bronchitis, Hx Pneumonia - MARCH 2015, Hx Sleep Apnea - On home CPAP Denies: Hx COPD Neurological Medical History: Reports: Hx Cerebrovascular Accident, Hx Migraine, Hx Seizures - UNSURE OF ETIOLOGY, conversion disorder Endocrine Medical History: Reports: Hx Diabetes Mellitus Type 2 Renal/ Medical History: Reports: Hx Kidney Stones. Denies: Hx Peritoneal Dialysis GI Medical History: Reports: Hx Hiatal Hernia - DX 30 YEARS AGO, Hx Ulcer - a fter gastric by pass, surg repaired Musculoskeletal Medical History: Reports Hx Arthritis - OSTEOARTHRITIS, Reports Hx Fibromyalgia Psychiatric Medical History: Reports: Hx Anxiety, Hx Attention Deficit Hyperactivity Disorder, Hx Depression, Hx Post Traumatic Stress Disorder Past Surgical History: Reports: Hx Abdominal Surgery - gastric bypass, Hx Cholecystectomy, Hx Gastric Bypass Surgery, Hx Hysterectomy, Hx Orthopedic Surgery - back/spinal surgery, Hx Tubal Ligation - Immunizations Immunizations up to date: Yes Hx Diphtheria, Pertussis, Tetanus Vaccination: Yes - up to date within last 5 yrs Hx Pneumococcal Vaccination: 03/31/14 Review of Systems - Review of Systems -: Yes ROS unobtainable due to patient's medical condition Physical Exam - Vital signs Vitals: Temp Pulse Resp BP Pulse Ox 98.9 F 68 14 132/68 H 93 10/04/18 19:32 10/04/18 19:32 10/04/18 19:32 10/04/18 19:32 10/04/18 19:32 Interpretation: Normal Notes: PHYSICAL EXAMINATION: GENERAL: Lying in bed, does not respond to questions but does grimace to noxious stimuli HEAD: Atraumatic, normocephalic. EYES: Pupils equal round and reactive to light, extraocular movements intact, sclera anicteric, conjunctiva are normal. ENT: nares patent, oropharynx clear without exudates. Moist mucous membranes. NECK: supple without lymphadenopathy LUNGS: Breath sounds clear to auscultation bilaterally and equal. No wheezes rales or rhonchi. HEART: Regular rate and rhythm without murmurs ABDOMEN: Soft, nontender, normoactive bowel sounds. No guarding, no rebound. No masses appreciated. EXTREMITIES: no pitting or edema. No cyanosis. NEUROLOGICAL: No focal neurological deficits. Moves all extremities to noxious stimuli PSYCH: Effectively catatonic SKIN: Warm, Dry, normal turgor, no rashes or lesions noted. Course - Re-evaluation Re-evalutation: 10/04/18 20:27 Patient is well-known to me and almost all providers in the emergency department. She is a long-standing history of fictitious presentations which appear to be largely for secondary gain either for obtaining attention from her significant other or staff. Patient was in the emergency department yesterday under very similar circumstances. She presents today effectively unresponsive. She has presented in this manner on a multitude of occasions. In the year 2018 the patient has had 5 CT scans of her head and 2 MRIs of her head none of which have demonstrated any evidence of a stroke acute or in the past. Despite this the patient's significant other continues to report that the patient has had a stroke and has had right-sided deficits. I again reeducate that the patient has no evidence of previous strokes based on MRI and also has no physical examination findings consistent with a stroke to the right side as there is no muscle wasting, contractures, no effacement of the nasolabial fold, nothing at all to suggest that this patient has had a CVA. After review that I do not believe repeat neurologic assessment is appropriate nor is transferred for neurology appropriate I have offered a psychiatric evaluation in the morning which the significant other has requested. Will obtain standard psych screening labs. Patient will be monitored and given her home medications. She is otherwise cleared for evaluation and disposition by [facility] in the morning 10/04/18 22:33 Patient was noted to be sitting up in her bed, pushing the call mcadams with her right hand. Now talking. 10/05/18 01:13 Patient is now up walking around asking for things to eat. At this point I do not believe the patient actually needs a psychiatric assessment and is quite clear to me that this is likely fictitious and for secondary gain. The patient began almost immediately after significant other left the department to begin getting up walking around asking for food acting completely normally. She will return to [facility]. - Vital Signs Vital signs: Temp Pulse Resp BP Pulse Ox 98.9 F 68 14 132/68 H 93 10/04/18 19:32 10/04/18 19:32 10/04/18 19:32 10/04/18 19:32 10/04/18 19:32 - Laboratory Result Diagrams: 10/04/18 21:41 10/04/18 21:41 Laboratory results interpreted by me: 10/04/18 10/04/18 10/05/18 21:41 21:41 00:45 RDW 14.6 H Urine Urobilinogen 4.0 H Ur Leukocyte Esterase TRACE H Salicylates < 1.0 L Acetaminophen < 10 L - EKG Interpretation by Me Additional EKG results interpreted by me: 10/05/18 04:52 Sinus rhythm, rate 71. No ST elevations or depressions. QTC is 435. Discharge - Discharge Clinical Impression: Factitious disorder, Morbid obesity, Personality disorder Condition: Stable Disposition: HOME-SNF (ED ONLY) Additional Instructions: After your significant other left today all of your symptoms resolved. Follow- up with psychiatry as scheduled. Return for any additional concerns. Referrals: MELANIE COLON PA [Primary Care Provider] - Follow up as needed
--- NOTE | 2018-10-04 21:19 | EKG REPORT ---
SEVERITY:- ABNORMAL ECG - SINUS RHYTHM NONSPECIFIC ST-T CHANGES ANTERIOR LEADS. : Confirmed by: Donald Williamson MD 04-Oct-2018 21:19:01
[2018-10-04 21:56] LABS: ABSOLUTE BASOPHILS # (AUTO) 0.1 10^3/uL (0.0-0.2); ABSOLUTE EOSINOPHILS # (AUTO) 0.3 10^3/uL (0.0-0.6); ABSOLUTE LYMPHOCYTES (AUTO) 1.6 10^3/uL (0.5-4.7); ABSOLUTE MONOCYTES (AUTO) 0.6 10^3/uL (0.1-1.4); ABSOLUTE NEUT (AUTO) 5.4 10^3/uL (1.7-8.2); BASOPHILS % (AUTO) 0.7 % (0-2); EOSINOPHILS % (AUTO) 3.9 % (0-6); HEMATOCRIT 38.4 % (36.0-47.0); LYMPHOCYTES % (AUTO) 20.3 % (13-45); MEAN CORPUSCULAR HEMOGLOBIN 30.2 pg (27.0-33.4); MEAN CORPUSCULAR HGB CONC 33.8 g/dL (32.0-36.0); MEAN CORPUSCULAR VOLUME 89 fl (80-97); PLATELET COUNT 200 10^3/uL (150-450); RED CELL DISTRIBUTION WIDTH 14.6 % (11.5-14.0); SEGMENTED NEUTROPHILS % (AUTO) 67.1 % (42-78); TOTAL CELLS COUNTED % (AUTO) 100 %
[2018-10-04 22:11] LABS: ALANINE AMINOTRANSFERASE 44 U/L (9-52); ALBUMIN 3.7 g/dL (3.5-5.0); ALKALINE PHOSPHATASE 107 U/L (38-126); ANION GAP 7 (5-19); ASPARTATE AMINO TRANSFERASE 28 U/L (14-36); BILIRUBIN,DIRECT 0.2 mg/dL (0.0-0.4); BILIRUBIN,TOTAL 0.3 mg/dL (0.2-1.3); BLOOD UREA NITROGEN 13 mg/dL (7-20); CALCIUM 9.6 mg/dL (8.4-10.2); CARBON DIOXIDE 26 mmol/L (22-30); CHLORIDE 107 mmol/L (98-107); GLUCOSE 101 mg/dL (75-110); POTASSIUM 4.5 mmol/L (3.6-5.0); SODIUM 139.7 mmol/L (137-145); TOTAL PROTEIN 6.6 g/dL (6.3-8.2)
[2018-10-04 22:12] LABS: ACETAMINOPHEN < 10 ug/mL (10-30); ALCOHOL < 10 mg/dL (NONE DETECTED); SALICYLATE < 1.0 mg/dL (2.0-20.0)
[2018-10-05 01:32] LABS: APPEARANCE,URINE CLEAR; BILIRUBIN,URINE NEGATIVE (NEGATIVE); COLOR,URINE YELLOW; GLUCOSE, URINE NEGATIVE (NEGATIVE); KETONES,URINE NEGATIVE (NEGATIVE); LEUKOCYTE ESTERASE,URINE TRACE (NEGATIVE); NITRITE,URINE NEGATIVE (NEGATIVE); PROTEIN,URINE NEGATIVE (NEGATIVE); URINE SPECIFIC GRAVITY 1.014
[2018-10-05 01:44] LABS: URINE AMPHETAMINES SCREEN NEGATIVE; URINE BARBITURATES SCREEN NEGATIVE; URINE BENZODIAZEPINES SCREEN UNCONFIRMED POSITIVE; URINE COCAINE SCREEN NEGATIVE; URINE MARIJUANA (THC) SCREEN NEGATIVE; URINE METHADONE SCREEN NEGATIVE; URINE PHENCYCLIDINE SCREEN NEGATIVE
[2018-10-05 05:31] VITALS: BP 116/68
== END 2018-10-05 05:32 ==
LOC: ER 19:25
DX: F68.10 Factitious disorder imposed on self, unspecified (principal); E66.01 Morbid (severe) obesity due to excess calories; F60.9 Personality disorder, unspecified; I25.2 Old myocardial infarction; E78.00 Pure hypercholesterolemia, unspecified; Z86.73 Personal history of transient ischemic attack (TIA), and cerebral infarction without residual deficits; E11.9 Type 2 diabetes mellitus without complications; Z87.442 Personal history of urinary calculi; Z90.49 Acquired absence of other specified parts of digestive tract; Z98.84 Bariatric surgery status
CPT/HCPCS: 36415; 80053; 80307; 81001; 85025; 93005; 93010; 99284

== ENCOUNTER 2018-12-02 20:01 | Emergency (ER) | payer MEDICARE, MEDICAID ==
--- NOTE | 2018-12-02 21:14 | ER Document Report ---
ED General - General Chief Complaint: Numbness of Arm Stated Complaint: LEFT ARM WEAKNESS Time Seen by Provider: 12/02/18 20:59 Primary Care Provider: BEV BAEZ MD [ACTIVE STAFF] - Follow up as needed Notes: Patient is a 58-year-old female that comes emergency department for 2 complaints. She comes by EMS from [facility]. First complaint she tells me is that she fell "2 Mondays ago" and has pain in her right hip area as a result. She is able to ambulate using a walker. She denies any other injuries from the fall. Second complaint is a tingling sensation in her left arm that developed this evening at approximately 1530. She states that when she moves the arm she feels the pain she all the way from "from the left arm area, across the body, and down to the right hip". She denies flank pain, difficulty breathing, nausea or vomiting. She denies any focal numbness or weakness. She tells me that she has a past medical history of asthma, diabetes, "and a lot of strokes". Medical history also listed of GERD, fibromyalgia, anxiety, gastric bypass. TRAVEL OUTSIDE OF THE [place] IN LAST 30 DAYS: No - Related Data Allergies/Adverse Reactions: silicone [Silicone] Allergy (Intermediate, Verified 09/13/18 22:21) REDNESS, RASH carbidopa [From Sinemet] Adverse Reaction (Severe, Verified 09/13/18 22:21) Cardiac arrest levodopa [From Sinemet] Adverse Reaction (Severe, Verified 09/13/18 22:21) Cardiac arrest Past Medical History - General Information source: Patient, Emergency Med Personnel - Social History Smoking Status: Never Smoker Chew tobacco use (# tins/day): No Frequency of alcohol use: None Drug Abuse: None Lives with: Residential Family History: Reviewed & Not Pertinent Patient has suicidal ideation: No Patient has homicidal ideation: No - Past Medical History Cardiac Medical History: Reports: Hx Heart Attack - CARDIAC ARREST R/T DRUG REACTION(SINEMET), Hx Hypercholesterolemia Denies: Hx Hypertension Pulmonary Medical History: Reports: Hx Asthma, Hx Bronchitis, Hx Pneumonia - MARCH 2015, Hx Sleep Apnea - On home CPAP Denies: Hx COPD Neurological Medical History: Reports: Hx Cerebrovascular Accident, Hx Migraine, Hx Seizures - UNSURE OF ETIOLOGY, conversion disorder Endocrine Medical History: Reports: Hx Diabetes Mellitus Type 2 Renal/ Medical History: Reports: Hx Kidney Stones. Denies: Hx Peritoneal Dialysis GI Medical History: Reports: Hx Hiatal Hernia - DX 30 YEARS AGO, Hx Ulcer - after gastric by pass, surg repaired Musculoskeletal Medical History: Reports Hx Arthritis - OSTEOARTHRITIS, Reports Hx Fibromyalgia Psychiatric Medical History: Reports: Hx Anxiety, Hx Attention Deficit Hyperactivity Disorder, Hx Depression, Hx Post Traumatic Stress Disorder Past Surgical History: Reports: Hx Abdominal Surgery - gastric bypass, Hx Cholecystectomy, Hx Gastric Bypass Surgery, Hx Hysterectomy, Hx Orthopedic Surgery - back/spinal surgery, Hx Tubal Ligation - Immunizations Immunizations up to date: Yes Hx Diphtheria, Pertussis, Tetanus Vaccination: Yes - up to date within last 5 yrs Hx Pneumococcal Vaccination: 03/31/14 Review of Systems - Review of Systems Constitutional: No symptoms reported EENT: No symptoms reported Cardiovascular: See HPI Respiratory: No symptoms reported Gastrointestinal: No symptoms reported Genitourinary: No symptoms reported Female Genitourinary: No symptoms reported Musculoskeletal: See HPI Skin: No symptoms reported Hematologic/Lymphatic: No symptoms reported Neurological/Psychological: See HPI Physical Exam - Vital signs Vitals: Temp Resp 99.4 F 16 12/02/18 20:07 12/02/18 20:07 - Notes Notes: GENERAL: Wearing dark sunglasses. Sleeping and easily aroused. No signs of distress. HEAD: Normocephalic, atraumatic. EYES: Patient will not open her right eye for exam. Left eye unremarkable with normal pupils, extraocular movements intact. ENT: Oral mucosa moist, tongue midline. Oropharynx unremarkable. Airway patent. Nares patent, no nasal septal hematoma, TM's intact. NECK: Full range of motion. Supple. Trachea midline. LUNGS: Clear to auscultation bilaterally, no wheezes, rales, or rhonchi. No respiratory distress. HEART: Regular rate and rhythm. No murmur ABDOMEN: Soft, non-tender. Non-distended. Bowel sounds present in all 4 quadrants. GENITOURINARY: Deferred EXTREMITIES: Moves all 4 extremities spontaneously. No edema, normal radial and dorsalis pedis pulses bilaterally. No cyanosis. She complains of pain with palpation over the general right hip and femur area approximately. No swelling or abnormal findings otherwise. BACK: no cervical, thoracic, lumbar midline tenderness. No saddle anesthesia, normal distal neurovascular exam. Moves all extremities in full range of motion. NEUROLOGICAL: Alert and oriented x3. Normal speech. Cranial nerves II through XII grossly intact. PSYCH: Very talkative, sentences broken up by frequent sighing SKIN: Warm, dry, normal turgor. No rashes or lesions noted. Course - Re-evaluation Re-evalutation: Patient with very nonspecific symptoms in regards to her left arm with nonspecific paresthesia and pain that radiates all the way from the arm to the right hip with movement, however this only happens occasionally. She is asymptomatic on my evaluation except for occasionally complaining of right hip pain. After a time on the bed she started complaining of pain in her back from the bed, she is prescribed Valium at night as needed, she was provided with a dose of this as a result. EKG with no acute findings, chest x-ray unremarkable, troponin unremarkable. CBC and chemistry nonspecific and unremarkable. X-ray of the hip with no fracture or concerning findings. Repeat troponin unremarkable. I discussed results with patient in detail. Based on her atypical symptoms and very vague symptoms I have a low suspicion of ACS or any acute intrathoracic etiology. Patient remains asymptomatic in this regard. She asks a lot of questions about her hip, she requests orthopedic referral and follow-up. I discussed return precautions, patient states understanding and agreement. - Vital Signs Vital signs: Temp Pulse Resp BP Pulse Ox 98.9 F 77 16 124/81 93 12/03/18 01:01 12/02/18 20:54 12/03/18 01:01 12/03/18 01:01 12/03/18 01:01 - Laboratory Result Diagrams: 12/02/18 20:18 12/02/18 20:18 Laboratory results interpreted by me: 12/02/18 12/02/18 20:18 20:18 RDW 14.2 H Sodium 136.5 L AST 41 H Discharge - Discharge Clinical Impression: Paresthesias, Right hip pain Condition: Stable Disposition: HOME-SNF (ED ONLY) Additional Instructions: No fractures are seen on x-ray. Your work-up is reassuring with no acute findings. Your evaluation is reassuring as well. Because of ongoing hip pain I recommend follow-up with orthopedics for additi onal management. Take Tylenol for pain, try icing the area. Follow-up with primary care for additional evaluation and management. Return if you worsen including developing pain in your chest, difficulty breathing, passing out, focal weakness or numbness, fever/chills, vomiting, or any other concerning or worsening symptoms. Referrals: BEV BAEZ MD [ACTIVE STAFF] - Follow up as needed
[2018-12-02 21:24] LABS: ABSOLUTE EOSINOPHILS # (AUTO) 0.2 10^3/uL (0.0-0.6); ABSOLUTE LYMPHOCYTES (AUTO) 0.9 10^3/uL (0.5-4.7); ABSOLUTE MONOCYTES (AUTO) 0.5 10^3/uL (0.1-1.4); BASOPHILS % (AUTO) 0.1 % (0-2); HEMOGLOBIN 12.3 g/dL (12.0-15.5); LYMPHOCYTES % (AUTO) 15.8 % (13-45); MEAN CORPUSCULAR HEMOGLOBIN 29.7 pg (27.0-33.4); MEAN CORPUSCULAR HGB CONC 33.2 g/dL (32.0-36.0); MEAN CORPUSCULAR VOLUME 90 fl (80-97); MONOCYTES % (AUTO) 9.2 % (3-13); PLATELET COUNT 169 10^3/uL (150-450); RED BLOOD COUNT 4.13 10^6/uL (3.72-5.28); RED CELL DISTRIBUTION WIDTH 14.2 % (11.5-14.0); SEGMENTED NEUTROPHILS % (AUTO) 71.9 % (42-78); TOTAL CELLS COUNTED % (AUTO) 100 %; WHITE BLOOD COUNT 5.6 10^3/uL (4.0-10.5)
[2018-12-02 21:26] LABS: ALANINE AMINOTRANSFERASE 49 U/L (9-52); ALBUMIN 3.9 g/dL (3.5-5.0); ALKALINE PHOSPHATASE 113 U/L (38-126); ANION GAP 11 (5-19); ASPARTATE AMINO TRANSFERASE 41 U/L (14-36); BILIRUBIN,DIRECT 0.2 mg/dL (0.0-0.4); BILIRUBIN,TOTAL 0.4 mg/dL (0.2-1.3); BLOOD UREA NITROGEN 11 mg/dL (7-20); CALCIUM 9.3 mg/dL (8.4-10.2); CARBON DIOXIDE 26 mmol/L (22-30); CHLORIDE 100 mmol/L (98-107); GLUCOSE 102 mg/dL (75-110); SODIUM 136.5 mmol/L (137-145); TOTAL PROTEIN 6.8 g/dL (6.3-8.2)
--- NOTE | 2018-12-02 22:40 | RADIOLOGY REPORT (SQ) ---
EXAM DESCRIPTION: XR HIP 2 OR MORE VIEWS COMPLETED DATE/TME: 12/02/2018 21:13 CLINICAL HISTORY: 58 years, Female, fall, pain COMPARISON: Prior study from 06/11/2018 NUMBER OF VIEWS: Two TECHNIQUE: Frontal and lateral radiographs of the right hip were obtained. LIMITATIONS: None. FINDINGS: Visualized osseous structures are normal in appearance. Joint spaces are well-maintained. No acute fracture or dislocation is evident. IMPRESSION: No acute osseous anomaly. copyright 2010 [employer]- All Rights Reserved
--- NOTE | 2018-12-02 22:42 | RADIOLOGY REPORT (SQ) ---
EXAM DESCRIPTION: [facility]: XR CHEST 1 VIEW CLINICAL HISTORY: 58 years Female, left arm pain/tingling COMPARISON: 09/28/2018 FINDINGS: Lungs are clear, with no focal infiltrate, pneumothorax, or pleural effusion. Mediastinum is within normal limits for this positioning. Cervical spine and upper lumbar spine fixation hardware is again noted. No acute bone findings. IMPRESSION: 1. No acute pulmonary findings.
[2018-12-02] MEDS ORDERED: ONDANSETRON 4 MG TAB.RAPDIS PO ONE (22:53)
[2018-12-02] MEDS ORDERED: DIAZEPAM 5 MG TABLET PO ONE (23:36)
[2018-12-03 01:30] VITALS: BP 124/81
--- NOTE | 2018-12-03 07:43 | EKG REPORT ---
SEVERITY:- ABNORMAL ECG - SINUS RHYTHM NONSPECIFIC ST-T CHANGES- ANTERIOR LEADS : Confirmed by: Donadl Williamson MD 03-Dec-2018 07:43:09
== END 2018-12-03 02:00 ==
LOC: ER 20:01
DX: R20.2 Paresthesia of skin (principal); M25.551 Pain in right hip; W19.XXXA Unspecified fall, initial encounter; M54.9 Dorsalgia, unspecified; F41.9 Anxiety disorder, unspecified; J45.909 Unspecified asthma, uncomplicated; E11.9 Type 2 diabetes mellitus without complications; Z98.84 Bariatric surgery status; Z91.048 Other nonmedicinal substance allergy status
CPT/HCPCS: 93005; 99284; 36415; 85025; 80053; 84484; 71045; 73502; 93010; A9270 ×2; S0119

== ENCOUNTER 2019-01-21 20:52 | Emergency (ER) | payer MEDICARE, MEDICAID ==
[2019-01-21] MEDS ORDERED: ONDANSETRON HCL INJ/PF 4 MG/2 ML SDV IM ONE (21:55)
--- NOTE | 2019-01-21 22:05 | ER Document Report ---
ED Medical Screen (RME) - General Chief Complaint: Fall Injury Stated Complaint: FALL/NECK,BACK,LEG PAIN Time Seen by Provider: 01/21/19 21:51 Primary Care Provider: ELIZABETH ROMERO DO [Primary Care Provider] - Follow up as needed TRAVEL OUTSIDE OF THE [place] IN LAST 30 DAYS: No - HPI Notes: 01/21/19 22:05 58-year-old female to the emergency department via EMS with complaints of fall that occurred just prior to arrival with associated right shoulder pain, headache, neck pain, back pain. She states that she was sitting on the edge of her bed and trying to figure out if her new CPAP machine was going to work when she fell off of the bed onto her right side. She states that her arm was flayed up and she was laying on her armpit. She states that her shoulder is very very painful And that she cannot move it because of the pain. Patient is legal blind and has a history of C spine and t spine fusion. She thinks she did have LOC. Also admits to nausea and dry heaving. I performed a MSE on this patient and ordered imaging. Gave 4 mg of Zofran IM for nausea. Will have one of my colleagues [facility] assume care. - Related Data Allergies/Adverse Reactions: silicone [Silicone] Allergy (Intermediate, Verified 09/13/18 22:21) REDNESS, RASH carbidopa [From Sinemet] Adverse Reaction (Severe, Verified 09/13/18 22:21) Cardiac arrest levodopa [From Sinemet] Adverse Reaction (Severe, Verified 09/13/18 22:21) Cardiac arrest Past Medical History - Past Medical History Cardiac Medical History: Reports: Hx Heart Attack - CARDIAC ARREST R/T DRUG REACTION(SINEMET), Hx Hypercholesterolemia Denies: Hx Hypertension Pulmonary Medical History: Reports: Hx Asthma, Hx Bronchitis, Hx Pneumonia - MARCH 2015, Hx Sleep Apnea - On home CPAP Denies: Hx COPD Neurological Medical History: Reports: Hx Cerebrovascular Accident, Hx Migraine, Hx Seizures - UNSURE OF ETIOLOGY, conversion disorder Endocrine Medical History: Reports: Hx Diabetes Mellitus Type 2 Renal/ Medical History: Reports: Hx Kidney Stones. Denies: Hx Peritoneal Dialysis GI Medical History: Reports: Hx Hiatal Hernia - DX 30 YEARS AGO, Hx Ulcer - after gastric by pass, surg repaired Musculoskeltal Medical History: Reports Hx Arthritis - OSTEOARTHRITIS, Reports Hx Fibromyalgia Psychiatric Medical History: Reports: Hx Anxiety, Hx Attention Deficit Hyperactivity Disorder, Hx Depression, Hx Post Traumatic Stress Disorder Past Surgical History: Reports: Hx Abdominal Surgery - gastric bypass, Hx Cholecystectomy, Hx Gastric Bypass Surgery, Hx Hysterectomy, Hx Orthopedic Surgery - back/spinal surgery, Hx Tubal Ligation - Immunizations Immunizations up to date: Yes Hx Diphtheria, Pertussis, Tetanus Vaccination: Yes - up to date within last 5 yrs History of Influenza Vaccine for 03/2017 - 08/2017 Season: Yes Influenza Administration Date for 03/2017 - 08/2017 Season: 03/30/17 Physical Exam - Vital signs Vitals: Temp Pulse BP Pulse Ox 97.7 F 69 127/73 H 90 L 01/21/19 21:01 01/21/19 21:01 01/21/19 21:01 01/21/19 21:01 Course - Vital Signs Vital signs: Temp Pulse Resp BP Pulse Ox 97.7 F 69 127/73 H 90 L 01/21/19 21:01 01/21/19 21:01 01/21/19 21:01 01/21/19 21:01 Doctor's Discharge - Discharge Referrals: ELIZABETH ROMERO DO [Primary Care Provider] - Follow up as needed
--- NOTE | 2019-01-21 22:44 | RADIOLOGY REPORT (SQ) ---
CT HEAD WITHOUT IV CONTRAST EXAM DATE: 01/21/2019 9:51 PM CDT HISTORY: Fall. COMPARISON: 10/03/2018 TECHNIQUE: CT scan of the brain without IV contrast. This exam was performed according to our departmental dose-optimization program, which includes automated exposure control, adjustment of the mA and/or kV according to patient size and/or use of iterative reconstruction technique. FINDINGS: The ventricles, cisterns, and sulci are age-appropriate. No evidence of acute infarction, intracranial hemorrhage, extra-axial fluid collection, or midline shift. Mild mucosal thickening of the left maxillary sinus. No depressed skull fracture. IMPRESSION: No acute intracranial findings.
--- NOTE | 2019-01-21 22:47 | RADIOLOGY REPORT (SQ) ---
EXAM DESCRIPTION: Rad[facility]: CT CERVICAL SPINE WITHOUT IV CONTRAST CLINICAL HISTORY: 58 years Female; NECK PAIN, FALL TECHNIQUE: Noncontrast cervical spine CT with sagittal and coronal reconstructions. All CT scans at this facility use dose modulation, iterative reconstruction, and/or weight based dosing when appropriate to reduce radiation dose to as low as reasonably achievable. COMPARISON: CT 11/13/2014 FINDINGS: Alignment is anatomic. Multilevel facet arthropathy is again noted. C5-C6 ACDF is unchanged. No hardware failure or loosening. There is no acute fracture of the cervical spine. No epidural hematoma. IMPRESSION: 1. No acute cervical spine fracture or subluxation. 2. Previous C5-C6 ACDF 3. Multilevel facet arthropathy as on prior exam.
--- NOTE | 2019-01-21 22:52 | RADIOLOGY REPORT (SQ) ---
XR THORACIC SPINE 2 VIEWS CLINICAL STATEMENT: BACK PAIN, FALL COMPARISON: None FINDINGS: Vertebral body heights are intact. Alignment is intact. No subluxation. Pedicles are intact. Moderate diffuse degenerative changes in the thoracic spine. Lower thoracic spine fusion hardware is noted in place. IMPRESSION: No fracture.
--- NOTE | 2019-01-21 22:52 | RADIOLOGY REPORT (SQ) ---
XR LUMBAR SPINE ANTEROPOSTERIOR, LATERAL, AND OBLIQUES CLINICAL STATEMENT: FALL, BACK PAIN COMPARISON: None FINDINGS: Vertebral body heights are intact. Alignment is intact. No subluxation. Pedicles are intact. T11-T12 thoracic spine fusion hardware is in place. Hardware is intact. IMPRESSION: No fracture.
--- NOTE | 2019-01-21 22:54 | RADIOLOGY REPORT (SQ) ---
3 VIEWS OF RIGHT SHOULDER EXAM DATE: 01/21/2019 9:52 PM CDT HISTORY: Shoulder pain. COMPARISON: None. FINDINGS: No acute fracture or dislocation is seen. There are mild degenerative changes of the acromioclavicular and glenohumeral joints. The soft tissues are unremarkable. IMPRESSION: No acute fracture or malalignment.
--- NOTE | 2019-01-21 23:29 | RADIOLOGY REPORT (SQ) ---
CLINICAL HISTORY: trauma COMPARISON: None. TECHNIQUE: XR HIP 1 VIEW BILATERAL 01/21/2019 10:56 PM CDT FINDINGS: There is no fracture. There is mild narrowing of the right hip joint. Soft tissues are unremarkable. IMPRESSION: No acute osseous findings.
[2019-01-21] MEDS ORDERED: OXYCODONE-ACETAMINOPHEN 5-325 MG TABLET PO ONE (23:50)
--- NOTE | 2019-01-21 23:54 | ER Document Report ---
ED General - General Chief Complaint: Fall Injury Stated Complaint: FALL/NECK,BACK,LEG PAIN Time Seen by Provider: 01/21/19 21:51 Primary Care Provider: ELIZABETH ROMERO DO [Primary Care Provider] - Follow up as needed TRAVEL OUTSIDE OF THE [place] IN LAST 30 DAYS: No - Related Data Allergies/Adverse Reactions: silicone [Silicone] Allergy (Intermediate, Verified 09/13/18 22:21) REDNESS, RASH carbidopa [From Sinemet] Adverse Reaction (Severe, Verified 09/13/18 22:21) Cardiac arrest levodopa [From Sinemet] Adverse Reaction (Severe, Verified 09/13/18 22:21) Cardiac arrest Past Medical History - Social History Smoking Status: Never Smoker Family History: Reviewed & Not Pertinent Patient has suicidal ideation: No Patient has homicidal ideation: No - Past Medical History Cardiac Medical History: Reports: Hx Heart Attack - CARDIAC ARREST R/T DRUG REACTION(SINEMET), Hx Hypercholesterolemia Denies: Hx Hypertension Pulmonary Medical History: Reports: Hx Asthma, Hx Bronchitis, Hx Pneumonia - MARCH 2015, Hx Sleep Apnea - On home CPAP Denies: Hx COPD Neurological Medical History: Reports: Hx Cerebrovascular Accident, Hx Migraine, Hx Seizures - UNSURE OF ETIOLOGY, conversion disorder Endocrine Medical History: Reports: Hx Diabetes Mellitus Type 2 Renal/ Medical History: Reports: Hx Kidney Stones. Denies: Hx Peritoneal Dialysis GI Medical History: Reports: Hx Hiatal Hernia - DX 30 YEARS AGO, Hx Ulcer - after gastric by pass, surg repaired Musculoskeletal Medical History: Reports Hx Arthritis - OSTEOARTHRITIS, Reports Hx Fibromyalgia Psychiatric Medical History: Reports: Hx Anxiety, Hx Attention Deficit Hyperactivity Disorder, Hx Depression, Hx Post Traumatic Stress Disorder Past Surgical History: Reports: Hx Abdominal Surgery - gastric bypass, Hx Cholecystectomy, Hx Gastric Bypass Surgery, Hx Hysterectomy, Hx Orthopedic Surgery - back/spinal surgery, Hx Tubal Ligation - Immunizations Immunizations up to date: Yes Hx Diphtheria, Pertussis, Tetanus Vaccination: Yes - up to date within last 5 yrs Hx Pneumococcal Vaccination: 03/31/14 Physical Exam - Vital signs Vitals: Temp Pulse BP Pulse Ox 97.7 F 69 127/73 H 90 L 01/21/19 21:01 01/21/19 21:01 01/21/19 21:01 01/21/19 21:01 Course - Re-evaluation Re-evalutation: 01/21/19 23:53 Patient's x-rays and CT scans did not show any concerning findings. Patient still complains of pain in the right shoulder. I will give her dose pain medicine and place her shoulder sling as I suspect she could have a rotator cuff injury. I explained this to her. Informed her that she still having pain after 1 week then she should follow-up with orthopedist for reevaluation. Patient to return to ER if she has weakness or numbness into her extremities, severe headache, vomiting, or she feels like she is worsening. Patient agrees with plan and will be discharged home. Dictation of this chart was performed using voice recognition software; therefore, there may be some unintended grammatical errors. - Vital Signs Vital signs: Temp Pulse Resp BP Pulse Ox 97.7 F 69 127/73 H 90 L 01/21/19 21:01 01/21/19 21:01 01/21/19 21:01 01/21/19 21:01 Discharge - Discharge Clinical Impression: Neck pain Shoulder pain Qualifiers: Chronicity: acute Laterality: right Qualified Code(s): M25.511 - Pain in right shoulder Low back pain Qualifiers: Chronicity: acute Back pain laterality: midline Sciatica presence: without sciatica Qualified Code(s): M54.5 - Low back pain Condition: Good Disposition: HOME, SELF-CARE Additional Instructions: Please wear the sling for support of your shoulder. You can take your arm out of the sling 3-4 times a day to put the shoulder through some range of motion. Please follow-up with orthopedist in 1 week if you are still having pain in your shoulder or if you're still having to wear the sling for support. Please return to ER if you have severe headache, vomiting, or if you feel like you are worsening in any way. Referrals: BEV BAEZ MD [ACTIVE STAFF] - Follow up in 1 week
[2019-01-22 02:21] VITALS: BP 113/63
== END 2019-01-22 02:22 | disposition home or self-care (01) ==
LOC: ER 20:52
DX: M54.2 Cervicalgia (principal); M25.511 Pain in right shoulder; M54.5 Low back pain; M54.9 Dorsalgia, unspecified; R10.2 Pelvic and perineal pain; R11.0 Nausea; W06.XXXA Fall from bed, initial encounter; J45.909 Unspecified asthma, uncomplicated; E11.9 Type 2 diabetes mellitus without complications; I25.2 Old myocardial infarction
CPT/HCPCS: 99284; 96374; 82962; 72110; 73522; 73030; 72070; 70450; 72125; L0120; A9270; J2405

== ENCOUNTER 2019-04-26 15:53 | Emergency (ER) | payer MEDICARE, MEDICAID ==
--- NOTE | 2019-04-26 18:18 | RADIOLOGY REPORT (SQ) ---
EXAM DESCRIPTION: CT THORACIC SPINE WITHOUT COMPLETED DATE/TIME: 04/26/2019 6:04 pm REASON FOR STUDY: fall/pain COMPARISON: None. TECHNIQUE: Axial images acquired through the thoracic spine without intravenous contrast. Images re viewed with lung, soft tissue and bone windows. Reconstructed coronal and sagittal MPR images review ed. Images stored on PACS. All CT scanners at this facility use dose modulation, iterative reconstruction, and/or weight based d osing when appropriate to reduce radiation dose to as low as reasonably achievable (ALARA). [facility]: Dose Right [facility]: CareDose [facility]: Dose Right [facility]: Teradose 4D [facility]: Smart [employer] RADIATION DOSE: CT Rad equipment meets quality standard of care and radiation dose reduction techniq ues were employed. CTDIvol: 74.2 mGy. DLP: 2946 mGy-cm. mGy. LIMITATIONS: None. FINDINGS: VISUALIZED LUNGS: No acute opacities. No pneumothorax. SOFT TISSUES: No soft tissue swelling. No masses. VERTEBRAL BODIES: No fractures. No dislocation. No acute findings. DISCS: Disc spaces are maintained. There are some bridging osteophytes in the mid to lower cervical spine. ALIGNMENT: Mild scoliosis. TRANSVERSE PROCESSES, POSTERIOR ELEMENTS: No fractures. No dislocation. No acute findings. HARDWARE: Posterior rods at T11-12 with screws through the pedicles. ACDF lower cervical spine. VISUALIZED RIBS: No fractures. OTHER: No other significant finding. IMPRESSION: Mild scoliosis. Mild spondylosis. No acute finding. TECHNICAL DOCUMENTATION: JOB ID: [id number] Quality ID # [id number]: Final reports with documentation of one or more dose reduction techniques (e.g., Au tomated exposure control, adjustment of the mA and/or kV according to patient size, use of iterative reconstruction technique) 2010 [employer]- All Rights Reserved Reading location - IP/workstation name: [email or web address]
--- NOTE | 2019-04-26 18:42 | ER Document Report ---
ED General - General Chief Complaint: Back Pain Stated Complaint: BACK PAIN Time Seen by Provider: 04/26/19 16:57 Primary Care Provider: ELIZABETH ROMERO DO [Primary Care Provider] - Follow up as needed Information source: Patient TRAVEL OUTSIDE OF THE [place] IN LAST 30 DAYS: No - HPI Notes: Patient complains of midthoracic back pain. She states she has had this pain for several months. She states she received an x-ray at [facility] that showed "a beehive". She states when she saw orthopedics he told her specifically that he saw a "beehive" in her spine and was going to do surgery. She states however, she does not have an appointment again with a surgeon until next month. She states in the meantime she has been taking hydrocodone but this is not relieving her pain. She has no chest pain. No shortness of breath. No vomiting or diarrhea. Patient states the pain is moderate to severe and constant. Worse with movement and better with rest. It does radiate up and down her spine. It is a sharp sensation. No abdominal pain. No numbness or tingling in any extremity. She states this all started after a fall several months ago. - Related Data Allergies/Adverse Reactions: silicone [Silicone] Allergy (Intermediate, Verified 09/13/18 22:21) REDNESS, RASH carbidopa [From Sinemet] Adverse Reaction (Severe, Verified 09/13/18 22:21) Cardiac arrest levodopa [From Sinemet] Adverse Reaction (Severe, Verified 09/13/18 22:21) Cardiac arrest Past Medical History - General Information source: Patient - Social History Smoking Status: Never Smoker Frequency of alcohol use: None Drug Abuse: None Family History: Reviewed & Not Pertinent Patient has suicidal ideation: No Patient has homicidal ideation: No - Past Medical History Cardiac Medical History: Reports: Hx Heart Attack - CARDIAC ARREST R/T DRUG REACTION(SINEMET), Hx Hypercholesterolemia Denies: Hx Hypertension Pulmonary Medical History: Reports: Hx Asthma, Hx Bronchitis, Hx Pneumonia - MARCH 2015, Hx Sleep Apnea - On home CPAP Denies: Hx COPD Neurological Medical History: Reports: Hx Cerebrovascular Accident, Hx Migraine, Hx Seizures - UNSURE OF ETIOLOGY, conversion disorder Endocrine Medical History: Reports: Hx Diabetes Mellitus Type 2 Renal/ Medical History: Reports: Hx Kidney Stones. Denies: Hx Peritoneal Dialysis GI Medical History: Reports: Hx Hiatal Hernia - DX 30 YEARS AGO, Hx Ulcer - after gastric by pass, surg repaired Musculoskeletal Medical History: Reports Hx Arthritis - OSTEOARTHRITIS, Reports Hx Fibromyalgia Psychiatric Medical History: Reports: Hx Anxiety, Hx Attention Deficit Hyperactivity Disorder, Hx Depression, Hx Post Traumatic Stress Disorder Past Surgical History: Reports: Hx Abdominal Surgery - gastric bypass, Hx Cholecystectomy, Hx Gastric Bypass Surgery, Hx Hysterectomy, Hx Orthopedic Surgery - back/spinal surgery, Hx Tubal Ligation - Immunizations Immunizations up to date: Yes Hx Diphtheria, Pertussis, Tetanus Vaccination: Yes - up to date within last 5 yrs Hx Pneumococcal Vaccination: 03/31/14 Review of Systems - Review of Systems Constitutional: denies: Chills, Fever Cardiovascular: denies: Chest pain, Palpitations Respiratory: denies: Cough, Short of breath -: Yes All other systems reviewed and negative Physical Exam - Vital signs Vitals: Temp Pulse Resp BP Pulse Ox 99.2 F 65 16 124/76 94 04/26/19 16:00 04/26/19 16:00 04/26/19 16:00 04/26/19 16:00 04/26/19 16:00 Interpretation: Normal - General General appearance: Appears well, Alert - HEENT Head: Normocephalic, Atraumatic Eyes: Normal Pupils: PERRL - Respiratory Respiratory status: No respiratory distress Chest status: Nontender Breath sounds: Normal Chest palpation: Normal - Cardiovascular Rhythm: Regular Heart sounds: Normal auscultation Murmur: No - Abdominal Inspection: Normal Distension: No distension Bowel sounds: Normal Tenderness: Nontender Organomegaly: No organomegaly - Back Back: Normal, Tender - Patient has some moderate to minimal tenderness along the thoracic spine. No step-offs or deformities. - Extremities General upper extremity: Normal inspection, Nontender, Normal color, Normal ROM, Normal temperature General lower extremity: Normal inspection, Nontender, Normal color, Normal ROM, Normal temperature, Normal weight bearing. No: Guido's sign - Neurological Neuro grossly intact: Yes Cognition: Normal Orientation: AAOx4 [place] Coma Scale Eye Opening: Spontaneous Stan Coma Scale Verbal: Oriented [place] Coma Scale Motor: Obeys Commands Stan Coma Scale Total: 15 Speech: Normal Motor strength normal: LUE, RUE, LLE, RLE Sensory: Normal - Psychological Associated symptoms: Normal affect, Normal mood - Skin Skin Temperature: Warm Skin Moisture: Dry Skin Color: Normal Course - Re-evaluation Re-evalutation: 04/26/19 18:40 Patient arrives complaining of midthoracic back pain. She has no evidence of any bony abnormalities on CT scan of the T-spine. Inspection of the series unremarkable. Patient's vital signs are stable. She has no chest pain or complaints. The presentation does not seem consistent with any type of aortic pathology. Neither does not seem consistent with cardiac or pulmonary pathology. I will change the patient's hydrocodone to oxycodone and have her follow-up with her spinal surgeon. - Vital Signs Vital signs: Temp Pulse Resp BP Pulse Ox 99.2 F 65 16 124/76 94 04/26/19 16:00 04/26/19 16:00 04/26/19 16:00 04/26/19 16:00 04/26/19 16:00 - Diagnostic Test Radiology reviewed: Image reviewed, Reports reviewed Discharge - Discharge Clinical Impression: Morbid obesity with BMI of 40.0-44.9, adult Thoracic back pain Qualifiers: Chronicity: acute Back pain laterality: midline Qualified Code(s): M54.6 - Pain in thoracic spine Condition: Stable Disposition: HOME, SELF-CARE Additional Instructions: Please call your primary doctor as soon as possible to arrange follow-up. I also recommend that you follow-up with pain management as soon as you can. Please stop taking your hydrocodone and start taking the oxycodone. Prescriptions: Oxycodone HCl/Acetaminophen [Percocet 5-325 mg Tablet] 1 - 2 tab PO Q4H PRN #15 tablet PRN Reason: Referrals: ELIZABETH ROMERO DO [Primary Care Provider] - Follow up tomorrow
[2019-04-26 20:51] VITALS: BP 110/55
== END 2019-04-26 20:52 | disposition home or self-care (01) ==
LOC: ER 15:53
DX: M54.6 Pain in thoracic spine (principal); E66.01 Morbid (severe) obesity due to excess calories; Z68.41 Body mass index [BMI] 40.0-44.9, adult; J45.909 Unspecified asthma, uncomplicated; E11.9 Type 2 diabetes mellitus without complications; Z88.8 Allergy status to other drugs, medicaments and biological substances
CPT/HCPCS: 72128; 82962; 99285

== ENCOUNTER 2019-06-03 09:13 | Emergency (ER) | payer MEDICARE, MEDICAID ==
--- NOTE | 2019-06-03 09:54 | ER Document Report ---
Entered by ESTEFANI RODGERS SCRIBE 06/03/1936 Acting as scribe for:PAULO CARVALHO MD ED General - General Chief Complaint: Altered Mental Status Stated Complaint: ALTERED MENTAL STATUS Time Seen by Provider: 06/03/19 09:16 Primary Care Provider: ELIZABETH ROMERO DO [Primary Care Provider] - Follow up as needed Mode of Arrival: Medic Information source: Patient Notes: This 59-year-old female patient with a history of anxiety, depression, PTSD, and fibromyalgia presents to the emergency department today from [facility] for complaints of "slumping over the breakfast table" according to a report given to EMS. Patient is a very poor historian at baseline so history is quite limited. Patient only complains of a nosebleed but there is no active bleeding currently. Patient mentions that she has a "brain mass" although a head CT here performed on January 21, 2019 was unremarkable. The patient is alert and oriented, the patient does move all extremities equally well, the patient does have significant psychiatric illness. Patient is not a TPA candidate for these reasons. TRAVEL OUTSIDE OF THE [place] IN LAST 30 DAYS: No - Related Data Allergies/Adverse Reactions: silicone [Silicone] Allergy (Intermediate, Verified 06/03/19 09:33) REDNESS, RASH carbidopa [From Sinemet] Adverse Reaction (Severe, Verified 06/03/19 09:33) Cardiac arrest levodopa [From Sinemet] Adverse Reaction (Severe, Verified 06/03/19 09:33) Cardiac arrest Past Medical History - General Information source: Emergency Med Personnel, [facility] Records, Outside Facility Records Cannot obtain history due to: Dementia - Social History Smoking Status: Never Smoker Cigarette use (# per day): No Chew tobacco use (# tins/day): No Frequency of alcohol use: None Drug Abuse: None Lives with: [facility] Family History: Reviewed & Not Pertinent - Past Medical History Cardiac Medical History: Reports: Hx Heart Attack - CARDIAC ARREST R/T DRUG REACTION(SINEMET), Hx Hypercholesterolemia Pulmonary Medical History: Reports: Hx Asthma, Hx Bronchitis, Hx Pneumonia - MARCH 2015, Hx Sleep Apnea - On home CPAP Neurological Medical History: Reports: Hx Cerebrovascular Accident, Hx Migraine, Hx Seizures - UNSURE OF ETIOLOGY, conversion disorder Endocrine Medical History: Reports: Hx Diabetes Mellitus Type 2 Renal/ Medical History: Reports: Hx Kidney Stones GI Medical History: Reports: Hx Hiatal Hernia - DX 30 YEARS AGO, Hx Ulcer - after gastric by pass, surg repaired Musculoskeletal Medical History: Reports Hx Arthritis - OSTEOARTHRITIS, Reports Hx Fibromyalgia Psychiatric Medical History: Reports: Hx Anxiety, Hx Attention Deficit Hyperactivity Disorder, Hx Depression, Hx Post Traumatic Stress Disorder Past Surgical History: Reports: Hx Cholecystectomy, Hx Gastric Bypass Surgery, Hx Hysterectomy, Hx Orthopedic Surgery - back/spinal surgery, Hx Tubal Ligation - Immunizations Immunizations up to date: Yes Hx Diphtheria, Pertussis, Tetanus Vaccination: Yes - up to date within last 5 yrs Hx Pneumococcal Vaccination: 03/31/14 Review of Systems - Review of Systems Constitutional: See HPI, Other - AMS EENT: See HPI, Other - nose bleed prior to arrival, no active bleeding Cardiovascular: No symptoms reported Respiratory: No symptoms reported Gastrointestinal: No symptoms reported Genitourinary: No symptoms reported Female Genitourinary: No symptoms reported Musculoskeletal: See HPI, Joint pain - right shoulder - chronic Skin: No symptoms reported Hematologic/Lymphatic: No symptoms reported Neurological/Psychological: No symptoms reported -: Yes All other systems reviewed and negative Physical Exam - Vital signs Vitals: Temp Pulse Resp BP Pulse Ox 98.0 F 86 16 126/70 H 93 06/03/19 09:14 06/03/19 09:14 06/03/19 09:14 06/03/19 09:14 06/03/19 09:14 - Notes Notes: Physical Exam: General: Alert, appears at baseline. HEENT: Normocephalic. Atraumatic. When patient's eyelids are manually opened she is staring up, so is not possible to visualize her pupils. 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 Neck: Supple. Non-tender. Respiratory: No respiratory distress. Clear and equal breath sounds bilaterally. Cardiovascular: Regular rate and rhythm. Abdominal: Morbidly obese. No distension. Normal Bowel Sounds. Back: No gross abnormalities. Extremities: Moves all four extremities. Upper extremities: There is pain with palpation of the right shoulder. Lower extremities: Normal inspection. No edema. Normal ROM. Neurological: Moves all 4 extremities. Normal speech. Somewhat demented which is baseline according to [facility] records. Psychological: Depressed. Skin: Warm. Dry. Normal color. Course - Re-evaluation Re-evalutation: 06/03/19 13:03 Patient is resting comfortably. She states that she is having pain from the mass in her left brain lobe. Lab work does not suggest an infectious process. EKG is completely normal. The patient does take Keppra for seizures, there is no way to rule out the possibility that she had a seizure since we have very little information about what went on at the [facility]. - Vital Signs Vital signs: Temp Pulse Resp BP Pulse Ox 98.0 F 86 16 126/70 H 93 06/03/19 09:14 06/03/19 09:14 06/03/19 09:24 06/03/19 09:14 06/03/19 09:24 - Laboratory Result Diagrams: 06/03/19 09:27 06/03/19 09:27 Laboratory results interpreted by me: 06/03/19 06/03/19 06/03/19 09:23 09:27 09:27 RDW 14.4 H Creatinine 0.50 L Glucose 197 H POC Glucose 202 H Urine Glucose (UA) Urine Blood Urine Urobilinogen 06/03/19 09:50 RDW Creatinine Glucose POC Glucose Urine Glucose (UA) 50 H Urine Blood MODERATE H Urine Urobilinogen 2.0 H - EKG Interpretation by Me EKG shows normal: Sinus rhythm, [place], Intervals, QRS Complexes, ST-T Waves Rate: Normal - 72 Rhythm: NSR Discharge - Discharge Clinical Impression: Seizure disorder Chronic pain Qualifiers: Chronic pain type: other chronic pain Qualified Code(s): G89.29 - Other chronic pain Condition: Stable Disposition: HOME-ASSISTED LIVING Additional Instructions: No explanation was found for the" slumping over the breakfast table" episode. Follow-up with your primary care provider if you continue to have such episodes. RETURN TO THE EMERGENCY ROOM IF ANY NEW OR WORSENING SYMPTOMS. Referrals: ELIZABETH ROMERO DO [Primary Care Provider] - Follow up as needed Scribe Attestation: 06/03/19 13:07 I personally performed the services described in the documentation, reviewed and edited the documentation which was dictated to the scribe in my presence, and it accurately records my words and actions. I personally performed the services described in the documentation, reviewed and edited the documentation which was dictated to the scribe in my presence, and it accurately records my words and actions.
[2019-06-03 10:01] LABS: ABSOLUTE EOSINOPHILS # (AUTO) 0.4 10^3/uL (0.0-0.6); ABSOLUTE LYMPHOCYTES (AUTO) 1.7 10^3/uL (0.5-4.7); ABSOLUTE MONOCYTES (AUTO) 0.5 10^3/uL (0.1-1.4); ABSOLUTE NEUT (AUTO) 3.7 10^3/uL (1.7-8.2); BASOPHILS % (AUTO) 0.3 % (0-2); EOSINOPHILS % (AUTO) 5.8 % (0-6); HEMATOCRIT 38.4 % (36.0-47.0); HEMOGLOBIN 12.5 g/dL (12.0-15.5); MEAN CORPUSCULAR HEMOGLOBIN 29.5 pg (27.0-33.4); MEAN CORPUSCULAR HGB CONC 32.7 g/dL (32.0-36.0); MEAN CORPUSCULAR VOLUME 91 fl (80-97); MONOCYTES % (AUTO) 7.4 % (3-13); PLATELET COUNT 181 10^3/uL (150-450); RED BLOOD COUNT 4.24 10^6/uL (3.72-5.28); RED CELL DISTRIBUTION WIDTH 14.4 % (11.5-14.0); SEGMENTED NEUTROPHILS % (AUTO) 59.5 % (42-78); TOTAL CELLS COUNTED % (AUTO) 100 %; WHITE BLOOD COUNT 6.1 10^3/uL (4.0-10.5)
[2019-06-03 10:05] LABS: APPEARANCE,URINE CLEAR; BILIRUBIN,URINE NEGATIVE (NEGATIVE); COLOR,URINE YELLOW; GLUCOSE, URINE 50 mg/dL (NEGATIVE); KETONES,URINE NEGATIVE (NEGATIVE); LEUKOCYTE ESTERASE,URINE NEGATIVE (NEGATIVE); NITRITE,URINE NEGATIVE (NEGATIVE); PROTEIN,URINE NEGATIVE (NEGATIVE); URINE SPECIFIC GRAVITY 1.021
[2019-06-03 10:25] LABS: ALBUMIN 3.9 g/dL (3.5-5.0); ALKALINE PHOSPHATASE 76 U/L (38-126); ANION GAP 8 (5-19); ASPARTATE AMINO TRANSFERASE 25 U/L (14-36); BILIRUBIN,DIRECT 0.1 mg/dL (0.0-0.4); BILIRUBIN,TOTAL 0.4 mg/dL (0.2-1.3); BLOOD UREA NITROGEN 16 mg/dL (7-20); CALCIUM 9.1 mg/dL (8.4-10.2); CARBON DIOXIDE 27 mmol/L (22-30); CHLORIDE 105 mmol/L (98-107); CREATINE KINASE 80 U/L (30-135); GLUCOSE 197 mg/dL (75-110); POTASSIUM 4.4 mmol/L (3.6-5.0); TOTAL PROTEIN 6.7 g/dL (6.3-8.2)
[2019-06-03 14:19] VITALS: BP 132/77
--- NOTE | 2019-06-03 19:14 | EKG REPORT ---
SEVERITY:- NORMAL ECG - SINUS RHYTHM : Confirmed by: Mandy Vargas MD 03-Jun-2019 19:13:42
== END 2019-06-03 14:15 | disposition home health service (06) ==
LOC: ER 09:13
DX: G40.909 Epilepsy, unspecified, not intractable, without status epilepticus (principal); Z79.899 Other long term (current) drug therapy; M25.511 Pain in right shoulder; G89.29 Other chronic pain; F03.90 Unspecified dementia, unspecified severity, without behavioral disturbance, psychotic disturbance, mood disturbance, and anxiety; E11.9 Type 2 diabetes mellitus without complications; F32.9 Major depressive disorder, single episode, unspecified; J45.909 Unspecified asthma, uncomplicated; Z91.048 Other nonmedicinal substance allergy status
CPT/HCPCS: 36415; 80053; 81001; 82550; 82962; 84484; 85025; 93005; 93010; 99285

== ENCOUNTER 2019-06-10 21:26 | Emergency (ER) | payer MEDICARE, MEDICAID ==
--- NOTE | 2019-06-10 22:31 | ER Document Report ---
ED General - General Stated Complaint: RIGHT SHOULDER PAIN Time Seen by Provider: 06/10/19 21:54 Primary Care Provider: ELIZABETH ROMERO DO [Primary Care Provider] - Follow up as needed Notes: 59-year-old female presents emergency department from [facility] after a fall this morning. Patient states that she is blind in her right eye and has difficulty seeing out of the left eye. States that this morning when she was walking with her walker she tripped over a wet floor sign and fell to the ground. Patient states she landed on her right knee and feels like there is bone sticking out, landed on her right elbow and now she has pain in her right elbow and right shoulder, hit the left side of her forehead and has a headache in her "left temporal lobe of her brain.". Also complains of left hip pain and that she cannot move her right foot. Patient states that the numbness in her right upper extremity just started this evening while watching TV. States that initially she refused to come to the emergency department. States that despite not being able to move her right foot she is walking like she usually does with her walker. Denies any loss of consciousness, denies any vomiting. Admits to taking a single baby aspirin a day. Also complains of pain that radiates from her neck to her thoracic and lumbar spine. TRAVEL OUTSIDE OF THE [place] IN LAST 30 DAYS: No - Related Data Allergies/Adverse Reactions: silicone [Silicone] Allergy (Intermediate, Verified 06/03/19 09:33) REDNESS, RASH carbidopa [From Sinemet] Adverse Reaction (Severe, Verified 06/03/19 09:33) Cardiac arrest levodopa [From Sinemet] Adverse Reaction (Severe, Verified 06/03/19 09:33) Cardiac arrest Past Medical History - General Information source: Patient - Social History Smoking Status: Never Smoker Frequency of alcohol use: None Drug Abuse: None Lives with: Shelter - [facility] Family History: Reviewed & Not Pertinent - Past Medical History Cardiac Medical History: Reports: Hx Heart Attack - CARDIAC ARREST R/T DRUG REACTION(SINEMET), Hx Hypercholesterolemia Denies: Hx Hypertension Pulmonary Medical History: Reports: Hx Asthma, Hx Bronchitis, Hx Pneumonia - MARCH 2015, Hx Sleep Apnea - On home CPAP Denies: Hx COPD Neurological Medical History: Reports: Hx Cerebrovascular Accident, Hx Migraine, Hx Seizures - UNSURE OF ETIOLOGY, conversion disorder Endocrine Medical History: Reports: Hx Diabetes Mellitus Type 2 Renal/ Medical History: Reports: Hx Kidney Stones. Denies: Hx Peritoneal Dialysis GI Medical History: Reports: Hx Hiatal Hernia - DX 30 YEARS AGO, Hx Ulcer - after gastric by pass, surg repaired Musculoskeletal Medical History: Reports Hx Arthritis - OSTEOARTHRITIS, Reports Hx Fibromyalgia Psychiatric Medical History: Reports: Hx Anxiety, Hx Attention Deficit Hyperactivity Disorder, Hx Depression, Hx Post Traumatic Stress Disorder Past Surgical History: Reports: Hx Abdominal Surgery - gastric bypass, Hx Cholecystectomy, Hx Gastric Bypass Surgery, Hx Hysterectomy, Hx Orthopedic Surgery - back/spinal surgery, Hx Tubal Ligation - Immunizations Immunizations up to date: Yes Hx Diphtheria, Pertussis, Tetanus Vaccination: Yes - up to date within last 5 yrs Hx Pneumococcal Vaccination: 03/31/14 Review of Systems - Review of Systems Constitutional: No symptoms reported EENT: See HPI - Blind at baseline. Cardiovascular: No symptoms reported Gastrointestinal: No symptoms reported Musculoskeletal: See HPI Neurological/Psychological: See HPI -: Yes All other systems reviewed and negative Physical Exam - Vital signs Vitals: Temp Pulse BP Pulse Ox 98.0 F 77 123/52 L 94 06/10/19 21:31 06/10/19 21:31 06/10/19 21:31 06/10/19 21:31 - Notes Notes: GENERAL: Alert, interacts well. No acute distress. Overweight. Wearing dark glasses over top of her sunglasses. Watching TV. HEAD: Normocephalic, atraumatic. No bruising, no hematoma, no step-off or deformity. ENT: Oral mucosa moist, tongue midline. NECK: Full range of motion, supple, trachea midline. LUNGS: Clear to auscultation bilaterally, no wheezes, rales or rhonchi, no respiratory distress. HEART: Regular rate and rhythm, no murmurs, gallops, rubs. ABDOMEN: Soft, nontender, nondistended, bowel sounds present in all 4 quadrants. EXTREMITIES: Right shoulder tender to palpation without deformity, right clavicle nontender to palpation, right elbow nontender to palpation, complains of pain when I move her right shoulder, no midline bony tenderness to palpation on the neck. Complains of pain whenever I try to move her right or her left leg. Makes no attempt to move her right or her left leg whatsoever when I asked her to move them. She does withdraw from painful stimuli on the bottom of the right foot. Complains of tenderness to palpation on the right knee. No ligamentous laxity on either knee, negative anterior and posterior drawer test. No bruising or deformity noted. Sensation intact to hands and feet. No edema, radial and dorsalis pedis pulses 2/4 bilaterally. No cyanosis. NEUROLOGICAL: Alert and oriented x3, normal speech, no facial droop, biceps and patellar DTRs 2+ bilaterally. PSYCH: Normal mood, normal affect. SKIN: Warm, Dry, normal turgor. Course - Re-evaluation Re-evalutation: 06/11/19 00:33 No acute process seen on any x-rays or CAT scans. No ligamentous laxity. Patient will be discharged to home. Cervical Spine CT 06/10/19 22:23 IMPRESSION: Postsurgical changes and degenerative changes with no CT evidence for acute C-spine abnormality TECHNICAL DOCUMENTATION: Quality ID # 436: Final reports with documentation of one or more dose reduction techniques (e.g., Automated exposure control, adjustment of the mA and/or kV according to patient size, use of iterative reconstruction technique) copyright 2010 [id number]- All Rights Reserved Chest X-Ray 06/10/19 22:23 IMPRESSION: No acute cardiopulmonary process copyright 2010 [email or web address]- All Rights Reserved Elbow X-Ray 06/10/19 22:23 IMPRESSION: Negative exam copyright 2010 [email or web address]- All Rights Reserved Hip X-Ray 06/10/19 22:23 IMPRESSION: No acute osseous abnormality copyright 2010 [employer] All Rights Reserved Knee X-Ray 06/10/19 22:23 IMPRESSION: No acute osseous abnormality copyright 2010 [email or web address]- All Rights Reserved Lumbar Spine X-Ray 06/10/19 22:23 IMPRESSION: Osteopenia with minor facet arthropathy of the lower lumbar spine copyright 2010 [employer] All Rights Reserved Shoulder X-Ray 06/10/19 22:23 IMPRESSION: Osteopenia with moderate degenerative change of the shoulders bilaterally copyright 2010 [email or web address]- All Rights Reserved Thoracic Spine X-Ray 06/10/19 22:23 IMPRESSION: Osteopenia with minor degenerative changes. Stable postsurgical change copyright 2010 [email or web address]- All Rights Reserved 06/11/19 00:34 06/11/19 00:47 On reevaluation patient is lying in bed complaining that her back still hurts. Patient will be given hydrocodone for pain here. Patient has now lifted her legs up and is laying with her knees and her hips bent. Showing no difficulties in moving her right arm or her bilateral legs. We will attempt to ambulate the patient with a walker and then discharge her back to [facility]. 06/11/19 02:06 Patient was able to stand and walk 2 steps for nursing. Complained of significant pain. Nursing did call [facility] and discussed the patient with them. [facility] reveals that patient was having no complaints no problems until approximately 8:00 this evening. Patient had no difficulty ambulating compared to baseline earlier today. Currently no further evaluation is needed for this patient who has negative imaging of all areas of complaint. Suspect pain is all muscular. Patient already has muscle relaxer written. Patient will be discharged back to assisted living. - Vital Signs Vital signs: Temp Pulse Resp BP Pulse Ox 98.0 F 77 123/52 L 94 06/10/19 21:31 06/10/19 21:31 06/10/19 21:31 06/10/19 21:31 Discharge - Discharge Clinical Impression: Morbid obesity with BMI of 40.0-44.9, adult, Acute exacerbation of chronic low back pain Fall as cause of accidental injury in residential institution as place of occurrence Qualifiers: Encounter type: initial encounter Qualified Code(s): W19.XXXA - Unspecified fall, initial encounter Fall from standing Qualifiers: Encounter type: initial encounter Qualified Code(s): W19.XXXA - Unspecified fall, initial encounter Right shoulder pain Qualifiers: Chronicity: acute Qualified Code(s): M25.511 - Pain in right shoulder Condition: Stable Disposition: HOME-ASSISTED LIVING Additional Instructions: Today none of your x-rays or CAT scan showed any acute fracture or dislocation. Your pain appears to all be musculoskeletal. I know your shoulder hurts but it is important that you do range of motion exercises every day so you do not develop showed frozen shoulder. I know your back hurts and I am sorry. There is no evidence of a worsening herniated disc at this time. Please take the muscle relaxers that I have prescribed for continuing back pain. Please return to the emergency department for loss of control of your bowels or bladder, new weakness or new numbness. Prescriptions: Cyclobenzaprine HCl [Flexeril 10 mg Tablet] 10 mg PO TIDP PRN #15 tab PRN Reason: Referrals: ELIZABETH ROMERO DO [Primary Care Provider] - Follow up as needed
--- NOTE | 2019-06-10 23:37 | RADIOLOGY REPORT (SQ) ---
EXAM DESCRIPTION: XR HIP 1 VIEW BILATERAL COMPLETED DATE/TME: 06/10/2019 22:23 CLINICAL HISTORY: 59 years, Female, fell, right hip and knee pain COMPARISON: 12/02/2018 right hip NUMBER OF VIEWS: 3 TECHNIQUE: AP pelvis with single view of each hip LIMITATIONS: None. FINDINGS: Osteopenia. Negative for acute fracture or dislocation. Minor degenerative change of the hips bilaterally IMPRESSION: No acute osseous abnormality copyright 2010 [employer]- All Rights Reserved
--- NOTE | 2019-06-10 23:40 | RADIOLOGY REPORT (SQ) ---
EXAM DESCRIPTION: XR KNEE 3 VIEWS COMPLETED DATE/TME: 06/10/2019 22:23 CLINICAL HISTORY: 59 years, Female, fell, right knee pain COMPARISON: None. NUMBER OF VIEWS: 3 TECHNIQUE: 3 view right knee LIMITATIONS: None. FINDINGS: Osteopenia. Negative for acute fracture or dislocation. Mild tricompartmental degenerative change. Soft tissues are unremarkable IMPRESSION: No acute osseous abnormality copyright 2010 [employer]- All Rights Reserved
--- NOTE | 2019-06-10 23:44 | RADIOLOGY REPORT (SQ) ---
EXAM DESCRIPTION: XR CHEST 1 VIEW COMPLETED DATE/TME: 06/10/2019 22:23 CLINICAL HISTORY: 59 years, Female, fell, arm and clavicle pain COMPARISON: None. NUMBER OF VIEWS: 1 TECHNIQUE: Portable chest LIMITATIONS: None. FINDINGS: Heart size is normal. Osteopenia. Lungs are clear. No pneumothorax. Postsurgical changes of the spine IMPRESSION: No acute cardiopulmonary process copyright 2010 [employer]- All Rights Reserved
--- NOTE | 2019-06-10 23:47 | RADIOLOGY REPORT (SQ) ---
EXAM DESCRIPTION: XR SHOULDER 2 OR MORE VIEWS BILATERAL COMPLETED DATE/TME: 06/10/2019 22:23 CLINICAL HISTORY: 59 years, Female, fell, right shoulder and arm pain COMPARISON: None. NUMBER OF VIEWS: 2 views of the shoulder TECHNIQUE: 2 views of each shoulder LIMITATIONS: None. FINDINGS: Right shoulder: Osteopenia. Negative for fracture or dislocation. Moderate degenerative changes. Soft tissues are unremarkable. Left shoulder: Negative for fracture or dislocation. Osteopenia with moderate degenerative changes IMPRESSION: Osteopenia with moderate degenerative change of the shoulders bilaterally copyright 2010 [employer]- All Rights Reserved
--- NOTE | 2019-06-10 23:53 | RADIOLOGY REPORT (SQ) ---
EXAM DESCRIPTION: XR LUMBAR SPINE ANTEROPOSTERIOR, LATERAL, AND OBLIQUES COMPLETED DATE/TME: 06/10/2019 22:23 CLINICAL HISTORY: 59 years, Female, fell, low back pain COMPARISON: 01/21/2019 lumbar spine NUMBER OF VIEWS: 5 TECHNIQUE: 5 views lumbar spine LIMITATIONS: None. FINDINGS: Osteopenia. 5 nonrib-bearing lumbar-type vertebral bodies. Postsurgical change of the T11/T12 levels. In the lumbar spine, vertebral body height and alignment is preserved. Minor facet arthropathy L3-4, L4-5, L5-S1. IMPRESSION: Osteopenia with minor facet arthropathy of the lower lumbar spine copyright 2010 [employer]- All Rights Reserved
--- NOTE | 2019-06-10 23:53 | RADIOLOGY REPORT (SQ) ---
EXAM DESCRIPTION: XR THORACIC SPINE 2 VIEWS COMPLETED DATE/TME: 06/10/2019 22:23 CLINICAL HISTORY: 59 years, Female, fall, upper back pain COMPARISON: CT from 04/26/2019 NUMBER OF VIEWS: 2 TECHNIQUE: 2 view thoracic spine LIMITATIONS: None. FINDINGS: Osteopenia. However, vertebral body height and alignment is preserved. Postsurgical changes at T11/12, as before. Endplate degenerative changes with minor osteophytic spurring in the mid to lower thoracic spine IMPRESSION: Osteopenia with minor degenerative changes. Stable postsurgical change copyright 2010 [employer]- All Rights Reserved
--- NOTE | 2019-06-10 23:53 | RADIOLOGY REPORT (SQ) ---
EXAM DESCRIPTION: XR ELBOW 3 VIEWS COMPLETED DATE/TME: 06/10/2019 22:23 CLINICAL HISTORY: 59 years, Female, fell, right shoulder and arm pain COMPARISON: None. NUMBER OF VIEWS: 4 TECHNIQUE: 4 views of the right elbow LIMITATIONS: None. FINDINGS: Negative for fracture or dislocation. Soft tissues are unremarkable IMPRESSION: Negative exam copyright 2010 [employer]- All Rights Reserved
--- NOTE | 2019-06-10 23:57 | RADIOLOGY REPORT (SQ) ---
EXAM DESCRIPTION: CT CERVICAL SPINE WITHOUT IV CONTRAST COMPLETED DATE/TME: 06/10/2019 22:23 CLINICAL HISTORY: 59 years, Female, fell, tingling right arm, neck pain COMPARISON: 01/21/2019 CT TECHNIQUE: 200 Images stored on PACS. All CT scanners at this facility use dose modulation, iterative reconstruction, and/or weight based dosing when appropriate to reduce radiation dose to as low as reasonably achievable (ALARA). [facility]: Dose Right [facility]: CareDose [facility]: Dose Right [facility]: Teradose 4D [facility]: [employer] LIMITATIONS: None. FINDINGS: Evaluation of spinal canal contents limited due to CT technique. However, vertebral body height and alignment is preserved. Stable postsurgical changes with anterior fixation plate and screws with intervertebral spacing device at the C5/6 level. Prevertebral soft tissues are normal. Atlantoaxial space is preserved. IMPRESSION: Postsurgical changes and degenerative changes with no CT evidence for acute C-spine abnormality TECHNICAL DOCUMENTATION: Quality ID # 436: Final reports with documentation of one or more dose reduction techniques (e.g., Automated exposure control, adjustment of the mA and/or kV according to patient size, use of iterative reconstruction technique) copyright 2011 [employer]- All Rights Reserved
[2019-06-11] MEDS ORDERED: KETOROLAC TROMETHAMINE 60 MG/2 ML SDV IM ONE (00:34)
[2019-06-11] MEDS ORDERED: HYDROCODONE/ACETAMINOPHEN 5-325 MG TABLET PO ONE (00:53)
[2019-06-11 03:56] VITALS: BP 115/73
== END 2019-06-11 04:11 | disposition home health service (06) ==
LOC: ER 21:26
DX: M25.511 Pain in right shoulder (principal); M25.521 Pain in right elbow; R51 Headache; M25.552 Pain in left hip; M54.2 Cervicalgia; M54.6 Pain in thoracic spine; M54.5 Low back pain; W01.0XXA Fall on same level from slipping, tripping and stumbling without subsequent striking against object, initial encounter; Y92.129 Unspecified place in nursing home as the place of occurrence of the external cause; G89.29 Other chronic pain; M47.9 Spondylosis, unspecified; M85.88 Other specified disorders of bone density and structure, other site; H54.61 Unqualified visual loss, right eye, normal vision left eye; R20.0 Anesthesia of skin; J45.909 Unspecified asthma, uncomplicated; E11.9 Type 2 diabetes mellitus without complications; Z79.82 Long term (current) use of aspirin; Z98.84 Bariatric surgery status; Z91.048 Other nonmedicinal substance allergy status; E66.01 Morbid (severe) obesity due to excess calories; Z68.41 Body mass index [BMI] 40.0-44.9, adult
CPT/HCPCS: 99285; 96374; 71045; 73080; 73562; 72110; 73522; 72070; 73030; 72125; J1885; A9270

== ENCOUNTER 2019-06-27 22:35 | Emergency (ER) | payer MEDICARE, MEDICAID ==
--- NOTE | 2019-06-27 23:22 | ER Document Report ---
ED Respiratory Problem - General Chief Complaint: Respiratory Distress Stated Complaint: BREATHING DIFFICULTY Time Seen by Provider: 06/27/19 23:21 Primary Care Provider: ELIZABETH ROMERO DO [Primary Care Provider] - Follow up as needed Mode of Arrival: Medic - Patient is a 59-year-old female with a history of sleep apnea obstructive sleep apnea on CPAP at her residence. Patient also has history of asthma exacerbation wheezing diabetes mellitus chronic right arm and leg weakness seizure disorder and fibromyalgia. Patient presents tonight by EMS with an asthma exacerbation. Patient was given medications in route. Patient present on CPAP and converted over to BiPAP by our respiratory therapist once arrived into the trauma room 1. Information source: Patient Cannot obtain history due to: Other - Respiratory distress hyperventilating on arrival TRAVEL OUTSIDE OF THE [place] IN LAST 30 DAYS: No - HPI Patient complains to provider of: Short of breath Onset: Just prior to arrival Duration: Worse/persistent Initiating Event: Other - Unknown initiating event. Severity: Moderate Short of Breath: Moderate Sputum amount: None At home treatment: Bronchodilators, CPAP EMS treatments: Bronchodilators, CPAP, Oxygen Associated symptoms: Anxiety, Other - Anxiety Similar symptoms previously: Yes Recently seen / treated by doctor: No - Related Data Allergies/Adverse Reactions: silicone [Silicone] Allergy (Intermediate, Verified 06/03/19 09:33) REDNESS, RASH carbidopa [From Sinemet] Adverse Reaction (Severe, Verified 06/03/19 09:33) Cardiac arrest levodopa [From Sinemet] Adverse Reaction (Severe, Verified 06/03/19 09:33) Cardiac arrest Past Medical History - Social History Smoking Status: Unknown if Ever Smoked Lives with: Other - Assisted living residence Family History: Reviewed & Not Pertinent Patient has suicidal ideation: No Patient has homicidal ideation: No - Past Medical History Cardiac Medical History: Reports: Hx Heart Attack - CARDIAC ARREST R/T DRUG REAC TION(SINEMET), Hx Hypercholesterolemia Denies: Hx Hypertension Pulmonary Medical History: Reports: Hx Asthma, Hx Bronchitis, Hx Pneumonia - MARCH 2015, Hx Sleep Apnea - On home CPAP Denies: Hx COPD Neurological Medical History: Reports: Hx Cerebrovascular Accident, Hx Migraine, Hx Seizures - UNSURE OF ETIOLOGY, conversion disorder Endocrine Medical History: Reports: Hx Diabetes Mellitus Type 2 Renal/ Medical History: Reports: Hx Kidney Stones. Denies: Hx Peritoneal Dialysis GI Medical History: Reports: Hx Hiatal Hernia - DX 30 YEARS AGO, Hx Ulcer - after gastric by pass, surg repaired Musculoskeletal Medical History: Reports Hx Arthritis - OSTEOARTHRITIS, Reports Hx Fibromyalgia Psychiatric Medical History: Reports: Hx Anxiety, Hx Attention Deficit Hyperactivity Disorder, Hx Depression, Hx Post Traumatic Stress Disorder Past Surgical History: Reports: Hx Abdominal Surgery - gastric bypass, Hx Cholecystectomy, Hx Gastric Bypass Surgery, Hx Hysterectomy, Hx Orthopedic Surgery - back/spinal surgery, Hx Tubal Ligation - Immunizations Immunizations up to date: Yes Hx Diphtheria, Pertussis, Tetanus Vaccination: Yes - up to date within last 5 yrs Hx Pneumococcal Vaccination: 03/31/14 Review of Systems - Review of Systems Constitutional: See HPI Cardiovascular: No symptoms reported Respiratory: See HPI, Other - Asthma exacerbation Gastrointestinal: Constipation Musculoskeletal: Other - Patient has a documented note of weakness in her right upper and lower extremity. Neurological/Psychological: Other - Seizure disorder Physical Exam - Vital signs Vitals: Resp Pulse Ox 18 99 06/27/19 22:35 06/27/19 22:35 Interpretation: Normal - General General appearance: Appears well, Alert - HEENT Head: Normocephalic, Atraumatic Eyes: Normal Pupils: PERRL - Respiratory Respiratory status: No respiratory distress, Respiratory distress, Tachypnea, Other - Decreased breath sounds in both bases. No wheezing at this time Chest status: Nontender Breath sounds: Normal, Decreased air movement Chest palpation: Normal - Cardiovascular Rhythm: Regular Heart sounds: Normal auscultation Murmur: No - Abdominal Inspection: Normal Distension: No distension Bowel sounds: Normal Tenderness: Nontender Organomegaly: No organomegaly - Back Back: Normal, Nontender - Extremities General upper extremity: Normal inspection, Nontender, Normal color, Normal ROM, Normal temperature General lower extremity: Normal inspection, Nontender, Normal color, Normal ROM, Normal temperature, Normal weight bearing. No: Guido's sign - Neurological Neuro grossly intact: Yes Cognition: Normal Orientation: AAOx4 Stan Coma Scale Eye Opening: Spontaneous Stan Coma Scale Verbal: Oriented [place] Coma Scale Motor: Obeys Commands [place] Coma Scale Total: 15 Speech: Normal Motor strength normal: LUE, RUE, LLE, RLE Sensory: Normal - Psychological Associated symptoms: Normal affect, Normal mood - Skin Skin Temperature: Warm Skin Moisture: Dry Skin Color: Normal Course - Re-evaluation Re-evalutation: 06/28/19 03:26 Patient's respiratory distress resolved. Patient was taken off BiPAP and put on 2 L nasal O2. Patient tolerated this well chest x-ray did not show any infiltrate or any acute process. Patient CT scan of her head was done which did not disclose any acute infarct areas of her brain. Review of her chart patient shows that she has a chronic weakness of her right upper extremity and right lower extremity. - Vital Signs Vital signs: Temp Pulse Resp BP Pulse Ox 98.2 F 20 158/97 H 93 06/28/19 03:30 06/28/19 03:02 06/28/19 03:02 06/28/19 03:02 - Laboratory Result Diagrams: 06/27/19 22:54 06/27/19 22:54 Laboratory results interpreted by me: 06/27/19 06/27/19 06/28/19 22:54 22:54 01:25 RDW 14.2 H Carbonic Acid 1.47 H ABG pH 7.34 L ABG pCO2 49.0 H ABG pO2 76.6 L ABG HCO3 25.9 H ABG Total CO2 27.4 H Glucose 118 H POC Glucose 06/28/19 03:31 RDW Carbonic Acid ABG pH ABG pCO2 ABG pO2 ABG HCO3 ABG Total CO2 Glucose POC Glucose 191 H - Diagnostic Test Radiology reviewed: Image reviewed, Reports reviewed - Chest x-ray did not show any acute process no infiltrate no CHF and no collapsed lung. CT of brain disclose a normal-appearing brain without any acute process. Discharge - Discharge Clinical Impression: Asthma exacerbation Qualifiers: Asthma severity: moderate Asthma persistence: unspecified Qualified Code(s): J45.901 - Unspecified asthma with (acute) exacerbation Condition: Stable Disposition: HOME-SNF (ED ONLY) Additional Instructions: Asthma You have been diagnosed as having asthma. This is a condition where there is episodic tightness in the bronchial tubes. Allergies, infections, and polluted or cold air may be contributing factors. Emergency treatment of a severe asthma attack may include adrenaline shots, or bronchodilator aerosol. You may feel lightheaded, have a decreased exercise tolerance and a rapid pulse for an hour or two. Rest and get plenty of fluids. Home treatment of asthma requires bronchodilator drugs. These can be administered by injection, inhalation, or by mouth. Antibiotics and corticosteroids may be required for some patients. You should avoid chemical fumes, dusts, pollens, and exercising in very cold or dry air. If you smoke, stop!! If you develop a fever, increased wheezing, chest pain, or severe shortness of breath, you should contact the doctor immediately Referrals: ELIZABETH ROMERO, DO [Primary Care Provider] - Follow up as needed
--- NOTE | 2019-06-27 23:29 | RADIOLOGY REPORT (SQ) ---
EXAM DESCRIPTION: XR CHEST 1 VIEW COMPLETED DATE/TME: 06/27/2019 22:38 CLINICAL HISTORY: 59 years, Female, SOB+ COMPARISON: 06/15/2019 chest NUMBER OF VIEWS: 1 TECHNIQUE: Portable chest LIMITATIONS: None. FINDINGS: The heart size is normal. Osteopenia. Lungs clear. No pneumothorax IMPRESSION: No acute cardiopulmonary process copyright 2010 [employer]- All Rights Reserved
[2019-06-27 23:33] LABS: ABSOLUTE EOSINOPHILS # (AUTO) 0.3 10^3/uL (0.0-0.6); ABSOLUTE LYMPHOCYTES (AUTO) 2.1 10^3/uL (0.5-4.7); ABSOLUTE MONOCYTES (AUTO) 0.7 10^3/uL (0.1-1.4); ABSOLUTE NEUT (AUTO) 2.6 10^3/uL (1.7-8.2); BASOPHILS % (AUTO) 0.6 % (0-2); EOSINOPHILS % (AUTO) 5.1 % (0-6); HEMATOCRIT 36.2 % (36.0-47.0); HEMOGLOBIN 12.3 g/dL (12.0-15.5); LYMPHOCYTES % (AUTO) 36.7 % (13-45); MEAN CORPUSCULAR HEMOGLOBIN 30.1 pg (27.0-33.4); MEAN CORPUSCULAR HGB CONC 33.9 g/dL (32.0-36.0); MEAN CORPUSCULAR VOLUME 89 fl (80-97); MONOCYTES % (AUTO) 11.9 % (3-13); PLATELET COUNT 196 10^3/uL (150-450); RED BLOOD COUNT 4.07 10^6/uL (3.72-5.28); RED CELL DISTRIBUTION WIDTH 14.2 % (11.5-14.0); SEGMENTED NEUTROPHILS % (AUTO) 45.7 % (42-78); TOTAL CELLS COUNTED % (AUTO) 100 %; WHITE BLOOD COUNT 5.7 10^3/uL (4.0-10.5)
[2019-06-27] MEDS ORDERED: NORMAL SALINE 500 ML IV ONE (23:37)
[2019-06-27 23:47] LABS: INTERNATIONAL RATION (INR) 0.96
[2019-06-27 23:49] LABS: D-DIMER 0.44 ug/mL (0.00-0.50)
[2019-06-27 23:54] LABS: ALKALINE PHOSPHATASE 94 U/L (38-126); ANION GAP 12 (5-19); ASPARTATE AMINO TRANSFERASE 28 U/L (14-36); BILIRUBIN,DIRECT 0.2 mg/dL (0.0-0.4); BILIRUBIN,TOTAL 0.4 mg/dL (0.2-1.3); BLOOD UREA NITROGEN 11 mg/dL (7-20); CALCIUM 9.3 mg/dL (8.4-10.2); CARBON DIOXIDE 25 mmol/L (22-30); CHLORIDE 102 mmol/L (98-107); GLUCOSE 118 mg/dL (75-110); POTASSIUM 3.9 mmol/L (3.6-5.0); TOTAL PROTEIN 6.9 g/dL (6.3-8.2)
[2019-06-27 23:58] LABS: PROTHROMBIN TIME 12.8 SEC (11.4-15.4)
--- NOTE | 2019-06-28 00:47 | RADIOLOGY REPORT (SQ) ---
EXAM DESCRIPTION: CT HEAD WITHOUT IV CONTRAST COMPLETED DATE/TME: 06/27/2019 23:38 CLINICAL HISTORY: 59 years, Female, right side hemiparesis/headache COMPARISON: 01/21/2019 CT TECHNIQUE: 198 Images stored on PACS. All CT scanners at this facility use dose modulation, iterative reconstruction, and/or weight based dosing when appropriate to reduce radiation dose to as low as reasonably achievable (ALARA). [facility]: Dose Right [facility]: CareDose [facility]: Dose Right [facility]: Teradose 4D [facility]: [employer] LIMITATIONS: None. FINDINGS: The globes are intact. The paranasal sinuses and mastoid air cells are unremarkable. No displaced or depressed skull fracture. No intra or extra-axial hemorrhage. CT is limited for evaluation of acute infarct. No CT evidence for large or territorial acute infarct. Mild atrophy and small vessel ischemic change. No mass or midline shift IMPRESSION: No acute intracranial abnormality TECHNICAL DOCUMENTATION: Quality ID # 436: Final reports with documentation of one or more dose reduction techniques (e.g., Automated exposure control, adjustment of the mA and/or kV according to patient size, use of iterative reconstruction technique) copyright 2010 [employer]- All Rights Reserved
[2019-06-28 01:55] LABS: ARTERIAL BLOOD BASE EXCESS -0.3 mmol/L; ARTERIAL BLOOD H2CO3 1.47 mmol/L (1.05-1.35); ARTERIAL BLOOD HCO3 25.9 mmol/L (20-24); ARTERIAL BLOOD O2 SATURATION 94.5 % (94-98); ARTERIAL BLOOD PH 7.34 (7.35-7.45); ARTERIAL BLOOD PO2 76.6 mmHg (80-100); ARTERIAL BLOOD TOTAL CO2 27.4 mmol/L (21-25)
[2019-06-28 01:57] LABS: ARTERIAL BLOOD FIO2 36%
[2019-06-28 03:22] VITALS: BP 158/97
--- NOTE | 2019-06-28 08:02 | EKG REPORT ---
SEVERITY:- ABNORMAL ECG - SINUS TACHYCARDIA BORDERLINE LEFT AXIS DEVIATION BORDERLINE T ABNORMALITIES, ANTERIOR LEADS : Confirmed by: Donald Williamson MD 28-Jun-2019 08:01:22
== END 2019-06-28 03:29 ==
LOC: ER 22:35
DX: J45.901 Unspecified asthma with (acute) exacerbation (principal); K59.00 Constipation, unspecified; R53.1 Weakness; E78.00 Pure hypercholesterolemia, unspecified; E11.9 Type 2 diabetes mellitus without complications; Z87.442 Personal history of urinary calculi; Z98.84 Bariatric surgery status; Z90.49 Acquired absence of other specified parts of digestive tract; Z90.710 Acquired absence of both cervix and uterus; I25.2 Old myocardial infarction
CPT/HCPCS: 93005; 99285; 96360; 96361; 36415; 87040; 82962; 82803; 83605; 85025; 85610; 80053; 84484; 85379; 71045; 70450; 93010; 36600; 94660; J7040

== ENCOUNTER 2019-08-01 00:41 | Emergency (ER) | payer MEDICARE, MEDICAID ==
[2019-08-01 01:21] LABS: ABSOLUTE EOSINOPHILS # (AUTO) 0.4 10^3/uL (0.0-0.6); ABSOLUTE LYMPHOCYTES (AUTO) 1.7 10^3/uL (0.5-4.7); ABSOLUTE MONOCYTES (AUTO) 0.6 10^3/uL (0.1-1.4); ABSOLUTE NEUT (AUTO) 3.4 10^3/uL (1.7-8.2); BASOPHILS % (AUTO) 0.5 % (0-2); EOSINOPHILS % (AUTO) 6.4 % (0-6); HEMATOCRIT 35.6 % (36.0-47.0); LYMPHOCYTES % (AUTO) 27.6 % (13-45); MEAN CORPUSCULAR HEMOGLOBIN 30.2 pg (27.0-33.4); MEAN CORPUSCULAR HGB CONC 33.6 g/dL (32.0-36.0); MEAN CORPUSCULAR VOLUME 90 fl (80-97); MONOCYTES % (AUTO) 9.7 % (3-13); PLATELET COUNT 188 10^3/uL (150-450); RED BLOOD COUNT 3.96 10^6/uL (3.72-5.28); RED CELL DISTRIBUTION WIDTH 14.5 % (11.5-14.0); SEGMENTED NEUTROPHILS % (AUTO) 55.8 % (42-78); TOTAL CELLS COUNTED % (AUTO) 100 %; WHITE BLOOD COUNT 6.1 10^3/uL (4.0-10.5)
[2019-08-01 01:37] LABS: ALBUMIN 3.6 g/dL (3.5-5.0); ALKALINE PHOSPHATASE 91 U/L (38-126); ANION GAP 8 (5-19); ASPARTATE AMINO TRANSFERASE 24 U/L (14-36); BILIRUBIN,DIRECT 0.2 mg/dL (0.0-0.4); BILIRUBIN,TOTAL 0.3 mg/dL (0.2-1.3); BLOOD UREA NITROGEN 10 mg/dL (7-20); CALCIUM 8.9 mg/dL (8.4-10.2); CARBON DIOXIDE 25 mmol/L (22-30); CHLORIDE 106 mmol/L (98-107); CREATINE KINASE 62 U/L (30-135); GLUCOSE 98 mg/dL (75-110); POTASSIUM 3.9 mmol/L (3.6-5.0); TOTAL PROTEIN 6.5 g/dL (6.3-8.2)
[2019-08-01 01:49] LABS: CREATINE KINASE MB 0.79 ng/mL (<4.55); TROPONIN I < 0.012 ng/mL
[2019-08-01] MEDS ORDERED: DIPHENHYDRAMINE HCL 50 MG/ML VIAL IV ONE (01:57)
[2019-08-01] MEDS ORDERED: METOCLOPRAMIDE HCL INJ/PF 10 MG/2 ML SDV IV ONE (01:57)
--- NOTE | 2019-08-01 01:57 | ER Document Report ---
ED Headache - General Chief Complaint: Headache Stated Complaint: Headache Time Seen by Provider: 08/01/19 01:47 Primary Care Provider: ELIZABETH ROMERO DO [Primary Care Provider] - Follow up as needed Notes: Patient is a 59-year-old female that comes emergency department for chief complaint of headache that started this evening. Patient states that headache is throbbing and behind her right eye and also over the top of her head. She denies vomiting, head injury, fever, focal numbness or weakness. Patient comes from [facility] by EMS. 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 Patient also has a history of hypertension, anxiety/depression, pseudoseizures, fibromyalgia, conversion disorder/fictitious disorder. TRAVEL OUTSIDE OF THE [place] IN LAST 30 DAYS: No - Related Data Allergies/Adverse Reactions: silicone [Silicone] Allergy (Intermediate, Verified 06/03/19 09:33) REDNESS, RASH carbidopa [From Sinemet] Adverse Reaction (Severe, Verified 06/03/19 09:33) Cardiac arrest levodopa [From Sinemet] Adverse Reaction (Severe, Verified 06/03/19 09:33) Cardiac arrest Past Medical History - General Information source: Patient, Friend - Social History Smoking Status: Never Smoker Frequency of alcohol use: None Drug Abuse: None Lives with: Other - snf Family History: Reviewed & Not Pertinent Patient has suicidal ideation: No Patient has homicidal ideation: No - Past Medical History Cardiac Medical History: Reports: Hx Heart Attack - CARDIAC ARREST R/T DRUG RE ACTION(SINEMET), Hx Hypercholesterolemia Denies: Hx Hypertension Pulmonary Medical History: Reports: Hx Asthma, Hx Bronchitis, Hx Pneumonia - MARCH 2015, Hx Sleep Apnea - On home CPAP Denies: Hx COPD Neurological Medical History: Reports: Hx Cerebrovascular Accident, Hx Migraine, Hx Seizures - UNSURE OF ETIOLOGY, conversion disorder Endocrine Medical History: Reports: Hx Diabetes Mellitus Type 2 Renal/ Medical History: Reports: Hx Kidney Stones. Denies: Hx Peritoneal Dialysis GI Medical History: Reports: Hx Hiatal Hernia - DX 30 YEARS AGO, Hx Ulcer - after gastric by pass, surg repaired Musculoskeletal Medical History: Reports Hx Arthritis - OSTEOARTHRITIS, Reports Hx Fibromyalgia Psychiatric Medical History: Reports: Hx Anxiety, Hx Attention Deficit Hyperactivity Disorder, Hx Depression, Hx Post Traumatic Stress Disorder Past Surgical History: Reports: Hx Abdominal Surgery - gastric bypass, Hx Cholecystectomy, Hx Gastric Bypass Surgery, Hx Hysterectomy, Hx Orthopedic Surgery - back/spinal surgery, Hx Tubal Ligation - Immunizations Immunizations up to date: Yes Hx Diphtheria, Pertussis, Tetanus Vaccination: Yes - up to date within last 5 yrs Hx Pneumococcal Vaccination: 03/31/14 Review of Systems - Review of Systems Constitutional: No symptoms reported EENT: No symptoms reported Cardiovascular: No symptoms reported Respiratory: No symptoms reported Gastrointestinal: See HPI Genitourinary: No symptoms reported Female Genitourinary: No symptoms reported Musculoskeletal: No symptoms reported Skin: No symptoms reported Hematologic/Lymphatic: No symptoms reported Neurological/Psychological: See HPI Physical Exam - Vital signs Vitals: BP Pulse Ox 122/60 93 08/01/19 00:51 08/01/19 00:51 - Notes Notes: GENERAL: Alert, interacts well. No acute distress. HEAD: Normocephalic, atraumatic. EYES: Pupils equal, round, and reactive to light. Extraocular movements intact. ENT: Oral mucosa moist, tongue midline. Oropharynx unremarkable. Airway patent. LUNGS: Clear to auscultation bilaterally, no wheezes, rales, or rhonchi. No respiratory distress. HEART: Regular rate and rhythm. No murmur ABDOMEN: Soft, non-tender. Non-distended. Bowel sounds present in all 4 quadrants. GENITOURINARY: Deferred EXTREMITIES: Moves all 4 extremities spontaneously. No edema, normal radial and dorsalis pedis pulses bilaterally. No cyanosis. BACK: No nuchal rigidity. No cervical, thoracic, lumbar midline tenderness. No saddle anesthesia, normal distal neurovascular exam. Moves all extremities in full range of motion. NEUROLOGICAL: Alert and oriented x3. Normal speech. Cranial nerves II through XII grossly intact. PSYCH: Normal affect, normal mood. SKIN: Warm, dry, normal turgor. No rashes or lesions noted. Course - Re-evaluation Re-evalutation: Because of patient reporting to me that she had a brain mass pressing on the optic nerve along with her headache decision was made to perform CT of the head. This does not show any acute findings, no significant change from prior. She h as no neurological deficits on exam. She was well-appearing, has unremarkable vital signs. CBC and chemistry from triage unremarkable. Patient was medicated for suspected migraine with throbbing headache, photophobia, nausea. On reevaluation after Reglan and Benadryl patient had fallen asleep, had awakened, denies current headache or any current complaints. Overall presentation is most consistent with migraine, patient states she has had headaches similar to this previously in the past many times. Patient will be discharged for primary care follow-up, discussed return precautions with patient and agriculture research director at bedside, they state understanding and agreement. - Vital Signs Vital signs: Temp Pulse Resp BP Pulse Ox 98.9 F 60 16 108/58 L 97 08/01/19 05:36 08/01/19 05:36 08/01/19 05:36 08/01/19 05:36 08/01/19 05:36 - Laboratory Result Diagrams: 08/01/19 01:08 08/01/19 01:08 Laboratory results interpreted by me: 08/01/19 08/01/19 01:08 01:08 Hct 35.6 L RDW 14.5 H Eos % (Auto) 6.4 H Creatinine 0.47 L Discharge - Discharge Clinical Impression: Headache Qualifiers: Headache type: unspecified Headache chronicity pattern: acute headache Intractability: not intractable Qualified Code(s): R51 - Headache Condition: Stable Disposition: HOME, SELF-CARE Additional Instructions: Your evaluation, symptoms, and resolution with treatment are very suggestive of a migraine. Your imaging and labs do not show any new/concerning findings. Follow-up with primary care for additional evaluation and management of migraines. Return if you worsen including returned or severe headache, vomiting, fever, or any other concerning or worsening symptoms. Referrals: ELIZABETH ROMREO DO [Primary Care Provider] - Follow up as needed
--- NOTE | 2019-08-01 02:49 | RADIOLOGY REPORT (SQ) ---
EXAM DESCRIPTION: CT HEAD WITHOUT IV CONTRAST COMPLETED DATE/TME: 08/01/2019 01:57 CLINICAL HISTORY: 59 years Female, headache, reported hx of brain mass COMPARISON: June 28, 2019 TECHNIQUE: No contrast. Coronal and sagittal reformat. This exam was performed according to our departmental dose-optimization program, which includes automated exposure control, adjustment of the mA and/or kV according to patient size and/or use of iterative reconstruction technique. FINDINGS: Mild subcortical encephalomalacia of the left frontal lobe. 0.4 cm calcification at left temporal cortex anteriorly. Empty sella variant. Stable. No hemorrhage. No mass, mass effect, or midline shift. Atherosclerosis. Brain and extra-axial structures appear otherwise intact. IMPRESSION: No acute findings.
[2019-08-01 05:39] VITALS: BP 108/58
--- NOTE | 2019-08-02 00:22 | EKG REPORT ---
SEVERITY:- ABNORMAL ECG - SINUS RHYTHM PROBABLE INFERIOR INFARCT, AGE INDETERMINATE : Confirmed by: Deyvi Sandhu 02-Aug-2019 00:21:45
== END 2019-08-01 05:35 | disposition home or self-care (01) ==
LOC: ER 00:41
DX: R51 Headache (principal); E11.9 Type 2 diabetes mellitus without complications; Z86.74 Personal history of sudden cardiac arrest; Z87.442 Personal history of urinary calculi; Z98.84 Bariatric surgery status; Z90.710 Acquired absence of both cervix and uterus; I25.2 Old myocardial infarction
CPT/HCPCS: 93005; 99284; 96374; 96375; 36415; 82553; 82550; 85025; 80053; 84484; 70450; 93010; J1200; J2765

== ENCOUNTER 2019-08-28 01:21 | Emergency (ER) | payer MEDICARE, MEDICAID ==
[2019-08-28 02:03] LABS: ABSOLUTE EOSINOPHILS # (AUTO) 0.1 10^3/uL (0.0-0.6); ABSOLUTE LYMPHOCYTES (AUTO) 1.7 10^3/uL (0.5-4.7); ABSOLUTE MONOCYTES (AUTO) 1.1 10^3/uL (0.1-1.4); ABSOLUTE NEUT (AUTO) 8.5 10^3/uL (1.7-8.2); BASOPHILS % (AUTO) 0.3 % (0-2); EOSINOPHILS % (AUTO) 1.1 % (0-6); HEMATOCRIT 39.5 % (36.0-47.0); HEMOGLOBIN 12.9 g/dL (12.0-15.5); MEAN CORPUSCULAR HEMOGLOBIN 29.5 pg (27.0-33.4); MEAN CORPUSCULAR HGB CONC 32.7 g/dL (32.0-36.0); MEAN CORPUSCULAR VOLUME 90 fl (80-97); MONOCYTES % (AUTO) 9.2 % (3-13); PLATELET COUNT 208 10^3/uL (150-450); RED BLOOD COUNT 4.38 10^6/uL (3.72-5.28); SEGMENTED NEUTROPHILS % (AUTO) 74.4 % (42-78); TOTAL CELLS COUNTED % (AUTO) 100 %; WHITE BLOOD COUNT 11.4 10^3/uL (4.0-10.5)
[2019-08-28 02:28] LABS: APPEARANCE,URINE CLEAR; BILIRUBIN,URINE NEGATIVE (NEGATIVE); COLOR,URINE STRAW; GLUCOSE, URINE NEGATIVE (NEGATIVE); KETONES,URINE NEGATIVE (NEGATIVE); LEUKOCYTE ESTERASE,URINE NEGATIVE (NEGATIVE); NITRITE,URINE NEGATIVE (NEGATIVE); PROTEIN,URINE NEGATIVE (NEGATIVE); URINE SPECIFIC GRAVITY 1.004; UROBILINOGEN,URINE NEGATIVE mg/dL (<2.0)
[2019-08-28 02:28] LABS: ALBUMIN 4.5 g/dL (3.5-5.0); ALKALINE PHOSPHATASE 99 U/L (38-126); ANION GAP 14 (5-19); ASPARTATE AMINO TRANSFERASE 38 U/L (14-36); BILIRUBIN,DIRECT 0.3 mg/dL (0.0-0.4); BILIRUBIN,TOTAL 0.5 mg/dL (0.2-1.3); BLOOD UREA NITROGEN 15 mg/dL (7-20); CALCIUM 9.7 mg/dL (8.4-10.2); CARBON DIOXIDE 22 mmol/L (22-30); CHLORIDE 103 mmol/L (98-107); GLUCOSE 107 mg/dL (75-110); POTASSIUM 4.2 mmol/L (3.6-5.0); TOTAL PROTEIN 7.7 g/dL (6.3-8.2)
[2019-08-28 02:31] LABS: ALCOHOL < 10 mg/dL (NONE DETECTED)
[2019-08-28 02:51] LABS: URINE AMPHETAMINES SCREEN NEGATIVE; URINE BARBITURATES SCREEN NEGATIVE; URINE BENZODIAZEPINES SCREEN UNCONFIRMED POSITIVE; URINE COCAINE SCREEN NEGATIVE; URINE MARIJUANA (THC) SCREEN NEGATIVE; URINE METHADONE SCREEN NEGATIVE; URINE PHENCYCLIDINE SCREEN NEGATIVE
--- NOTE | 2019-08-28 03:04 | RADIOLOGY REPORT (SQ) ---
EXAM DESCRIPTION: CT HEAD WITHOUT IV CONTRAST COMPLETED DATE/TME: 08/28/2019 00:00 CLINICAL HISTORY: 59 years, Female, ? Seizure activity; hx seizures COMPARISON: August 01, 2019 TECHNIQUE: Images stored on PACS. All CT scanners at this facility use dose modulation, iterative reconstruction, and/or weight based dosing when appropriate to reduce radiation dose to as low as reasonably achievable (ALARA). [facility]: Dose Right [facility]: CareDose [facility]: Dose Right [facility]: Teradose 4D [facility]: [employer] LIMITATIONS: None. FINDINGS: Smith-white differentiation is normal. The ventricles and extracerebral spaces are within normal limits for age. No evidence of mass lesion, positive mass effect, or intracranial hemorrhage. Visualized extracranial structures are unremarkable. IMPRESSION: No acute intracranial process is identified. The cause of the patient's seizure is not identified on this examination. TECHNICAL DOCUMENTATION: Quality ID # 436: Final reports with documentation of one or more dose reduction techniques (e.g., Automated exposure control, adjustment of the mA and/or kV according to patient size, use of iterative reconstruction technique) copyright 2011 [email or web address]- All Rights Reserved
[2019-08-28] MEDS ORDERED: LEVETIRACETAM 500 MG/NACL-ISO 500 MG/100 ML RTUPB IV ONE (08:00)
--- NOTE | 2019-08-28 08:14 | ER Document Report ---
ED General - General Chief Complaint: Probable Seizure Stated Complaint: SEIZURES Time Seen by Provider: 08/28/19 06:11 Primary Care Provider: ELIZABETH UMANA DO [Primary Care Provider] - Follow up as needed TRAVEL OUTSIDE OF THE [place] IN LAST 30 DAYS: No - HPI Notes: 59-year-old female followed by Dr. Umana residing in assisted living facility with a longstanding history of seizure disorder as well as history of pseudoseizures, fibromyalgia, chronic pain syndrome and obsessive-compulsive disorder presents now stating that she had a seizure which occurred while she was sleeping. She uses CPAP and apparently the CPAP fell to the floor. EMS was called and she was brought to the hospital. She complains of her usual chronic pain and otherwise no other specific new symptoms. She is currently taking Keppra 500 mg twice daily and says she is compliant with medication. She denies fever. She denies vomiting or diarrhea. There was no fall or trauma reported. - Related Data Allergies/Adverse Reactions: silicone [Silicone] Allergy (Intermediate, Verified 08/28/19 03:22) REDNESS, RASH carbidopa [From Sinemet] Adverse Reaction (Severe, Verified 08/28/19 03:22) Cardiac arrest levodopa [From Sinemet] Adverse Reaction (Severe, Verified 08/28/19 03:22) Cardiac arrest Past Medical History - General Information source: Patient, Emergency Med Personnel - Social History Smoking Status: Unknown if Ever Smoked Lives with: Other - Assisted living facility Family History: Reviewed & Not Pertinent Patient has suicidal ideation: - unk Patient has homicidal ideation: - unk - Past Medical History Cardiac Medical History: Reports: Hx Heart Attack - CARDIAC ARREST R/T DRUG REACTION(SINEMET), Hx Hypercholesterolemia Denies: Hx Hypertension Pulmonary Medical History: Reports: Hx Asthma, Hx Bronchitis, Hx Pneumonia - MARCH 2015, Hx Sleep Apnea - On home CPAP Denies: Hx COPD Neurological Medical History: Reports: Hx Cerebrovascular Accident, Hx Migraine, Hx Seizures - UNSURE OF ETIOLOGY, conversion disorder Endocrine Medical History: Reports: Hx Diabetes Mellitus Type 2 Renal/ Medical History: Reports: Hx Kidney Stones. Denies: Hx Peritoneal Dialysis GI Medical History: Reports: Hx Hiatal Hernia - DX 30 YEARS AGO, Hx Ulcer - after gastric by pass, surg repaired Musculoskeletal Medical History: Reports Hx Arthritis - OSTEOARTHRITIS, Reports Hx Fibromyalgia Psychiatric Medical History: Reports: Hx Anxiety, Hx Attention Deficit Hyperactivity Disorder, Hx Depression, Hx Post Traumatic Stress Disorder Past Surgical History: Reports: Hx Abdominal Surgery - gastric bypass, Hx Cholecystectomy, Hx Gastric Bypass Surgery, Hx Hysterectomy, Hx Orthopedic Surgery - back/spinal surgery, Hx Tubal Ligation - Immunizations Immunizations up to date: Yes Hx Diphtheria, Pertussis, Tetanus Vaccination: Yes - up to date within last 5 yrs Hx Pneumococcal Vaccination: 03/31/14 Review of Systems - Review of Systems Notes: Constitutional: Negative for fever. HENT: Negative for sore throat. Eyes: Negative for visual changes. Cardiovascular: Negative for chest pain. Respiratory: Negative for shortness of breath. Gastrointestinal: Negative for abdominal pain, vomiting or diarrhea. Genitourinary: Negative for dysuria. Musculoskeletal: Negative for back pain. Skin: Negative for rash. Neurological: Slight dull generalized headache. 10 point ROS negative except as marked above and in HPI. Physical Exam - Vital signs Vitals: Resp BP Pulse Ox 25 H 153/77 H 95 08/28/19 01:43 08/28/19 01:43 08/28/19 01:43 - Notes Notes: GENERAL: Anxious female patient approximately stated age. SKIN: Good turgor no rashes. HEAD: Normocephalic atraumatic. EYES: PERRLA. EOMI. Conjunctivae and sclerae clear. EARS: CANALS AND TMS CLEAR. NOSE: CLEAR. MOUTH: Moist mucosa. Good dentition. No stridor or edema. No drooling. NECK: Supple. No masses or thyromegaly. No adenopathy. Carotids 2+ without bruits. No JVD. BACK: Symmetrical without tenderness. CHEST: Respirations unlabored. Breath sounds clear and symmetrical. HEART: Regular rhythm. No murmur gallop or rub. ABDOMEN: Soft nontender without masses, organomegaly or rebound. Bowel sounds normally active. No bruits. GENITALIA: Deferred. EXTREMITIES: No edema. No calf tenderness. Cap refill less than 1.5 seconds. Dorsalis pedis and posterior tibial pulses 3+ and symmetrical. NEUROLOGICAL: Mild generalized tremor. GCS 15. Alert and oriented x3. Normal gait. Fluent speech. Cranial nerves II through XII intact. Sensorimotor and cerebellar normal. Deep tendon reflexes are 3+ and symmetrical. 1+ clonus bilaterally. PSYCHIATRIC: Flat anxious affect. Course - Re-evaluation Re-evalutation: 08/28/19 08:13 I am going to give the patient an additional IV dose of Keppra 500 mg. I am going to increase her Keppra having her take 500 in the morning and 1000 mg at night. She can follow-up as an outpatient with Dr. Umana. - Vital Signs Vital signs: Temp Pulse Resp BP Pulse Ox 98.1 F 16 130/86 H 94 08/28/19 04:00 08/28/19 10:30 08/28/19 10:30 08/28/19 10:30 - Laboratory Result Diagrams: 08/28/19 01:48 08/28/19 01:48 Laboratory results interpreted by me: 08/28/19 08/28/19 08/28/19 01:40 01:48 01:48 WBC 11.4 H Absolute Neuts (auto) 8.5 H AST 38 H Urine Blood SMALL H - Diagnostic Test Radiology reviewed: Reports reviewed - Normal head CT per radiologist. Discharge - Discharge Clinical Impression: Seizure Condition: Stable Disposition: HOME, SELF-CARE Additional Instructions: Seizure You have had a seizure. Seizure disorders (epilepsy) of one sort or another affect about one out of 50 people. The seizure occurs because of abnormal electrical activity in the brain. Seizures may be due to drugs and alcohol, strokes, brain injury, or infection. In the most common form of epilepsy, no cause can be found. You will require further evaluation to determine the cause of your seizure, and to determine whether anti-seizure medication is required. This follow-up testing is important, so please call us if you encounter problems with scheduling of tests or appointments. YOU SHOULD NOT DRIVE until released to do so by your physician. The law requires that seizures be reported to the telephone directory distributor driver's license bureau--a seizure while driving could be catastrophic. Call the doctor if seizures recur, or if you develop new symptoms such as fever, severe headache, stiff neck, confusion or increasing sleepiness, weakness or numbness, or visual problems. Return here as needed for new or worsening symptoms. Increase your Keppra dosage: Stay on 500 mg each morning. Increase your evening dose to 1000 mg (2 of the 500 mg tablets you are currently taking). Follow-up with your primary care provider, Dr. Umana, this week. Prescriptions: Levetiracetam [Keppra 500 mg Tablet] 500 mg PO ASDIR PRN #100 tablet PRN Reason: Referrals: ELIZABETH UMANA DO [Primary Care Provider] - Follow up as needed
[2019-08-28 12:34] VITALS: BP 123/65
--- NOTE | 2019-08-28 17:30 | EKG REPORT ---
SEVERITY:- OTHERWISE NORMAL ECG - SINUS TACHYCARDIA BORDERLINE LEFT AXIS DEVIATION : Confirmed by: Mandy Vargas MD 28-Aug-2019 17:30:20
== END 2019-08-28 12:49 | disposition home or self-care (01) ==
LOC: ER 01:21
DX: G40.909 Epilepsy, unspecified, not intractable, without status epilepticus (principal); Z79.899 Other long term (current) drug therapy; G89.29 Other chronic pain; R25.1 Tremor, unspecified; R51 Headache; J45.909 Unspecified asthma, uncomplicated; E11.9 Type 2 diabetes mellitus without complications; G47.30 Sleep apnea, unspecified; Z99.89 Dependence on other enabling machines and devices; Z91.048 Other nonmedicinal substance allergy status; Z98.84 Bariatric surgery status
CPT/HCPCS: 93005; 99284; 96365; 36415; 82962; 80307 ×2; 83735; 85025; 80053; 81001; 70450; 93010; J1953

== ENCOUNTER 2019-08-29 10:07 | Emergency (ER) | payer MEDICARE, MEDICAID ==
[2019-08-29] MEDS ORDERED: HALOPERIDOL LACTATE INJ 5 MG/1 ML VIAL IM ONE (10:18)
[2019-08-29 10:47] LABS: ABSOLUTE LYMPHOCYTES (AUTO) 1.4 10^3/uL (0.5-4.7); ABSOLUTE MONOCYTES (AUTO) 0.8 10^3/uL (0.1-1.4); RED CELL DISTRIBUTION WIDTH 14.3 % (11.5-14.0); TOTAL CELLS COUNTED % (AUTO) 100 %
--- NOTE | 2019-08-29 10:47 | ER Document Report ---
ED General <ANDREW ROWAN - Last Filed: 08/29/19 13:07> - General TRAVEL OUTSIDE OF THE [place] IN LAST 30 DAYS: No <CLARKESUNITA DUEÑAS - Last Filed: 08/29/19 13:20> - General Chief Complaint: Psych Problem Stated Complaint: PSYCH EVAL Time Seen by Provider: 08/29/19 10:11 Primary Care Provider: ELIZABETH ROMERO DO [Primary Care Provider] - Follow up as needed Notes: 59 y/o female with history of conversion disorder and borderline personality dis order presents for shaking and screaming from [facility]. Pt has been having episodes of shaking and then screaming every 45 minutes prior to arrival. Per EMS, pt was restrained due to being combative. Pt was seen yesterday for seizures and Keppra was increased but otherwise no new medications. (SUNITA CLARKE) - Related Data Allergies/Adverse Reactions: silicone [Silicone] Allergy (Intermediate, Verified 08/28/19 03:22) REDNESS, RASH carbidopa [From Sinemet] Adverse Reaction (Severe, Verified 08/28/19 03:22) Cardiac arrest levodopa [From Sinemet] Adverse Reaction (Severe, Verified 08/28/19 03:22) Cardiac arrest Past Medical History - Social History Smoking Status: Unknown if Ever Smoked Family History: Reviewed & Not Pertinent - Past Medical History Cardiac Medical History: Reports: Hx Heart Attack - CARDIAC ARREST R/T DRUG REACTION(SINEMET), Hx Hypercholesterolemia Denies: Hx Hypertension Pulmonary Medical History: Reports: Hx Asthma, Hx Bronchitis, Hx Pneumonia - MARCH 2015, Hx Sleep Apnea - On home CPAP Denies: Hx COPD Neurological Medical History: Reports: Hx Cerebrovascular Accident, Hx Migraine, Hx Seizures - UNSURE OF ETIOLOGY, conversion disorder Endocrine Medical History: Reports: Hx Diabetes Mellitus Type 2 Renal/ Medical History: Reports: Hx Kidney Stones. Denies: Hx Peritoneal Dialysis GI Medical History: Reports: Hx Hiatal Hernia - DX 30 YEARS AGO, Hx Ulcer - after gastric by pass, surg repaired Musculoskeletal Medical History: Reports Hx Arthritis - OSTEOARTHRITIS, Reports Hx Fibromyalgia Psychiatric Medical History: Reports: Hx Anxiety, Hx Attention Deficit Hyperactivity Disorder, Hx Depression, Hx Post Traumatic Stress Disorder Past Surgical History: Reports: Hx Abdominal Surgery - gastric bypass, Hx Cholecystectomy, Hx Gastric Bypass Surgery, Hx Hysterectomy, Hx Orthopedic Surgery - back/spinal surgery, Hx Tubal Ligation - Immunizations Immunizations up to date: Yes Hx Diphtheria, Pertussis, Tetanus Vaccination: Yes - up to date within last 5 yrs Hx Pneumococcal Vaccination: 03/31/14 <SUNITA CLARKE - Last Filed: 08/29/19 13:20> Review of Systems - Review of Systems -: Yes ROS unobtainable due to patient's medical condition <SUNITA CLARKE - Last Filed: 08/29/19 13:20> Physical Exam <SUNITA CLARKE - Last Filed: 08/29/19 13:20> - Vital signs Vitals: Temp Resp BP Pulse Ox 97.7 F 18 137/89 H 93 08/29/19 10:33 08/29/19 10:33 08/29/19 10:33 08/29/19 10:33 - Notes Notes: GENERAL: Well-appearing, well-nourished and in no acute distress. HEAD: Atraumatic, normocephalic. EYES: Extraocular movements intact, sclera anicteric, conjunctiva are normal. NECK: Normal range of motion, supple without lymphadenopathy or JVD. EXTREMITIES: Normal range of motion, no pitting or edema. No clubbing or cyanosis. PSYCH: Pt is not cooperative for exam. SKIN: Warm, Dry, normal turgor, no rashes or lesions noted. (ADY CLARKESEBLE Vasquez) Course - Laboratory Result Diagrams: 08/29/19 10:30 08/29/19 10:30 <ANDREW ROWAN - Last Filed: 08/29/19 13:07> - Laboratory Result Diagrams: 08/29/19 10:30 08/29/19 10:30 <IVELISSE CLARKEI Christina - Last Filed: 08/29/19 13:20> - Re-evaluation Re-evalutation: 08/29/19 Nontoxic, well appearing 59 y/o female presents for "shaking and screaming." Pt observed to do same in ER. Pt is not cooperative with exam. EOM intact. No signs of acute respiratory distress. PE is otherwise unremarkable. When attempting to open pt's eyes she is able to squint them shut. Labwork initiated to medically clear pt for psych eval. 08/29/19 11:12 Pt medically cleared for psych eval. Labwork is reassuring. Pt had UA yesterday which was negative for UTI. 08/29/19 11:44 Pt is now speaking. States she wants a raul jj and a bandaid to her toe. Pt speaks without difficulty. 08/29/19 13:15 Psych evaluated. Recommendations made and faxed to [facility]. Pt to be discharged back to facility. (SUNITA CLARKE) - Vital Signs Vital signs: Temp Pulse Resp BP Pulse Ox 98 F 96 18 129/57 H 99 08/29/19 11:45 08/29/19 11:45 08/29/19 11:45 08/29/19 11:45 08/29/19 11:45 - Laboratory Laboratory results interpreted by pr: 08/29/19 08/29/19 10:30 10:30 RDW 14.3 H Creatinine 0.50 L Glucose 127 H Salicylates < 1.0 L Acetaminophen < 10 L Discharge <ANDREW ROWAN - Last Filed: 08/29/19 13:07> <SUNITA CLARKE - Last Filed: 08/29/19 13:20> - Discharge Clinical Impression: Bizarre behavior Condition: Stable Disposition: HOME, SELF-CARE Additional Instructions: You have been evaluated by both medical and behavioral health teams and have been deemed appropriate for discharge. While in the emergency department you received the following services: Medical screening and assessment, nursing services, dietary services, pharmacological services, one-on-one counseling and/or psychotherapy, environmental services, and continuous observation by a patient registered safety engineer. Medication recommendations have been have been provided and are as follows: decrease Valium to 5MG, twice a day; decrease Prozac to 20MG, twice a day; continue Elavil 100MG, at night; continue Kepra 500MG, twice a day; continue Trazodone 100MG, at bedtime. These medications have been faxed to your medical team at [facility]. Please take your medications as prescribed as the medication appear to have stabilized your mood and overall mental health. Please do not stop these medications without discussing with your prescribing physician. You are encouraged to work with your therapist to learn how to accurately interpret and respond to your environment, thoughts, and emotions. AT ANY TIME, IF YOUR SYMPTOMS CHANGE SIGNIFICANTLY OR WORSEN OR YOU DEVELOP NEW SYMPTOMS, RETURN TO THE EMERGENCY DEPARTMENT IMMEDIATELY FOR RE-EVALUATION. Referrals: ELIZABETH ROMERO DO [Primary Care Provider] - Follow up as needed
[2019-08-29 10:50] LABS: ABSOLUTE EOSINOPHILS # (AUTO) 0.2 10^3/uL (0.0-0.6); ABSOLUTE NEUT (AUTO) 5.6 10^3/uL (1.7-8.2); BASOPHILS % (AUTO) 0.3 % (0-2); HEMOGLOBIN 13.4 g/dL (12.0-15.5); LYMPHOCYTES % (AUTO) 17.2 % (13-45); MEAN CORPUSCULAR HEMOGLOBIN 30.7 pg (27.0-33.4); MEAN CORPUSCULAR HGB CONC 34.3 g/dL (32.0-36.0); MEAN CORPUSCULAR VOLUME 90 fl (80-97); MONOCYTES % (AUTO) 10.2 % (3-13); PLATELET COUNT 206 10^3/uL (150-450); RED BLOOD COUNT 4.36 10^6/uL (3.72-5.28); SEGMENTED NEUTROPHILS % (AUTO) 70.3 % (42-78); WHITE BLOOD COUNT 7.9 10^3/uL (4.0-10.5)
[2019-08-29 11:04] LABS: ALBUMIN 4.5 g/dL (3.5-5.0); ALKALINE PHOSPHATASE 99 U/L (38-126); ANION GAP 14 (5-19); ASPARTATE AMINO TRANSFERASE 36 U/L (14-36); BILIRUBIN,DIRECT 0.3 mg/dL (0.0-0.4); BLOOD UREA NITROGEN 17 mg/dL (7-20); CALCIUM 9.8 mg/dL (8.4-10.2); CARBON DIOXIDE 23 mmol/L (22-30); CHLORIDE 102 mmol/L (98-107); GLUCOSE 127 mg/dL (75-110); POTASSIUM 3.9 mmol/L (3.6-5.0); TOTAL PROTEIN 7.7 g/dL (6.3-8.2)
[2019-08-29 11:07] LABS: ACETAMINOPHEN < 10 ug/mL (10-30); ALCOHOL < 10 mg/dL (NONE DETECTED); SALICYLATE < 1.0 mg/dL (2.0-20.0)
[2019-08-29 12:31] VITALS: BP 129/57
--- NOTE | 2019-08-29 13:02 | PSYCHOLOGICAL NOTE ---
Psych Note - Psych Note Date seen by psych provider: 08/29/19 Time seen by psych provider: 10:20 Psych Note: Patient is a 59-year-old female who presents to ED via EMS seizure like activity. Patient was last evaluated by behavioral health on 07/16/2017, with patient's presentation suggestive of conversion disorder and Borderline Personality Disorder. Patient has reported mental health diagnosis of Parkinson's and Anxiety; with other diagnosis of Fibromyalgia, Type 2 Diabetes, Seizure Disorder: severe. Patient is prescribed: Elavil 100MG, QHS, Valium 10MG, QHS, Keppra 500MG, BID, Prozac 80MG, QD, and Trazodone 100MG, QHS. 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 Patient was evaluated by medical team yesterday for similar etiology. Patient's Keppra dose was increased from 500MG, QAM to 500MG, BID. Patient receives mental health services from [facility]. Patient's PC is Dr. Umana. Patient was observed yelling and screaming since her arrival to ED. Patient was provided Haldol 5MG via IV. When clinician enters room, patient orients clinician's attention to a small amount of a spit like substance on the tip of patient's tongue. Clinician went to inform nurse, and when clinician returned to room with nurse the substance was gone. Patient explained her various medical conditions to clinician (low immune system, being allergic to "everything," being blind, hypoglycemia, bloody knees, etc). Clinician asked about patient's current mental health concerns. Patient stated she was having issues with her "OCD" as described as wanting to clean everything with a toothbrush and applying chapstick to her lips. Clinician discussed she could process through her "OCD" concerns with her provider at [facility]. Patient reports having an appointment with her provider, Ivette at [facility], on 09/06/2019. Patient spoke of "my guardian having everything I need done for me" and listed such things as food, drinks, and wifi. patient denies any changes or stressors. Patient states she enjoys her 99 year old roommate who views patient as a daughter. Mood is normal with congruent affect. Patient denies suicidal and homicidal ideations. Patient was asked on 3 occasions regarding suicidal and homicidal ideations and patient denied each time. Clinician notes flight of ideas and somewhat pressured speech, however patient was able to engage appropriately with clinician and engage in organized, linear thought as evidenced as the ability to articulate her medical concerns/diagnosis in detail. Patient was cooperative and engaged with clinician. Medication recommendations per [facility] contracted psychiatrist Dr. Jaspreet MD are as follows: Decrease Valium to 5MG, twice a day Decrease Prozac to 20MG, twice a day Continue Elavil 100MG, at bedtime Continue Kepra 500MG, twice a day Continue Trazodone 100MG, at bedtime Impression/Plan: Patient is cleared from acute psychiatric services. Medication recommendations have been provided, and was faxed to [facility], the assisted living facility at which patient resides. Patient denies suicidal and homicidal ideations. Patient has neurodegenerative process that effect processes such as behavior, emotion, and language. Patient is linked with [facility] for mental tristan services. Patient's basic needs, medical needs, and supportive care is provided by [facility]. Dr. Schofield was consulted on the care and management of this patient; attending physician is in agreement with recommendations and disposition.
--- NOTE | 2019-08-29 16:19 | EKG REPORT ---
SEVERITY:- NORMAL ECG - SINUS RHYTHM : Confirmed by: Mandy Vargas MD 29-Aug-2019 16:18:14
== END 2019-08-29 13:45 | disposition home or self-care (01) ==
LOC: ER 10:07
DX: F91.8 Other conduct disorders (principal); R25.1 Tremor, unspecified; Z79.899 Other long term (current) drug therapy; Z88.8 Allergy status to other drugs, medicaments and biological substances; I25.2 Old myocardial infarction; J45.909 Unspecified asthma, uncomplicated; E11.9 Type 2 diabetes mellitus without complications
CPT/HCPCS: 93005; 99285; 96372; 36415; 80307 ×3; 85025; 80053; 93010; J1630

== ENCOUNTER 2019-09-02 22:04 | Emergency (ER) | payer MEDICARE, MEDICAID ==
--- NOTE | 2019-09-02 22:48 | ER Document Report ---
ED General - General Chief Complaint: Constipation Stated Complaint: SICK/CONSTIPATION Time Seen by Provider: 09/02/19 22:33 Primary Care Provider: ELIZABETH MUANA DO [Primary Care Provider] - Follow up as needed TRAVEL OUTSIDE OF THE [place] IN LAST 30 DAYS: No - HPI Notes: 59-year-old female followed by Dr. Umana residing in assisted living facility with a longstanding history of seizure disorder as well as history of pseudoseizures, fibromyalgia, chronic pain syndrome and obsessive-compulsive disorder presenting to the emergency department once again tonight with a laundr y list of concerns. Patient is well-known to me from prior encounters. Her primary concern tonight is constipation. She has a history of functional bowel syndrome and is already on Amitiza. She says she is not had a bowel movement in 5 days. She is also complaining worsening pain in both knees and says that she would like to have these x-rayed because she she thinks they might be broken although she denies any trauma. Additionally she complains that she is intermittently having difficulty urinating. She says she cannot void at this time. - Related Data Allergies/Adverse Reactions: silicone [Silicone] Allergy (Intermediate, Verified 08/28/19 03:22) REDNESS, RASH carbidopa [From Sinemet] Adverse Reaction (Severe, Verified 08/28/19 03:22) Cardiac arrest levodopa [From Sinemet] Adverse Reaction (Severe, Verified 08/28/19 03:22) Cardiac arrest Home Medications: advair. amitiza. amitripyline. aspirin. atorvastatin. zyrtec. diazepam. flexeril. diclofenac. fluoxetine. norco. keppra. protonix. miralax. carafate. trazodone. ventolin. flexeril. meclizine. zofran Past Medical History - General Information source: Patient, [facility] Records - Social History Smoking Status: Unknown if Ever Smoked Family History: Reviewed & Not Pertinent Patient has suicidal ideation: No Patient has homicidal ideation: No - Past Medical History Cardiac Medical History: Reports: Hx Heart Attack - CARDIAC ARREST R/T DRUG REACTION(SINEMET), Hx Hypercholesterolemia Denies: Hx Hypertension Pulmonary Medical History: Reports: Hx Asthma, Hx Bronchitis, Hx Pneumonia - MARCH 2015, Hx Sleep Apnea - On home CPAP Denies: Hx COPD Neurological Medical History: Reports: Hx Cerebrovascular Accident, Hx Migraine, Hx Seizures - UNSURE OF ETIOLOGY, conversion disorder Endocrine Medical History: Reports: Hx Diabetes Mellitus Type 2 Renal/ Medical History: Reports: Hx Kidney Stones. Denies: Hx Peritoneal Dialysis GI Medical History: Reports: Hx Hiatal Hernia - DX 30 YEARS AGO, Hx Ulcer - after gastric by pass, surg repaired Musculoskeletal Medical History: Reports Hx Arthritis - OSTEOARTHRITIS, Reports Hx Fibromyalgia Psychiatric Medical History: Reports: Hx Anxiety, Hx Attention Deficit Hyperactivity Disorder, Hx Depression, Hx Post Traumatic Stress Disorder Past Surgical History: Reports: Hx Abdominal Surgery - gastric bypass, Hx Cholecystectomy, Hx Gastric Bypass Surgery, Hx Hysterectomy, Hx Orthopedic Surgery - back/spinal surgery, Hx Tubal Ligation - Immunizations Immunizations up to date: Yes Hx Diphtheria, Pertussis, Tetanus Vaccination: Yes - up to date within last 5 yrs Hx Pneumococcal Vaccination: 03/31/14 Review of Systems - Review of Systems Notes: Constitutional: Negative for fever. HENT: Negative for sore throat. Eyes: Negative for visual changes. Cardiovascular: Negative for chest pain. Respiratory: Negative for shortness of breath. Gastrointestinal: As per HPI. Genitourinary: As per HPI. Musculoskeletal: Negative for back pain. Skin: Negative for rash. Neurological: Negative for headaches, weakness or numbness. 10 point ROS negative except as marked above and in HPI. Physical Exam - Vital signs Vitals: Temp Pulse Resp BP Pulse Ox 98.8 F 87 18 134/81 H 95 09/02/19 22:15 09/02/19 22:15 09/02/19 22:15 09/02/19 22:15 09/02/19 22:15 - Notes Notes: GENERAL: Well-developed well-nourished appearing in no acute distress. SKIN: Good turgor no rashes. HEAD: Normocephalic atraumatic. EYES: PERRLA. EOMI. Conjunctivae and sclerae clear. EARS: CANALS AND TMS CLEAR. NOSE: CLEAR. MOUTH: Moist mucosa. Good dentition. No stridor or edema. No drooling. NECK: Supple. No masses or thyromegaly. No adenopathy. Carotids 2+ without bruits. No JVD. BACK: Symmetrical without tenderness. CHEST: Respirations unlabored. Breath sounds clear and symmetrical. HEART: Regular rhythm. No murmur gallop or rub. ABDOMEN: Soft nontender without masses, organomegaly or rebound. Bowel sounds normally active. No bruits. GENITALIA: Deferred. EXTREMITIES: Crepitus of both knees and patient complains of pain with active and passive motion although her range of motion is well-preserved. No effusions present no edema. No calf tenderness. Cap refill less than 1.5 seconds. Dorsalis pedis and posterior tibial pulses 3+ and symmetrical. NEUROLOGICAL: GCS 15. Alert and oriented x3. Fluent speech. Cranial nerves II through XII intact. Sensorimotor and cerebellar normal. Normal tone. PSYCHIATRIC: Flat affect. Course - Re-evaluation Re-evalutation: 09/03/19 02:51 Patient is a frequent visitor to the ED and comes back in tonight with complaints of knee pain, constipation and decreased urination. She denied any trauma. We x-rayed the knees and found some minor arthritic changes only. T here was no evidence of any fracture. Plain film of her abdomen showed some nondilated gas-filled loops of large and small bowel suggesting possible ileus. We subsequently obtained a CT which was read as negative for any acute process by the radiologist. This lady has a longstanding history of severe functional bowel syndrome. I think she is very stable to return to the assisted living facility at this time and follow-up with her primary care doctor. - Vital Signs Vital signs: Temp Pulse Resp BP Pulse Ox 98.8 F 87 20 134/85 H 95 09/02/19 22:15 09/02/19 22:15 09/03/19 01:00 09/03/19 01:00 09/03/19 01:00 - Laboratory Result Diagrams: 09/02/19 22:41 09/02/19 22:41 Laboratory results interpreted by me: 09/02/19 09/02/19 09/03/19 22:41 22:41 00:11 Hct 35.2 L Sodium 136.2 L Creatinine 0.47 L Glucose 172 H AST 45 H Urine Urobilinogen 2.0 H Discharge - Discharge Clinical Impression: Irritable bowel syndrome Qualifiers: Irritable bowel syndrome type: with constipation Qualified Code(s): K58.1 - Irritable bowel syndrome with constipation Osteoarthritis of knees, bilateral Qualifiers: Osteoarthritis type: unspecified Qualified Code(s): M17.0 - Bilateral primary osteoarthritis of knee Condition: Stable Disposition: HOME, SELF-CARE Instructions: Constipation ([facility]) Referrals: ELIZABETH UMANA DO [Primary Care Provider] - Follow up as needed
[2019-09-02 22:53] LABS: ABSOLUTE EOSINOPHILS # (AUTO) 0.1 10^3/uL (0.0-0.6); ABSOLUTE LYMPHOCYTES (AUTO) 1.6 10^3/uL (0.5-4.7); ABSOLUTE MONOCYTES (AUTO) 0.6 10^3/uL (0.1-1.4); ABSOLUTE NEUT (AUTO) 3.8 10^3/uL (1.7-8.2); BASOPHILS % (AUTO) 0.6 % (0-2); EOSINOPHILS % (AUTO) 2.2 % (0-6); HEMATOCRIT 35.2 % (36.0-47.0); HEMOGLOBIN 12.2 g/dL (12.0-15.5); LYMPHOCYTES % (AUTO) 26.3 % (13-45); MEAN CORPUSCULAR HEMOGLOBIN 30.9 pg (27.0-33.4); MEAN CORPUSCULAR HGB CONC 34.7 g/dL (32.0-36.0); MEAN CORPUSCULAR VOLUME 89 fl (80-97); MONOCYTES % (AUTO) 9.7 % (3-13); PLATELET COUNT 191 10^3/uL (150-450); RED BLOOD COUNT 3.95 10^6/uL (3.72-5.28); RED CELL DISTRIBUTION WIDTH 13.6 % (11.5-14.0); SEGMENTED NEUTROPHILS % (AUTO) 61.2 % (42-78); TOTAL CELLS COUNTED % (AUTO) 100 %; WHITE BLOOD COUNT 6.2 10^3/uL (4.0-10.5)
[2019-09-02 23:15] LABS: ALBUMIN 4.1 g/dL (3.5-5.0); ALKALINE PHOSPHATASE 83 U/L (38-126); ANION GAP 12 (5-19); ASPARTATE AMINO TRANSFERASE 45 U/L (14-36); BILIRUBIN,DIRECT 0.4 mg/dL (0.0-0.4); BILIRUBIN,TOTAL 0.5 mg/dL (0.2-1.3); BLOOD UREA NITROGEN 10 mg/dL (7-20); CARBON DIOXIDE 25 mmol/L (22-30); CHLORIDE 99 mmol/L (98-107); GLUCOSE 172 mg/dL (75-110); POTASSIUM 3.7 mmol/L (3.6-5.0); TOTAL PROTEIN 6.7 g/dL (6.3-8.2)
--- NOTE | 2019-09-02 23:20 | RADIOLOGY REPORT (SQ) ---
EXAM DESCRIPTION: X-RAY KNEE 1-2 VIEWS CLINICAL HISTORY: 59 years Female Knee pain COMPARISON: None TECHNIQUE: AP and lateral radiographs of the left knee were obtained at 2312 hours on 09/02/2019. FINDINGS: The joint compartments are well-maintained. There is an anterior superior patellar enthesophyte. No suprapatellar bursa effusion is seen. No fracture or subluxation is noted. IMPRESSION: Distal quadriceps enthesopathy. No acute process is identified radiographically.
--- NOTE | 2019-09-02 23:22 | RADIOLOGY REPORT (SQ) ---
EXAM DESCRIPTION: XR ABDOMEN 1 VIEW (KUB) COMPLETED DATE/TME: 09/02/2019 22:40 CLINICAL HISTORY: 59 years, Female, Constipation COMPARISON: None. NUMBER OF VIEWS: 2 TECHNIQUE: AP abdomen LIMITATIONS: None. FINDINGS: The bowel gas pattern is nonspecific. Osteopenia. Post surgical changes of the lumbar spine. Status post cholecystectomy. Nondilated dilated air-filled loops of large and small bowel. Findings likely reflect ileus. IMPRESSION: Nondilated air-filled loops of large and small bowel likely reflect ileus copyright 2010 [employer] [facility]- All Rights Reserved
--- NOTE | 2019-09-02 23:27 | RADIOLOGY REPORT (SQ) ---
CLINICAL HISTORY: Knee pain COMPARISON: None. 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 Joint spaces are preserved. Soft tissues are unremarkable. IMPRESSION: No acute osseous findings.
[2019-09-03 00:28] LABS: APPEARANCE,URINE CLEAR; BILIRUBIN,URINE NEGATIVE (NEGATIVE); COLOR,URINE YELLOW; GLUCOSE, URINE NEGATIVE (NEGATIVE); KETONES,URINE NEGATIVE (NEGATIVE); LEUKOCYTE ESTERASE,URINE NEGATIVE (NEGATIVE); NITRITE,URINE NEGATIVE (NEGATIVE); PROTEIN,URINE NEGATIVE (NEGATIVE); URINE SPECIFIC GRAVITY 1.006
--- NOTE | 2019-09-03 02:17 | RADIOLOGY REPORT (SQ) ---
EXAM DESCRIPTION: CT ABDOMEN PELVIS WITH IV CONTRAST COMPLETED DATE/TME: 09/03/2019 01:20 CLINICAL HISTORY: 59 years, Female, abdominal pain. CREAT 0.47 COMPARISON: None. TECHNIQUE: [id number] Images stored on PACS. All CT scanners at this facility use dose modulation, iterative reconstruction, and/or weight based dosing when appropriate to reduce radiation dose to as low as reasonably achievable (ALARA). [facility]: Dose Right [facility]: CareDose [facility]: Dose Right [facility]: Teradose 4D [facility]: [employer] LIMITATIONS: None. FINDINGS: Limited evaluation of the lung bases shows minor subsegmental atelectasis left lung base. There is a small hiatal hernia. Osseous structures of the abdomen/pelvis are grossly intact. Postsurgical changes of the lower thoracic spine. The liver, spleen, adrenal glands, pancreas, kidneys are unremarkable. Post surgical changes consistent with prior cholecystectomy. Post surgical changes in the epigastric region. Large amount stool in the colon. No gross evidence for bowel obstruction. Normal appendix. No free air or free fluid. IMPRESSION: No acute intra-abdominal/pelvic process TECHNICAL DOCUMENTATION: Quality ID # [id number]: Final reports with documentation of one or more dose reduction techniques (e.g., Automated exposure control, adjustment of the mA and/or kV according to patient size, use of iterative reconstruction technique) copyright 2011 [employer]- All Rights Reserved
[2019-09-03 03:03] VITALS: BP 124/78
== END 2019-09-03 03:25 | disposition home or self-care (01) ==
LOC: ER 22:04
DX: K58.1 Irritable bowel syndrome with constipation (principal); M17.0 Bilateral primary osteoarthritis of knee; J45.909 Unspecified asthma, uncomplicated; E11.9 Type 2 diabetes mellitus without complications; E78.00 Pure hypercholesterolemia, unspecified; F42.9 Obsessive-compulsive disorder, unspecified; F32.9 Major depressive disorder, single episode, unspecified; F41.9 Anxiety disorder, unspecified; G43.909 Migraine, unspecified, not intractable, without status migrainosus; G40.909 Epilepsy, unspecified, not intractable, without status epilepticus; Z79.899 Other long term (current) drug therapy; Z79.82 Long term (current) use of aspirin; Z79.51 Long term (current) use of inhaled steroids
CPT/HCPCS: 36415; 74018; 74177; 80053; 81001; 83690; 85025; 99285

== ENCOUNTER 2019-09-12 22:16 | Emergency (ER) | payer MEDICARE, MEDICAID ==
[2019-09-12] MEDS ORDERED: NORMAL SALINE 500 ML IV ONE (22:48)
[2019-09-12] MEDS ORDERED: KETOROLAC TROMETHAMINE INJ/PF 30 MG/1 ML SDV IV ONE (22:49)
[2019-09-12] MEDS ORDERED: ONDANSETRON HCL INJ/PF 4 MG/2 ML SDV IV ONE (22:49)
--- NOTE | 2019-09-12 22:56 | ER Document Report ---
Entered by DONNIE ALTAMIRANO SCRIBE 09/12/19 2419 Acting as scribe for:REESE HARKINS IV, MD ED General - General Chief Complaint: Pain All Over Stated Complaint: GENERAL SICKNESS Time Seen by Provider: 09/12/19 22:38 Primary Care Provider: ELIZABETH ROMERO DO [Primary Care Provider] - Follow up as needed Mode of Arrival: Medic Information source: Patient, Emergency Med Personnel Notes: This 59 year old female patient with a history of CAD, asthma, diabetes, and obstructive sleep apnea on CPAP at home who was brought in by EMS presents to the ED today with complaints of a migraine headache that started prior to arrival. Patient states that "it hurts behind my eyes". Patient also reports throat pain and dyspnea. TRAVEL OUTSIDE OF THE [place] IN LAST 30 DAYS: No - Related Data Allergies/Adverse Reactions: silicone [Silicone] Allergy (Intermediate, Verified 08/28/19 03:22) REDNESS, RASH carbidopa [From Sinemet] Adverse Reaction (Severe, Verified 08/28/19 03:22) Cardiac arrest levodopa [From Sinemet] Adverse Reaction (Severe, Verified 08/28/19 03:22) Cardiac arrest Past Medical History - General Information source: Patient, Emergency Med Personnel, [facility] Records - Social History Smoking Status: Former Smoker Cigarette use (# per day): No Chew tobacco use (# tins/day): No Smoking Education Provided: No Frequency of alcohol use: None Drug Abuse: None Family History: Reviewed & Not Pertinent Patient has suicidal ideation: No Patient has homicidal ideation: No - Past Medical History Cardiac Medical History: Reports: Hx Heart Attack - CARDIAC ARREST R/T DRUG REACTION(SINEMET), Hx Hypercholesterolemia Pulmonary Medical History: Reports: Hx Asthma, Hx Bronchitis, Hx Pneumonia - MARCH 2015, Hx Sleep Apnea - On home CPAP Neurological Medical History: Reports: Hx Cerebrovascular Accident, Hx Migraine, Hx Seizures - UNSURE OF ETIOLOGY, conversion disorder Endocrine Medical History: Reports: Hx Diabetes Mellitus Type 2 Renal/ Medical History: Reports: Hx Kidney Stones GI Medical History: Reports: Hx Hiatal Hernia - DX 30 YEARS AGO, Hx Ulcer - after gastric bypass, surg repaired Musculoskeletal Medical History: Reports Hx Arthritis - OSTEOARTHRITIS, Reports Hx Fibromyalgia Psychiatric Medical History: Reports: Hx Anxiety, Hx Attention Deficit Hyperactivity Disorder, Hx Depression, Hx Post Traumatic Stress Disorder Past Surgical History: Reports: Hx Cholecystectomy, Hx Gastric Bypass Surgery, Hx Hysterectomy, Hx Orthopedic Surgery - back/spinal surgery, Hx Tubal Ligation - Immunizations Immunizations up to date: Yes Hx Diphtheria, Pertussis, Tetanus Vaccination: Yes - up to date within last 5 yrs Hx Pneumococcal Vaccination: 03/31/14 Review of Systems - Review of Systems Constitutional: No symptoms reported EENT: See HPI, Throat pain Cardiovascular: See HPI, Dyspnea Respiratory: No symptoms reported Gastrointestinal: No symptoms reported Genitourinary: No symptoms reported Female Genitourinary: No symptoms reported Musculoskeletal: No symptoms reported Skin: No symptoms reported Hematologic/Lymphatic: No symptoms reported Neurological/Psychological: See HPI, Headaches -: Yes All other systems reviewed and negative Physical Exam - Vital signs Vitals: Temp Pulse Resp BP Pulse Ox 98.0 F 72 18 124/66 93 09/12/19 22:25 09/12/19 22:25 09/12/19 22:25 09/12/19 22:25 09/12/19 22:25 Interpretation: Normal - General General appearance: Alert In distress: None - HEENT Head: Normocephalic, Atraumatic Eyes: Normal Pupils: PERRL - Respiratory Respiratory status: No respiratory distress Chest status: Nontender Breath sounds: Normal Chest palpation: Normal - Cardiovascular Rhythm: Regular Heart sounds: Normal auscultation Murmur: No Friction rub: No Gallop: None auscultated - Abdominal Inspection: Normal Distension: No distension Bowel sounds: Normal Tenderness: Nontender - Abdomen soft Organomegaly: No organomegaly - Back Back: Normal, Nontender - Extremities General upper extremity: Normal inspection General lower extremity: Normal inspection - Neurological Neuro grossly intact: Yes - Psychological Associated symptoms: Normal affect, Normal mood - Skin Skin Temperature: Warm Skin Moisture: Dry Skin Color: Normal Course - Re-evaluation Re-evalutation: 09/13/19 00:43 Results of ED MSE discussed with patient. All questions were answered prior to discharge. Emergency signs and symptoms, reasons to return to the emergency department discussed with patient. - Vital Signs Vital signs: Temp Pulse Resp BP Pulse Ox 98.0 F 72 18 124/66 93 09/12/19 22:25 09/12/19 22:25 09/12/19 22:25 09/12/19 22:25 09/12/19 22:25 - Diagnostic Test Radiology reviewed: Reports reviewed Discharge - Discharge Clinical Impression: Myalgia Migraine Qualifiers: Migraine type: unspecified Status migrainosus presence: without status migrainosus Intractability: not intractable Qualified Code(s): G43.909 - Migraine, unspecified, not intractable, without status migrainosus Condition: Good Disposition: HOME, SELF-CARE Additional Instructions: Return to the Emergency Department without delay if any worse. HOME CARE INSTRUCTIONS & INFORMATION: Thank you for choosing us for your medical needs. We hope you're satisfied with the care you received. After you leave, you must properly care for your problem and, at the same time, observe its progress. Any condition can change. Some illnesses can change rapidly over hours or days. If your condition worsens, return to the Emergency Department or see your physician promptly. ABOUT YOUR X-RAYS AND EKG'S: If you had an EKG or X-rays taken, they have been read by the Emergency Physician. The X-rays and EKG's will also be read by a Radiologist or 411 Directory Assistance Operator within 24 hours. If discrepancies are noted, you will be notified by telephone. Please be certain the ED has a correct telephone number & address where you can be reached. Also, realize that some fractures or abnormalities do not show up on initial X-rays. If your symptoms continue, see your physician. ABOUT YOUR LABORATORY TEST: If you had laboratory tests, the results have been reviewed by the Emergency Physician. Some test results (for example cultures) may not be available for several days. You will be contacted if any test result shows you need additional treatment. Please be certain the ED has a correct telephone number and address where you can be reached. ABOUT YOUR MEDICATIONS: You will receive instructions on how to take your medicine on the prescription label you receive. Additional information may be provided by the Pharmacy. If you have questions afterwards, call the ED for clarification or further instructions. Some prescribed medications may cause drowsiness. Do not perform tasks such as driving a car or operating machinery without consulting your Pharmacist. If you feel you need a refill of pain medication, your condition will need re-evaluation. Please do not call for a refill of any medication. ABOUT YOUR SIGNATURE: Signature of this document acknowledges to followin. Understanding that you received emergency treatment and that you may be released before al medical problems are known or treated. Please be certain the ED has a correct phone number & address where you can be reached. 2. Acknowledgement that you will arrange for follow-up care as recommended. 3. Authorization for the Emergency Physician to provide information to your follow-up Physician in order to maximize your care. AT ANY TIME, IF YOUR SYMPTOMS CHANGE SIGNIFICANTLY OR WORSEN OR YOU DEVELOP NEW SYMPTOMS, RETURN TO THE EMERGENCY DEPARTMENT IMMEDIATELY FOR RE-EVALUATION. OUR GOAL IS TO PROVIDE EXCELLENT MEDICAL CARE! WE HOPE THAT WE HAVE MET YOUR EXPECTATIONS DURING YOUR EMERGENCY DEPARTMENT VISI T AND THAT YOU FEEL YOU HAVE RECEIVED EXCELLENT CARE! Migraine Headache The physician feels that your symptoms are due to a migraine attack. Migraines are caused by changes in the blood vessels of the head. Arteries go into spasm, often causing warning symptoms that a headache may begin soon. As the spasm goes away, the vessels dilate and throb, causing the pounding pain of a migraine headache. Migraines often cause nausea and vomiting. The treatment of headaches varies with severity and cause of pain. Not all headaches need pain shots -- in fact, there is evidence that using narcotics for headaches may make them worse in the long run. The physician will determine the therapy that's in your best interest for this particular headache. Medications are available that may prevent migraines, or stop them as they first occur. If one medication is not helpful, try another. If migraines are frequent, be patient -- follow the doctor's recommendations. Call the physician if you are worsening, or if new symptoms arise. Referrals: ELIZABETH ROMERO DO [Primary Care Provider] - Follow up as needed I personally performed the services described in the documentation, reviewed and edited the documentation which was dictated to the scribe in my presence, and it accurately records my words and actions.
--- NOTE | 2019-09-12 23:32 | RADIOLOGY REPORT (SQ) ---
Chest one view on 09/12/2019 at 11:12 PM CLINICAL INDICATION: Myalgias COMPARISON: 06/27/2019 FINDINGS: There is mild elevation of the right hemidiaphragm. Heart is upper limits normal for size. There is minimal basilar atelectasis. The lungs are otherwise clear. Hilar and mediastinal contours are within normal limits. Pulmonary vascularity is within normal limits. Fusion hardware is noted in the lower cervical spine. IMPRESSION: No acute disease.
[2019-09-13 00:38] LABS: A TYPE INFLUENZA AG NEGATIVE (NEGATIVE)
[2019-09-13 00:39] LABS: B INFLUENZA AG NEGATIVE (NEGATIVE)
[2019-09-13 00:59] VITALS: BP 127/78
== END 2019-09-13 01:29 | disposition home or self-care (01) ==
LOC: ER 22:16
DX: M79.10 Myalgia, unspecified site (principal); G43.909 Migraine, unspecified, not intractable, without status migrainosus; I25.10 Atherosclerotic heart disease of native coronary artery without angina pectoris; J45.909 Unspecified asthma, uncomplicated; E11.9 Type 2 diabetes mellitus without complications; G47.33 Obstructive sleep apnea (adult) (pediatric); E78.00 Pure hypercholesterolemia, unspecified; Z86.73 Personal history of transient ischemic attack (TIA), and cerebral infarction without residual deficits; Z87.442 Personal history of urinary calculi; Z90.49 Acquired absence of other specified parts of digestive tract; Z98.84 Bariatric surgery status; I25.2 Old myocardial infarction
CPT/HCPCS: 99284; 96361; 96374; 96375; 87070; 87880; 82962; 87804; 71045; J1885; J2405; J7040

== ENCOUNTER 2020-03-30 09:19 | Emergency (ER) | payer MEDICARE, MEDICAID ==
[2020-03-30] MEDS ORDERED: NORMAL SALINE 1000 ML 1,000 ML IV ONE (10:46)
--- NOTE | 2020-03-30 11:16 | ER Document Report ---
ED General - General Chief Complaint: Constipation Stated Complaint: CONSTIPATED Time Seen by Provider: 03/30/20 10:08 Primary Care Provider: ELIZABETH UMANA DO [Primary Care Provider] - Follow up as needed TRAVEL OUTSIDE OF THE [place] IN LAST 30 DAYS: No - HPI Notes: Chief complaint: Chronic constipation History of present illness: 60-year-old female with multiple chronic medical problems followed by Dr. Umana presented today complaining of worsening chronic constipation. This lady has multiple chronic pain issues and is on long-term oral opiate therapy. Dr. Umana is been treating her with MiraLAX and Amitiza. She reports no bowel movement within the last 8 days. Abdomen is becoming distended and she is nauseated although she has had no vomiting and no fever. Past history of failed gastric bypass surgery. Among the problems we find listed in the medical chart are: Personality disorder, chronic pain syndrome, obesity, fibromyalgia, seizure disorder, diabetes mellitus type 2, obstructive sleep apnea syndrome and chronic opioid dependency. - Related Data Allergies/Adverse Reactions: silicone [Silicone] Allergy (Intermediate, Verified 03/30/20 10:12) REDNESS, RASH carbidopa [From Sinemet] Adverse Reaction (Severe, Verified 03/30/20 10:12) Cardiac arrest levodopa [From Sinemet] Adverse Reaction (Severe, Verified 03/30/20 10:12) Cardiac arrest bandaid Allergy (Uncoded 03/30/20 10:12) Home Medications: Hydrocodone. Miralax Past Medical History - General Information source: Patient, Friend - Social History Smoking Status: Never Smoker Chew tobacco use (# tins/day): No Frequency of alcohol use: None Drug Abuse: None Family History: Reviewed & Not Pertinent Patient has homicidal ideation: No - Past Medical History Cardiac Medical History: Reports: Hx Heart Attack - CARDIAC ARREST R/T DRUG REACTION(SINEMET), Hx Hypercholesterolemia Denies: Hx Hypertension Pulmonary Medical History: Reports: Hx Asthma, Hx Bronchitis, Hx Pneumonia - MARCH 2015, Hx Sleep Apnea - On home CPAP Denies: Hx COPD Neurological Medical History: Reports: Hx Cerebrovascular Accident, Hx Migraine, Hx Seizures - UNSURE OF ETIOLOGY, conversion disorder Endocrine Medical History: Reports: Hx Diabetes Mellitus Type 2 Renal/ Medical History: Reports: Hx Kidney Stones. Denies: Hx Peritoneal Dialysis GI Medical History: Reports: Hx Hiatal Hernia - DX 30 YEARS AGO, Hx Ulcer - after gastric bypass, surg repaired Musculoskeletal Medical History: Reports Hx Arthritis - OSTEOARTHRITIS, Reports Hx Fibromyalgia Psychiatric Medical History: Reports: Hx Anxiety, Hx Attention Deficit Hyperactivity Disorder, Hx Depression, Hx Personality Disorder, Hx Post Traumatic Stress Disorder Past Surgical History: Reports: Hx Abdominal Surgery - gastric bypass, Hx Cholecystectomy, Hx Gastric Bypass Surgery, Hx Hysterectomy, Hx Orthopedic Surgery - back/spinal surgery, Hx Tubal Ligation - Immunizations Immunizations up to date: Yes Hx Diphtheria, Pertussis, Tetanus Vaccination: Yes - up to date within last 5 yrs Hx Pneumococcal Vaccination: 03/31/14 Review of Systems - Review of Systems Notes: Constitutional: Negative for fever. HENT: Negative for sore throat. Eyes: Negative for visual changes. Cardiovascular: Negative for chest pain. Respiratory: Negative for shortness of breath. Gastrointestinal: As per HPI. Genitourinary: Negative for dysuria. Musculoskeletal: Chronic musculoskeletal pain. Skin: Negative for rash. Neurological: Chronic motor impairment of the lower extremities to the point she is restricted to an electric wheelchair at home. 10 point ROS negative except as marked above and in HPI. Physical Exam - Vital signs Vitals: Temp Pulse Resp BP Pulse Ox 97.4 F 81 16 146/90 H 96 03/30/20 09:30 03/30/20 09:30 03/30/20 09:30 03/30/20 09:30 03/30/20 09:30 - Notes Notes: GENERAL: Obese female of approximately stated age who appears chronically debilitated but in no acute distress. SKIN: Good turgor no rashes. HEAD: Normocephalic atraumatic. EYES: PERRLA. EOMI. Conjunctivae and sclerae clear. EARS: CANALS AND TMS CLEAR. NOSE: CLEAR. MOUTH: Moist mucosa. Good dentition. No stridor or edema. No drooling. NECK: Supple. No masses or thyromegaly. No adenopathy. Carotids 2+ without bruits. No JVD. BACK: Symmetrical without tenderness. CHEST: Respirations unlabored. Breath sounds clear and symmetrical. HEART: Regular rhythm. No murmur gallop or rub. ABDOMEN: Obese. Mildly distended. Mild tenderness left upper quadrant. Soft without masses, organomegaly or rebound. Bowel sounds normally active. No bruits. GENITALIA: Deferred. EXTREMITIES: No edema. No calf tenderness. Cap refill less than 1.5 seconds. Dorsalis pedis and posterior tibial pulses 3+ and symmetrical. NEUROLOGICAL: GCS 15. Alert and oriented x3. Mildly slurred speech which is her baseline according to her superintendent [employer]. Cranial nerves II through XII intact. Sensorimotor and cerebellar normal. Normal tone. PSYCHIATRIC: Flat affect. Course - Re-evaluation Re-evalutation: 03/30/20 12:29 CT scan was remarkable for large amount of retained stool and old surgical hardware present in the spine. No acute findings per radiologist. Urinalysis, CBC and comprehensive metabolic profile unremarkable. We will perform a manual disimpaction and administer mineral oil/soapsuds enema at this time. 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 03/30/20 14:06 Good results of enema and patient feels better. She is requesting discharge and I do feel this to be appropriate. She is directed continue usual medications follow-up with PMD and GI presales consultant as previously arranged. Findings, clinical impression and plan of treatment have been discussed with patient/family. Understanding of current findings and recommendations has been acknowledged by them and there is agreement regarding disposition and follow-up. - Vital Signs Vital signs: Temp Pulse Resp BP Pulse Ox 97.4 F 65 18 132/69 H 99 03/30/20 09:30 03/30/20 13:45 03/30/20 13:45 03/30/20 13:45 03/30/20 13:45 - Laboratory Result Diagrams: 03/30/20 11:10 03/30/20 11:10 Laboratory results interpreted by me: 03/30/20 03/30/20 03/30/20 11:10 11:10 11:30 RBC 3.65 L Hgb 11.2 L Hct 33.1 L RDW 14.7 H Creatinine 0.48 L ALT 45 H Urine Urobilinogen 2.0 H Discharge - Discharge Clinical Impression: Fecal impaction, Chronic constipation, Opiate dependence, continuous, Chronic pain syndrome Condition: Stable Disposition: HOME, SELF-CARE Additional Instructions: Continue current medications. Return here as needed for new or worsening symptoms. Follow-up within the next 1 week with your primary care physician. Referrals: ELIZABETH UMANA DO [Primary Care Provider] - Follow up as needed
[2020-03-30 11:26] LABS: ABSOLUTE BASOPHILS # (AUTO) 0.1 10^3/uL (0.0-0.2); ABSOLUTE EOSINOPHILS # (AUTO) 0.4 10^3/uL (0.0-0.6); ABSOLUTE LYMPHOCYTES (AUTO) 1.5 10^3/uL (0.5-4.7); ABSOLUTE MONOCYTES (AUTO) 0.7 10^3/uL (0.1-1.4); ABSOLUTE NEUT (AUTO) 5.9 10^3/uL (1.7-8.2); BASOPHILS % (AUTO) 0.8 % (0-2); EOSINOPHILS % (AUTO) 5.1 % (0-6); HEMATOCRIT 33.1 % (36.0-47.0); HEMOGLOBIN 11.2 g/dL (12.0-15.5); LYMPHOCYTES % (AUTO) 17.7 % (13-45); MEAN CORPUSCULAR HEMOGLOBIN 30.7 pg (27.0-33.4); MEAN CORPUSCULAR HGB CONC 33.9 g/dL (32.0-36.0); MEAN CORPUSCULAR VOLUME 91 fl (80-97); MONOCYTES % (AUTO) 8.5 % (3-13); PLATELET COUNT 221 10^3/uL (150-450); RED BLOOD COUNT 3.65 10^6/uL (3.72-5.28); RED CELL DISTRIBUTION WIDTH 14.7 % (11.5-14.0); SEGMENTED NEUTROPHILS % (AUTO) 67.9 % (42-78); TOTAL CELLS COUNTED % (AUTO) 100 %; WHITE BLOOD COUNT 8.6 10^3/uL (4.0-10.5)
[2020-03-30 11:44] LABS: ALBUMIN 3.9 g/dL (3.5-5.0); ALKALINE PHOSPHATASE 76 U/L (38-126); ANION GAP 7 (5-19); ASPARTATE AMINO TRANSFERASE 33 U/L (14-36); BILIRUBIN,DIRECT 0.3 mg/dL (0.0-0.4); BILIRUBIN,TOTAL 0.4 mg/dL (0.2-1.3); BLOOD UREA NITROGEN 16 mg/dL (7-20); CALCIUM 9.2 mg/dL (8.4-10.2); CARBON DIOXIDE 25 mmol/L (22-30); CHLORIDE 105 mmol/L (98-107); GLUCOSE 84 mg/dL (75-110); POTASSIUM 4.9 mmol/L (3.6-5.0); TOTAL PROTEIN 6.5 g/dL (6.3-8.2)
--- NOTE | 2020-03-30 12:02 | RADIOLOGY REPORT (SQ) ---
EXAM DESCRIPTION: CT ABD/PELVIS NO ORAL OR IV IMAGES COMPLETED DATE/TIME: 03/30/2020 10:21 am REASON FOR STUDY: Abdominal pain, diffuse. Previous hysterectomy and cholecystectomy. COMPARISON: 09/03/2019. TECHNIQUE: CT scan of the abdomen and pelvis performed without intravenous or oral contrast. Images reviewed with lung, soft tissue, and bone windows. Reconstructed coronal and sagittal MPR images revi ewed. All images stored on PACS. All CT scanners at this facility use dose modulation, iterative reconstruction, and/or weight based d osing when appropriate to reduce radiation dose to as low as reasonably achievable (ALARA). [facility]: Dose Right [facility]: CareDose [facility]: Dose Right [facility]: Teradose 4D [facility]: [employer] RADIATION DOSE: CT Rad equipment meets quality standard of care and radiation dose reduction techniq ues were employed. CTDIvol: 19.2 mGy. DLP: 1166 mGy-cm.mGy. LIMITATIONS: None. FINDINGS: LOWER CHEST: No significant findings. No nodules or infiltrates. NON-CONTRASTED LIVER, SPLEEN, ADRENALS: Limited evaluation due to lack of IV contrast. Liver has nor mal size and contour. Spleen has normal size. No adrenal mass. PANCREAS: No masses. No peripancreatic inflammatory changes. GALLBLADDER: Surgically absent. RIGHT KIDNEY AND URETER: No suspicious masses. Assessment limited by lack of IV contrast. No signif icant calcifications. No hydronephrosis or hydroureter. LEFT KIDNEY AND URETER: No suspicious masses. Assessment limited by lack of IV contrast. Couple of nonobstructing left inferior pole calculi. No obstructing renal or ureteral calculus. No hydroneph rosis or hydroureter. AORTA AND RETROPERITONEUM: No aneurysm. No retroperitoneal masses or adenopathy. BOWEL AND PERITONEAL CAVITY: Postoperative changes at the stomach suggestive of gastric bypass. Larg e amount of stool throughout the colon. No bowel obstruction. No bowel wall thickening. No mass or mass effect. No significant inflammatory change. No ascites or pneumoperitoneum. APPENDIX: Normal. PELVIS, BLADDER, AND ABDOMINAL WALL:Post hysterectomy. Chronic scarring at the posterior urinary beba dder, stable from prior. Calcified pelvic phleboliths. BONES: Posterior fusion T11-T12 without evidence of hardware complication. No suspicious bone lesion s. OTHER: No other significant finding. IMPRESSION: 1. Large amount of stool throughout the colon which can be seen with constipation. Clinical correlat ion. 2. Nonobstructing left renal calculi. No obstructing renal or ureteral calculus. 3. Postoperative changes T11-T12 without evidence of hardware complication. COMMENT: Quality ID # [id number]: Final reports with documentation of one or more dose reduction techniques (e.g., Automated exposure control, adjustment of the mA and/or kV according to patient size, use of iterative reconstruction technique) TECHNICAL DOCUMENTATION: JOB ID: [id number] 2010 [employer]- All Rights Reserved Reading location - IP/workstation name: [email or web address]
[2020-03-30 12:08] LABS: APPEARANCE,URINE CLEAR; BILIRUBIN,URINE NEGATIVE (NEGATIVE); COLOR,URINE YELLOW; GLUCOSE, URINE NEGATIVE (NEGATIVE); KETONES,URINE NEGATIVE (NEGATIVE); PROTEIN,URINE NEGATIVE (NEGATIVE)
[2020-03-30] MEDS ORDERED: MINERAL OIL 30 ML UDCUP PR ONE (12:23)
[2020-03-30 13:49] VITALS: BP 132/69
== END 2020-03-30 14:20 | disposition home or self-care (01) ==
LOC: ER 09:19
DX: K59.09 Other constipation (principal); G89.4 Chronic pain syndrome; R14.0 Abdominal distension (gaseous); R10.12 Left upper quadrant pain; R11.0 Nausea; Z88.8 Allergy status to other drugs, medicaments and biological substances; E66.9 Obesity, unspecified; I25.2 Old myocardial infarction; J45.909 Unspecified asthma, uncomplicated; E11.9 Type 2 diabetes mellitus without complications
CPT/HCPCS: 99285; 96360; 36415; 83690; 83735; 85025; 80053; 81001; 74176; A9270; J7030; J3490